=== PATIENT | male | born 1935 | race Caucasian/White ===

== ENCOUNTER 2021-07-19 12:24 | Inpatient (IN) ==
--- NOTE | 2021-07-19 12:27 | Emergency Department Note ---
Impression & Plan Acute respiratory failure with hypoxemia, COVID-19 ED Provider Note NAME: ÉHCTOR MCFADDEN AGE: 86 SEX: M : 1935 ARRIVES VIA: Ambulance INFORMANT: Patient, ED PROVIDER(S): Marcial Benito MD Chief Complaint: Weakness HPI: Patient does present with generalized weakness. EMS reported to find the patient hypoxic on room air. The patient has had a mild cough. The patient denies any fevers but was noted to be febrile in route. The patient has had decreased appetite. The patient is vaccinated for Covid and lives by himself. Patient does have a remote history of smoking but quit 15 years ago. The pat ient does use at home oxygen. The patient was placed on oxygen by EMS. No other abnormal vital signs other than mildly elevated heart rate at that time. Patient states he has no known history of COPD or emphysema. Patient denies any chest pains or abdominal pains. Patient denies any lower extremity swelling or history of DVT or PE. Patient denies any recent surgeries or procedures. ROS: See HPI for pertinent positives and negatives. A total of 10 systems were reviewed and otherwise negative. Past medical history: See below Surgical history: See below Social history: See below Physical Exam: GENERAL: Mildly ill in appearance, nasal cannula in place, wearing a mask. EYE EXAM: Normal conjunctiva. PERRL, no anisocoria and EOM's grossly intact w/o pain. NECK: Supple, no nuchal rigidity, no adenopathy, non-tender. No signs of meningismus. LUNGS: Diffuse wheezes throughout, slight decreased breath sounds right base. Normal chest wall mechanics. HEART: NSR, no MRG. ABDOMEN: Abdomen soft, non-tender, normo-active bowel sounds, no masses, no rebound or guarding. BACK: No CVA TTP. SKIN: No rashes and no bruising. UPPER EXTREMITIES: Upper extremities are grossly normal. LOWER EXTREMITIES: Grossly normal, no edema. NEURO EXAM: A&O x3, cranial nerves II-XII grossly intact, normal speech, moves all 4 extremities on command w/o issue. Differential diagnoses: Reactive airway disease, pneumonia, pneumothorax, COPD, CHF, infections, cardiac ischemia, pulmonary embolism, musculoskeletal, gastrointestinal, as well as other pathologies. Course: Patient was seen and evaluated the bedside. Full history physical exam was performed. Imaging Studies: See Below Cardiac monitoring: An order was placed for continuous cardiac monitoring. The monitor shows a rate of 95 with sinus rhythm. MDM: Patient was seen due to concern for hypoxemia and fever. Blood work is obtained. The patient was started on Zosyn for chest coverage. Patient was given antipyretics and IV fluids. The patient was also treated for his wheezing given his prior smoking history. Patient has normal white count with virtually normal hemoglobin at 13.7. Platelet count is unremarkable. The patient's kidney function grossly unremarkable. Mild hyperglycemia noted. AST slightly elevated at 52. The patient is Covid positive. Chest x-ray does not show obvious pneumonia. Given the patient's oxygen requirements with Covid do believe the patient would benefit from inpatient treatment at this time. I did speak the on-call hospitalist Jaimee Bowser and the patient was admitted to the [facility] medicine service by Dr. Knight. Critical Care: I have personally spent 57 minutes of critical care time in direct management of this patient. This includes bedside care, interpretation of diagnostic studies, and testing, discussion with consultants, patient, and family members, and other require inpatient management activities. This 57 minutes is in excess of all separately billable procedures. Past Med/Surg History Medical History (Updated 07/19/21 @ 15:54 by Marcial Benito MD) BPH (benign prostatic hyperplasia) Carotid artery disease Carotid ultrasound on 03/31/2021 revealed right internal carotid 70 to 99% critical stenosis, left internal carotid 50 to 69% stenosis GERD (gastroesophageal reflux disease) High cholesterol Hypertension T2DM (type 2 diabetes mellitus) Surgical History (Updated 07/19/21 @ 14:35 by Jaimee Canales PA-C) History of cataract extraction History of cholecystectomy History of knee replacement, total History of right hip replacement Family History (Updated 07/19/21 @ 14:35 by Jaimee Canales PA-C) Brother Colorectal cancer Father Black lung Social History (Updated 07/19/21 @ 14:35 by Jaimee Canales PA-C) Smoking Status: Former smoker Hx Alcohol Use: Yes Alcohol type: beer Alcohol Intake Frequency: Monthly or Less Preferred Language: Honduran marital status: / current occupational status: retired current occupation: [employer] Feels Safe at Home: Yes Allergies Allergies Allergy/AdvReac Type Severity Reaction Status Date / Time propoxyphene Allergy Unknown NAUSEA Verified 07/19/21 13:31 AND VOMITING Home Meds Home Medications Medication Instructions Recorded Confirmed atorvastatin 80 mg tablet (Lipitor) 40 mg PO DAILY 10/05/19 07/19/21 finasteride 5 mg tablet 5 mg PO DAILY 10/05/19 07/19/21 omeprazole 20 mg capsule,delayed 20 mg PO DAILY 10/05/19 07/19/21 release tamsulosin 0.4 mg capsule 0.4 mg PO HS 10/05/19 07/19/21 cetirizine 10 mg tablet 10 mg PO DAILY 10/08/19 07/19/21 amlodipine 5 mg tablet 5 mg PO DAILY 07/19/21 07/19/21 aspirin 81 mg chewable tablet 81 mg PO DAILY 07/19/21 07/19/21 (Aspirin Childrens) calcium polycarbophil 625 mg tablet 625 mg PO DAILY 07/19/21 07/19/21 cholecalciferol (vitamin D3) 25 2,550 mcg PO DAILY 07/19/21 07/19/21 mcg (1,000 unit) tablet (Vitamin D3) cyanocobalamin (vitamin B-12) 500 500 mcg PO DAILY 07/19/21 07/19/21 mcg tablet fluticasone propionate 50 2 spray INTRANASAL DAILY 07/19/21 07/19/21 mcg/actuation nasal spray,suspension lisinopril 20 mg tablet 20 mg PO BID 07/19/21 07/19/21 Results & Data (ED) Vital Signs Vital Signs - 24 hr 07/19/21 12:33 07/19/21 12:53 07/19/21 13:00 Temperature Temperature Source Pulse Rate 96 H 92 H Pulse Rate [Right Finger] 92 H Pulse Rate from SpO2 Sensor 94 H 88 Respiratory Rate 13 26 H Respiratory Effort / Characteristics Non-Labored Spontaneous Spontaneous Respiratory Depth Respiratory Pattern Blood Pressure 150/99 H 144/78 H Blood Pressure Mean 116 100 Pulse Oximetry 95 87 L 95 Oxygen Delivery Method Nasal Cannula Room Air Nasal Cannula Oxygen Flow Rate 4 4 Sepsis Recent Fever Within 48 Hours Sepsis New/Unexplained Change in Mental Status Sepsis Action Taken by Nursing 07/19/21 13:02 07/19/21 13:15 07/19/21 13:30 Temperature 38.8 C H Temperature Source Oral Pulse Rate 111 H 97 H 94 H Pulse Rate [Right Finger] Pulse Rate from SpO2 Sensor 89 94 H Respiratory Rate 22 35 H 27 H Respiratory Effort / Characteristics Non-Labored Spontaneous Respiratory Depth Normal Respiratory Pattern Regular Blood Pressure 130/66 129/73 Blood Pressure Mean 87 91 Pulse Oximetry 95 93 93 Oxygen Delivery Method Room Air Nasal Cannula Nasal Cannula Oxygen Flow Rate 4 4 4 Sepsis Recent Fever Within 48 Hours Yes Sepsis New/Unexplained Change in Mental Status No Sepsis Action Taken by Nursing No Action Required 07/19/21 13:45 07/19/21 14:00 07/19/21 14:15 Temperature Temperature Source Pulse Rate 103 H 102 H 116 H Pulse Rate [Right Finger] Pulse Rate from SpO2 Sensor 72 85 89 Respiratory Rate 24 33 H 32 H Respiratory Effort / Characteristics Respiratory Depth Respiratory Pattern Blood Pressure 132/67 132/65 130/61 Blood Pressure Mean 88 87 84 Pulse Oximetry 92 92 92 Oxygen Delivery Method Nasal Cannula Nasal Cannula Nasal Cannula Oxygen Flow Rate 4 4 4 Sepsis Recent Fever Within 48 Hours Sepsis New/Unexplained Change in Mental Status Sepsis Action Taken by Nursing 07/19/21 14:30 07/19/21 14:45 07/19/21 15:00 Temperature Temperature Source Pulse Rate 88 89 99 H Pulse Rate [Right Finger] Pulse Rate from SpO2 Sensor 86 89 87 Respiratory Rate 33 H 35 H 34 H Respiratory Effort / Characteristics Respiratory Depth Respiratory Pattern Blood Pressure 123/66 132/72 141/76 H Blood Pressure Mean 85 92 97 Pulse Oximetry 93 93 92 Oxygen Delivery Method Nasal Cannula Nasal Cannula Nasal Cannula Oxygen Flow Rate 4 4 4 Sepsis Recent Fever Within 48 Hours Sepsis New/Unexplained Change in Mental Status Sepsis Action Taken by Nursing 07/19/21 15:15 07/19/21 15:30 Temperature Temperature Source Pulse Rate 86 90 Pulse Rate [Right Finger] Pulse Rate from SpO2 Sensor 84 84 Respiratory Rate 18 27 H Respiratory Effort / Characteristics Respiratory Depth Respiratory Pattern Blood Pressure 98/74 L 143/78 H Blood Pressure Mean 82 99 Pulse Oximetry 94 94 Oxygen Delivery Method Nasal Cannula Nasal Cannula Oxygen Flow Rate 4 4 Sepsis Recent Fever Within 48 Hours Sepsis New/Unexplained Change in Mental Status Sepsis Action Taken by Detention Medications Current Medication List: was personally reviewed by me Laboratory Data Attestation: I reviewed the patient's lab results. Result diagrams: 07/19/21 12:45 07/19/21 12:45 Lab Results 07/19/21 07/19/21 07/19/21 Range/Units 12:45 12:45 12:45 WBC 8.01 (4.8-10.8) K/uL RBC 4.15 L (4.7-6.1) M/uL Hgb 13.7 L (14.0-18.0) g/dL Hct 40.1 L (42-52) % MCV 96.6 (80-100) fL MCH 33.0 (25-34) pg MCHC 34.2 (32-36) g/dL RDW Std Deviation 48.6 H (36.4-46.3) fL RDW Coeff of Aneta 13.6 (11.5-14.5) % Plt Count 239 (130-400) K/uL MPV 9.5 (7.4-10.4) fL Immature Gran % (Auto) 3.5 % Neut % (Auto) 88.4 % Lymph % (Auto) 6.4 % Clarke % (Auto) 1.6 % Eos % (Auto) 0.0 % Baso % (Auto) 0.1 % Neut # (Auto) 7.08 H (1.4-6.5) K/uL Lymph # (Auto) 0.51 L (1.2-3.4) K/uL Clarke # (Auto) 0.13 (0.11-0.59) K/uL Eos # (Auto) 0.00 (0-0.5) K/uL Baso # (Auto) 0.01 (0-0.2) K/uL Immature Gran # (Auto) 0.28 H (0.00-0.02) K/uL Toxic Granulation 1+ PT 11.5 (9.0-12.0) Seconds INR 1.1 (0.9-1.1) APTT 33.3 H (21.0-31.0) Seconds PTT Ratio 1.3 Sodium 137 (136-145) mmol/L Potassium 3.7 (3.5-5.1) mmol/L Chloride 102 (98-107) mmol/L Carbon Dioxide 25 (21-32) mmol/L Anion Gap 10.0 (3-11) BUN 19 H (7-18) mg/dl Creatinine 1.39 (0.6-1.4) mg/dl Est Cr Clr Drug Dosing 46.8 ml/min Est GFR ( Amer) 52.8 ml/min Est GFR (Non-Af Amer) 45.6 ml/min BUN/Creatinine Ratio 13.6 (10-20) Glucose 213 H (70-99) mg/dl Lactate (0.4-2.0) mmol/L Calcium 8.5 (8.5-10.1) mg/dl Magnesium 1.8 (1.8-2.4) mg/dl Total Bilirubin 0.6 (0.2-1) mg/dl AST 52 H (15-37) U/L ALT 44 (12-78) U/L Alkaline Phosphatase 74 (45-117) U/L Troponin I 0.028 (0-0.045) ng/ml Total Protein 7.1 (6.4-8.2) gm/dl Albumin 2.6 L (3.4-5.0) gm/dl Globulin 4.5 H (2.5-4.0) gm/dl Albumin/Globulin Ratio 0.6 L (0.9-2) Procalcitonin (0-0.5) ng/ml COVID-19 Eval Order SARS-CoV-2 (PCR) (Negative) 07/19/21 07/19/21 07/19/21 Range/Units 12:45 12:45 12:57 WBC (4.8-10.8) K/uL RBC (4.7-6.1) M/uL Hgb (14.0-18.0) g/dL Hct (42-52) % MCV (80-100) fL MCH (25-34) pg MCHC (32-36) g/dL RDW Std Deviation (36.4-46.3) fL RDW Coeff of Aneta (11.5-14.5) % Plt Count (130-400) K/uL MPV (7.4-10.4) fL Immature Gran % (Auto) % Neut % (Auto) % Lymph % (Auto) % Clarke % (Auto) % Eos % (Auto) % Baso % (Auto) % Neut # (Auto) (1.4-6.5) K/uL Lymph # (Auto) (1.2-3.4) K/uL Clarke # (Auto) (0.11-0.59) K/uL Eos # (Auto) (0-0.5) K/uL Baso # (Auto) (0-0.2) K/uL Immature Gran # (Auto) (0.00-0.02) K/uL Toxic Granulation PT (9.0-12.0) Seconds INR (0.9-1.1) APTT (21.0-31.0) Seconds PTT Ratio Sodium (136-145) mmol/L Potassium (3.5-5.1) mmol/L Chloride (98-107) mmol/L Carbon Dioxide (21-32) mmol/L Anion Gap (3-11) BUN (7-18) mg/dl Creatinine (0.6-1.4) mg/dl Est Cr Clr Drug Dosing ml/min Est GFR ( Amer) ml/min Est GFR (Non-Af Amer) ml/min BUN/Creatinine Ratio (10-20) Glucose (70-99) mg/dl Lactate 1.3 (0.4-2.0) mmol/L Calcium (8.5-10.1) mg/dl Magnesium (1.8-2.4) mg/dl Total Bilirubin (0.2-1) mg/dl AST (15-37) U/L ALT (12-78) U/L Alkaline Phosphatase (45-117) U/L Troponin I (0-0.045) ng/ml Total Protein (6.4-8.2) gm/dl Albumin (3.4-5.0) gm/dl Globulin (2.5-4.0) gm/dl Albumin/Globulin Ratio (0.9-2) Procalcitonin 0.21 (0-0.5) ng/ml COVID-19 Eval Order Covid19 at [facility] SARS-CoV-2 (PCR) (Negative) 07/19/21 Range/Units 12:57 WBC (4.8-10.8) K/uL RBC (4.7-6.1) M/uL Hgb (14.0-18.0) g/dL Hct (42-52) % MCV (80-100) fL MCH (25-34) pg MCHC (32-36) g/dL RDW Std Deviation (36.4-46.3) fL RDW Coeff of Aneta (11.5-14.5) % Plt Count (130-400) K/uL MPV (7.4-10.4) fL Immature Gran % (Auto) % Neut % (Auto) % Lymph % (Auto) % Clarke % (Auto) % Eos % (Auto) % Baso % (Auto) % Neut # (Auto) (1.4-6.5) K/uL Lymph # (Auto) (1.2-3.4) K/uL Clarke # (Auto) (0.11-0.59) K/uL Eos # (Auto) (0-0.5) K/uL Baso # (Auto) (0-0.2) K/uL Immature Gran # (Auto) (0.00-0.02) K/uL Toxic Granulation PT (9.0-12.0) Seconds INR (0.9-1.1) APTT (21.0-31.0) Seconds PTT Ratio Sodium (136-145) mmol/L Potassium (3.5-5.1) mmol/L Chloride (98-107) mmol/L Carbon Dioxide (21-32) mmol/L Anion Gap (3-11) BUN (7-18) mg/dl Creatinine (0.6-1.4) mg/dl Est Cr Clr Drug Dosing ml/min Est GFR ( Amer) ml/min Est GFR (Non-Af Amer) ml/min BUN/Creatinine Ratio (10-20) Glucose (70-99) mg/dl Lactate (0.4-2.0) mmol/L Calcium (8.5-10.1) mg/dl Magnesium (1.8-2.4) mg/dl Total Bilirubin (0.2-1) mg/dl AST (15-37) U/L ALT (12-78) U/L Alkaline Phosphatase (45-117) U/L Troponin I (0-0.045) ng/ml Total Protein (6.4-8.2) gm/dl Albumin (3.4-5.0) gm/dl Globulin (2.5-4.0) gm/dl Albumin/Globulin Ratio (0.9-2) Procalcitonin (0-0.5) ng/ml COVID-19 Eval Order SARS-CoV-2 (PCR) POSITIVE A* (Negative) Administered Medications Discontinued Medications Acetaminophen (Acetaminophen 500 Mg Tab) 1,000 mg PO NOW STA Stop: 07/19/21 14:38 Last Admin: 07/19/21 15:06 Dose: 1,000 mg Documented by: [id number] Albuterol (Albut/Ipratrop 3mg/0.5mg Neb 3 Ml Vial) 6 ml NEB NOW STA Stop: 07/19/21 12:40 Last Admin: 07/19/21 13:00 Dose: 6 ml Documented by: [id number] Sodium Chloride (Nss 1000ml) 1,000 mls @ 999 mls/hr IV .Q1H1M BERTRAND Stop: 07/19/21 13:45 Last Infusion: 07/19/21 13:54 Dose: 0 mls/hr Documented by: [id number] Admin: 07/19/21 12:50 Dose: 999 mls/hr Documented by: [id number] Piperacillin Sod/Tazobactam Sod (Zosyn) 4.5 gm in 120 mls @ 240 mls/hr IV NOW ONE Stop: 07/19/21 13:08 Last Infusion: 07/19/21 14:39 Dose: 0 mls/hr Documented by: [id number] Admin: 07/19/21 13:49 Dose: 240 mls/hr Documented by: [id number] Magnesium Sulfate/Dextrose (Magnesium Sulfate / D5w) 1 gm in 100 mls @ 100 mls/hr IV NOW STA Stop: 07/19/21 13:39 Last Infusion: 07/19/21 14:52 Dose: 0 mls/hr Documented by: [id number] Admin: 07/19/21 13:49 Dose: 100 mls/hr Documented by: [id number] Methylprednisolone (Methylprednisolone 40 Mg/Ml Vial) 40 mg IV NOW STA Stop: 07/19/21 12:40 Last Admin: 07/19/21 13:49 Dose: 40 mg Documented by: [id number] Imaging Data Radiologist's Impression: Chest X-Ray 07/19/21 12:39 XR chest 1V portable HISTORY: SEPSIS COMPARISON: None. FINDINGS: No pneumothorax. No pleural effusions. The heart is mildly enlarged. Left basilar linear densities favor subsegmental atelectasis or scarring. No evidence for pulmonary edema. Slight prominence of interstitial markings within the right lung. Otherwise, no focal lung consolidations. Mild emphysema. IMPRESSION: 1. Cardiomegaly. 2. Emphysema. 3. Slight prominence of the interstitial markings within the right lung. This could be chronic or represent mild asymmetric congestive change. ACT 112: Negative or not required by law. Electronically signed by: Michael Pierce M.D. 07/19/2021 2:53 PM Discharge Plan Visit Data Chief Complaint: Weakness ED Provider: Marcial Benito Discharge Problem: Acute respiratory failure with hypoxemia, COVID-19 Patient Disposition: Admitted As Inpatient Forms Stand Alone Forms: [facility] Prescriptions Prescriptions: No Action atorvastatin [Lipitor] 80 mg tablet 40 mg PO DAILY RF: 0 finasteride 5 mg tablet 5 mg PO DAILY RF: 0 omeprazole 20 mg capsule,delayed release(DR/EC) 20 mg PO DAILY RF: 0 tamsulosin 0.4 mg capsule 0.4 mg PO HS RF: 0 cetirizine 10 mg tablet 10 mg PO DAILY RF: 0 amlodipine 5 mg Tablet 5 mg PO DAILY RF: 0 cyanocobalamin (vitamin B-12) 500 mcg Tablet 500 mcg PO DAILY RF: 0 aspirin [Aspirin Childrens] 81 mg Tablet,Chewable 81 mg PO DAILY RF: 0 cholecalciferol (vitamin D3) [Vitamin D3] 25 mcg (1,000 unit) Tablet 2,550 mcg PO DAILY RF: 0 lisinopril 20 mg Tablet 20 mg PO BID RF: 0 calcium polycarbophil 625 mg Tablet 625 mg PO DAILY RF: 0 fluticasone propionate [Flonase] 50 mcg/actuation [place],Suspension 2 spray INTRANASAL DAILY RF: 0 Referrals Referrals: Riya Steele, [Primary Care Provider] -
[2021-07-19] MEDS ORDERED: ALBUT/IPRATROP 3MG/0.5MG NEB 3 ML VIAL NEB STA (12:39)
[2021-07-19] MEDS ORDERED: PIPERACILL/TAZOBAC CONSULT ACTIVE PRN (12:39)
[2021-07-19] MEDS ORDERED: PIPERACILLIN/TAZOBACTAM 4.5 GM/120 ML BAG IV ONE (12:39)
[2021-07-19] MEDS ORDERED: MAGNESIUM SULFATE / D5W 1 GM/100 ML BAG IV STA (12:40)
[2021-07-19] MEDS ORDERED: SODIUM CHLORIDE 0.9% 1000ML 1,000 ML IV SCH (12:45)
[2021-07-19 13:09] LABS: Hematocrit (blood only) 40.1 % (42-52); Hemoglobin 13.7 g/dL (14.0-18.0); Mean Corpuscular Hgb Conc 34.2 g/dL (32-36); Mean Corpuscular Volume 96.6 fL (80-100); Mean Platelet Volume 9.5 fL (7.4-10.4); Platelet Count 239 K/uL (130-400); RDW Coefficient of Variation 13.6 % (11.5-14.5); RDW Standard Deviation 48.6 fL (36.4-46.3); Red Blood Count 4.15 M/uL (4.7-6.1); White Blood Count 8.01 K/uL (4.8-10.8)
[2021-07-19 13:19] LABS: INR 1.1 (0.9-1.1); Partial Thromboplastin Ratio 1.3; Partial Thromboplastin Time 33.3 Seconds (21.0-31.0); Prothrombin Time 11.5 Seconds (9.0-12.0)
[2021-07-19 13:27] LABS: Albumin Level 2.6 gm/dl (3.4-5.0); BUN Creatinine Ratio 13.6 (10-20); Calcium 8.5 mg/dl (8.5-10.1); Creatinine Clr Calc Pharmacy 46.8 ml/min; Est GFR (African American) 52.8 ml/min; Est GFR (Non-African American) 45.6 ml/min; Magnesium 1.8 mg/dl (1.8-2.4); Potassium 3.7 mmol/L (3.5-5.1)
[2021-07-19 13:32] LABS: Albumin Globulin Ratio 0.6 (0.9-2); Bilirubin,Total 0.6 mg/dl (0.2-1); Globulin 4.5 gm/dl (2.5-4.0); Total Protein 7.1 gm/dl (6.4-8.2); Troponin I 0.028 ng/ml (0-0.045)
[2021-07-19 14:06] LABS: Basophils # (auto) 0.01 K/uL (0-0.2); Basophils % (auto) 0.1 %; Immature Granulocytes # (auto) 0.28 K/uL (0.00-0.02); Immature Granulocytes % (auto) 3.5 %; Lymphocytes # (auto) 0.51 K/uL (1.2-3.4); Lymphocytes % (auto) 6.4 %; Monocytes # (auto) 0.13 K/uL (0.11-0.59); Monocytes % (auto) 1.6 %; Neutrophils # (auto) 7.08 K/uL (1.4-6.5); Neutrophils % (auto) 88.4 %; Toxic Granulation 1+
[2021-07-19] MEDS ORDERED: ACETAMINOPHEN 500 MG TAB PO STA (14:37)
--- NOTE | 2021-07-19 14:38 | History & Physical Report ---
Date of Service July 19, 2021 Assessment & Plan (1) COVID-19: Plan: Emphysema and slight prominence of interstitial markings noted on chest x-ray without sasha pneumonia. Patient is Covid positive and is clearly presenting with Covid pneumonia symptoms including respiratory symptoms, fatigue and hypoxia. With his current oxygen requirement will continue with steroid therapy started in the ER and will also load him with remdesivir with daily infusions starting tomorrow. Continue supportive care efforts and prone patient when able. (2) Hypoxia: Plan: Continue supportive care as above. For questionable pulmonary edema we will give a small dose of Lasix as patient is Lasix teena and monitor response with strict I's and O's. He is not hypervolemic and is not presenting with a heart failure type syndrome at this point. It appears the hypoxia is generally related to a viral respiratory illness, deconditioning. (3) TOMMY (acute kidney injury): Plan: Mild acute kidney injury present. Despite this we will try a small dose of Lasix in the setting of hypoxia with congestive change seen on chest x-ray. BMP in a.m. Patient refused Helms catheter. (4) T2DM (type 2 diabetes mellitus): Plan: Pharmacy for hyperglycemic management with insulin as needed. (5) Hypertension: Plan: Blood pressure slightly up, continue lisinopril twice daily per home regimen, monitor creatinine closely (6) Carotid artery disease: Plan: Continue medical management including aspirin, atorvastatin, lisinopril per home regimen. (7) DVT prophylaxis: Plan: Lovenox DNR/DNI as instructed by his [id number] who tells me she is the medical power of bingo caller along with his son, her Patient also was in agreement with this Disposition-came from home, may need therapy, to covid unit Allison Knight DO [facility] Hospitalist History of Present Illness Chief Complaint: not feeling well for 2 days, +cough, low O2 and weakness Primary Care Provider: Riya Steele DO The patient is an 86-year-old man seen by Dr. Steele at [facility] clinic today for reports of a 5-day history of generalized weakness, worsened appetite, elevated blood sugars, and chills. Pulse ox on triage was 85% on room air which increased to 90% on 4 L via nasal cannula. He was sent to the ER for ongoing evaluation of hypoxia and generalized weakness. Upon arrival he was found to be 87% on room air and was placed again on 4 L nasal cannula. He is febrile with a temp of 39 C and a pulse of 103. Lab work reveals no evidence of leukocytosis, normal H&H, normal coags, normal chemistry with a mild TOMMY. Creatinine is 1.4 with a baseline creatinine of 1.0 upon outpatient record review. He is mildly hyperglycemic at 213 and has a history of type 2 diabetes. He appears to be diet controlled. Last hemoglobin A1c was in January 2021 was 7.2. He has positive for Covid reporting a vaccination previously. He received a 2 dose series and return on 12/22/2020 and again on 01/19/2021. Allergies Allergy/AdvReac Type Severity Reaction Status Date / Time propoxyphene Allergy Unknown NAUSEA Verified 07/19/21 13:31 AND VOMITING Home Medications Medication Instructions Recorded Confirmed Type atorvastatin 80 mg tablet (Lipitor) 40 mg PO DAILY 10/05/19 07/19/21 History finasteride 5 mg tablet 5 mg PO DAILY 10/05/19 07/19/21 History omeprazole 20 mg capsule,delayed 20 mg PO DAILY 10/05/19 07/19/21 History release tamsulosin 0.4 mg capsule 0.4 mg PO HS 10/05/19 07/19/21 History cetirizine 10 mg tablet 10 mg PO DAILY 10/08/19 07/19/21 History amlodipine 5 mg tablet 5 mg PO DAILY 07/19/21 07/19/21 History aspirin 81 mg chewable tablet 81 mg PO DAILY 07/19/21 07/19/21 History (Aspirin Childrens) calcium polycarbophil 625 mg tablet 625 mg PO DAILY 07/19/21 07/19/21 History cholecalciferol (vitamin D3) 25 2,550 mcg PO DAILY 07/19/21 07/19/21 History mcg (1,000 unit) tablet (Vitamin D3) cyanocobalamin (vitamin B-12) 500 500 mcg PO DAILY 07/19/21 07/19/21 History mcg tablet fluticasone propionate 50 2 spray INTRANASAL DAILY 07/19/21 07/19/21 History mcg/actuation nasal spray,suspension lisinopril 20 mg tablet 20 mg PO BID 07/19/21 07/19/21 History Past Med/Surg History Medical History BPH (benign prostatic hyperplasia) Carotid artery disease Carotid ultrasound on 03/31/2021 revealed right internal carotid 70 to 99% critical stenosis, left internal carotid 50 to 69% stenosis GERD (gastroesophageal reflux disease) High cholesterol Hypertension T2DM (type 2 diabetes mellitus) Surgical History History of cataract extraction History of cholecystectomy History of knee replacement, total History of right hip replacement Family History Brother Colorectal cancer Father Black lung Social History Smoking Status: Former smoker Second Hand Exposure: No; Do You Dip or Chew Tobacco: No; Tobacco Cessation Education Requested by Patient: No Hx Alcohol Use: Yes Alcohol type: beer Alcohol Intake Frequency: Monthly or Less Hx Substance Use: No Preferred Language: Lithuanian Communication Ability: Effective Hand Laminator Required: No Beliefs That Will Affect Care: None marital status: / Current Living Situation: Alone Current Living Situation Comment: Home, Independent current occupational status: retired current occupation: [employer] Other Information That Helps Us Care for You: No Feels Safe at Home: Yes Safety Concerns: Feels Safe At This Time Assistive Devices: Cane and Denture - Upper Review of Systems Review of Systems: At least ten systems were reviewed and negative except as indicated in HPI above. Physical Exam Physical Exam: CONSTITUTIONAL: WNWD, vitals as above, generally well-ap pearing EYES: EOMI bilaterally, PERRL, normal conjunctivae, no scleral icterus ENT: external ear and nose normal, oropharynx clear, MMM NECK: trachea midline, no lymphadenopathy RESPIRATORY: fine crackles intermittently throughout, no rales or wheezes, normal respiratory effort CARDIOVASCULAR: regular rate and rhythm, S1 and 2 heard without murmurs, gallops or rubs, no JVD, no peripheral edema GASTROINTESTINAL: soft, nontender, nondistended. MUSCULOSKELETAL: strength 5/5 throughout, head is normocephalic and atraumatic SKIN: warm and dry NEUROLOGIC: CN 2-12 grossly intact, no sensory deficit, normal cognition, normal speech, no tremor. No gross focal deficits. PSYCHIATRIC: alert cooperative and oriented to person, place and time. Euthymic mood, makes good eye contact, language grossly intact, recent and remote memory grossly intact. Results & Data Results & Data ([facility]) Vital Signs (Past 12 Hours) Vital Signs Temp Pulse Pulse Resp BP Pulse Ox 07/19/21 13:45 103 H 24 132/67 92 07/19/21 13:30 94 H 27 H 129/73 93 07/19/21 13:15 97 H 35 H 130/66 93 07/19/21 13:02 38.8 C H 111 H 22 95 07/19/21 13:00 92 H 92 H 26 H 144/78 H 95 07/19/21 12:53 87 L 07/19/21 12:33 96 H 13 150/99 H 95 Laboratory Results Short CBC 07/19/21 Range/Units 12:45 WBC 8.01 (4.8-10.8) K/uL Hgb 13.7 L (14.0-18.0) g/dL Hct 40.1 L (42-52) % Plt Count 239 (130-400) K/uL BMP 07/19/21 12:45 Sodium 137 Potassium 3.7 Chloride 102 Carbon Dioxide 25 BUN 19 H Creatinine 1.39 Glucose 213 H Calcium 8.5 Cardiac Enzymes 07/19/21 Range/Units 12:45 Troponin I 0.028 (0-0.045) ng/ml Liver Function 07/19/21 Range/Units 12:45 Total Bilirubin 0.6 (0.2-1) mg/dl AST 52 H (15-37) U/L ALT 44 (12-78) U/L Alkaline Phosphatase 74 (45-117) U/L Albumin 2.6 L (3.4-5.0) gm/dl Code Status & VTE Plan VTE Prophylaxis Plan VTE Prophylaxis will be ordered: Yes
--- NOTE | 2021-07-19 14:55 | XRay Report ---
XR chest 1V portable HISTORY: SEPSIS COMPARISON: None. FINDINGS: No pneumothorax. No pleural effusions. The heart is mildly enlarged. Left basilar linear de nsities favor subsegmental atelectasis or scarring. No evidence for pulmonary edema. Slight prominenc e of interstitial markings within the right lung. Otherwise, no focal lung consolidations. Mild emphy sema. IMPRESSION: 1. Cardiomegaly. 2. Emphysema. 3. Slight prominence of the interstitial markings within the right lung. This could be chronic or rep resent mild asymmetric congestive change. ACT 112: Negative or not required by law. Electronically signed by: Michael Pierce M.D. 07/19/2021 2:53 PM
[2021-07-19] MEDS ORDERED: FUROSEMIDE 40 MG/4 ML VIAL IV STA (15:43)
[2021-07-19] MEDS ORDERED: REMDESIVIR 200 MG in SODIUM CHLORIDE 0.9% 210 ML IV STA (15:45)
[2021-07-19] MEDS ORDERED: CARBOHYDRATES FOR HYPOGLYCEMIA PO PRN (16:35)
[2021-07-19] MEDS ORDERED: ALUMINUM/MAGNESIUM SUSP 30 ML UDC PO PRN (16:35)
[2021-07-19] MEDS ORDERED: POLYETHYLENE (MIRALAX) 17 GM PACK PO PRN (16:35)
[2021-07-19] MEDS ORDERED: BENZONATATE 100 MG CAPSULE PO PRN (16:35)
[2021-07-19] MEDS ORDERED: GLUCOSE 10 TABS/TUBE PO PRN (16:35)
[2021-07-19] MEDS ORDERED: GLUCOSE 40% GEL 15 GM TUBE PO PRN (16:35)
[2021-07-19] MEDS ORDERED: PHARMACY GLYCEMIC MGMT CONSULT PRN (16:35)
[2021-07-19] MEDS ORDERED: DEXTROSE 50% 50 ML SYRINGE IV PRN (16:35)
[2021-07-19] MEDS ORDERED: GLUCAGON FOR INJ 1 MG VIAL SQ PRN (16:35)
[2021-07-19] MEDS ORDERED: ONDANSETRON INJ 2 MG/ML 2 ML VIAL IV PRN (16:35)
[2021-07-19] MEDS ORDERED: MAGNESIUM HYDROXIDE SUSP 30 ML UDC PO PRN (16:35)
[2021-07-19] MEDS ORDERED: ALBUTEROL HFA 8 GM INHALER INH SCH (17:00)
[2021-07-19] MEDS ORDERED: INSULIN HUMAN NPH SC ONE (17:15)
[2021-07-19 18:21] LABS: Appearance Urine Cloudy (Clear); Bilirubin Urine Negative (Negative); Blood Urine Negative (Negative); Color Urine Dark Yellow; Epithelial Cell Urine Auto >30 /lpf (0-5); Glucose Urine UA 1+ (Negative); Ketones Urine 1+ (Negative); Leukocyte Esterase Urine Negative (Negative); Nitrite Urine Negative (Negative); Protein Urine 1+ (Negative); Specific Gravity Urine 1.021 (1.000-1.030); Urobilinogen Urine Negative (Negative); pH Urine 5.5 (4.5-7.5)
[2021-07-19] MEDS: INSULIN ASPART 100 UNITS/ML 3 ML PEN SC SCH ×2 (18:21→21:12)
[2021-07-19 18:35] LABS: Bacteria Urine Automated 1+ (Negative); Mucus Urine Present (None Prsent); RBC Urine Automated 0-4 /hpf (0-4)
[2021-07-19] MEDS: ENOXAPARIN INJ 40 MG/0.4 ML SYR SQ SCH (20:02)
[2021-07-19] MEDS: lisinopril 20 MG TAB PO SCH (20:03)
[2021-07-19] MEDS: TAMSULOSIN HCL 0.4 MG CAP PO SCH (20:04)
[2021-07-19] MEDS: ALBUTEROL HFA 8 GM INHALER INH SCH (20:12)
[2021-07-19] MEDS ORDERED: INSULIN GLARGINE SOLOSTAR 100 UNITS/ML 3 ML PEN SC SCH (21:00)
[2021-07-20] MEDS: INSULIN ASPART 100 UNITS/ML 3 ML PEN SC SCH ×6 (00:03→22:15)
--- NOTE | 2021-07-20 06:17 | Electrocardiogram Report ---
Test Reason : Blood Pressure : / mmHG Vent. Rate : 100 BPM Atrial Rate : 100 BPM P-R Int : 170 ms QRS Dur : 142 ms QT Int : 370 ms P-R-T Axes : 046 -68 013 degrees QTc Int : 477 ms Sinus rhythm with Premature atrial complexes Right bundle branch block Left anterior fascicular block Bifascicular block Abnormal ECG No previous ECGs available Confirmed by Luis Ojeda ([id number]) on 07/20/2021 6:16:58 AM Referred By: REFERRED SELF Confirmed By:Luis Ojeda
[2021-07-20 07:01] LABS: Hematocrit (blood only) 39.2 % (42-52); Hemoglobin 13.1 g/dL (14.0-18.0); Mean Corpuscular Hgb Conc 33.4 g/dL (32-36); Mean Corpuscular Volume 95.8 fL (80-100); Mean Platelet Volume 9.6 fL (7.4-10.4); Platelet Count 249 K/uL (130-400); RDW Coefficient of Variation 13.7 % (11.5-14.5); RDW Standard Deviation 48.3 fL (36.4-46.3); Red Blood Count 4.09 M/uL (4.7-6.1); White Blood Count 8.83 K/uL (4.8-10.8)
[2021-07-20 07:33] LABS: Immature Granulocytes # (auto) 0.15 K/uL (0.00-0.02); Immature Granulocytes % (auto) 1.7 %; Lymphocytes # (auto) 0.85 K/uL (1.2-3.4); Lymphocytes % (auto) 9.6 %; Monocytes # (auto) 0.08 K/uL (0.11-0.59); Monocytes % (auto) 0.9 %; Neutrophils # (auto) 7.75 K/uL (1.4-6.5); Neutrophils % (auto) 87.8 %; Toxic Granulation 1+
[2021-07-20 07:37] LABS: Albumin Level 2.1 gm/dl (3.4-5.0); BUN Creatinine Ratio 21.4 (10-20); Calcium 8.6 mg/dl (8.5-10.1); Creatinine Clr Calc Pharmacy 70.4 ml/min; Magnesium 2.1 mg/dl (1.8-2.4); Potassium 3.4 mmol/L (3.5-5.1)
[2021-07-20 07:43] LABS: Albumin Globulin Ratio 0.5 (0.9-2); Bilirubin,Total 0.4 mg/dl (0.2-1); C Reactive Protein 21.5 mg/dl (0-0.29); Globulin 4.5 gm/dl (2.5-4.0); Total Protein 6.6 gm/dl (6.4-8.2)
[2021-07-20] MEDS: ATORVASTATIN 40 MG TAB PO SCH (07:49)
[2021-07-20] MEDS: amLODIPine BESYLATE 5 MG TAB PO SCH (07:49)
[2021-07-20] MEDS: lisinopril 20 MG TAB PO SCH ×2 (07:50→20:04)
[2021-07-20] MEDS: ASPIRIN 81 MG CHEW PO SCH (07:50)
[2021-07-20] MEDS: CETIRIZINE HCL 10 MG TABLET PO SCH (07:51)
[2021-07-20] MEDS: PANTOprazole 40 MG TAB PO SCH (07:54)
[2021-07-20] MEDS: CALCIUM POLYCARBOPHIL 625MG TAB PO SCH (07:54)
[2021-07-20] MEDS: CHOLECALCIFEROL 1,000 UNITS 25 MCG TAB PO SCH (07:54)
[2021-07-20] MEDS: FINASTERIDE 5 MG TAB PO SCH (07:55)
[2021-07-20] MEDS: CYANOCOBALAMIN 500 MCG TABLET (VITAMIN B-12) PO SCH (07:55)
[2021-07-20] MEDS: FLUTICASONE PROPIONATE NA SPR 16 GM BTL NAE SCH (07:57)
[2021-07-20] MEDS: ALBUTEROL HFA 8 GM INHALER INH SCH ×3 (07:58→15:35)
[2021-07-20] MEDS: ENOXAPARIN INJ 40 MG/0.4 ML SYR SQ SCH (08:59)
[2021-07-20] MEDS ORDERED: dexAMETHasone 6 MG in SYRINGE 0 ML IV SCH (09:00)
[2021-07-20] MEDS ORDERED: INSULIN HUMAN NPH SC SCH (09:00)
[2021-07-20] MEDS: INSULIN HUMAN NPH SC SCH (09:06)
[2021-07-20 09:10] LABS: Estimated Average Glucose 169 mg/dl; Hemoglobin A1C 7.5 % (4.5-5.6)
--- NOTE | 2021-07-20 11:51 | Pharmacy Report ---
Pharmacy Glycemic Short Note 2 - Date of Service July 20, 2021 - Glycemic Short BSG Results (Last 24 hours): 07/19/21 07/19/21 07/19/21 12:45 16:57 20:20 Glucose 213 H POC Glucose 250 H 263 H 07/19/21 07/20/21 07/20/21 23:59 03:57 06:12 Glucose 120 H POC Glucose 205 H 111 H 07/20/21 07/20/21 07:22 11:19 Glucose POC Glucose 124 H 163 H OUTPATIENT ANTIDIABETIC REGIMEN: * N/A * A1c: 7.5% 07/20/21 ASSESSMENT: * Patient admitted for COVID-19 pneumonia experiencing steroid induced hyperglycemia. Patient does not appear to on any anti-diabetic medications as an outpatient. * NPH initiated last night and BSGs trended down nicely today. Will continue current NPH dose and novolog scale. * Patient continues on IV steroids and is tolerating a diet, however intake this morning was low. Will monitor PLAN FOR INPATIENT GLYCEMIC CONTROL: * Hold outpatient oral diabetes medications * Basal insulin * NPH 40 units SQ qam with dexamethasone * Bolus insulin * NovoLog per scale ACHS or Q6hrs while NPO * Goal Range: Low 110 mg/dL - High 140 mg/dL * Correction Factor: 25 mg/dL/unit * Nutritional / Prandial insulin per carb ratio of 1 unit per 8 grams CHO consumed PLAN FOR DISCHARGE: * Can consider initiation of metformin XR 500mg PO daily with evening meal at discharge provided eGFR acceptable.
[2021-07-20] MEDS: REMDESIVIR 100 MG in SODIUM CHLORIDE 0.9% 230 ML IV SCH (12:04)
[2021-07-20] MEDS: SODIUM CHLORIDE 0.9% 10ML FLUSH IV SCH (12:05)
[2021-07-20] MEDS: FUROSEMIDE 20 MG in SYRINGE 0 ML IV SCH (12:08)
[2021-07-20] MEDS: POTASSIUM CHLORIDE CRTAB 20 MEQ TABCR PO SCH ×2 (12:10→16:21)
--- NOTE | 2021-07-20 13:00 | Hospitalist Progress Note ---
Date of Service July 20, 2021 Assessment & Plan (1) Acute hypoxemic respiratory failure: Plan: Persistent/worsening hypoxia overnight. Wheezes are now present intermittently throughout the lungs with crackles improved after Lasix administration. He denies any worsening respiratory symptoms. With new onset atrial fibrillation and persistent hypoxia, there is concern for pulmonary embolus. Will obtain CT chest to rule out PE and evaluate more fully for infiltrates suggestive of Covid pneumonia. Continue his steroids and antiviral therapy for Covid infection with hypoxia. (2) COVID-19: Plan: Emphysema and slight prominence of interstitial markings noted on chest x-ray without sasha pneumonia, however, there are adventitial sounds on exam consistent with pneumonia. Obtain CT as above. Cont remdesivir and steroid therapy, tolerating well. Continue supportive care efforts and prone patient when able. (3) Paroxysmal atrial fibrillation: Plan: New onset on telemetry noted this morning. He has a pulmonary infection +/- bacteria in his blood. No evidence of ACS. Will repeat EKG now. As heart rate has increased, will start him on low dose metoprolol. Will empirically start heparin drip (also in setting of hypoxia while ruling out PE), obtains thyroid function studies and rule out PE with chest CT. Cardiology consulted. Defer to them for echo if desired. (4) TOMMY (acute kidney injury): Plan: Resolved. (5) T2DM (type 2 diabetes mellitus): Plan: Pharmacy for hyperglycemic management with insulin as needed. Euglycemic on current regimen. (6) Hypertension: Plan: At goal, continue lisinopril twice daily per home regimen, monitor creatinine closely (7) Carotid artery disease: Plan: Continue medical management including aspirin, atorvastatin, lisinopril per home regimen. (8) DVT prophylaxis: Plan: Heparin drip DNR/DNI Disposition-came from home, may need therapy, to covid unit Allison Knight DO [facility] Hospitalist Admission and Anticipated Discharge Date Admission Date: July 19, 2021 Subjective 86-year-old man admitted for Covid infection with hypoxia. Patient reports feeling improved today although still hypoxic Denies any issues overnight including no chest pain or coughing Reports one episode of diarrhea, which is his baseline Reports no issues with Lasix overnight Tolerating p.o. Afebrile Telemetry review reveals intermittent atrial fibrillation with intermittent tachycardia with a heart rate up to the 135 which began this morning, he has no known history of atrial fibrillation Review of Systems Review of Systems: All systems were reviewed and negative except as indicated in HPI above. Physical Exam Physical Exam: CONSTITUTIONAL: WNWD, vitals as above, generally well- appearing EYES: normal conjunctivae, no scleral icterus ENT: external ear and nose normal, oropharynx clear, MMM NECK: trachea midline, no lymphadenopathy RESPIRATORY: + wheezes intermittent and sparse throughout, no crackles, normal respiratory effort, oxygen supplementation in place. CARDIOVASCULAR: regular rate and rhythm, 3/6 XOCHITL, no gallops or rubs, no JVD, no peripheral edema GASTROINTESTINAL: soft, nontender, nondistended. MUSCULOSKELETAL: strength 5/5 throughout, head is normocephalic and atraumatic SKIN: warm and dry NEUROLOGIC: CN 2-12 grossly intact, no sensory deficit, normal cognition, normal speech, no tremor. No gross focal deficits. PSYCHIATRIC: alert cooperative and oriented to person, place and time. Results & Data Results & Data ([facility]) Vital Signs (Past 12 Hours) Vital Signs Temp Pulse Pulse Resp BP Pulse Ox 07/20/21 11:20 36.7 C 87 16 115/79 90 07/20/21 11:14 83 18 90 07/20/21 08:00 80 18 88 L 07/20/21 07:24 37.2 C 83 18 159/78 H 90 07/20/21 03:54 36.8 C 73 17 145/88 H 91 Laboratory Results Short CBC 07/19/21 07/20/21 Range/Units 12:45 06:12 WBC 8.01 8.83 (4.8-10.8) K/uL Hgb 13.7 L 13.1 L (14.0-18.0) g/dL Hct 40.1 L 39.2 L (42-52) % Plt Count 239 249 (130-400) K/uL BMP 07/19/21 07/20/21 12:45 06:12 Sodium 137 135 L Potassium 3.7 3.4 L Chloride 102 107 Carbon Dioxide 25 24 BUN 19 H 20 H Creatinine 1.39 0.92 D Glucose 213 H 120 H Calcium 8.5 8.6 Cardiac Enzymes 07/19/21 Range/Units 12:45 Troponin I 0.028 (0-0.045) ng/ml Liver Function 07/19/21 07/20/21 Range/Units 12:45 06:12 Total Bilirubin 0.6 0.4 (0.2-1) mg/dl AST 52 H 55 H (15-37) U/L ALT 44 48 (12-78) U/L Alkaline Phosphatase 74 67 (45-117) U/L Albumin 2.6 L 2.1 L (3.4-5.0) gm/dl Urine 07/19/21 Range/Units 17:30 Urine Color Dark Yellow Urine Appearance Cloudy A (Clear) Urine pH 5.5 (4.5-7.5) Ur Specific [place] 1.021 (1.000-1.030) Urine Protein 1+ H (Negative) Urine Glucose (UA) 1+ H (Negative) Medications Administered Current Inpatient Medications Acetaminophen (Acetaminophen 325 Mg Tab) 650 mg PO Q4H PRN PRN Reason: Pain or Fever Stop: 08/18/21 16:34 Al Hydrox/Mg Hydrox/Simethicone (Aluminum/Magnesium Susp 30 Ml Udc) 15 ml PO Q4H PRN PRN Reason: Dyspepsia Stop: 08/18/21 16:34 Albuterol (Albuterol Hfa 8 Gm Inhaler) 2 puffs INH QIDR [facility] Stop: 08/18/21 18:59 Last Admin: 07/20/21 11:12 Dose: 2 puffs Documented by: Amlodipine Besylate (Amlodipine Besylate 5 Mg Tab) 5 mg PO DAILY [facility] Stop: 08/19/21 08:59 Last Admin: 07/20/21 07:49 Dose: 5 mg Documented by: Aspirin (Aspirin 81 Mg Chew) 81 mg PO DAILY [facility] Stop: 08/19/21 08:59 Last Admin: 07/20/21 07:50 Dose: 81 mg Documented by: Atorvastatin Calcium (Atorvastatin 40 Mg Tab) 40 mg PO DAILY [facility] Stop: 08/19/21 08:59 Last Admin: 07/20/21 07:49 Dose: 40 mg Documented by: Benzonatate (Benzonatate 100 Mg Capsule) 100 mg PO TID PRN PRN Reason: cough Stop: 08/18/21 16:34 Calcium Polycarbophil (Calcium Polycarbophil 625mg Tab) 625 mg PO DAILY [facility] Stop: 08/19/21 08:59 Last Admin: 07/20/21 07:54 Dose: 625 mg Documented by: Cetirizine HCl (Cetirizine Hcl 10 Mg Tablet) 10 mg PO DAILY [facility] Stop: 08/19/21 08:59 Last Admin: 07/20/21 07:51 Dose: 10 mg Documented by: Cyanocobalamin (Cyanocobalamin 500 Mcg Tablet (Vitamin B-12)) 500 mcg PO DAILY [facility] Stop: 08/19/21 08:59 Last Admin: 07/20/21 07:55 Dose: 500 mcg Documented by: Dextrose (Dextrose 50% 50 Ml Syringe) 25 - 50 ml IV UD PRN; Protocol PRN Reason: Hypoglycemia Protocol Stop: 08/18/21 16:34 Enoxaparin Sodium (Enoxaparin Inj 40 Mg/0.4 Ml Syr) 40 mg SQ Q12H [facility] Stop: 08/18/21 21:59 Last Admin: 07/20/21 08:59 Dose: 40 mg Documented by: Finasteride (Finasteride 5 Mg Tab) 5 mg PO DAILY [facility] Stop: 08/19/21 08:59 Last Admin: 07/20/21 07:55 Dose: 5 mg Documented by: Fluticasone Propionate (Fluticasone Propionate Na Spr 16 Gm Btl) 2 sprays JINNY DAILY [facility] Stop: 08/19/21 08:59 Last Admin: 07/20/21 07:57 Dose: 2 sprays Documented by: Glucagon (Glucagon For Inj 1 Mg Vial) 1 mg SQ UD PRN; Protocol PRN Reason: Hypoglycemia Protocol Stop: 08/18/21 16:34 Glucose (Glucose 10 Tabs/Tube) 4 - 8 tabs PO UD PRN; Protocol PRN Reason: Hypoglycemia Protocol Stop: 08/18/21 16:34 Glucose (Glucose 40% Gel 15 Gm Tube) 15 - 30 gm PO UD PRN; Protocol PRN Reason: Hypoglycemia Protocol Stop: 08/18/21 16:34 Remdesivir 100 mg/ Sodium (Chloride) 250 mls @ 250 mls/hr IV Q24H [facility]; Protocol Stop: 07/23/21 12:59 Last Admin: 07/20/21 12:04 Dose: 250 mls/hr Documented by: Dexamethasone 6 mg/ Syringe 1.5 mls @ 1 mls/min IV QAM [facility] Stop: 08/19/21 08:59 Last Admin: 07/20/21 08:02 Dose: 1 mls/min Documented by: Furosemide 20 mg/ Syringe 2 mls @ 4 mls/min IV DAILY [facility] Stop: 08/19/21 09:59 Last Admin: 07/20/21 12:08 Dose: 4 mls/min Documented by: Insulin Aspart (Insulin Aspart 100 Units/Ml 3 Ml Pen) 0 units SC ACHS [facility] Stop: 08/18/21 16:34 Last Admin: 07/20/21 09:05 Dose: 1 units Documented by: Insulin Human NPH (Insulin Human Nph) 40 units SC DAILY [facility]; Protocol Stop: 08/19/21 08:59 Last Admin: 07/20/21 09:06 Dose: 40 units Documented by: Lisinopril (Lisinopril 20 Mg Tab) 20 mg PO BID [facility] Stop: 08/18/21 20:59 Last Admin: 07/20/21 07:50 Dose: 20 mg Documented by: Magnesium Hydroxide (Magnesium Hydroxide Susp 30 Ml Udc) 30 ml PO Q12H PRN PRN Reason: Constipation Stop: 08/18/21 16:34 Miscellaneous (Carbohydrates For Hypoglycemia ) 15 - 30 gm PO UD PRN PRN Reason: Hypoglycemia Protocol Stop: 08/18/21 16:34 Miscellaneous Information (Pharmacy Glycemic Mgmt Consult) 1 ea N/A UD PRN; Protocol PRN Reason: Consult Stop: 08/18/21 16:34 Ondansetron HCl (Ondansetron Inj 2 Mg/Ml 2 Ml Vial) 4 mg IV Q6H PRN PRN Reason: Nausea Stop: 08/18/21 16:34 Pantoprazole Sodium (Pantoprazole 40 Mg Tab) 40 mg PO DAILY [facility] Stop: 08/19/21 08:59 Last Admin: 07/20/21 07:54 Dose: 40 mg Documented by: Polyethylene Glycol (Polyethylene (Miralax) 17 Gm Pack) 17 gm PO DAILY PRN PRN Reason: Constipation Stop: 08/18/21 16:34 Potassium Chloride (Potassium Chloride Crtab 20 Meq Tabcr) 40 meq PO Q6H [facility] Stop: 07/20/21 16:01 Last Admin: 07/20/21 12:10 Dose: 40 meq Documented by: Potassium Chloride (Potassium Chloride Crtab 20 Meq Tabcr) 20 meq PO QAM [facility] Stop: 08/20/21 08:59 Sodium Chloride (Sodium Chloride 0.9% 10ml Flush) 30 ml IV Q24H [facility] Stop: 07/23/21 12:01 Last Admin: 07/20/21 12:05 Dose: 30 ml Documented by: Tamsulosin HCl (Tamsulosin Hcl 0.4 Mg Cap) 0.4 mg PO HS [facility] Stop: 08/18/21 20:59 Last Admin: 07/19/21 20:04 Dose: 0.4 mg Documented by: Vitamin D (Cholecalciferol 1,000 Units 25 Mcg Tab) 1,000 units PO DAILY [facility] Stop: 08/19/21 08:59 Last Admin: 07/20/21 07:54 Dose: 1,000 units Documented by:
[2021-07-20] MEDS ORDERED: Heparin IV Adult Wt-Based Standard *NO* Bolus Protocol IV SCH (14:52)
[2021-07-20] MEDS ORDERED: METOPROLOL TARTRATE 25 MG TAB PO SCH (14:55)
[2021-07-20] MEDS ORDERED: HEPARIN SODIUM/DEXTROSE 25,000 UNITS/500 ML BAG IV SCH (15:15)
[2021-07-20] MEDS ORDERED: METOPROLOL TARTRATE 25 MG TAB PO ONE (16:00)
--- NOTE | 2021-07-20 16:00 | Cardiology Consultation ---
Date of Consultation July 20, 2021 Assessment & Plan (1) Paroxysmal atrial fibrillation: (2) COVID-19: (3) Hypoxia: (4) CAD (coronary artery disease), [place] coronary artery: Telemetry reviewed demonstrating short salvos of paroxysmal atrial fibrillation. Patient asymptomatic without palpitations or chest discomfort. Mild electrolyte derangement noted this a.m. with hypokalemia. Supplemented appropriately. Normal serum magnesium level. Intravenous heparin ordered. Recommend low-dose beta-nola, metoprolol 12.5 mg every 12 hours. Pending blood pressure response, may need to reduce lisinopril and or amlodipine dose to allow for beta-nola therapy. I would not repeat echocardiogram at this time as I do not believe it would alter management. Continue treatment and supportive care regarding COVID-19 as per internal medicine. History of Present Illness Reason for Consultation: Paroxysmal atrial fibrillation Requesting Physician: Dr. Knight Attending Physician: Allison Knight, DO History of Present Illness 86-year-old patient presented to the emergency department with 5-day history of generalized weakness, decreased appetite, elevated blood sugars, and chills. Pulse oximetry in triage was 85% on room air which improved to 90% with 4 L n danielle cannula. Diagnosed with COVID-19. Admitted to the Covid unit. Carries history of silent inferior myocardial infarction. Followed by [facility] cardiology in [place]. No history of cardiac catheterization or stress testing. Managed conservatively. Cardiology consultation requested due to presence of possible paroxysmal atrial fibrillation. Telemetry reviewed demonstrating frequent short salvos of PAF primarily with activity. Frequent supraventricular ectopy noted. Patient denies any palpitations, lightheadedness, or dizziness. No subjective shortness of breath or chest discomfort. Denies orthopnea, PND, or lower extremity edema. Echocardiogram performed in January 2021 demonstrating preserved LV systolic function with a small sized base inferior posterior wall motion abnormality with hypokinesis of the segment. Aortic valve sclerosis without stenosis. Patient treated with a low-dose of diuretic therapy on admission due to evidence of mild congestion on x-ray. No history of CVA TIA. Allergies Allergy/AdvReac Type Severity Reaction Status Date / Time propoxyphene Allergy Unknown NAUSEA Verified 07/19/21 13:31 AND VOMITING Home Medications Medication Instructions Recorded Confirmed Type atorvastatin 80 mg tablet (Lipitor) 40 mg PO DAILY 10/05/19 07/19/21 History finasteride 5 mg tablet 5 mg PO DAILY 10/05/19 07/19/21 History omeprazole 20 mg capsule,delayed 20 mg PO DAILY 10/05/19 07/19/21 History release tamsulosin 0.4 mg capsule 0.4 mg PO HS 10/05/19 07/19/21 History cetirizine 10 mg tablet 10 mg PO DAILY 10/08/19 07/19/21 History amlodipine 5 mg tablet 5 mg PO DAILY 07/19/21 07/19/21 History aspirin 81 mg chewable tablet 81 mg PO DAILY 07/19/21 07/19/21 History (Aspirin Childrens) calcium polycarbophil 625 mg tablet 625 mg PO DAILY 07/19/21 07/19/21 History cholecalciferol (vitamin D3) 25 2,550 mcg PO DAILY 07/19/21 07/19/21 History mcg (1,000 unit) tablet (Vitamin D3) cyanocobalamin (vitamin B-12) 500 500 mcg PO DAILY 07/19/21 07/19/21 History mcg tablet fluticasone propionate 50 2 spray INTRANASAL DAILY 07/19/21 07/19/21 History mcg/actuation nasal spray,suspension lisinopril 20 mg tablet 20 mg PO BID 07/19/21 07/19/21 History Patient History Medical History BPH (benign prostatic hyperplasia) Carotid artery disease Carotid ultrasound on 03/31/2021 revealed right internal carotid 70 to 99% critical stenosis, left internal carotid 50 to 69% stenosis GERD (gastroesophageal reflux disease) High cholesterol Hypertension T2DM (type 2 diabetes mellitus) Surgical History History of cataract extraction History of cholecystectomy History of knee replacement, total History of right hip replacement Family History Brother Colorectal cancer Father Black lung Social History Smoking Status: Former smoker Second Hand Exposure: No; Do You Dip or Chew Tobacco: No; Tobacco Cessation Education Requested by Patient: No Hx Alcohol Use: Yes Alcohol type: beer Alcohol Intake Frequency: Monthly or Less Hx Substance Use: No Preferred Language: [place] Communication Ability: Effective Respiratory Therapist Assistant Required: No Beliefs That Will Affect Care: None marital status: / Current Living Situation: Alone Current Living Situation Comment: Home, Independent current occupational status: retired current occupation: [employer] Other Information That Helps Us Care for You: No Feels Safe at Home: Yes Safety Concerns: Feels Safe At This Time Assistive Devices: Oxygen - Continuous and Walker Review of Systems Review of Systems: All systems reviewed & are unremarkable except as noted in Subjective Physical Exam Constitutional: well developed, well nourished and + ill appearing; no acute distress Respiratory: normal respiratory effort; no respiratory distress and no labored breathing Auscultation: + diminished lung sounds; no crackles, no rales, no rhonchi and no wheezes Cardiovascular: Rate/Rhythm: + tachycardic and + irregularly irregular Heart Sounds: normal S1, normal S2 and + murmur (1/6 systolic ejection murmur heard best at the right second intercostal spa) Vessels: no JVD Extremities: no edema Gastrointestinal (Abdomen): Inspection/Auscultation: abdomen normal to inspection and normal bowel sounds; abdomen not distended Percussion/Palpation: abdomen soft; abdomen nontender, no guarding and abdomen not rigid Neurologic: CN's II-XI intact bilaterally and moves all extremities; no focal motor deficits Motor/Sensory: no tremor Psychiatric: A+Ox3, euthymic affect Results & Data ([facility]) Vital Signs (Past 12 Hours) Vital Signs Temp Pulse Pulse Resp BP Pulse Ox 07/20/21 15:37 105 H 18 88 L 07/20/21 11:20 36.7 C 87 16 115/79 90 07/20/21 11:14 83 18 90 07/20/21 08:00 80 18 88 L 07/20/21 07:24 37.2 C 83 18 159/78 H 90 07/20/21 03:54 36.8 C 73 17 145/88 H 91
[2021-07-20] MEDS ORDERED: ALBUTEROL HFA 8 GM INHALER INH PRN (16:14)
[2021-07-20] MEDS ORDERED: OPTIRAY 320 125ml IV ONE (17:09)
[2021-07-20] MEDS: ceFAZolin 2000MG 2,000 MG/15 ML SYR IV SCH ×2 (17:45→23:10)
--- NOTE | 2021-07-20 17:45 | CT Scan Report ---
CT ANGIOGRAPHY OF THE CHEST, PULMONARY EMBOLUS PROTOCOL CLINICAL HISTORY: Shortness of breath. Covid. COMPARISON STUDY: Chest radiograph July 19, 2021. TECHNIQUE: Following IV administration of 119 mL of Optiray, helical axial images of the chest were o btained utilizing the pulmonary embolus protocol. Maximal intensity projections and sagittal and cor onal reformats were viewed on an independent 3D workstation. IV contrast was administered without co mplication. Automated exposure control was utilized for the study. A dose lowering technique was ut ilized adhering to the principles of ALARA. CT DOSE: 523.89 mGycm FINDINGS: No pulmonary emboli are identified. There is no thoracic aortic dissection. There are anel ral mildly enlarged right hilar lymph nodes. There are trace bilateral pleural effusions. No pneumoth orax is present. Moderate groundglass opacities are noted throughout the lungs. Central airways are p atent. There is a small hiatal hernia. A water attenuation lesion within the right upper quadrant is partially imaged on this exam. This statistically reflects a right renal cyst. 1.9 cm low-attenuation right adrenal nodule favors an adenoma. There is also a suspected smaller left adrenal adenoma. IMPRESSION: 1. No pulmonary emboli identified. 2. Moderate groundglass opacities throughout the lungs suggestive of viral pneumonia. 3. Trace bilateral pleural effusions. 4. Several mildly enlarged right hilar lymph nodes which are likely reactive. ACT 112: Negative or not required by law. Electronically signed by: Philip Smith M.D. 07/20/2021 5:43 PM
[2021-07-20] MEDS: METOPROLOL TARTRATE 25 MG TAB PO SCH (20:03)
[2021-07-20] MEDS: TAMSULOSIN HCL 0.4 MG CAP PO SCH (20:04)
[2021-07-20 22:58] LABS: Partial Thromboplastin Ratio 3.2
[2021-07-20 23:04] LABS: Partial Thromboplastin Time 84.8 Seconds (21.0-31.0)
--- NOTE | 2021-07-21 03:22 | Communication Note ---
Date of Service: July 21, 2021 Notified by RN of patient fall around 3:10 a.m. As per RN, patient woke up confused, subsequently startled and falling backwards. Subsequent head and back trauma. Patient complains of sacral pain. Subsequent moderate-sized hematoma forming on the lower back. AP Lumbar hematoma secondary to fall Head/back trauma Ongoing IV anticoagulation for A. fib Appropriate to hold IV heparin for now CT head, CT lumbar spine Will relay to AM provider.
[2021-07-21] MEDS ORDERED: ACETAMINOPHEN 325 MG TAB PO STA (03:54)
[2021-07-21 04:17] LABS: Hematocrit (blood only) 37.5 % (42-52); Hemoglobin 12.8 g/dL (14.0-18.0); Mean Corpuscular Hemoglobin 32.2 pg (25-34); Mean Corpuscular Hgb Conc 34.1 g/dL (32-36); Mean Corpuscular Volume 94.2 fL (80-100); Mean Platelet Volume 9.6 fL (7.4-10.4); Platelet Count 265 K/uL (130-400); RDW Coefficient of Variation 13.9 % (11.5-14.5); RDW Standard Deviation 47.7 fL (36.4-46.3); Red Blood Count 3.98 M/uL (4.7-6.1); White Blood Count 9.71 K/uL (4.8-10.8)
[2021-07-21 04:18] LABS: Base Excess ABG 0.1 mEq/L (-9-1.8); HCO3 ABG 23 mmol/L (19-24); Oxygen Saturation ABG 91.9 % (90-95); PCO2 ABG 34 mmHg (35-46); PO2 ABG 59 mmHg (80-95); pH ABG 7.46 (7.35-7.45)
[2021-07-21 04:19] LABS: Allen Test Pos (Pos)
[2021-07-21 04:39] LABS: BUN Creatinine Ratio 29.9 (10-20); Calcium 8.5 mg/dl (8.5-10.1); Creatinine Clr Calc Pharmacy 79.7 ml/min; Est GFR (African American) 93.3 ml/min; Est GFR (Non-African American) 80.5 ml/min; Potassium 3.8 mmol/L (3.5-5.1)
[2021-07-21 04:42] LABS: Albumin Globulin Ratio 0.5 (0.9-2); Bilirubin,Total 0.3 mg/dl (0.2-1); Globulin 4.3 gm/dl (2.5-4.0); Total Protein 6.3 gm/dl (6.4-8.2)
[2021-07-21 04:52] LABS: Partial Thromboplastin Time 51.3 Seconds (21.0-31.0)
[2021-07-21 05:16] LABS: Basophils # (auto) 0.01 K/uL (0-0.2); Basophils % (auto) 0.1 %; Dohle Bodies 1+; Echinocytes 1+; Immature Granulocytes # (auto) 0.05 K/uL (0.00-0.02); Immature Granulocytes % (auto) 0.5 %; Lymphocytes # (auto) 0.94 K/uL (1.2-3.4); Lymphocytes % (auto) 9.7 %; Monocytes # (auto) 0.11 K/uL (0.11-0.59); Monocytes % (auto) 1.1 %; Neutrophils % (auto) 88.6 %; Toxic Granulation 2+
[2021-07-21] MEDS ORDERED: ALBUTEROL HFA 8 GM INHALER INH ONE ×2 (05:57→21:11)
[2021-07-21] MEDS: dexAMETHasone 6 MG in SYRINGE 0 ML IV SCH (06:47)
--- NOTE | 2021-07-21 07:26 | CT Scan Report ---
LUMBAR SPINE CT CT DOSE: 1915.55 mGy.cm HISTORY: back pain, trauma TECHNIQUE: Multiaxial CT images of the lumbar spine were performed and reformatted in the sagittal an d coronal plane without the use of contrast. A dose lowering technique was utilized adhering to the principles of ALARA. COMPARISON: None. FINDINGS: Partially visualized large bilateral renal cysts. Subcutaneous edema with a partially visua lized subcutaneous hematoma within the lumbar sacral region. This measures approximately 8 x 7 cm. Pa ravertebral soft tissues are unremarkable. No fracture or subluxation within the lumbar spine. The vi sualized sacrum is intact. Disc spaces are preserved. Endplate osteophytes are noted. Ectatic abdomin al aorta. 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 IMPRESSION: 1. No fractures within the lumbar spine. 2. Partially imaged subcutaneous hematoma measuring 8 x 7 cm at the lumbosacral region. 3. 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 ACT 112: Negative or not required by law. Electronically signed by: Michael Pierce M.D. 07/21/2021 7:25 AM
[2021-07-21] MEDS: ceFAZolin 2000MG 2,000 MG/15 ML SYR IV SCH ×2 (08:00→16:08)
[2021-07-21] MEDS: amLODIPine BESYLATE 5 MG TAB PO SCH (08:01)
[2021-07-21] MEDS: CHOLECALCIFEROL 1,000 UNITS 25 MCG TAB PO SCH (08:01)
[2021-07-21] MEDS: CALCIUM POLYCARBOPHIL 625MG TAB PO SCH (08:02)
[2021-07-21] MEDS: CYANOCOBALAMIN 500 MCG TABLET (VITAMIN B-12) PO SCH (08:02)
[2021-07-21] MEDS: PANTOprazole 40 MG TAB PO SCH (08:02)
[2021-07-21] MEDS: CETIRIZINE HCL 10 MG TABLET PO SCH (08:02)
[2021-07-21] MEDS: FLUTICASONE PROPIONATE NA SPR 16 GM BTL NAE SCH (08:03)
[2021-07-21] MEDS: FINASTERIDE 5 MG TAB PO SCH (08:03)
[2021-07-21] MEDS: ATORVASTATIN 40 MG TAB PO SCH (08:03)
[2021-07-21] MEDS: FUROSEMIDE 20 MG in SYRINGE 0 ML IV SCH (08:04)
[2021-07-21] MEDS: METOPROLOL TARTRATE 25 MG TAB PO SCH ×2 (08:05→20:43)
[2021-07-21] MEDS: lisinopril 20 MG TAB PO SCH ×2 (08:05→20:42)
[2021-07-21] MEDS: POTASSIUM CHLORIDE CRTAB 20 MEQ TABCR PO SCH (08:11)
[2021-07-21] MEDS: INSULIN ASPART 100 UNITS/ML 3 ML PEN SC SCH ×4 (08:20→20:41)
[2021-07-21] MEDS: INSULIN HUMAN NPH SC SCH (08:46)
--- NOTE | 2021-07-21 09:50 | CT Scan Report ---
CT OF THE HEAD WITHOUT CONTRAST CLINICAL HISTORY: head trauma COMPARISON STUDY: No previous studies for comparison. TECHNIQUE: Helical axial images of the head were obtained without IV contrast. Automated exposure con trol was utilized for the study. A dose lowering technique was utilized adhering to the principles o f ALARA. FINDINGS: This exam is mildly compromised by motion artifact. No acute intracranial hemorrhage, midli ne shift or mass effect is present. Ventricular system is unremarkable. White matter hypodensities fa vor small vessel disease. There is ossification along the falx. Sensitivity for detection of calvaria l fractures is diminished but none are identified. There is mild mucosal thickening of the right maxi llary sinus. IMPRESSION: 1. No acute intracranial findings. Exam mildly compromised by motion artifact. 2. No calvarial fracture identified. ACT 112: Negative or not required by law. Electronically signed by: Philip Smith M.D. 07/21/2021 9:48 AM
[2021-07-21] MEDS: SODIUM CHLORIDE 0.9% 10ML FLUSH IV SCH (12:16)
[2021-07-21] MEDS: REMDESIVIR 100 MG in SODIUM CHLORIDE 0.9% 230 ML IV SCH (12:18)
[2021-07-21 12:30] LABS: Hematocrit (blood only) 40.9 % (42-52); Hemoglobin 14.1 g/dL (14.0-18.0)
--- NOTE | 2021-07-21 15:48 | Hospitalist Progress Note ---
Date of Service July 21, 2021 Assessment & Plan (1) Acute hypoxemic respiratory failure: Plan: Hypoxia persists. He denies any worsening respiratory symptoms. CT yesterday negative for PE and revealed evidence of pneumonia. Continue his steroids and antiviral therapy for Covid infection with hypoxia. (2) Pneumonia due to COVID-19 virus: Plan: Cont remdesivir and steroid therapy, tolerating well. Continue supportive care efforts and prone patient when able. (3) Paroxysmal atrial fibrillation: Plan: New onset on telemetry noted this admission and improved to normal sinus with addition of low dose metoprolol. He has a pulmonary infection making this more likely. No evidence of ACS. Cont metoprolol. Heparin was placed on hold after a fall last night with traumatic hematoma. OK to remain off AC while in sinus rhythm. Consider restarting if afib begins again after hematoma has started to improve. (4) TOMMY (acute kidney injury): Plan: Resolved. (5) T2DM (type 2 diabetes mellitus): Plan: Pharmacy for hyperglycemic management with insulin as needed. Euglycemic on current regimen. (6) Hypertension: Plan: At goal, continue lisinopril twice daily per home regimen, monitor creatinine closely (7) Carotid artery disease: Plan: Continue medical management including aspirin, atorvastatin, lisinopril per home regimen. (8) Fall: Plan: Disorientation and confusion overnight contributed to fall with subsequent hematoma of lower back area. Pain is managed. Hold blood thinners and continue supportive care. Hit head but CT head was negative. Patient is now alert and oriented and feeling well. Cont to monitor. (9) Hematoma: Plan: supportive care. (10) DVT prophylaxis: Plan: SCDs DNR/DNI Disposition-came from home, may need therapy, to covid unit Allison Knight DO [facility] Admission and Anticipated Discharge Date Admission Date: July 19, 2021 Subjective 86-year-old man admitted for Covid infection with hypoxia. Fall overnight with resulting lower back hematoma Patient reports this is ok and he is feeling better Reports having slept most of the day and felt this was "my best day" Still on higher oxygen supplementation but denies SOB Min coughing, nonproductive No chest pain Afebrile Sinus rhythm on telemetry Review of Systems Review of Systems: At least ten systems were reviewed and negative except as indicated in HPI above. Physical Exam Physical Exam: CONSTITUTIONAL: WNWD, vitals as above, generally well- appearing EYES: normal conjunctivae, no scleral icterus ENT: external ear and nose normal, oropharynx clear, MMM NECK: trachea midline, no lymphadenopathy RESPIRATORY: no crackles, normal respiratory effort, oxygen supplementation in place. no increased respiratory effort. CARDIOVASCULAR: regular rate and rhythm, 3/6 XOCHITL, no gallops or rubs, no JVD, no peripheral edema GASTROINTESTINAL: soft, nontender, nondistended. MUSCULOSKELETAL: strength 5/5 throughout, head is normocephalic and atraumatic SKIN: warm and dry, large softball size ecchymotic enlargement on lower right flank consistent with traumatic hematoma. NEUROLOGIC: CN 2-12 grossly intact, no sensory deficit, normal cognition, normal speech, no tremor. No gross focal deficits. PSYCHIATRIC: alert cooperative and oriented to person, place and time. Results & Data Results & Data ([facility]) Vital Signs (Past 12 Hours) Vital Signs Temp Pulse Resp BP Pulse Ox 07/21/21 15:45 37.1 C 82 16 120/61 91 07/21/21 11:51 36.5 C 86 20 114/65 90 07/21/21 07:24 37.1 C 65 18 135/70 91 Laboratory Results Short CBC 07/21/21 07/21/21 Range/Units 03:55 12:10 WBC 9.71 (4.8-10.8) K/uL Hgb 12.8 L 14.1 (14.0-18.0) g/dL Hct 37.5 L 40.9 L (42-52) % Plt Count 265 (130-400) K/uL BMP 07/21/21 03:55 Sodium 137 Potassium 3.8 Chloride 107 Carbon Dioxide 24 BUN 24 H Creatinine 0.81 Glucose 148 H Calcium 8.5 Liver Function 07/21/21 Range/Units 03:55 Total Bilirubin 0.3 (0.2-1) mg/dl AST 53 H (15-37) U/L ALT 49 (12-78) U/L Alkaline Phosphatase 68 (45-117) U/L Albumin 2.0 L (3.4-5.0) gm/dl Medications Administered Current Inpatient Medications Acetaminophen (Acetaminophen 325 Mg Tab) 650 mg PO Q4H PRN PRN Reason: Pain or Fever Stop: 08/18/21 16:34 Al Hydrox/Mg Hydrox/Simethicone (Aluminum/Magnesium Susp 30 Ml Udc) 15 ml PO Q4H PRN PRN Reason: Dyspepsia Stop: 08/18/21 16:34 Albuterol (Albuterol Hfa 8 Gm Inhaler) 2 puffs INH QID PRN PRN Reason: Shortness Of Breath Or Wheezing Stop: 08/19/21 16:12 Amlodipine Besylate (Amlodipine Besylate 5 Mg Tab) 5 mg PO DAILY BERTRAND Stop: 08/19/21 08:59 Last Admin: 07/21/21 08:01 Dose: 5 mg Documented by: Aspirin (Aspirin 81 Mg Chew) 81 mg PO DAILY BERTRAND Stop: 08/19/21 08:59 Last Admin: 07/20/21 07:50 Dose: 81 mg Documented by: Atorvastatin Calcium (Atorvastatin 40 Mg Tab) 40 mg PO DAILY BERTRAND Stop: 08/19/21 08:59 Last Admin: 07/21/21 08:03 Dose: 40 mg Documented by: Benzonatate (Benzonatate 100 Mg Capsule) 100 mg PO TID PRN PRN Reason: cough Stop: 08/18/21 16:34 Calcium Polycarbophil (Calcium Polycarbophil 625mg Tab) 625 mg PO DAILY BERTRAND Stop: 08/19/21 08:59 Last Admin: 07/21/21 08:02 Dose: 625 mg Documented by: Cetirizine HCl (Cetirizine Hcl 10 Mg Tablet) 10 mg PO DAILY BERTRAND Stop: 08/19/21 08:59 Last Admin: 07/21/21 08:02 Dose: 10 mg Documented by: Cyanocobalamin (Cyanocobalamin 500 Mcg Tablet (Vitamin B-12)) 500 mcg PO DAILY BERTRAND Stop: 08/19/21 08:59 Last Admin: 07/21/21 08:02 Dose: 500 mcg Documented by: Dextrose (Dextrose 50% 50 Ml Syringe) 25 - 50 ml IV UD PRN; Protocol PRN Reason: Hypoglycemia Protocol Stop: 08/18/21 16:34 Finasteride (Finasteride 5 Mg Tab) 5 mg PO DAILY BERTRAND Stop: 08/19/21 08:59 Last Admin: 07/21/21 08:03 Dose: 5 mg Documented by: Fluticasone Propionate (Fluticasone Propionate Na Spr 16 Gm Btl) 2 sprays JINNY DAILY BERTRAND Stop: 08/19/21 08:59 Last Admin: 07/21/21 08:03 Dose: 2 sprays Documented by: Glucagon (Glucagon For Inj 1 Mg Vial) 1 mg SQ UD PRN; Protocol PRN Reason: Hypoglycemia Protocol Stop: 08/18/21 16:34 Glucose (Glucose 10 Tabs/Tube) 4 - 8 tabs PO UD PRN; Protocol PRN Reason: Hypoglycemia Protocol Stop: 08/18/21 16:34 Glucose (Glucose 40% Gel 15 Gm Tube) 15 - 30 gm PO UD PRN; Protocol PRN Reason: Hypoglycemia Protocol Stop: 08/18/21 16:34 Remdesivir 100 mg/ Sodium (Chloride) 250 mls @ 250 mls/hr IV Q24H BERTRAND; Protocol Stop: 07/23/21 12:59 Last Admin: 07/21/21 12:18 Dose: 250 mls/hr Documented by: Furosemide 20 mg/ Syringe 2 mls @ 4 mls/min IV DAILY BERTRAND Stop: 08/19/21 09:59 Last Admin: 07/21/21 08:04 Dose: 4 mls/min Documented by: Heparin Sodium/Dextrose (Heparin Sodium/Dextrose) 25,000 units in 500 mls @ 0 mls/hr IV .Q0M [facility]; Protocol Stop: 08/19/21 15:14 Last Titration: 07/21/21 03:00 Dose: 0 units/hr, 0 mls/hr Documented by: Cefazolin Sodium (Ancef 2000mg) 2,000 mg in 15 mls @ 3.75 mls/min IV Q8H BERTRAND Stop: 08/03/21 15:59 Last Admin: 07/21/21 08:00 Dose: 3.75 mls/min Documented by: Dexamethasone 6 mg/ Syringe 1.5 mls @ 1 mls/min IV QAM BERTRAND Stop: 08/20/21 05:59 Last Admin: 07/21/21 06:47 Dose: 1 mls/min Documented by: Insulin Aspart (Insulin Aspart 100 Units/Ml 3 Ml Pen) 0 units SC ACHS [facility] Stop: 08/18/21 16:34 Last Admin: 07/21/21 12:57 Dose: 3 units Documented by: Insulin Human NPH (Insulin Human Nph) 40 units SC DAILY [facility]; Protocol Stop: 08/19/21 08:59 Last Admin: 07/21/21 08:46 Dose: 40 units Documented by: Lisinopril (Lisinopril 20 Mg Tab) 20 mg PO BID BERTRAND Stop: 08/18/21 20:59 Last Admin: 07/21/21 08:05 Dose: 20 mg Documented by: Magnesium Hydroxide (Magnesium Hydroxide Susp 30 Ml Udc) 30 ml PO Q12H PRN PRN Reason: Constipation Stop: 08/18/21 16:34 Metoprolol Tartrate (Metoprolol Tartrate 25 Mg Tab) 12.5 mg PO BID BERTRAND Stop: 08/19/21 20:59 Last Admin: 07/21/21 08:05 Dose: 12.5 mg Documented by: Miscellaneous (Carbohydrates For Hypoglycemia ) 15 - 30 gm PO UD PRN PRN Reason: Hypoglycemia Protocol Stop: 08/18/21 16:34 Miscellaneous Information (Pharmacy Glycemic Mgmt Consult) 1 ea N/A UD PRN; Protocol PRN Reason: Consult Stop: 08/18/21 16:34 Ondansetron HCl (Ondansetron Inj 2 Mg/Ml 2 Ml Vial) 4 mg IV Q6H PRN PRN Reason: Nausea Stop: 08/18/21 16:34 Pantoprazole Sodium (Pantoprazole 40 Mg Tab) 40 mg PO DAILY BERTRAND Stop: 08/19/21 08:59 Last Admin: 07/21/21 08:02 Dose: 40 mg Documented by: Polyethylene Glycol (Polyethylene (Miralax) 17 Gm Pack) 17 gm PO DAILY PRN PRN Reason: Constipation Stop: 08/18/21 16:34 Potassium Chloride (Potassium Chloride Crtab 20 Meq Tabcr) 20 meq PO QAM BERTRAND Stop: 08/20/21 08:59 Last Admin: 07/21/21 08:11 Dose: 20 meq Documented by: Sodium Chloride (Sodium Chloride 0.9% 10ml Flush) 30 ml IV Q24H BERTRAND Stop: 07/23/21 12:01 Last Admin: 07/21/21 12:16 Dose: 30 ml Documented by: Tamsulosin HCl (Tamsulosin Hcl 0.4 Mg Cap) 0.4 mg PO HS BERTRAND Stop: 08/18/21 20:59 Last Admin: 07/20/21 20:04 Dose: 0.4 mg Documented by: Vitamin D (Cholecalciferol 1,000 Units 25 Mcg Tab) 1,000 units PO DAILY BERTRAND Stop: 08/19/21 08:59 Last Admin: 07/21/21 08:01 Dose: 1,000 units Documented by:
--- NOTE | 2021-07-21 16:29 | Cardiology Progress Note ---
Date of Service July 21, 2021 Assessment & Plan (1) Paroxysmal atrial fibrillation: (2) Paroxysmal atrial tachycardia: (3) COVID-19: (4) Hypoxia: (5) CAD (coronary artery disease), [place] coronary artery: Plan: Rhythm has improved with addition of low-dose beta-nola therapy. Currently sinus rhythm in the 70s at rest. Continue to monitor telemetry. Anticoagulation on hold due to gait instability and fall last evening. Fall precautions advised. I would not recommend repeat echocardiogram at this time as it would not roving changer. Continue treatment and supportive care regarding COVID-19 as per internal medicine. Admission and Anticipated Discharge Date Admission Date: July 19, 2021 Subjective Patient seen and examined at the bedside. Resting comfortably lying supine. Denies chest pain or palpitations. No subjective shortness of breath at rest. Occasional cough noted. No sputum production. Telemetry reviewed demonstrate predominantly sinus rhythm in the 70s. Occasional short salvos of paroxysmal atrial tachycardia recorded. No recurrent atrial fibrillation over the past 8 hours. Patient fell last night. Developed a soft tissue lumbar hematoma. Anticoagulation discontinued. Review of Systems Review of Systems: All systems reviewed & are unremarkable except as noted in Subjective Physical Exam Constitutional: well developed, well nourished and + ill appearing; no acute distress Respiratory: normal respiratory effort; no respiratory distress and no labored breathing Auscultation: + diminished lung sounds; no crackles, no rales, no rhonchi and no wheezes Cardiovascular: Rate/Rhythm: regular rate and regular rhythm Heart Sounds: normal S1, normal S2 and + murmur (1/6 systolic ejection murmur heard best at the right second intercostal spa) Vessels: no JVD Extremities: no edema Gastrointestinal (Abdomen): Inspection/Auscultation: abdomen normal to inspection and normal bowel sounds; abdomen not distended Percussion/Palpation: abdomen soft; abdomen nontender, no guarding and abdomen not rigid Neurologic: CN's II-XI intact bilaterally and moves all extremities; no focal motor deficits Motor/Sensory: no tremor Psychiatric: A+Ox3, euthymic affect Results & Data ([facility]) Vital Signs (Past 12 Hours) Vital Signs Temp Pulse Resp BP Pulse Ox 07/21/21 15:45 37.1 C 82 16 120/61 91 07/21/21 11:51 36.5 C 86 20 114/65 90 07/21/21 07:24 37.1 C 65 18 135/70 91
[2021-07-21] MEDS: TAMSULOSIN HCL 0.4 MG CAP PO SCH (20:43)
[2021-07-21] MEDS ORDERED: methylPREDNISolone 40 MG in SYRINGE 0 ML IV STA (21:12)
[2021-07-21] MEDS: POTASSIUM CHLORIDE / WTR 10 MEQ/100 ML PLCT IV SCH ×2 (22:04→23:02)
--- NOTE | 2021-07-21 23:20 | Electrocardiogram Report ---
Test Reason : Blood Pressure : / mmHG Vent. Rate : 085 BPM Atrial Rate : 085 BPM P-R Int : 172 ms QRS Dur : 142 ms QT Int : 396 ms P-R-T Axes : 041 -55 012 degrees QTc Int : 471 ms Sinus rhythm with Premature supraventricular complexes Right bundle branch block Left anterior fascicular block Bifascicular block Abnormal ECG When compared with ECG of 19-JUL-2021 12:33, No significant change Confirmed by Luis Ojeda ([id number]) on 07/21/2021 11:20:16 PM Referred By: REFERRED SELF Confirmed By:Luis Ojeda
[2021-07-21 23:27] LABS: Base Excess ABG -0.1 mEq/L (-9-1.8); HCO3 ABG 23 mmol/L (19-24); PCO2 ABG 33 mmHg (35-46); PO2 ABG 59 mmHg (80-95); pH ABG 7.46 (7.35-7.45)
[2021-07-21 23:36] LABS: Allen Test POS (Pos); BUN Creatinine Ratio 31.1 (10-20); Calcium 8.2 mg/dl (8.5-10.1); Creatinine Clr Calc Pharmacy 66.6 ml/min; Est GFR (African American) 81.6 ml/min; Est GFR (Non-African American) 70.4 ml/min; Magnesium 1.8 mg/dl (1.8-2.4); Potassium 3.9 mmol/L (3.5-5.1)
[2021-07-22] MEDS ORDERED: MAGNESIUM SULFATE / D5W 1 GM/100 ML BAG IV ONE (03:45)
--- NOTE | 2021-07-22 06:29 | XRay Report ---
XR chest 1V portable CLINICAL HISTORY: low o2 COMPARISON STUDY: Chest radiograph July 19, 2021. Chest CT July 20, 2021. FINDINGS: Lung volumes are normal. Cardiomegaly is unchanged. There is no pneumothorax. No pleural ef fusion is identified. Moderate bilateral airspace opacities, greatest within the right upper lobe, amaya ve slightly progressed since prior chest radiograph and chest CT. There is no evidence for pulmonary edema. IMPRESSION: Multifocal bilateral airspace opacities which have mildly progressed. The findings are co nsistent with viral pneumonia. ACT 112: Negative or not required by law. Electronically signed by: Philip Smith M.D. 07/22/2021 6:27 AM
[2021-07-22 06:44] LABS: Hematocrit (blood only) 39.1 % (42-52); Hemoglobin 13.3 g/dL (14.0-18.0); Mean Corpuscular Hemoglobin 32.3 pg (25-34); Mean Corpuscular Volume 94.9 fL (80-100); Mean Platelet Volume 9.9 fL (7.4-10.4); Platelet Count 301 K/uL (130-400); RDW Coefficient of Variation 14.3 % (11.5-14.5); RDW Standard Deviation 49.1 fL (36.4-46.3); Red Blood Count 4.12 M/uL (4.7-6.1); White Blood Count 5.69 K/uL (4.8-10.8)
[2021-07-22] MEDS: ALBUTEROL HFA 8 GM INHALER INH SCH ×4 (07:09→19:21)
[2021-07-22 07:10] LABS: BUN Creatinine Ratio 31.3 (10-20); Calcium 8.7 mg/dl (8.5-10.1); Creatinine Clr Calc Pharmacy 73.5 ml/min; Est GFR (African American) 90.6 ml/min; Est GFR (Non-African American) 78.1 ml/min; Magnesium 2.3 mg/dl (1.8-2.4); Phosphorus 4.5 mg/dl (2.5-4.9)
[2021-07-22 07:13] LABS: Albumin Globulin Ratio 0.5 (0.9-2); Bilirubin,Total 0.4 mg/dl (0.2-1); Globulin 4.3 gm/dl (2.5-4.0); Total Protein 6.3 gm/dl (6.4-8.2)
[2021-07-22] MEDS: FUROSEMIDE 20 MG in SYRINGE 0 ML IV SCH (08:04)
[2021-07-22] MEDS: dexAMETHasone 6 MG in SYRINGE 0 ML IV SCH (08:04)
[2021-07-22] MEDS: FLUTICASONE PROPIONATE NA SPR 16 GM BTL NAE SCH (08:04)
[2021-07-22] MEDS: POTASSIUM CHLORIDE CRTAB 20 MEQ TABCR PO SCH (08:04)
[2021-07-22] MEDS: FINASTERIDE 5 MG TAB PO SCH (08:05)
[2021-07-22] MEDS: ATORVASTATIN 40 MG TAB PO SCH (08:05)
[2021-07-22] MEDS: CETIRIZINE HCL 10 MG TABLET PO SCH (08:05)
[2021-07-22] MEDS: amLODIPine BESYLATE 5 MG TAB PO SCH (08:05)
[2021-07-22] MEDS: PANTOprazole 40 MG TAB PO SCH (08:05)
[2021-07-22] MEDS: CHOLECALCIFEROL 1,000 UNITS 25 MCG TAB PO SCH (08:05)
[2021-07-22] MEDS: CALCIUM POLYCARBOPHIL 625MG TAB PO SCH (08:05)
[2021-07-22] MEDS: lisinopril 20 MG TAB PO SCH ×2 (08:06→20:58)
[2021-07-22] MEDS: CYANOCOBALAMIN 500 MCG TABLET (VITAMIN B-12) PO SCH (08:06)
[2021-07-22] MEDS: METOPROLOL TARTRATE 25 MG TAB PO SCH ×2 (08:12→20:58)
--- NOTE | 2021-07-22 08:42 | Discharge Summary ---
Date of Service July 22, 2021 Admission HPI Per Admitting Provider The patient is an 86-year-old man seen by Dr. Steele at [facility] clinic today for reports of a 5-day history of generalized weakness, worsened appetite, elevated blood sugars, and chills. Pulse ox on triage was 85% on room air which increased to 90% on 4 L via nasal cannula. He was sent to the ER for ongoing evaluation of hypoxia and generalized weakness. Upon arrival he was found to be 87% on room air and was placed again on 4 L nasal cannula. He is febrile with a temp of 39 C and a pulse of 103. Lab work reveals no evidence of leukocytosis, normal H&H, normal coags, normal chemistry with a mild TOMMY. Creatinine is 1.4 with a baseline creatinine of 1.0 upon outpatient record review. He is mildly hyperglycemic at 213 and has a history of type 2 diabetes. He appears to be diet controlled. Last hemoglobin A1c was in January 2021 was 7.2. He has positive for Covid reporting a vaccination previously. He received a 2 dose series and return on 12/22/2020 and again on 01/19/2021. Discharge Data Allergies Allergy/AdvReac Type Severity Reaction Status Date / Time propoxyphene Allergy Unknown NAUSEA Verified 07/19/21 13:31 AND VOMITING Consultations 07/19/21 14:37 ED Decision to Admit Stat 07/20/21 14:56 Consult Cardiology Routine Ordered Studies 07/20/21 14:52 CT angio chest PE protocol Stat 07/21/21 03:18 CT head/brain wo con Urgent CT lumbar spine wo con Urgent Discharge Plan Discharge Items Reason For Visit: HYPOXIA, COVID 19 Follow-up/Referrals: Riya Steele DO [Primary Care Provider] - Addtl Attending Provider Instructions: ACTIVITY RECOMMENDATIONS: It is common to feel weak and fatigue for a few days. * Do not drive or operate any motorized equipment for the next three days. * Limit stair usage (2 or 3 trips a day only) for the next three days. * Do not lift anything heavier than 10 pounds for the next three days. * Do not engage in vigorous exercise or any sports for the next five days. * You may shower the day after your procedure, but do not immerse the area for three days. Cleanse the site gently with soap and water. SPECIAL CARE INSTRUCTIONS: * You may replace the pressure dressing or band-aid the morning after the procedure. * After your procedure, it is normal to have a small bruise or small lump at the site. Examine your site daily for any change in the bruise or lump, redness, swelling, drainage or numbness. Notify your doctor if any change. BLEEDING: * If there is a small amount of bleeding at the site, lie down and apply firm pressure with a clean cloth for ten minutes. When the bleeding stops, lie quietly keeping the procedure limb straight for six hours. Notify your doctor as soon as possible. * If the bleeding does not stop after ten minutes or if there is a large amount of bleeding or spurting, call 911 immediately. Continue to lie down and hold firm pressure until help arrives. SKIN IRRITATION: * You may experience some redness and/or swelling in the area where radiation was administered. If any skin irritation occurs, please contact your family physician. FOLLOW UP VISIT: Keep any scheduled doctor appointments. Medications and DC Order Prescriptions: No Action atorvastatin [Lipitor] 80 mg tablet 40 mg PO DAILY RF: 0 finasteride 5 mg tablet 5 mg PO DAILY RF: 0 omeprazole 20 mg capsule,delayed release(DR/EC) 20 mg PO DAILY RF: 0 tamsulosin 0.4 mg capsule 0.4 mg PO HS RF: 0 cetirizine 10 mg tablet 10 mg PO DAILY RF: 0 amlodipine 5 mg Tablet 5 mg PO DAILY RF: 0 cyanocobalamin (vitamin B-12) 500 mcg Tablet 500 mcg PO DAILY RF: 0 aspirin [Aspirin Childrens] 81 mg Tablet,Chewable 81 mg PO DAILY RF: 0 cholecalciferol (vitamin D3) [Vitamin D3] 25 mcg (1,000 unit) Tablet 2,550 mcg PO DAILY RF: 0 lisinopril 20 mg Tablet 20 mg PO BID RF: 0 calcium polycarbophil 625 mg Tablet 625 mg PO DAILY RF: 0 fluticasone propionate [Flonase] 50 mcg/actuation [place],Suspension 2 spray INTRANASAL DAILY RF: 0 Krames/Other Patient Handouts: A1C, Managing Type 2 Diabetes Admission Data Admit Date/Time: 07/19/21 14:29 Attending Provider: Allison Knight Admit Provider: Allison Knight Primary Care Provider: Riya Steele Other Providers: Allison Knight ; Sanjiv Green Home Health Attestation I certify that this patient is under my care and that I, or a physicians undertaker assistant working with me, had a face to-face encounter that meets the home health [id number] encounter requirements with this patient. The encounter with the patient was in whole, or in part, for the following medical condition, which is the primary reason for home health care (list medical condition): I certify that, based on my findings, the following services are medically necessary home health services: My clinical findings support the need for the above services because: Further, I certify that my clinical findings support that this patient is homebound (i.e. absences from home require considerable and taxing effort and are for medical reasons or jewish services or infrequently or of short duration when for other reasons) because: Certification for Home Health Services: Based on the above findings, I certify that this patient is confined to the home and needs intermittent half-way care, physical therapy and/or speech therapy or continues to need occupational therapy. The patient is under my care, and I have initiated the establishment of the plan of care. This patient will be followed by a physician who will periodically review the plan of care.
[2021-07-22] MEDS: INSULIN ASPART 100 UNITS/ML 3 ML PEN SC SCH ×4 (08:49→20:59)
[2021-07-22] MEDS ORDERED: INSULIN HUMAN NPH SC SCH (09:00)
[2021-07-22] MEDS ORDERED: FUROSEMIDE 20 MG in SYRINGE 0 ML IV ONE (09:45)
--- NOTE | 2021-07-22 09:59 | Pulmonary Consultation ---
Date of Consultation July 22, 2021 Assessment & Plan (1) Pneumonia due to COVID-19 virus: (2) Acute hypoxemic respiratory failure: CT chest 07/20/2021 personally reviewed: Patchy groundglass opacities appreciated bilaterally especially in the right upper lobe volume loss on the right side, Right hilar lymphadenopathy Small pleural effusions bilaterally --Acute hypoxic respiratory failure Secondary to multilobar COVID-19 pneumonia COVID-19 PCR positive, positive lymphopenia CRP 21.5 --> 11 Procalcitonin 0.11 Continue with O2 supplementation to keep oxygen saturation between 90-92%. Awake proning will be helpful Continue with incentive spirometry Continue with flutter valve. Recommend patient to be kept euvolemic to negative balance --COPD Not on any inhalers at home Start the patient on Anoro Plan: Given the CRP is trending down, I would like to continue with dexamethasone 6 mg. Repeat CRP tomorrow if it is still trending down we will continue with the same dose of it is staying same or going up and I will increase it to 10 mg on a daily basis Please note the above document was generated using voice recognition software. It may contain grammatical, syntax or spelling errors.Any formal questions or concerns about the content, text or information contained within the body of this dictation should be directly addressed to the provider for clarification. History of Present Illness Attending Physician: Allison Knight, History of Present Illness 86 old male medical history of diabetes, coronary artery disease presented to the hospital with complaints of generalized weakness and poor appetite. He was saturating 85% on room air ER He was found to be COVID-19 positive Pulmonary consulted for increasing oxygen requirement At the time of examination patient stated that he is feeling better after coming to the hospital Does complain of cough is not able to bring up any significant phlegm Denies any hemoptysis. No chest pain, no nausea vomiting Fair appetite. Denies any headache, no blurry vision. Afebrile while in the hospital. Denies any dysuria, or diarrhea Social history: [id number] smoking history, quit at the age of 60, no history of asthma Allergies Allergy/AdvReac Type Severity Reaction Status Date / Time propoxyphene Allergy Unknown NAUSEA Verified 07/19/21 13:31 AND VOMITING Home Medications Medication Instructions Recorded Confirmed Type atorvastatin 80 mg tablet (Lipitor) 40 mg PO DAILY 10/05/19 07/19/21 History finasteride 5 mg tablet 5 mg PO DAILY 10/05/19 07/19/21 History omeprazole 20 mg capsule,delayed 20 mg PO DAILY 10/05/19 07/19/21 History release tamsulosin 0.4 mg capsule 0.4 mg PO HS 10/05/19 07/19/21 History cetirizine 10 mg tablet 10 mg PO DAILY 10/08/19 07/19/21 History amlodipine 5 mg tablet 5 mg PO DAILY 07/19/21 07/19/21 History aspirin 81 mg chewable tablet 81 mg PO DAILY 07/19/21 07/19/21 History (Aspirin Childrens) calcium polycarbophil 625 mg tablet 625 mg PO DAILY 07/19/21 07/19/21 History cholecalciferol (vitamin D3) 25 2,550 mcg PO DAILY 07/19/21 07/19/21 History mcg (1,000 unit) tablet (Vitamin D3) cyanocobalamin (vitamin B-12) 500 500 mcg PO DAILY 07/19/21 07/19/21 History mcg tablet fluticasone propionate 50 2 spray INTRANASAL DAILY 07/19/21 07/19/21 History mcg/actuation nasal spray,suspension lisinopril 20 mg tablet 20 mg PO BID 07/19/21 07/19/21 History Patient History Medical History BPH (benign prostatic hyperplasia) Carotid artery disease Carotid ultrasound on 03/31/2021 revealed right internal carotid 70 to 99% critical stenosis, left internal carotid 50 to 69% stenosis GERD (gastroesophageal reflux disease) High cholesterol Hypertension T2DM (type 2 diabetes mellitus) Surgical History History of cataract extraction History of cholecystectomy History of knee replacement, total History of right hip replacement Family History Brother Colorectal cancer Father Black lung Social History Smoking Status: Former smoker Second Hand Exposure: No; Do You Dip or Chew Tobacco: No; Tobacco Cessation Education Requested by Patient: No Hx Alcohol Use: Yes Alcohol type: beer Alcohol Intake Frequency: Monthly or Less Hx Substance Use: No Preferred Language: Swedish Communication Ability: Effective Holistic Pulser Required: No Beliefs That Will Affect Care: None marital status: / Current Living Situation: Alone Current Living Situation Comment: Home, Independent current occupational status: retired current occupation: [employer] Other Information That Helps Us Care for You: No Feels Safe at Home: Yes Safety Concerns: Feels Safe At This Time Assistive Devices: Oxygen - Continuous Review of Systems Review of Systems: All systems reviewed & are unremarkable except as noted in HPI & below Physical Exam Physical Exam: Constitutional: No acute distress HEENT: EOMI, PERRLA Respiratory system: Decreased air entry bilaterally, no wheeze, rhonchi, positive crackles bilateral lower lobes CVS: S1-S2 positive, no murmurs or gallops Abdomen: Soft, nontender, nondistended, positive bowel sounds x4 Extremities: +2 pulses bilaterally radialis/ dorsalis pedis, no cyanosis, no edema Neuro: Awake alert oriented x3 Psych: Normal mood and affect G/U: No Helms Skin: no rashes, warm and dry Lymphatic: no cervical or axillary lymphadenopathy Results & Data Results & Data ([facility]) Vital Signs (Past 12 Hours) Vital Signs Temp Pulse Pulse Pulse Resp BP Pulse Ox 07/22/21 08:15 60 07/22/21 08:12 72 07/22/21 07:59 59 L 07/22/21 07:55 37.1 C 67 20 175/88 H 92 07/22/21 07:42 36.6 C 61 20 159/73 H 90 07/22/21 07:10 77 20 94 07/22/21 03:18 37.0 C 56 L 21 125/65 94 07/21/21 23:44 86 07/21/21 23:11 37.1 C 63 22 165/83 H 91 07/21/21 21:59 88 22 89 L 07/22/21 05:40 07/22/21 05:40 PG Care Time/CCT Total # of Minutes Spent Total Time Spent with Patient: Total time spent is greater than 50% in coordination of care (as documented) at patient's floor/unit and/or counseling patient: Coding Level of Care Code 27184 Initial Inpt Care Lvl 3 Diagnoses Pneumonia due to COVID-19 virus U07.1; J12.82 Acute hypoxemic respiratory failure J96.01
[2021-07-22] MEDS ORDERED: FUROSEMIDE 40 MG/4 ML VIAL IV ONE (10:00)
[2021-07-22] MEDS: REMDESIVIR 100 MG in SODIUM CHLORIDE 0.9% 230 ML IV SCH (11:59)
--- NOTE | 2021-07-22 14:32 | Pharmacy Report ---
Pharmacy Glycemic Short Note 2 - Date of Service July 22, 2021 - Glycemic Short BSG Results (Last 24 hours): 07/21/21 07/21/21 07/21/21 16:05 20:20 23:07 Glucose 159 H POC Glucose 148 H 169 H 07/22/21 07/22/21 07/22/21 05:40 07:11 11:05 Glucose 199 H POC Glucose 218 H 226 H OUTPATIENT ANTIDIABETIC REGIMEN: * N/A * A1c: 7.5% 07/20/21 ASSESSMENT: 07/22: * BSGs well controlled yesterday with patient receiving a total of 51 units of insulin (40 of which were NPH). Fasting BSG did increase this morning and thus NPH dose increased. Post prandials somewhat more elevated today, but given multiple changes made to NovoLog scale yesterday and previous success with this scale, will continue for now with overnight checks and assess trend tomorrow. * Patient continues on IV dex and is tolerating a diet. 07/20 * Patient admitted for COVID-19 pneumonia experiencing steroid induced hyperglycemia. Patient does not appear to on any anti-diabetic medications as an outpatient. * NPH initiated last night and BSGs trended down nicely today. Will continue current NPH dose and novolog scale. * Patient continues on IV steroids and is tolerating a diet, however intake this morning was low. Will monitor PLAN FOR INPATIENT GLYCEMIC CONTROL: * Hold outpatient oral diabetes medications * Basal insulin * NPH 45 units SQ qam with dexamethasone (increase) * Bolus insulin * NovoLog per scale ACHS or Q6hrs while NPO and overnight checks * Goal Range: Low 110 mg/dL - High 140 mg/dL * Correction Factor: 25 mg/dL/unit * Nutritional / Prandial insulin per carb ratio of 1 unit per 8 grams CHO consumed PLAN FOR DISCHARGE: * Can consider initiation of metformin XR 500mg PO daily with evening meal at discharge provided eGFR acceptable.
[2021-07-22] MEDS: SODIUM CHLORIDE 0.9% 10ML FLUSH IV SCH (14:41)
--- NOTE | 2021-07-22 16:00 | Hospitalist Progress Note ---
Date of Service July 22, 2021 Assessment & Plan (1) Acute hypoxemic respiratory failure: Plan: Hypoxia persists. He denies any worsening respiratory symptoms. CT negative for PE and revealed evidence of pneumonia. Continue his steroids and antiviral therapy for Covid infection with hypoxia. (2) Pneumonia due to COVID-19 virus: Plan: Cont remdesivir and steroid therapy, tolerating well. Continue supportive care efforts and prone patient when able. Pulm consulted and agrees with current plan for now. Will trend CRP in am-so far improving. (3) Paroxysmal atrial fibrillation: Plan: New onset on telemetry noted this admission and improved to normal sinus with addition of low dose metoprolol. He has a pulmonary infection making this more likely. No evidence of ACS. Cont metoprolol. Heparin was placed on hold after a fall last night with traumatic hematoma. OK to remain off AC while in sinus rhythm. Consider restarting if afib begins again after hematoma has started to improve. Sinus rhythm/SB overnight on telemetry review. (4) TOMMY (acute kidney injury): Plan: Resolved. (5) T2DM (type 2 diabetes mellitus): Plan: Pharmacy for hyperglycemic management with insulin as needed. Euglycemic on current regimen. (6) Hypertension: Plan: At goal, continue lisinopril twice daily per home regimen, monitor creatinine closely (7) Carotid artery disease: Plan: Continue medical management including aspirin, atorvastatin, lisinopril per home regimen. (8) Fall: Plan: Disorientation and confusion overnight contributed to fall two nights ago with subsequent hematoma of lower back area. Pain is managed and area is improving. Hold blood thinners and continue supportive care. Hit head but CT head was negative. Patient is now alert and oriented and feeling well. Cont to monitor. (9) Hematoma: Plan: supportive care. (10) DVT prophylaxis: Plan: SCDs DNR/DNI Disposition-came from home, may need therapy, cont PCU in covid unit Allison Knight DO [facility] Hospitalist Admission and Anticipated Discharge Date Admission Date: July 19, 2021 Subjective 86-year-old man admitted for Covid infection with hypoxia. Upon my arrival he was on wall vapotherm at 13LPM and was oxygenating 83%. He was turned on his abdomen and oxygenation went into the low 90s. Per nursing he was on 15 LPM, oxygenating around 90% for most of the day Patient states that he feels well Denies CP, SOB, coughing. Denies pain or nausea. Review of Systems Review of Systems: At least ten systems were reviewed and negative except as indicated in HPI above. Physical Exam Physical Exam: CONSTITUTIONAL: WNWD, vitals as above, generally well- appearing EYES: normal conjunctivae, no scleral icterus ENT: external ear and nose normal, oropharynx clear, MMM NECK: trachea midline, no lymphadenopathy RESPIRATORY: CTAB, no crackles, normal respiratory effort, oxygen supplementation in place. no increased respiratory effort. CARDIOVASCULAR: regular rate and rhythm, 3/6 XOCHITL, no gallops or rubs, no JVD, no peripheral edema GASTROINTESTINAL: soft, nontender, nondistended. MUSCULOSKELETAL: strength 5/5 throughout, head is normocephalic and atraumatic SKIN: warm and dry, large softball size ecchymotic enlargement on lower right flank consistent with traumatic hematoma-improving. NEUROLOGIC: CN 2-12 grossly intact, no sensory deficit, normal cognition, normal speech, no tremor. No gross focal deficits. PSYCHIATRIC: alert cooperative and oriented to person, place and time. Results & Data Results & Data ([facility]) Vital Signs (Past 12 Hours) Vital Signs Temp Pulse Pulse Resp BP Pulse Ox 07/22/21 15:07 69 20 90 07/22/21 12:02 36.5 C 66 18 148/89 H 95 07/22/21 11:25 78 20 95 07/22/21 08:15 60 07/22/21 08:12 72 07/22/21 07:59 59 L 07/22/21 07:55 37.1 C 67 20 175/88 H 92 07/22/21 07:42 36.6 C 61 20 159/73 H 90 07/22/21 07:10 77 20 94 Laboratory Results Short CBC 07/22/21 Range/Units 05:40 WBC 5.69 (4.8-10.8) K/uL Hgb 13.3 L (14.0-18.0) g/dL Hct 39.1 L (42-52) % Plt Count 301 (130-400) K/uL BMP 07/21/21 07/22/21 23:07 05:40 Sodium 136 137 Potassium 3.9 4.0 Chloride 106 105 Carbon Dioxide 24 25 BUN 30 H 27 H Creatinine 0.97 0.87 Glucose 159 H 199 H Calcium 8.2 L 8.7 Liver Function 07/22/21 Range/Units 05:40 Total Bilirubin 0.4 (0.2-1) mg/dl AST 33 (15-37) U/L ALT 31 (12-78) U/L Alkaline Phosphatase 71 (45-117) U/L Albumin 2.0 L (3.4-5.0) gm/dl Medications Administered Current Inpatient Medications Acetaminophen (Acetaminophen 325 Mg Tab) 650 mg PO Q4H PRN PRN Reason: Pain or Fever Stop: 08/18/21 16:34 Al Hydrox/Mg Hydrox/Simethicone (Aluminum/Magnesium Susp 30 Ml Udc) 15 ml PO Q4H PRN PRN Reason: Dyspepsia Stop: 08/18/21 16:34 Last Admin: 07/22/21 12:00 Dose: 15 ml Documented by: Albuterol (Albuterol Hfa 8 Gm Inhaler) 2 puffs INH QID PRN PRN Reason: Shortness Of Breath Or Wheezing Stop: 08/19/21 16:12 Albuterol (Albuterol Hfa 8 Gm Inhaler) 2 puffs INH QIDR BERTRAND Stop: 08/21/21 06:59 Last Admin: 07/22/21 15:06 Dose: 2 puffs Documented by: Amlodipine Besylate (Amlodipine Besylate 5 Mg Tab) 5 mg PO DAILY [facility] Stop: 08/19/21 08:59 Last Admin: 07/22/21 08:05 Dose: 5 mg Documented by: Aspirin (Aspirin 81 Mg Chew) 81 mg PO DAILY [facility] Stop: 08/19/21 08:59 Last Admin: 07/20/21 07:50 Dose: 81 mg Documented by: Atorvastatin Calcium (Atorvastatin 40 Mg Tab) 40 mg PO DAILY BERTRAND Stop: 08/19/21 08:59 Last Admin: 07/22/21 08:05 Dose: 40 mg Documented by: Benzonatate (Benzonatate 100 Mg Capsule) 100 mg PO TID PRN PRN Reason: cough Stop: 08/18/21 16:34 Calcium Polycarbophil (Calcium Polycarbophil 625mg Tab) 625 mg PO DAILY [facility] Stop: 08/19/21 08:59 Last Admin: 07/22/21 08:05 Dose: 625 mg Documented by: Cetirizine HCl (Cetirizine Hcl 10 Mg Tablet) 10 mg PO DAILY BERTRAND Stop: 08/19/21 08:59 Last Admin: 07/22/21 08:05 Dose: 10 mg Documented by: Cyanocobalamin (Cyanocobalamin 500 Mcg Tablet (Vitamin B-12)) 500 mcg PO DAILY BERTRAND Stop: 08/19/21 08:59 Last Admin: 07/22/21 08:06 Dose: 500 mcg Documented by: Dextrose (Dextrose 50% 50 Ml Syringe) 25 - 50 ml IV UD PRN; Protocol PRN Reason: Hypoglycemia Protocol Stop: 08/18/21 16:34 Finasteride (Finasteride 5 Mg Tab) 5 mg PO DAILY BERTRAND Stop: 08/19/21 08:59 Last Admin: 07/22/21 08:05 Dose: 5 mg Documented by: Fluticasone Propionate (Fluticasone Propionate Na Spr 16 Gm Btl) 2 sprays JINNY DAILY BERTRAND Stop: 08/19/21 08:59 Last Admin: 07/22/21 08:04 Dose: 2 sprays Documented by: Glucagon (Glucagon For Inj 1 Mg Vial) 1 mg SQ UD PRN; Protocol PRN Reason: Hypoglycemia Protocol Stop: 08/18/21 16:34 Glucose (Glucose 10 Tabs/Tube) 4 - 8 tabs PO UD PRN; Protocol PRN Reason: Hypoglycemia Protocol Stop: 08/18/21 16:34 Glucose (Glucose 40% Gel 15 Gm Tube) 15 - 30 gm PO UD PRN; Protocol PRN Reason: Hypoglycemia Protocol Stop: 08/18/21 16:34 Guaifenesin (Guaifenesin 600 Mg Tabcr) 600 mg PO Q12 BERTRAND Stop: 08/21/21 20:59 Remdesivir 100 mg/ Sodium (Chloride) 250 mls @ 250 mls/hr IV Q24H BERTRAND; Protocol Stop: 07/23/21 12:59 Last Infusion: 07/22/21 14:41 Dose: Infused Documented by: Heparin Sodium/Dextrose (Heparin Sodium/Dextrose) 25,000 units in 500 mls @ 0 mls/hr IV .Q0M BERTRAND; Protocol Stop: 08/19/21 15:14 Last Titration: 07/21/21 03:00 Dose: 0 units/hr, 0 mls/hr Documented by: Dexamethasone 6 mg/ Syringe 1.5 mls @ 1 mls/min IV QAM BERTRAND Stop: 08/20/21 05:59 Last Admin: 07/22/21 08:04 Dose: 1 mls/min Documented by: Furosemide 40 mg/ Syringe 4 mls @ 4 mls/min IV DAILY [facility] Stop: 08/22/21 08:59 Insulin Aspart (Insulin Aspart 100 Units/Ml 3 Ml Pen) 0 units SC ACHS [facility] Stop: 08/18/21 16:34 Last Admin: 07/22/21 12:26 Dose: 10 units Documented by: Insulin Aspart (Insulin Aspart 100 Units/Ml 3 Ml Pen) 0 units SC TODAY@0000,0400 [facility] Stop: 07/23/21 04:01 Insulin Human NPH (Insulin Human Nph) 45 units SC DAILY [facility]; Protocol Stop: 08/21/21 08:59 Last Admin: 07/22/21 08:49 Dose: 45 units Documented by: Lisinopril (Lisinopril 20 Mg Tab) 20 mg PO BID [facility] Stop: 08/18/21 20:59 Last Admin: 07/22/21 08:06 Dose: 20 mg Documented by: Magnesium Hydroxide (Magnesium Hydroxide Susp 30 Ml Udc) 30 ml PO Q12H PRN PRN Reason: Constipation Stop: 08/18/21 16:34 Metoprolol Tartrate (Metoprolol Tartrate 25 Mg Tab) 12.5 mg PO BID [facility] Stop: 08/19/21 20:59 Last Admin: 07/22/21 08:12 Dose: 12.5 mg Documented by: Miscellaneous (Carbohydrates For Hypoglycemia ) 15 - 30 gm PO UD PRN PRN Reason: Hypoglycemia Protocol Stop: 08/18/21 16:34 Miscellaneous Information (Pharmacy Glycemic Mgmt Consult) 1 ea N/A UD PRN; Protocol PRN Reason: Consult Stop: 08/18/21 16:34 Ondansetron HCl (Ondansetron Inj 2 Mg/Ml 2 Ml Vial) 4 mg IV Q6H PRN PRN Reason: Nausea Stop: 08/18/21 16:34 Pantoprazole Sodium (Pantoprazole 40 Mg Tab) 40 mg PO DAILY [facility] Stop: 08/19/21 08:59 Last Admin: 07/22/21 08:05 Dose: 40 mg Documented by: Polyethylene Glycol (Polyethylene (Miralax) 17 Gm Pack) 17 gm PO DAILY PRN PRN Reason: Constipation Stop: 08/18/21 16:34 Potassium Chloride (Potassium Chloride Crtab 20 Meq Tabcr) 20 meq PO QAM BERTRAND Stop: 08/20/21 08:59 Last Admin: 07/22/21 08:04 Dose: 20 meq Documented by: Sodium Chloride (Sodium Chloride 0.9% 10ml Flush) 30 ml IV Q24H BERTRAND Stop: 07/23/21 12:01 Last Admin: 07/22/21 14:41 Dose: 30 ml Documented by: Tamsulosin HCl (Tamsulosin Hcl 0.4 Mg Cap) 0.4 mg PO HS BERTRAND Stop: 08/18/21 20:59 Last Admin: 07/21/21 20:43 Dose: 0.4 mg Documented by: Vitamin D (Cholecalciferol 1,000 Units 25 Mcg Tab) 1,000 units PO DAILY [facility]ER[facility] Stop: 08/19/21 08:59 Last Admin: 07/22/21 08:05 Dose: 1,000 units Documented by:
[2021-07-22] MEDS: guaiFENesin 600 MG TABCR PO SCH (20:57)
[2021-07-22] MEDS: TAMSULOSIN HCL 0.4 MG CAP PO SCH (20:59)
[2021-07-23] MEDS: INSULIN ASPART 100 UNITS/ML 3 ML PEN SC SCH ×6 (00:35→20:58)
[2021-07-23] MEDS: ALBUTEROL HFA 8 GM INHALER INH SCH ×4 (07:14→22:50)
[2021-07-23] MEDS: amLODIPine BESYLATE 5 MG TAB PO SCH (07:56)
[2021-07-23] MEDS: guaiFENesin 600 MG TABCR PO SCH ×2 (07:56→20:58)
[2021-07-23] MEDS: lisinopril 20 MG TAB PO SCH ×2 (07:56→20:57)
[2021-07-23] MEDS: METOPROLOL TARTRATE 25 MG TAB PO SCH (07:57)
[2021-07-23] MEDS: POTASSIUM CHLORIDE CRTAB 20 MEQ TABCR PO SCH (07:57)
[2021-07-23] MEDS: CHOLECALCIFEROL 1,000 UNITS 25 MCG TAB PO SCH (07:58)
[2021-07-23] MEDS: CALCIUM POLYCARBOPHIL 625MG TAB PO SCH (07:58)
[2021-07-23] MEDS: CETIRIZINE HCL 10 MG TABLET PO SCH (07:58)
[2021-07-23] MEDS: ATORVASTATIN 40 MG TAB PO SCH (07:58)
[2021-07-23] MEDS: FINASTERIDE 5 MG TAB PO SCH (07:58)
[2021-07-23] MEDS: CYANOCOBALAMIN 500 MCG TABLET (VITAMIN B-12) PO SCH (07:58)
[2021-07-23] MEDS: PANTOprazole 40 MG TAB PO SCH (07:58)
[2021-07-23] MEDS: FLUTICASONE PROPIONATE NA SPR 16 GM BTL NAE SCH (07:59)
[2021-07-23 08:11] LABS: Albumin Level 1.9 gm/dl (3.4-5.0); C Reactive Protein 5.28 mg/dl (0-0.29); Calcium 8.2 mg/dl (8.5-10.1); Creatinine Clr Calc Pharmacy 76.4 ml/min; Est GFR (African American) 91.4 ml/min; Est GFR (Non-African American) 78.9 ml/min; Potassium 3.9 mmol/L (3.5-5.1)
[2021-07-23] MEDS: dexAMETHasone 6 MG in SYRINGE 0 ML IV SCH (08:11)
[2021-07-23] MEDS: FUROSEMIDE 40 MG in SYRINGE 0 ML IV SCH (08:11)
[2021-07-23 08:14] LABS: Albumin Globulin Ratio 0.5 (0.9-2); Bilirubin,Total 0.4 mg/dl (0.2-1); Globulin 4.1 gm/dl (2.5-4.0)
[2021-07-23] MEDS ORDERED: INSULIN HUMAN NPH SC SCH (09:00)
--- NOTE | 2021-07-23 11:02 | Cardiology Progress Note ---
Date of Service July 23, 2021 Assessment & Plan (1) Paroxysmal atrial fibrillation: (2) Paroxysmal atrial tachycardia: (3) COVID-19: (4) Hypoxia: (5) CAD (coronary artery disease), tanana coronary artery: Plan: No recurrent atrial tachycardia or atrial fibrillation over the past 24 hours. Episodes of sinus bradycardia recorded at rest. No significant pauses, however, I am concerned regarding potential bradycardia in the setting of hypoxia. Reduce metoprolol to 12.5 mg once daily. Continue telemetry monitoring. Anticoagulation on hold due to fall with lumbar hematoma. Would not recommend repeat echocardiogram at this time. Continue treatment and supportive care regarding COVID-19 as per internal medicine. Admission and Anticipated Discharge Date Admission Date: July 19, 2021 Subjective Patient seen and examined at the bedside. Lying prone on high flow nasal cannula. Oxygen requirements have increased over the past 48 hours. Denies chest pain or subjective shortness of breath. No cough during examination. Denies orthopnea or PND. No recurrent falls. Telemetry reveals sinus rhythm and sinus bradycardia. No recurrent atrial tachycardia or atrial fibrillation. Review of Systems Review of Systems: All systems reviewed & are unremarkable except as noted in Subjective Physical Exam Constitutional: well developed, well nourished and + ill appearing; no acute distress Respiratory: no respiratory distress Auscultation: + diminished lung sounds; no crackles, no rales, no rhonchi and no wheezes Cardiovascular: Rate/Rhythm: regular rate and regular rhythm Heart Sounds: normal S1, normal S2 and + murmur (1/6 systolic ejection murmur heard best at the right second intercostal spa) Vessels: no JVD Extremities: no edema Gastrointestinal (Abdomen): Inspection/Auscultation: abdomen normal to inspection and normal bowel sounds; abdomen not distended Percussion/Palpation: abdomen soft; abdomen nontender, no guarding and abdomen not rigid Neurologic: CN's II-XI intact bilaterally and moves all extremities; no focal motor deficits Motor/Sensory: no tremor Psychiatric: A+Ox3, euthymic affect Results & Data ([facility]) Vital Signs (Past 12 Hours) Vital Signs Temp Pulse Pulse Pulse Resp BP Pulse Ox 07/23/21 09:17 62 26 H 91 07/23/21 09:00 63 22 95 07/23/21 08:54 07/23/21 07:44 37.2 C 68 18 133/91 88 L 07/23/21 07:14 68 16 89 L 07/23/21 07:00 55 L 07/23/21 04:18 36.9 C 63 20 154/77 H 92 07/23/21 00:39 61 Pulse Ox 07/23/21 09:17 07/23/21 09:00 07/23/21 08:54 86 L 07/23/21 07:44 07/23/21 07:14 07/23/21 07:00 07/23/21 04:18 07/23/21 00:39
[2021-07-23] MEDS: REMDESIVIR 100 MG in SODIUM CHLORIDE 0.9% 230 ML IV SCH (11:16)
--- NOTE | 2021-07-23 11:35 | Hospitalist Progress Note ---
Date of Service July 23, 2021 Assessment & Plan (1) Acute hypoxemic respiratory failure: Plan: Hypoxia persists. Transitioned to vapotherm this morning for additional support. He denies any worsening respiratory symptoms. CT negative for PE and revealed evidence of pneumonia. Continue his steroids and antiviral therapy for Covid infection with hypoxia. (2) Pneumonia due to COVID-19 virus: Plan: Cont remdesivir and steroid therapy, tolerating well. Continue supportive care efforts and prone patient when able. Pulm consulted and agrees with current plan for now. CRP improving. (3) Paroxysmal atrial fibrillation: Plan: New onset on telemetry noted this admission and improved to normal sinus with addition of low dose metoprolol. Remains in sinus rhythm on telemetry. Cont metoprolol. Heparin was placed on hold after a fall with traumatic hematoma. OK to remain off AC while in sinus rhythm, however, feel DVT prophylaxis should be restarted in am out of concern for hyprcoagulable state in covid-19 infection. Consider restarting full AC if afib begins again after hematoma has started to improve. Sinus rhythm/SB overnight on telemetry review. (4) TOMMY (acute kidney injury): Plan: Resolved. (5) T2DM (type 2 diabetes mellitus): Plan: Pharmacy for hyperglycemic management with insulin as needed. Euglycemic on current regimen. (6) Hypertension: Plan: At goal, continue lisinopril twice daily per home regimen, monitor creatinine closely (7) Carotid artery disease: Plan: Continue medical management including aspirin (held in setting of hematoma), atorvastatin, lisinopril per home regimen. (8) Fall: Plan: Disorientation and confusion overnight contributed to fall two nights ago with subsequent hematoma of lower back area. Pain is managed and area is improving. Hold blood thinners and continue supportive care. Hit head but CT head was negative. Patient is now alert and oriented and feeling well. Cont to monitor. (9) Hematoma: Plan: lumbar hematoma as a result of fall in the hospital. Doing well. Supportive care. (10) DVT prophylaxis: Plan: SCDs-plan to restart DVT prophy in am. DNR/DNI Disposition-came from home, may need therapy, cont PCU in covid unit [facility] and Anticipated Discharge Date Admission Date: July 19, 2021 Subjective 86 yo M admitted with acute respiratory failure 2/2 covid pneumonia Pt reports feeling well Denies SOB Was transitioned from wall hi flow to Vapotherm as a result of difficulty with low saturations this am min to no coughing Tolerating PO Denies pain in his lower back (hematoma) Review of Systems Review of Systems: At least ten systems were reviewed and negative except as indicated in HPI above. Physical Exam Physical Exam: CONSTITUTIONAL: WNWD, vitals as above, generally well- appearing, lying supine, NAD EYES: normal conjunctivae, no scleral icterus ENT: external ear and nose normal, oropharynx clear, MMM NECK: trachea midline, no lymphadenopathy RESPIRATORY: CTAB, no crackles, normal respiratory effort, oxygen supplementation in place. no increased respiratory effort. CARDIOVASCULAR: regular rate and rhythm, 3/6 XOCHITL, no gallops or rubs, no JVD, no peripheral edema GASTROINTESTINAL: soft, nontender, nondistended. MUSCULOSKELETAL: strength 5/5 throughout, head is normocephalic and atraumatic SKIN: warm and dry, large softball size ecchymotic enlargement on lower right flank consistent with traumatic hematoma-improving. Slight chafing of skin superficially over this area which has superficial fluctuance. NEUROLOGIC: CN 2-12 grossly intact, no sensory deficit, normal cognition, normal speech, no tremor. No gross focal deficits. PSYCHIATRIC: alert cooperative and oriented to person, place and time. Results & Data Results & Data ([facility]) Vital Signs (Past 12 Hours) Vital Signs Temp Pulse Pulse Pulse Resp BP Pulse Ox 07/23/21 11:08 36.6 C 67 29 H 106/54 L 90 07/23/21 09:17 62 26 H 91 07/23/21 09:00 63 22 95 07/23/21 08:54 07/23/21 07:44 37.2 C 68 18 133/91 88 L 07/23/21 07:14 68 16 89 L 07/23/21 07:00 55 L 07/23/21 04:18 36.9 C 63 20 154/77 H 92 07/23/21 00:39 61 Pulse Ox 07/23/21 11:08 07/23/21 09:17 07/23/21 09:00 07/23/21 08:54 86 L 07/23/21 07:44 07/23/21 07:14 07/23/21 07:00 07/23/21 04:18 07/23/21 00:39 Laboratory Results BMP 07/23/21 06:27 Sodium 140 Potassium 3.9 Chloride 108 H Carbon Dioxide 26 BUN 29 H Creatinine 0.85 Glucose 135 H Calcium 8.2 L Liver Function 07/23/21 Range/Units 06:27 Total Bilirubin 0.4 (0.2-1) mg/dl AST 22 (15-37) U/L ALT 29 (12-78) U/L Alkaline Phosphatase 69 (45-117) U/L Albumin 1.9 L (3.4-5.0) gm/dl Medications Administered Current Inpatient Medications Acetaminophen (Acetaminophen 325 Mg Tab) 650 mg PO Q4H PRN PRN Reason: Pain or Fever Stop: 08/18/21 16:34 Al Hydrox/Mg Hydrox/Simethicone (Aluminum/Magnesium Susp 30 Ml Udc) 15 ml PO Q4H PRN PRN Reason: Dyspepsia Stop: 08/18/21 16:34 Last Admin: 07/22/21 12:00 Dose: 15 ml Documented by: Albuterol (Albuterol Hfa 8 Gm Inhaler) 2 puffs INH QID PRN PRN Reason: Shortness Of Breath Or Wheezing Stop: 08/19/21 16:12 Albuterol (Albuterol Hfa 8 Gm Inhaler) 2 puffs INH QIDR [facility] Stop: 08/21/21 06:59 Last Admin: 07/23/21 07:14 Dose: 2 puffs Documented by: Amlodipine Besylate (Amlodipine Besylate 5 Mg Tab) 5 mg PO DAILY [facility] Stop: 08/19/21 08:59 Last Admin: 07/23/21 07:56 Dose: 5 mg Documented by: Aspirin (Aspirin 81 Mg Chew) 81 mg PO DAILY [facility] Stop: 08/19/21 08:59 Last Admin: 07/20/21 07:50 Dose: 81 mg Documented by: Atorvastatin Calcium (Atorvastatin 40 Mg Tab) 40 mg PO DAILY [facility] Stop: 08/19/21 08:59 Last Admin: 07/23/21 07:58 Dose: 40 mg Documented by: Benzonatate (Benzonatate 100 Mg Capsule) 100 mg PO TID PRN PRN Reason: cough Stop: 08/18/21 16:34 Calcium Polycarbophil (Calcium Polycarbophil 625mg Tab) 625 mg PO DAILY [facility] Stop: 08/19/21 08:59 Last Admin: 07/23/21 07:58 Dose: 625 mg Documented by: Cetirizine HCl (Cetirizine Hcl 10 Mg Tablet) 10 mg PO DAILY [facility] Stop: 08/19/21 08:59 Last Admin: 07/23/21 07:58 Dose: 10 mg Documented by: Cyanocobalamin (Cyanocobalamin 500 Mcg Tablet (Vitamin B-12)) 500 mcg PO DAILY [facility] Stop: 08/19/21 08:59 Last Admin: 07/23/21 07:58 Dose: 500 mcg Documented by: Dextrose (Dextrose 50% 50 Ml Syringe) 25 - 50 ml IV UD PRN; Protocol PRN Reason: Hypoglycemia Protocol Stop: 08/18/21 16:34 Finasteride (Finasteride 5 Mg Tab) 5 mg PO DAILY [facility] Stop: 08/19/21 08:59 Last Admin: 07/23/21 07:58 Dose: 5 mg Documented by: Fluticasone Propionate (Fluticasone Propionate Na Spr 16 Gm Btl) 2 sprays JINNY DAILY [facility] Stop: 08/19/21 08:59 Last Admin: 07/23/21 07:59 Dose: 2 sprays Documented by: Glucagon (Glucagon For Inj 1 Mg Vial) 1 mg SQ UD PRN; Protocol PRN Reason: Hypoglycemia Protocol Stop: 08/18/21 16:34 Glucose (Glucose 10 Tabs/Tube) 4 - 8 tabs PO UD PRN; Protocol PRN Reason: Hypoglycemia Protocol Stop: 08/18/21 16:34 Glucose (Glucose 40% Gel 15 Gm Tube) 15 - 30 gm PO UD PRN; Protocol PRN Reason: Hypoglycemia Protocol Stop: 08/18/21 16:34 Guaifenesin (Guaifenesin 600 Mg Tabcr) 600 mg PO Q12 [facility] Stop: 08/21/21 20:59 Last Admin: 07/23/21 07:56 Dose: 600 mg Documented by: Remdesivir 100 mg/ Sodium (Chloride) 250 mls @ 250 mls/hr IV Q24H [facility]; Protocol Stop: 07/23/21 12:59 Last Admin: 07/23/21 11:16 Dose: 250 mls/hr Documented by: Heparin Sodium/Dextrose (Heparin Sodium/Dextrose) 25,000 units in 500 mls @ 0 mls/hr IV .Q0M [facility]; Protocol Stop: 08/19/21 15:14 Last Titration: 07/23/21 08:44 Dose: Infused Documented by: Dexamethasone 6 mg/ Syringe 1.5 mls @ 1 mls/min IV QAM [facility] Stop: 08/20/21 05:59 Last Admin: 07/23/21 08:11 Dose: 1 mls/min Documented by: Furosemide 40 mg/ Syringe 4 mls @ 4 mls/min IV DAILY [facility] Stop: 08/22/21 08:59 Last Admin: 07/23/21 08:11 Dose: 4 mls/min Documented by: Insulin Aspart (Insulin Aspart 100 Units/Ml 3 Ml Pen) 0 units SC ACHS [facility] Stop: 08/18/21 16:34 Last Admin: 07/23/21 08:58 Dose: 6 units Documented by: Insulin Human NPH (Insulin Human Nph) 50 units SC DAILY [facility]; Protocol Stop: 08/22/21 08:59 Last Admin: 07/23/21 08:44 Dose: 50 units Documented by: Lisinopril (Lisinopril 20 Mg Tab) 20 mg PO BID [facility] Stop: 08/18/21 20:59 Last Admin: 07/23/21 07:56 Dose: 20 mg Documented by: Magnesium Hydroxide (Magnesium Hydroxide Susp 30 Ml Udc) 30 ml PO Q12H PRN PRN Reason: Constipation Stop: 08/18/21 16:34 Metoprolol Succinate (Metoprolol Succ 25mg Ext Rel Tab) 12.5 mg PO QAM [facility] Stop: 08/23/21 08:59 Miscellaneous (Carbohydrates For Hypoglycemia ) 15 - 30 gm PO UD PRN PRN Reason: Hypoglycemia Protocol Stop: 08/18/21 16:34 Miscellaneous Information (Pharmacy Glycemic Mgmt Consult) 1 ea N/A UD PRN; Protocol PRN Reason: Consult Stop: 08/18/21 16:34 Ondansetron HCl (Ondansetron Inj 2 Mg/Ml 2 Ml Vial) 4 mg IV Q6H PRN PRN Reason: Nausea Stop: 08/18/21 16:34 Pantoprazole Sodium (Pantoprazole 40 Mg Tab) 40 mg PO DAILY [facility] Stop: 08/19/21 08:59 Last Admin: 07/23/21 07:58 Dose: 40 mg Documented by: Polyethylene Glycol (Polyethylene (Miralax) 17 Gm Pack) 17 gm PO DAILY PRN PRN Reason: Constipation Stop: 08/18/21 16:34 Potassium Chloride (Potassium Chloride Crtab 20 Meq Tabcr) 20 meq PO QAM [facility] Stop: 08/20/21 08:59 Last Admin: 07/23/21 07:57 Dose: 20 meq Documented by: Sodium Chloride (Sodium Chloride 0.9% 10ml Flush) 30 ml IV Q24H [facility] Stop: 07/23/21 12:01 Last Admin: 07/22/21 14:41 Dose: 30 ml Documented by: Tamsulosin HCl (Tamsulosin Hcl 0.4 Mg Cap) 0.4 mg PO HS [facility] Stop: 08/18/21 20:59 Last Admin: 07/22/21 20:59 Dose: 0.4 mg Documented by: Vitamin D (Cholecalciferol 1,000 Units 25 Mcg Tab) 1,000 units PO DAILY [facility] Stop: 08/19/21 08:59 Last Admin: 07/23/21 07:58 Dose: 1,000 units Documented by:
[2021-07-23] MEDS: SODIUM CHLORIDE 0.9% 10ML FLUSH IV SCH (12:22)
--- NOTE | 2021-07-23 13:38 | Pulmonology Progress Note ---
Date of Service July 23, 2021 Assessment & Plan (1) Pneumonia due to COVID-19 virus: (2) Acute hypoxemic respiratory failure: (3) COPD with emphysema: Plan: CT chest 07/20/2021 personally reviewed: Patchy groundglass opacities appreciated bilaterally especially in the right upper lobe volume loss on the right side, Right hilar lymphadenopathy Small pleural effusions bilaterally --Acute hypoxic respiratory failure Secondary to multilobar COVID-19 pneumonia COVID-19 PCR positive, positive lymphopenia CRP 21.5 --> 11 --> 5.28 Procalcitonin 0.11 Continue with O2 supplementation to keep oxygen saturation between 90-92%. Awake proning will be helpful Continue with incentive spirometry Continue with flutter valve. Recommend patient to be kept euvolemic to negative balance --COPD Not on any inhalers at home Continue with Anoro Plan: In/out: Negative 420, urine output 1250 CRP is trending down. No need to increase the dexamethasone dose. Continue with diuretics to keep the patient negative balance Try to titrate O2 down to keep oxygen saturation greater than 88% Patient is proning well. Case discussed with ADAM Barrett Please note the above document was generated using voice recognition software. It may contain grammatical, syntax or spelling errors.Any formal questions or concerns about the content, text or information contained within the body of this dictation should be directly addressed to the provider for clarification. Admission and Anticipated Discharge Date Admission Date: July 19, 2021 Subjective Patient seen and examined at bedside. No acute distress, no adverse events overnight. Patient was lying prone at the time of examination saturating 96% on 30 L, 65%. I went down to 45% patient was still saturating 92%. Denies any chest pain, no headache, no nausea, no vomiting Importance of using spirometry and flutter valve explained to the patient Review of Systems Review of Systems: All systems reviewed & are unremarkable except as noted in Subjective Physical Exam Physical Exam: Constitutional: No acute distress HEENT: EOMI, PERRLA Respiratory system: Decreased air entry bilaterally, no wheeze, rhonchi, positive crackles bilateral lower lobes CVS: S1-S2 positive, no murmurs or gallops Abdomen: Soft, nontender, nondistended, positive bowel sounds x4 Extremities: +2 pulses bilaterally radialis/ dorsalis pedis, no cyanosis, no edema Neuro: Awake alert oriented x3 Psych: Normal mood and affect G/U: No Helms Skin: no rashes, warm and dry Lymphatic: no cervical or axillary lymphadenopathy Results & Data Results & Data ([facility]) Vital Signs (Past 12 Hours) Vital Signs Temp Pulse Pulse Pulse Resp BP Pulse Ox 07/23/21 11:41 69 24 95 07/23/21 11:08 36.6 C 67 29 H 106/54 L 90 07/23/21 09:17 62 26 H 91 07/23/21 09:00 63 22 95 07/23/21 08:54 07/23/21 07:44 37.2 C 68 18 133/91 88 L 07/23/21 07:14 68 16 89 L 07/23/21 07:00 55 L 07/23/21 04:18 36.9 C 63 20 154/77 H 92 Pulse Ox 07/23/21 11:41 07/23/21 11:08 07/23/21 09:17 07/23/21 09:00 07/23/21 08:54 86 L 07/23/21 07:44 07/23/21 07:14 07/23/21 07:00 07/23/21 04:18 07/22/21 05:40 07/23/21 06:27 PG Care Time/CCT Total # of Minutes Spent Total Time Spent with Patient: Total time spent is greater than 50% in coordination of care (as documented) at patient's floor/unit and/or counseling patient: Coding Level of Care Code 87156 Subseq Hosp Care Lvl 3 Diagnoses Pneumonia due to COVID-19 virus U07.1; J12.82 Acute hypoxemic respiratory failure J96.01 COPD with emphysema J43.9
[2021-07-23] MEDS: UMECLIDINIUM/VILANTEROL 62.5/25MCG 7 PUFFS/INHALER INH SCH (15:10)
[2021-07-23] MEDS: TAMSULOSIN HCL 0.4 MG CAP PO SCH (20:58)
[2021-07-24] MEDS: ALBUTEROL HFA 8 GM INHALER INH SCH ×3 (07:10→22:20)
[2021-07-24] MEDS: FUROSEMIDE 40 MG in SYRINGE 0 ML IV SCH (08:04)
[2021-07-24] MEDS: dexAMETHasone 6 MG in SYRINGE 0 ML IV SCH (08:04)
--- NOTE | 2021-07-24 08:08 | Pulmonology Progress Note ---
Date of Service July 24, 2021 Assessment & Plan (1) Pneumonia due to COVID-19 virus: (2) Acute hypoxemic respiratory failure: (3) COPD with emphysema: Plan: CT chest 07/20/2021 personally reviewed: Patchy groundglass opacities appreciated bilaterally especially in the right upper lobe volume loss on the right side, Right hilar lymphadenopathy Small pleural effusions bilaterally --Acute hypoxic respiratory failure Secondary to multilobar COVID-19 pneumonia COVID-19 PCR positive, positive lymphopenia CRP 21.5 --> 11 --> 5.28 Procalcitonin 0.11 Continue with O2 supplementation to keep oxygen saturation between 90-92%. Awake proning will be helpful Continue with incentive spirometry Continue with flutter valve. Recommend patient to be kept euvolemic to negative balance --COPD Not on any inhalers at home Continue with Anoro Plan: In/out: Negative 1335, urine output 1875 Continue with diuretics to keep the patient negative balance Try to titrate O2 down to keep oxygen saturation greater than 88%. Can even try to take the patient off high flow. Patient is proning well. Case discussed with ADAM Barrett Please note the above document was generated using voice recognition software. It may contain grammatical, syntax or spelling errors.Any formal questions or c oncerns about the content, text or information contained within the body of this dictation should be directly addressed to the provider for clarification. Admission and Anticipated Discharge Date Admission Date: July 19, 2021 Subjective Patient seen and examined at bedside. No acute distress, no adverse events overnight. Patient was self proning during examination. At the time of examination patient was on 30 L, 45% saturating 93-94% Went down to 40% and he was still maintaining his saturation. Denies any chest pain, shortness of breath is improved. No nausea or vomiting. Good appetite. Review of Systems Review of Systems: All systems reviewed & are unremarkable except as noted in Subjective Physical Exam Physical Exam: Constitutional: No acute distress HEENT: EOMI, PERRLA Respiratory system: Decreased air entry bilaterally, no wheeze, rhonchi, positive crackles bilateral lower lobes CVS: S1-S2 positive, no murmurs or gallops Abdomen: Soft, nontender, nondistended, positive bowel sounds x4 Extremities: +2 pulses bilaterally radialis/ dorsalis pedis, no cyanosis, no edema Neuro: Awake alert oriented x3 Psych: Normal mood and affect G/U: Positive Helms Skin: no rashes, warm and dry Lymphatic: no cervical or axillary lymphadenopathy Results & Data Results & Data ([facility]) Vital Signs (Past 12 Hours) Vital Signs Temp Pulse Pulse Pulse Resp BP BP 07/24/21 07:12 72 18 07/24/21 07:10 66 19 07/24/21 07:07 36.6 C 64 31 H 125/64 07/24/21 03:50 81 30 H 07/24/21 03:35 37.4 C 60 23 115/58 L 07/24/21 02:01 65 07/24/21 00:39 36.6 C 66 25 H 104/39 L 07/23/21 22:51 58 L 30 H 07/23/21 20:55 66 24 124/71 Pulse Ox 07/24/21 07:12 94 07/24/21 07:10 94 07/24/21 07:07 96 07/24/21 03:50 96 07/24/21 03:35 99 07/24/21 02:01 07/24/21 00:39 88 L 07/23/21 22:51 94 07/23/21 20:55 91 07/22/21 05:40 07/23/21 06:27 PG Care Time/CCT Total # of Minutes Spent Total Time Spent with Patient: Total time spent is greater than 50% in coordination of care (as documented) at patient's floor/unit and/or counseling patient: Coding Level of Care Code 59415 Subseq Hosp Care Lvl 3 Diagnoses Pneumonia due to COVID-19 virus U07.1; J12.82 Acute hypoxemic respiratory failure J96.01 COPD with emphysema J43.9
[2021-07-24] MEDS: INSULIN ASPART 100 UNITS/ML 3 ML PEN SC SCH ×4 (08:26→21:05)
[2021-07-24] MEDS: guaiFENesin 600 MG TABCR PO SCH ×2 (08:27→21:02)
[2021-07-24] MEDS: lisinopril 20 MG TAB PO SCH ×2 (08:27→21:02)
[2021-07-24] MEDS: ENOXAPARIN INJ 40 MG/0.4 ML SYR SQ SCH (08:27)
[2021-07-24 08:28] LABS: Eosinophils # (auto) 0.03 K/uL (0-0.5); Eosinophils % (auto) 0.5 %; Hematocrit (blood only) 40.5 % (42-52); Hemoglobin 13.6 g/dL (14.0-18.0); Immature Granulocytes # (auto) 0.04 K/uL (0.00-0.02); Immature Granulocytes % (auto) 0.7 %; Lymphocytes # (auto) 1.24 K/uL (1.2-3.4); Lymphocytes % (auto) 21.2 %; Mean Corpuscular Hemoglobin 32.6 pg (25-34); Mean Corpuscular Volume 97.1 fL (80-100); Mean Platelet Volume 9.6 fL (7.4-10.4); Monocytes # (auto) 0.11 K/uL (0.11-0.59); Monocytes % (auto) 1.9 %; Neutrophils # (auto) 4.43 K/uL (1.4-6.5); Neutrophils % (auto) 75.7 %; Platelet Count 363 K/uL (130-400); RDW Coefficient of Variation 14.3 % (11.5-14.5); RDW Standard Deviation 51.3 fL (36.4-46.3); Red Blood Count 4.17 M/uL (4.7-6.1); White Blood Count 5.85 K/uL (4.8-10.8)
[2021-07-24] MEDS: METOPROLOL SUCC 25MG EXT REL TAB PO SCH (08:30)
[2021-07-24] MEDS: FLUTICASONE PROPIONATE NA SPR 16 GM BTL NAE SCH (08:30)
[2021-07-24] MEDS: PANTOprazole 40 MG TAB PO SCH (08:31)
[2021-07-24] MEDS: CALCIUM POLYCARBOPHIL 625MG TAB PO SCH (08:32)
[2021-07-24] MEDS: CYANOCOBALAMIN 500 MCG TABLET (VITAMIN B-12) PO SCH (08:32)
[2021-07-24] MEDS: FINASTERIDE 5 MG TAB PO SCH (08:32)
[2021-07-24] MEDS: amLODIPine BESYLATE 5 MG TAB PO SCH (08:32)
[2021-07-24] MEDS: ATORVASTATIN 40 MG TAB PO SCH (08:32)
[2021-07-24] MEDS: POTASSIUM CHLORIDE CRTAB 20 MEQ TABCR PO SCH (08:32)
[2021-07-24] MEDS: CHOLECALCIFEROL 1,000 UNITS 25 MCG TAB PO SCH (08:32)
[2021-07-24] MEDS: UMECLIDINIUM/VILANTEROL 62.5/25MCG 7 PUFFS/INHALER INH SCH (08:32)
[2021-07-24] MEDS: CETIRIZINE HCL 10 MG TABLET PO SCH (08:32)
[2021-07-24 08:33] LABS: Mean Corpuscular Hgb Conc 33.6 g/dL (32-36)
[2021-07-24 08:45] LABS: Albumin Level 2.1 gm/dl (3.4-5.0); BUN Creatinine Ratio 30.9 (10-20); C Reactive Protein 3.54 mg/dl (0-0.29); Calcium 8.3 mg/dl (8.5-10.1); Creatinine Clr Calc Pharmacy 73.1 ml/min; Est GFR (African American) 90.1 ml/min; Est GFR (Non-African American) 77.8 ml/min; Potassium 3.7 mmol/L (3.5-5.1)
[2021-07-24 08:48] LABS: Albumin Globulin Ratio 0.5 (0.9-2); Bilirubin,Total 0.6 mg/dl (0.2-1); Globulin 4.1 gm/dl (2.5-4.0); Phosphorus 4.4 mg/dl (2.5-4.9); Total Protein 6.2 gm/dl (6.4-8.2)
[2021-07-24] MEDS ORDERED: INSULIN HUMAN NPH SC SCH (09:00)
[2021-07-24] MEDS: ACETAMINOPHEN 325 MG TAB PO PRN ×2 (09:36→14:28)
[2021-07-24] MEDS: MUPIROCIN 2% OINT 22 GM TUBE EXT SCH ×2 (12:00→15:11)
--- NOTE | 2021-07-24 12:46 | Cardiology Progress Note ---
Date of Service July 24, 2021 Assessment & Plan (1) Paroxysmal atrial fibrillation: (2) Paroxysmal atrial tachycardia: (3) COVID-19: (4) Hypoxia: (5) CAD (coronary artery disease), [place] coronary artery: Plan: No recurrent atrial tachycardia or atrial fibrillation over the past 48 hours. Episodes of sinus bradycardia recorded at rest. No significant pauses, however, I am concerned regarding potential bradycardia in the setting of hypoxia. Cautiously continue low-dose metoprolol 12.5 mg daily. Continue telemetry monitoring. Anticoagulation on hold due to fall with lumbar hematoma. Continue treatment and supportive care regarding COVID-19 as per internal medicine. Cardiology will sign off for the weekend. Please call with any questions/concerns. Admission and Anticipated Discharge Date Admission Date: July 19, 2021 Subjective Patient seen examined the bedside. No recurrent atrial fibrillation or atrial tachycardia on telemetry. Oxygenation unchanged. He denies subjective shortness of breath, orthopnea, or PND. Occasional nonproductive cough reported. Denies palpitations, lightheadedness, or dizziness. Review of Systems Review of Systems: All systems reviewed & are unremarkable except as noted in Subjective Physical Exam Constitutional: well developed, well nourished and + ill appearing; no acute distress Respiratory: no respiratory distress Auscultation: + diminished lung sounds; no crackles, no rales, no rhonchi and no wheezes Cardiovascular: Rate/Rhythm: regular rate and regular rhythm Heart Sounds: normal S1, normal S2 and + murmur (1/6 systolic ejection murmur heard best at the right second intercostal spa) Vessels: no JVD Extremities: no edema Gastrointestinal (Abdomen): Inspection/Auscultation: abdomen normal to inspection and normal bowel sounds; abdomen not distended Percussion/Palpation: abdomen soft; abdomen nontender, no guarding and abdomen not rigid Neurologic: CN's II-XI intact bilaterally and moves all extremities; no focal motor deficits Motor/Sensory: no tremor Psychiatric: A+Ox3, euthymic affect Results & Data ([facility]) Vital Signs (Past 12 Hours) Vital Signs Temp Pulse Pulse Pulse Resp BP BP 07/24/21 12:38 19 07/24/21 11:36 36.8 C 71 20 105/52 L 07/24/21 11:03 65 18 07/24/21 09:30 07/24/21 08:00 58 L 07/24/21 07:12 72 18 07/24/21 07:10 66 19 07/24/21 07:07 36.6 C 64 31 H 125/64 07/24/21 03:50 81 30 H 07/24/21 03:35 37.4 C 60 23 115/58 L 07/24/21 02:01 65 Pulse Ox Pulse Ox 07/24/21 12:38 95 07/24/21 11:36 92 07/24/21 11:03 92 07/24/21 09:30 93 07/24/21 08:00 91 07/24/21 07:12 94 07/24/21 07:10 94 07/24/21 07:07 96 07/24/21 03:50 96 07/24/21 03:35 99 07/24/21 02:01
--- NOTE | 2021-07-24 15:08 | Hospitalist Progress Note ---
Date of Service July 24, 2021 Assessment & Plan (1) Acute hypoxemic respiratory failure: Plan: Secondary to COVID-19 pneumonia and is complicated by COPD CT negative for PE and revealed evidence of pneumonia. Continue his steroids and antiviral therapy for Covid infection with hypoxia. Appreciate pulmonary input and recommendation Still requiring high flow oxygen to maintain saturation Remains stable at rest (2) Pneumonia due to COVID-19 virus: Plan: Not a candidate for remdesivir but has been getting dexamethasone Cont remdesivir and steroid therapy, tolerating well. Continue supportive care efforts and prone patient when able. Pulm consulted and agrees with current plan for now. Will trend CRP in am-so far improving. We will continue current management with negative balance while in the hospital (3) Paroxysmal atrial fibrillation: Plan: New onset on telemetry noted this admission and improved to normal sinus with addition of low dose metoprolol. He has a pulmonary infection making this more likely. No evidence of ACS. Cont metoprolol. Heparin was placed on hold after a fall last night with traumatic hematoma. OK to remain off AC while in sinus rhythm. Consider restarting if afib begins again after hematoma has started to improve. Appreciate cardiology input and recommendation Metoprolol dose has been decreased due to bradycardia (4) TOMMY (acute kidney injury): Plan: Resolved. (5) T2DM (type 2 diabetes mellitus): Plan: Pharmacy for hyperglycemic management with insulin as needed. Euglycemic on current regimen. (6) Hypertension: Plan: At goal, continue lisinopril twice daily per home regimen, monitor creatinine closely (7) Carotid artery disease: Plan: Continue medical management including aspirin, atorvastatin, lisinopril per home regimen. (8) Fall: Plan: Disorientation and confusion overnight contributed to fall two nights ago with subsequent hematoma of lower back area. Pain is managed and area is improving. Hold blood thinners and continue supportive care. Hit head but CT head was negative. Patient is now alert and oriented and feeling well. Cont to monitor. (9) Hematoma: Plan: Hematoma lower back area following a fall Supportive care. (10) DVT prophylaxis: Plan: SCDs DNR/DNI Disposition-came from home, may need therapy, cont PCU in covid unit Discussed with the son-in-law Admission and Anticipated Discharge Date Admission Date: July 19, 2021 Subjective 07/24/2021 The patient was seen and examined in telemetry unit and in the Covid room He has been feeling much better in bed Gets very shortness of breath with exertion without any tachycardia Still requiring FiO2 of 0.45 to maintain saturation Denies any significant symptoms Review of Systems Review of Systems: All systems reviewed and are unremarkable except as noted below Respiratory: Shortness of breath at rest with occasional cough Physical Exam Physical Exam: Lying in bed comfortably Constitutional: well developed, well nourished, + ill appearing and + obese Eyes: PERRL, conjunctivae normal, anicteric sclerae ENMT: external ear and nose normal, oropharynx normal Neck: trachea midline, no thyromegaly Respiratory: + respiratory distress (Mild to moderate at rest); no labored breathing Auscultation: + diminished lung sounds and + crackles (Minimal crackles at the bases); no wheezes Cardiovascular: Rate/Rhythm: regular rate and regular rhythm; not tachycardic Heart Sounds: normal S1 and normal S2; no murmur Gastrointestinal (Abdomen): Inspection/Auscultation: normal bowel sounds; abdomen not distended Percussion/Palpation: abdomen soft; abdomen nontender Musculoskeletal: No acute arthritis in any joint Neurologic: Alert, awake and oriented x3. No focal sensory and motor deficit appreciated Results & Data Results & Data ([facility]) Vital Signs (Past 12 Hours) Vital Signs Temp Pulse Pulse Pulse Resp BP BP 07/24/21 12:38 19 07/24/21 11:36 36.8 C 71 20 105/52 L 07/24/21 11:03 65 18 07/24/21 09:30 07/24/21 08:00 58 L 07/24/21 07:12 72 18 07/24/21 07:10 66 19 07/24/21 07:07 36.6 C 64 31 H 125/64 07/24/21 03:50 81 30 H 07/24/21 03:35 37.4 C 60 23 115/58 L Pulse Ox Pulse Ox 07/24/21 12:38 95 07/24/21 11:36 92 07/24/21 11:03 92 07/24/21 09:30 93 07/24/21 08:00 91 07/24/21 07:12 94 07/24/21 07:10 94 07/24/21 07:07 96 07/24/21 03:50 96 07/24/21 03:35 99 Laboratory Results Short CBC 07/24/21 Range/Units 08:18 WBC 5.85 (4.8-10.8) K/uL Hgb 13.6 L (14.0-18.0) g/dL Hct 40.5 L (42-52) % Plt Count 363 (130-400) K/uL BMP 07/24/21 08:18 Sodium 141 Potassium 3.7 Chloride 108 H Carbon Dioxide 26 BUN 27 H Creatinine 0.88 Glucose 91 Calcium 8.3 L Liver Function 07/24/21 Range/Units 08:18 Total Bilirubin 0.6 (0.2-1) mg/dl AST 19 (15-37) U/L ALT 24 (12-78) U/L Alkaline Phosphatase 74 (45-117) U/L Albumin 2.1 L (3.4-5.0) gm/dl Medications Administered Current Inpatient Medications Acetaminophen (Acetaminophen 325 Mg Tab) 650 mg PO Q4H PRN PRN Reason: Pain or Fever Stop: 08/18/21 16:34 Last Admin: 07/24/21 14:28 Dose: 650 mg Documented by: Al Hydrox/Mg Hydrox/Simethicone (Aluminum/Magnesium Susp 30 Ml Udc) 15 ml PO Q4H PRN PRN Reason: Dyspepsia Stop: 08/18/21 16:34 Last Admin: 07/22/21 12:00 Dose: 15 ml Documented by: Albuterol (Albuterol Hfa 8 Gm Inhaler) 2 puffs INH QID PRN PRN Reason: Shortness Of Breath Or Wheezing Stop: 08/19/21 16:12 Albuterol (Albuterol Hfa 8 Gm Inhaler) 2 puffs INH Q8R [facility] Stop: 08/22/21 14:59 Last Admin: 07/24/21 07:10 Dose: 2 puffs Documented by: Amlodipine Besylate (Amlodipine Besylate 5 Mg Tab) 5 mg PO DAILY [facility] Stop: 08/19/21 08:59 Last Admin: 07/24/21 08:32 Dose: 5 mg Documented by: Aspirin (Aspirin 81 Mg Chew) 81 mg PO DAILY [facility] Stop: 08/19/21 08:59 Last Admin: 07/20/21 07:50 Dose: 81 mg Documented by: Atorvastatin Calcium (Atorvastatin 40 Mg Tab) 40 mg PO DAILY [facility] Stop: 08/19/21 08:59 Last Admin: 07/24/21 08:32 Dose: 40 mg Documented by: Benzonatate (Benzonatate 100 Mg Capsule) 100 mg PO TID PRN PRN Reason: cough Stop: 08/18/21 16:34 Calcium Polycarbophil (Calcium Polycarbophil 625mg Tab) 625 mg PO DAILY [facility] Stop: 08/19/21 08:59 Last Admin: 07/24/21 08:32 Dose: 625 mg Documented by: Cetirizine HCl (Cetirizine Hcl 10 Mg Tablet) 10 mg PO DAILY [facility] Stop: 08/19/21 08:59 Last Admin: 07/24/21 08:32 Dose: 10 mg Documented by: Cyanocobalamin (Cyanocobalamin 500 Mcg Tablet (Vitamin B-12)) 500 mcg PO DAILY [facility] Stop: 08/19/21 08:59 Last Admin: 07/24/21 08:32 Dose: 500 mcg Documented by: Dextrose (Dextrose 50% 50 Ml Syringe) 25 - 50 ml IV UD PRN; Protocol PRN Reason: Hypoglycemia Protocol Stop: 08/18/21 16:34 Enoxaparin Sodium (Enoxaparin Inj 40 Mg/0.4 Ml Syr) 40 mg SQ QAM [facility] Stop: 08/23/21 08:59 Last Admin: 07/24/21 08:27 Dose: 40 mg Documented by: Finasteride (Finasteride 5 Mg Tab) 5 mg PO DAILY [facility] Stop: 08/19/21 08:59 Last Admin: 07/24/21 08:32 Dose: 5 mg Documented by: Fluticasone Propionate (Fluticasone Propionate Na Spr 16 Gm Btl) 2 sprays JINNY DAILY [facility] Stop: 08/19/21 08:59 Last Admin: 07/24/21 08:30 Dose: 2 sprays Documented by: Glucagon (Glucagon For Inj 1 Mg Vial) 1 mg SQ UD PRN; Protocol PRN Reason: Hypoglycemia Protocol Stop: 08/18/21 16:34 Glucose (Glucose 10 Tabs/Tube) 4 - 8 tabs PO UD PRN; Protocol PRN Reason: Hypoglycemia Protocol Stop: 08/18/21 16:34 Glucose (Glucose 40% Gel 15 Gm Tube) 15 - 30 gm PO UD PRN; Protocol PRN Reason: Hypoglycemia Protocol Stop: 08/18/21 16:34 Guaifenesin (Guaifenesin 600 Mg Tabcr) 600 mg PO Q12 [facility] Stop: 08/21/21 20:59 Last Admin: 07/24/21 08:27 Dose: 600 mg Documented by: Heparin Sodium/Dextrose (Heparin Sodium/Dextrose) 25,000 units in 500 mls @ 0 mls/hr IV .Q0M [facility]; Protocol Stop: 08/19/21 15:14 Last Titration: 07/23/21 08:44 Dose: Infused Documented by: Dexamethasone 6 mg/ Syringe 1.5 mls @ 1 mls/min IV QAM [facility] Stop: 08/20/21 05:59 Last Admin: 07/24/21 08:04 Dose: 1 mls/min Documented by: Furosemide 40 mg/ Syringe 4 mls @ 4 mls/min IV DAILY [facility] Stop: 08/22/21 08:59 Last Admin: 07/24/21 08:04 Dose: 4 mls/min Documented by: Insulin Aspart (Insulin Aspart 100 Units/Ml 3 Ml Pen) 0 units SC ACHS [facility] Stop: 08/18/21 16:34 Last Admin: 07/24/21 12:27 Dose: 7 units Documented by: Insulin Human NPH (Insulin Human Nph) 45 units SC DAILY [facility]; Protocol Stop: 08/23/21 08:59 Last Admin: 07/24/21 08:38 Dose: 45 units Documented by: Lisinopril (Lisinopril 20 Mg Tab) 20 mg PO BID [facility] Stop: 08/18/21 20:59 Last Admin: 07/24/21 08:27 Dose: 20 mg Documented by: Magnesium Hydroxide (Magnesium Hydroxide Susp 30 Ml Udc) 30 ml PO Q12H PRN PRN Reason: Constipation Stop: 08/18/21 16:34 Metoprolol Succinate (Metoprolol Succ 25mg Ext Rel Tab) 12.5 mg PO QAM [facility] Stop: 08/23/21 08:59 Last Admin: 07/24/21 08:30 Dose: 12.5 mg Documented by: Miscellaneous (Carbohydrates For Hypoglycemia ) 15 - 30 gm PO UD PRN PRN Reason: Hypoglycemia Protocol Stop: 08/18/21 16:34 Miscellaneous Information (Pharmacy Glycemic Mgmt Consult) 1 ea N/A UD PRN; Protocol PRN Reason: Consult Stop: 08/18/21 16:34 Mupirocin (Mupirocin 2% Oint 22 Gm Tube) 1 appln EXT [id number] [facility] Stop: 08/23/21 12:59 Last Admin: 07/24/21 12:00 Dose: 1 appln Documented by: Ondansetron HCl (Ondansetron Inj 2 Mg/Ml 2 Ml Vial) 4 mg IV Q6H PRN PRN Reason: Nausea Stop: 08/18/21 16:34 Pantoprazole Sodium (Pantoprazole 40 Mg Tab) 40 mg PO DAILY [facility] Stop: 08/19/21 08:59 Last Admin: 07/24/21 08:31 Dose: 40 mg Documented by: Polyethylene Glycol (Polyethylene (Miralax) 17 Gm Pack) 17 gm PO DAILY PRN PRN Reason: Constipation Stop: 08/18/21 16:34 Potassium Chloride (Potassium Chloride Crtab 20 Meq Tabcr) 20 meq PO QAM [facility] Stop: 08/20/21 08:59 Last Admin: 07/24/21 08:32 Dose: 20 meq Documented by: Tamsulosin HCl (Tamsulosin Hcl 0.4 Mg Cap) 0.4 mg PO HS [facility] Stop: 08/18/21 20:59 Last Admin: 07/23/21 20:58 Dose: 0.4 mg Documented by: Umeclidinium/Vilanterol (Umeclidinium/Vilanterol 62.5/25mcg 7 Puffs/Inhaler) 1 puffs INH DAILY [facility] Stop: 08/22/21 13:44 Last Admin: 07/24/21 08:32 Dose: 1 puffs Documented by: Vitamin D (Cholecalciferol 1,000 Units 25 Mcg Tab) 1,000 units PO DAILY [facility] Stop: 08/19/21 08:59 Last Admin: 07/24/21 08:32 Dose: 1,000 units Documented by:
--- NOTE | 2021-07-24 15:14 | Pharmacy Report ---
Pharmacy Glycemic Short Note 2 - Date of Service July 24, 2021 - Glycemic Short BSG Results (Last 24 hours): 07/23/21 07/23/21 07/24/21 16:50 20:53 07:44 Glucose POC Glucose 161 H 118 H 81 07/24/21 07/24/21 08:18 11:57 Glucose 91 POC Glucose 114 H OUTPATIENT ANTIDIABETIC REGIMEN: * N/A * A1c: 7.5% 07/20/21 ASSESSMENT: 07/24: * BSGs overall reasonable over the past 24 hours ([phone]) and patient received 60 units of insulin yesterday (50 of which were NPH). * BSGs today are well controlled, but trending down. Will slightly reduce NPH today to prevent a low. * Patient's appetite decreased yesterday but has improved today. He remains on steroids. 07/22: * BSGs well controlled yesterday with patient receiving a total of 51 units of insulin (40 of which were NPH). Fasting BSG did increase this morning and thus NPH dose increased. Post prandials somewhat more elevated today, but given multiple changes made to NovoLog scale yesterday and previous success with thi s scale, will continue for now with overnight checks and assess trend tomorrow. * Patient continues on IV dex and is tolerating a diet. 07/20 * Patient admitted for COVID-19 pneumonia experiencing steroid induced hyperglycemia. Patient does not appear to on any anti-diabetic medications as an outpatient. * NPH initiated last night and BSGs trended down nicely today. Will continue current NPH dose and novolog scale. * Patient continues on IV steroids and is tolerating a diet, however intake this morning was low. Will monitor PLAN FOR INPATIENT GLYCEMIC CONTROL: * Hold outpatient oral diabetes medications * Basal insulin * NPH 45 units SQ qam with dexamethasone * Bolus insulin * NovoLog per scale ACHS or Q6hrs while NPO and overnight checks * Goal Range: Low 110 mg/dL - High 140 mg/dL * Correction Factor: 20 mg/dL/unit * Nutritional / Prandial insulin per carb ratio of 1 unit per 7 grams CHO consumed PLAN FOR DISCHARGE: * Can consider initiation of metformin XR 500mg PO daily with evening meal at discharge provided eGFR acceptable.
[2021-07-24] MEDS: TAMSULOSIN HCL 0.4 MG CAP PO SCH (21:00)
[2021-07-25 07:04] LABS: BUN Creatinine Ratio 31.5 (10-20); C Reactive Protein 6.43 mg/dl (0-0.29); Calcium 8.3 mg/dl (8.5-10.1); Creatinine Clr Calc Pharmacy 64.4 ml/min; Est GFR (African American) 79.6 ml/min; Est GFR (Non-African American) 68.7 ml/min; Magnesium 1.7 mg/dl (1.8-2.4); Potassium 3.6 mmol/L (3.5-5.1)
[2021-07-25 07:07] LABS: Albumin Globulin Ratio 0.5 (0.9-2); Bilirubin,Total 0.7 mg/dl (0.2-1); Globulin 4.3 gm/dl (2.5-4.0); Phosphorus 4.1 mg/dl (2.5-4.9); Total Protein 6.3 gm/dl (6.4-8.2)
[2021-07-25] MEDS: ALBUTEROL HFA 8 GM INHALER INH SCH ×3 (07:20→22:12)
[2021-07-25] MEDS: FLUTICASONE PROPIONATE NA SPR 16 GM BTL NAE SCH (08:09)
--- NOTE | 2021-07-25 08:09 | Pulmonology Progress Note ---
Date of Service July 25, 2021 Assessment & Plan (1) Pneumonia due to COVID-19 virus: (2) Acute hypoxemic respiratory failure: (3) COPD with emphysema: Plan: CT chest 07/20/2021 personally reviewed: Patchy groundglass opacities appreciated bilaterally especially in the right upper lobe volume loss on the right side, Right hilar lymphadenopathy Small pleural effusions bilaterally --Acute hypoxic respiratory failure Secondary to multilobar COVID-19 pneumonia COVID-19 PCR positive, positive lymphopenia CRP 21.5 --> 11 --> 5.28 --> 3.54 --> 6.43 Procalcitonin 0.11 Continue with O2 supplementation to keep oxygen saturation between 90-92%. Awake proning will be helpful Continue with incentive spirometry Continue with flutter valve. Recommend patient to be kept euvolemic to negative balance --COPD Not on any inhalers at home Continue with Anoro Plan: In/out: -1176, urine output 1676 Chest x-ray from today shows dense consolidation on the periphery of the right upper lobe. I will order procalcitonin today. If it is on an increased trend then I would give him atypical antibiotic. Continue with diuretics to keep the patient negative balance Try to titrate O2 down to keep oxygen saturation greater than 88%. Can even try to take the patient off high flow. I will give the patient 10 mg of dexamethasone for 2 days and go back to 6 mg following that Patient is proning well. Case discussed with ADAM Barrett Please note the above document was generated using voice recognition software. It may contain grammatical, syntax or spelling errors.Any formal questions or concerns about the content, text or information contained within the body of this dictation should be directly addressed to the provider for clarification. Admission and Anticipated Discharge Date Admission Date: July 19, 2021 Subjective Patient seen and examined at bedside. No distress, no adverse events overnight. Patient was saturating 96% on 80% FiO2, 40 L. I went down on oxygen to 60% and he was still saturating at 92%. He was not in any respiratory distress. Denies any chest pain, no headache, no nausea, no vomiting. Good appetite. Has been urinating well. Review of Systems Review of Systems: All systems reviewed & are unremarkable except as noted in Subjective Physical Exam Physical Exam: Constitutional: No acute distress HEENT: EOMI, PERRLA Respiratory system: Decreased air entry bilaterally, no wheeze, rhonchi, positive crackles bilateral lower lobes CVS: S1-S2 positive, no murmurs or gallops Abdomen: Soft, nontender, nondistended, positive bowel sounds x4 Extremities: +2 pulses bilaterally radialis/ dorsalis pedis, no cyanosis, no edema Neuro: Awake alert oriented x3 Psych: Normal mood and affect G/U: Positive Helms Skin: no rashes, warm and dry Lymphatic: no cervical or axillary lymphadenopathy Results & Data Results & Data ([facility]) Vital Signs (Past 12 Hours) Vital Signs Temp Pulse Pulse Pulse Resp BP Pulse Ox 07/25/21 07:27 76 20 90 07/25/21 07:25 76 20 90 07/25/21 07:10 36.8 C 85 21 136/70 89 L 07/25/21 03:34 70 07/25/21 03:11 36.7 C 70 19 130/67 91 07/24/21 23:10 36.4 C L 71 19 137/72 91 07/24/21 22:20 66 20 95 07/24/21 08:18 07/25/21 05:22 PG Care Time/CCT Total # of Minutes Spent Total Time Spent with Patient: Total time spent is greater than 50% in coordination of care (as documented) at patient's floor/unit and/or counseling patient: Coding Level of Care Code 08830 Subseq Hosp Care Lvl 3 Diagnoses Pneumonia due to COVID-19 virus U07.1; J12.82 Acute hypoxemic respiratory failure J96.01 COPD with emphysema J43.9
[2021-07-25] MEDS: UMECLIDINIUM/VILANTEROL 62.5/25MCG 7 PUFFS/INHALER INH SCH (08:10)
[2021-07-25] MEDS: ENOXAPARIN INJ 40 MG/0.4 ML SYR SQ SCH (08:11)
[2021-07-25] MEDS: INSULIN HUMAN NPH SC SCH (08:13)
[2021-07-25] MEDS: dexAMETHasone 6 MG in SYRINGE 0 ML IV SCH (08:14)
[2021-07-25] MEDS: FUROSEMIDE 40 MG in SYRINGE 0 ML IV SCH (08:14)
[2021-07-25] MEDS: MUPIROCIN 2% OINT 22 GM TUBE EXT SCH ×4 (08:15→17:40)
[2021-07-25] MEDS: lisinopril 20 MG TAB PO SCH ×2 (08:19→20:46)
[2021-07-25] MEDS: guaiFENesin 600 MG TABCR PO SCH ×2 (08:19→20:46)
[2021-07-25] MEDS: CETIRIZINE HCL 10 MG TABLET PO SCH (08:20)
[2021-07-25] MEDS: CALCIUM POLYCARBOPHIL 625MG TAB PO SCH (08:20)
[2021-07-25] MEDS: FINASTERIDE 5 MG TAB PO SCH (08:20)
[2021-07-25] MEDS: CHOLECALCIFEROL 1,000 UNITS 25 MCG TAB PO SCH (08:20)
[2021-07-25] MEDS: METOPROLOL SUCC 25MG EXT REL TAB PO SCH (08:20)
[2021-07-25] MEDS: ATORVASTATIN 40 MG TAB PO SCH (08:20)
[2021-07-25] MEDS: POTASSIUM CHLORIDE CRTAB 20 MEQ TABCR PO SCH (08:20)
[2021-07-25] MEDS: PANTOprazole 40 MG TAB PO SCH (08:20)
[2021-07-25] MEDS: CYANOCOBALAMIN 500 MCG TABLET (VITAMIN B-12) PO SCH (08:20)
[2021-07-25] MEDS: amLODIPine BESYLATE 5 MG TAB PO SCH (08:21)
[2021-07-25] MEDS: INSULIN ASPART 100 UNITS/ML 3 ML PEN SC SCH ×4 (08:22→21:00)
[2021-07-25] MEDS ORDERED: dexAMETHasone 4 MG in SYRINGE 0 ML IV STA (08:23)
[2021-07-25] MEDS ORDERED: methylPREDNISolone 10 MG in SYRINGE 0 ML IV SCH (09:00)
--- NOTE | 2021-07-25 09:42 | XRay Report ---
XR chest 1V portable CLINICAL HISTORY: f/u COMPARISON STUDY: Chest CT July 20, 2021. Chest radiograph July 21, 2021. FINDINGS: Cardiomegaly is unchanged. Dense right upper lobe consolidation has progressed. Additional bilateral airspace opacities have slightly increased. There is no pneumothorax or pleural effusion. T here is no evidence for pulmonary edema. IMPRESSION: Progression of bilateral airspace opacities, including a focus of right upper lobe consolidation. ACT 112: Negative or not required by law. Electronically signed by: Philip Smith M.D. 07/25/2021 9:40 AM
--- NOTE | 2021-07-25 10:15 | Pharmacy Report ---
Pharmacy Glycemic Short Note 2 - Date of Service July 25, 2021 - Glycemic Short BSG Results (Last 24 hours): 07/24/21 07/24/21 07/24/21 11:57 16:55 20:37 Glucose POC Glucose 114 H 144 H 147 H 07/25/21 07/25/21 05:22 07:47 Glucose 78 POC Glucose 95 OUTPATIENT ANTIDIABETIC REGIMEN: * N/A * A1c: 7.5% 07/20/21 ASSESSMENT: 07/25: * BSGS yesterday were 17-173-357-147 mg/dL. He received 69 units total (45 units of basal and 24 units of bolus). Fasting today was 95 mg/dL. * Decrease NPH as patient may be able to tolerate higher doses of Novolog and have better glycemic control. * Tighten CR especially since patient is receiving dexamethasone 10 mg IV x 2 days then back to 6 mg IV daily. 07/24: * BSGs overall reasonable over the past 24 hours ([phone]) and patient received 60 units of insulin yesterday (50 of which were NPH). * BSGs today are well controlled, but trending down. Will slightly reduce NPH today to prevent a low. * Patient's appetite decreased yesterday but has improved today. He remains on steroids. 07/22: * BSGs well controlled yesterday with patient receiving a total of 51 units of insulin (40 of which were NPH). Fasting BSG did increase this morning and thus NPH dose increased. Post prandials somewhat more elevated today, but given multiple changes made to NovoLog scale yesterday and previous success with this scale, will continue for now with overnight checks and assess trend tomorrow. * Patient continues on IV dex and is tolerating a diet. 07/20 * Patient admitted for COVID-19 pneumonia experiencing steroid induced hyperglycemia. Patient does not appear to on any anti-diabetic medications as an outpatient. * NPH initiated last night and BSGs trended down nicely today. Will continue current NPH dose and novolog scale. * Patient continues on IV steroids and is tolerating a diet, however intake this morning was low. Will monitor PLAN FOR INPATIENT GLYCEMIC CONTROL: * Hold outpatient oral diabetes medications * Basal insulin- decrease * NPH 35 units SQ qam with dexamethasone * Bolus insulin * NovoLog per scale ACHS or Q6hrs while NPO and overnight checks * Goal Range: Low 110 mg/dL - High 140 mg/dL * Correction Factor: 20 mg/dL/unit * Nutritional / Prandial insulin per carb ratio of 1 unit per 4 grams CHO consumed PLAN FOR DISCHARGE: * Can consider initiation of metformin XR 500mg PO daily with evening meal at discharge provided eGFR acceptable.
--- NOTE | 2021-07-25 15:59 | Electrocardiogram Report ---
Test Reason : Blood Pressure : / mmHG Vent. Rate : 109 BPM Atrial Rate : 081 BPM P-R Int : 000 ms QRS Dur : 136 ms QT Int : 376 ms P-R-T Axes : 000 -70 035 degrees QTc Int : 506 ms Atrial fibrillation with rapid ventricular response Right bundle branch block Left anterior fascicular block Bifascicular block Abnormal ECG When compared with ECG of 20-JUL-2021 16:25, Atrial fibrillation has replaced Sinus rhythm Confirmed by Dani Ortez ([id number] on 07/25/2021 3:59:04 PM Referred By: REFERRED SELF Confirmed By:Deny Ortez
--- NOTE | 2021-07-25 16:10 | Hospitalist Progress Note ---
Date of Service July 25, 2021 Assessment & Plan (1) Acute hypoxemic respiratory failure: Plan: Secondary to COVID-19 pneumonia and is complicated by COPD CT negative for PE and revealed evidence of pneumonia. Continue his steroids and antiviral therapy for Covid infection with hypoxia. Appreciate pulmonary input and recommendation Still requiring high flow oxygen to maintain saturation Remains stable at rest but still requiring 6 L of oxygen to maintain saturation (2) Pneumonia due to COVID-19 virus: Plan: Not a candidate for remdesivir but has been getting dexamethasone Cont remdesivir and steroid therapy, tolerating well. Continue supportive care efforts and prone patient when able. Pulm consulted and agrees with current plan for now. Will trend CRP in am-so far improving. We will continue current management with negative balance while in the hospital Chest x-ray did show possible right upper lobe infiltration but prolactin remains low-will not give any antibiotic (3) Paroxysmal atrial fibrillation: Plan: New onset on telemetry noted this admission and improved to normal sinus with addition of low dose metoprolol. He has a pulmonary infection making this more likely. No evidence of ACS. Cont metoprolol. Heparin was placed on hold after a fall last night with traumatic hematoma. OK to remain off AC while in sinus rhythm. Consider restarting if afib begins again after hematoma has started to improve. Appreciate cardiology input and recommendation Metoprolol dose has been decreased due to bradycardia (4) TOMMY (acute kidney injury): Plan: Resolved. (5) T2DM (type 2 diabetes mellitus): Plan: Pharmacy for hyperglycemic management with insulin as needed. Euglycemic on current regimen. (6) Hypertension: Plan: At goal, continue lisinopril twice daily per home regimen, monitor creatinine closely (7) Carotid artery disease: Plan: Continue medical management including aspirin, atorvastatin, lisinopril per home regimen. (8) Fall: Plan: Disorientation and confusion overnight contributed to fall two nights ago with subsequent hematoma of lower back area. Pain is managed and area is improving. Hold blood thinners and continue supportive care. Hit head but CT head was negative. Patient is now alert and oriented and feeling well. Cont to monitor. (9) Hematoma: Plan: Hematoma lower back area following a fall Supportive care. (10) DVT prophylaxis: Plan: SCDs DNR/DNI Disposition-came from home, may need therapy, cont PCU in covid unit Discussed with the son-in-law Admission and Anticipated Discharge Date Admission Date: July 19, 2021 Subjective 07/24/2021 The patient was seen and examined in telemetry unit and in the Covid room He has been feeling much better in bed Gets very shortness of breath with exertion without any tachycardia Still requiring FiO2 of 0.45 to maintain saturation Denies any significant symptoms 07/25/2021 The patient was seen and examined in telemetry unit and in the Covid room He has been feeling better but is still requiring 6 L of oxygen via nasal cannula to maintain saturation Denies any other symptoms except weakness Review of Systems Review of Systems: All systems reviewed and are unremarkable except as noted below Respiratory: Shortness of breath at rest with occasional cough Physical Exam Physical Exam: Lying in bed comfortably and proning well Constitutional: well developed, well nourished, + ill appearing and + obese Eyes: PERRL, conjunctivae normal, anicteric sclerae ENMT: external ear and nose normal, oropharynx normal Neck: trachea midline, no thyromegaly Respiratory: + respiratory distress (Mild to moderate at rest); no labored breathing Auscultation: + diminished lung sounds and + crackles (Minimal crackles at the bases); no wheezes Cardiovascular: Rate/Rhythm: regular rate and regular rhythm; not tachycardic Heart Sounds: normal S1 and normal S2; no murmur Gastrointestinal (Abdomen): Inspection/Auscultation: normal bowel sounds; abdomen not distended Percussion/Palpation: abdomen soft; abdomen nontender Musculoskeletal: No acute arthritis in any joint Neurologic: Alert, awake and oriented x3, no focal sensory no motor deficit appreciated Results & Data Results & Data ([facility]) Vital Signs (Past 12 Hours) Vital Signs Temp Pulse Pulse Pulse Resp BP BP 07/25/21 15:02 36.6 C 68 21 129/78 07/25/21 14:59 72 23 07/25/21 14:52 47 L 20 07/25/21 11:05 77 18 07/25/21 10:57 36.6 C 80 24 118/64 07/25/21 08:24 64 07/25/21 08:00 07/25/21 07:27 76 20 07/25/21 07:25 76 20 07/25/21 07:10 36.8 C 85 21 136/70 Pulse Ox Pulse Ox 07/25/21 15:02 93 07/25/21 14:59 96 07/25/21 14:52 92 07/25/21 11:05 91 07/25/21 10:57 93 07/25/21 08:24 07/25/21 08:00 91 07/25/21 07:27 90 07/25/21 07:25 90 07/25/21 07:10 89 L Laboratory Results BMP 07/25/21 05:22 Sodium 138 Potassium 3.6 Chloride 105 Carbon Dioxide 26 BUN 31 H Creatinine 0.99 Glucose 78 Calcium 8.3 L Liver Function 07/25/21 Range/Units 05:22 Total Bilirubin 0.7 (0.2-1) mg/dl AST 16 (15-37) U/L ALT 23 (12-78) U/L Alkaline Phosphatase 74 (45-117) U/L Albumin 2.0 L (3.4-5.0) gm/dl Medications Administered Current Inpatient Medications Acetaminophen (Acetaminophen 325 Mg Tab) 650 mg PO Q4H PRN PRN Reason: Pain or Fever Stop: 08/18/21 16:34 Last Admin: 07/24/21 14:28 Dose: 650 mg Documented by: Al Hydrox/Mg Hydrox/Simethicone (Aluminum/Magnesium Susp 30 Ml Udc) 15 ml PO Q4H PRN PRN Reason: Dyspepsia Stop: 08/18/21 16:34 Last Admin: 07/22/21 12:00 Dose: 15 ml Documented by: Albuterol (Albuterol Hfa 8 Gm Inhaler) 2 puffs INH QID PRN PRN Reason: Shortness Of Breath Or Wheezing Stop: 08/19/21 16:12 Albuterol (Albuterol Hfa 8 Gm Inhaler) 2 puffs INH Q8R BERTRAND Stop: 08/22/21 14:59 Last Admin: 07/25/21 14:59 Dose: 2 puffs Documented by: Amlodipine Besylate (Amlodipine Besylate 5 Mg Tab) 5 mg PO DAILY BERTRAND Stop: 08/19/21 08:59 Last Admin: 07/25/21 08:21 Dose: 5 mg Documented by: Aspirin (Aspirin 81 Mg Chew) 81 mg PO DAILY BERTRAND Stop: 08/19/21 08:59 Last Admin: 07/20/21 07:50 Dose: 81 mg Documented by: Atorvastatin Calcium (Atorvastatin 40 Mg Tab) 40 mg PO DAILY BERTRAND Stop: 08/19/21 08:59 Last Admin: 07/25/21 08:20 Dose: 40 mg Documented by: Benzonatate (Benzonatate 100 Mg Capsule) 100 mg PO TID PRN PRN Reason: cough Stop: 08/18/21 16:34 Calcium Polycarbophil (Calcium Polycarbophil 625mg Tab) 625 mg PO DAILY BERTRAND Stop: 08/19/21 08:59 Last Admin: 07/25/21 08:20 Dose: 625 mg Documented by: Cetirizine HCl (Cetirizine Hcl 10 Mg Tablet) 10 mg PO DAILY BERTRAND Stop: 08/19/21 08:59 Last Admin: 07/25/21 08:20 Dose: 10 mg Documented by: Cyanocobalamin (Cyanocobalamin 500 Mcg Tablet (Vitamin B-12)) 500 mcg PO DAILY BERTRAND Stop: 08/19/21 08:59 Last Admin: 07/25/21 08:20 Dose: 500 mcg Documented by: Dextrose (Dextrose 50% 50 Ml Syringe) 25 - 50 ml IV UD PRN; Protocol PRN Reason: Hypoglycemia Protocol Stop: 08/18/21 16:34 Enoxaparin Sodium (Enoxaparin Inj 40 Mg/0.4 Ml Syr) 40 mg SQ QAM BERTRAND Stop: 08/23/21 08:59 Last Admin: 07/25/21 08:11 Dose: 40 mg Documented by: Finasteride (Finasteride 5 Mg Tab) 5 mg PO DAILY BERTRAND Stop: 08/19/21 08:59 Last Admin: 07/25/21 08:20 Dose: 5 mg Documented by: Fluticasone Propionate (Fluticasone Propionate Na Spr 16 Gm Btl) 2 sprays JINNY DAILY BERTRAND Stop: 08/19/21 08:59 Last Admin: 07/25/21 08:09 Dose: 2 sprays Documented by: Glucagon (Glucagon For Inj 1 Mg Vial) 1 mg SQ UD PRN; Protocol PRN Reason: Hypoglycemia Protocol Stop: 08/18/21 16:34 Glucose (Glucose 10 Tabs/Tube) 4 - 8 tabs PO UD PRN; Protocol PRN Reason: Hypoglycemia Protocol Stop: 08/18/21 16:34 Glucose (Glucose 40% Gel 15 Gm Tube) 15 - 30 gm PO UD PRN; Protocol PRN Reason: Hypoglycemia Protocol Stop: 08/18/21 16:34 Guaifenesin (Guaifenesin 600 Mg Tabcr) 600 mg PO Q12 BERTRAND Stop: 08/21/21 20:59 Last Admin: 07/25/21 08:19 Dose: 600 mg Documented by: Heparin Sodium/Dextrose (Heparin Sodium/Dextrose) 25,000 units in 500 mls @ 0 mls/hr IV .Q0M [facility]; Protocol Stop: 08/19/21 15:14 Last Titration: 07/23/21 08:44 Dose: Infused Documented by: Furosemide 40 mg/ Syringe 4 mls @ 4 mls/min IV DAILY [facility] Stop: 08/22/21 08:59 Last Admin: 07/25/21 08:14 Dose: 4 mls/min Documented by: Dexamethasone 10 mg/ Syringe 2.5 mls @ 1 mls/min IV TODAY@0900 BERTRAND Stop: 07/26/21 09:03 Dexamethasone 6 mg/ Syringe 1.5 mls @ 1 mls/min IV DAILY [facility] Stop: 07/30/21 09:02 Insulin Aspart (Insulin Aspart 100 Units/Ml 3 Ml Pen) 0 units SC ACHS [facility] Stop: 08/18/21 16:34 Last Admin: 07/25/21 12:06 Dose: 9 units Documented by: Insulin Human NPH (Insulin Human Nph) 35 units SC DAILY [facility]; Protocol Stop: 08/24/21 08:59 Last Admin: 07/25/21 08:13 Dose: 35 units Documented by: Lisinopril (Lisinopril 20 Mg Tab) 20 mg PO BID [facility] Stop: 08/18/21 20:59 Last Admin: 07/25/21 08:19 Dose: 20 mg Documented by: Magnesium Hydroxide (Magnesium Hydroxide Susp 30 Ml Udc) 30 ml PO Q12H PRN PRN Reason: Constipation Stop: 08/18/21 16:34 Metoprolol Succinate (Metoprolol Succ 25mg Ext Rel Tab) 12.5 mg PO QAM [facility] Stop: 08/23/21 08:59 Last Admin: 07/25/21 08:20 Dose: 12.5 mg Documented by: Miscellaneous (Carbohydrates For Hypoglycemia ) 15 - 30 gm PO UD PRN PRN Reason: Hypoglycemia Protocol Stop: 08/18/21 16:34 Miscellaneous Information (Pharmacy Glycemic Mgmt Consult) 1 ea N/A UD PRN; Protocol PRN Reason: Consult Stop: 08/18/21 16:34 Mupirocin (Mupirocin 2% Oint 22 Gm Tube) 1 appln EXT [id number] BERTRAND Stop: 08/23/21 12:59 Last Admin: 07/25/21 14:00 Dose: 1 appln Documented by: Ondansetron HCl (Ondansetron Inj 2 Mg/Ml 2 Ml Vial) 4 mg IV Q6H PRN PRN Reason: Nausea Stop: 08/18/21 16:34 Pantoprazole Sodium (Pantoprazole 40 Mg Tab) 40 mg PO DAILY BERTRAND Stop: 08/19/21 08:59 Last Admin: 07/25/21 08:20 Dose: 40 mg Documented by: Polyethylene Glycol (Polyethylene (Miralax) 17 Gm Pack) 17 gm PO DAILY PRN PRN Reason: Constipation Stop: 08/18/21 16:34 Potassium Chloride (Potassium Chloride Crtab 20 Meq Tabcr) 20 meq PO QAM BERTRAND Stop: 08/20/21 08:59 Last Admin: 07/25/21 08:20 Dose: 20 meq Documented by: Tamsulosin HCl (Tamsulosin Hcl 0.4 Mg Cap) 0.4 mg PO HS BERTRAND Stop: 08/18/21 20:59 Last Admin: 07/24/21 21:00 Dose: 0.4 mg Documented by: Umeclidinium/Vilanterol (Umeclidinium/Vilanterol 62.5/25mcg 7 Puffs/Inhaler) 1 puffs INH DAILY BERTRAND Stop: 08/22/21 13:44 Last Admin: 07/25/21 08:10 Dose: 1 puffs Documented by: Vitamin D (Cholecalciferol 1,000 Units 25 Mcg Tab) 1,000 units PO DAILY BERTRAND Stop: 08/19/21 08:59 Last Admin: 07/25/21 08:20 Dose: 1,000 units Documented by:
[2021-07-25] MEDS: TAMSULOSIN HCL 0.4 MG CAP PO SCH (20:46)
[2021-07-26 06:42] LABS: Basophils # (auto) 0.01 K/uL (0-0.2); Basophils % (auto) 0.2 %; Eosinophils # (auto) 0.11 K/uL (0-0.5); Eosinophils % (auto) 1.7 %; Hematocrit (blood only) 38.9 % (42-52); Hemoglobin 13.1 g/dL (14.0-18.0); Immature Granulocytes # (auto) 0.08 K/uL (0.00-0.02); Immature Granulocytes % (auto) 1.2 %; Lymphocytes % (auto) 21.3 %; Mean Corpuscular Hgb Conc 33.7 g/dL (32-36); Mean Corpuscular Volume 94.9 fL (80-100); Mean Platelet Volume 9.8 fL (7.4-10.4); Monocytes # (auto) 0.09 K/uL (0.11-0.59); Monocytes % (auto) 1.4 %; Neutrophils # (auto) 4.88 K/uL (1.4-6.5); Neutrophils % (auto) 74.2 %; Platelet Count 362 K/uL (130-400); RDW Coefficient of Variation 14.1 % (11.5-14.5); RDW Standard Deviation 48.7 fL (36.4-46.3); White Blood Count 6.57 K/uL (4.8-10.8)
[2021-07-26 07:08] LABS: BUN Creatinine Ratio 32.6 (10-20); Calcium 8.6 mg/dl (8.5-10.1); Creatinine Clr Calc Pharmacy 71.5 ml/min; Est GFR (African American) 89.7 ml/min; Est GFR (Non-African American) 77.4 ml/min; Potassium 3.9 mmol/L (3.5-5.1)
[2021-07-26] MEDS: ALBUTEROL HFA 8 GM INHALER INH SCH ×3 (07:12→22:35)
--- NOTE | 2021-07-26 08:45 | Pulmonology Progress Note ---
Date of Service July 26, 2021 Assessment & Plan (1) Pneumonia due to COVID-19 virus: (2) Acute hypoxemic respiratory failure: (3) COPD with emphysema: Plan: CT chest 07/20/2021 personally reviewed: Patchy groundglass opacities appreciated bilaterally especially in the right upper lobe volume loss on the right side, Right hilar lymphadenopathy Small pleural effusions bilaterally --Acute hypoxic respiratory failure Secondary to multilobar COVID-19 pneumonia COVID-19 PCR positive, positive lymphopenia CRP 21.5 --> 11 --> 5.28 --> 3.54 --> 6.43 Procalcitonin 0.11 --> <0.05 Continue with O2 supplementation to keep oxygen saturation between 90-92%. Awake proning will be helpful Continue with incentive spirometry Continue with flutter valve. Recommend patient to be kept euvolemic to negative balance --COPD Not on any inhalers at home Continue with Anoro Plan: In/out: -1125, urine output 1425 Repeat Procalcitonin is negative. No need for antibiotics Continue with diuretics to keep the patient negative balance Try to titrate O2 down to keep oxygen saturation greater than 88%. Can even try to take the patient off high flow. No further recommendation from pulmonary perspective. Please call directly with any questions. Case discussed with ADAM Barrett Please note the above document was generated using voice recognition software. It may contain grammatical, syntax or spelling errors.Any formal questions or concerns about the content, text or information contained within the body of this dictation should be directly addressed to the provider for clarification. Admission and Anticipated Discharge Date Admission Date: July 19, 2021 Subjective Patient seen and examined at bedside. No acute distress. Patient was having his breakfast at the time of examination He says he is feeling better. Shortness of breath is improved. He was saturating 88-89% on 11 L. No headache, no blurry vision. Review of Systems Review of Systems: All systems reviewed & are unremarkable except as noted in Subjective Physical Exam Physical Exam: Constitutional: No acute distress HEENT: EOMI, PERRLA Respiratory system: Decreased air entry bilaterally, no wheeze, rhonchi, positive crackles bilateral lower lobes CVS: S1-S2 positive, no murmurs or gallops Abdomen: Soft, nontender, nondistended, positive bowel sounds x4 Extremities: +2 pulses bilaterally radialis/ dorsalis pedis, no cyanosis, no edema Neuro: Awake alert oriented x3 Psych: Normal mood and affect G/U: Positive Helms Skin: no rashes, warm and dry Lymphatic: no cervical or axillary lymphadenopathy Results & Data Results & Data ([facility]) Vital Signs (Past 12 Hours) Vital Signs Temp Pulse Pulse Pulse Resp BP BP 07/26/21 07:14 68 24 07/26/21 07:02 36.5 C 78 19 118/59 L 07/26/21 05:56 64 07/26/21 03:37 36.6 C 55 L 25 H 132/60 07/25/21 23:13 36.5 C 62 18 142/75 H 07/25/21 22:12 20 Pulse Ox 07/26/21 07:14 90 07/26/21 07:02 89 L 07/26/21 05:56 07/26/21 03:37 95 07/25/21 23:13 90 07/25/21 22:12 90 07/26/21 05:44 07/26/21 05:44 PG Care Time/CCT Total # of Minutes Spent Total Time Spent with Patient: Total time spent is greater than 50% in coordination of care (as documented) at patient's floor/unit and/or counseling patient: Coding Level of Care Code 79674 Subseq Hosp Care Lvl 3 Diagnoses Pneumonia due to COVID-19 virus U07.1; J12.82 Acute hypoxemic respiratory failure J96.01 COPD with emphysema J43.9
[2021-07-26] MEDS: MUPIROCIN 2% OINT 22 GM TUBE EXT SCH ×4 (08:47→17:34)
[2021-07-26] MEDS: INSULIN ASPART 100 UNITS/ML 3 ML PEN SC SCH ×5 (08:47→23:55)
[2021-07-26] MEDS: INSULIN HUMAN NPH SC SCH (08:51)
[2021-07-26] MEDS: UMECLIDINIUM/VILANTEROL 62.5/25MCG 7 PUFFS/INHALER INH SCH (08:52)
[2021-07-26] MEDS: ENOXAPARIN INJ 40 MG/0.4 ML SYR SQ SCH (08:52)
[2021-07-26] MEDS: FLUTICASONE PROPIONATE NA SPR 16 GM BTL NAE SCH (08:55)
[2021-07-26] MEDS: FUROSEMIDE 40 MG in SYRINGE 0 ML IV SCH (08:55)
[2021-07-26] MEDS: METOPROLOL SUCC 25MG EXT REL TAB PO SCH (08:58)
[2021-07-26] MEDS: CYANOCOBALAMIN 500 MCG TABLET (VITAMIN B-12) PO SCH (08:58)
[2021-07-26] MEDS: PANTOprazole 40 MG TAB PO SCH (08:59)
[2021-07-26] MEDS: FINASTERIDE 5 MG TAB PO SCH (08:59)
[2021-07-26] MEDS: CHOLECALCIFEROL 1,000 UNITS 25 MCG TAB PO SCH (08:59)
[2021-07-26] MEDS: POTASSIUM CHLORIDE CRTAB 20 MEQ TABCR PO SCH (08:59)
[2021-07-26] MEDS: CALCIUM POLYCARBOPHIL 625MG TAB PO SCH (08:59)
[2021-07-26] MEDS: amLODIPine BESYLATE 5 MG TAB PO SCH (08:59)
[2021-07-26] MEDS: ATORVASTATIN 40 MG TAB PO SCH (09:00)
[2021-07-26] MEDS: CETIRIZINE HCL 10 MG TABLET PO SCH (09:00)
[2021-07-26] MEDS ORDERED: dexAMETHasone 10 MG in SYRINGE 0 ML IV SCH (09:00)
[2021-07-26] MEDS: lisinopril 20 MG TAB PO SCH ×2 (09:00→21:02)
[2021-07-26] MEDS: guaiFENesin 600 MG TABCR PO SCH ×2 (09:01→21:02)
[2021-07-26] MEDS: ACETAMINOPHEN 325 MG TAB PO PRN ×2 (10:59→16:31)
[2021-07-26] MEDS: TAMSULOSIN HCL 0.4 MG CAP PO SCH (21:02)
[2021-07-27] MEDS: INSULIN ASPART 100 UNITS/ML 3 ML PEN SC SCH ×5 (04:11→20:36)
[2021-07-27] MEDS: MUPIROCIN 2% OINT 22 GM TUBE EXT SCH ×4 (06:05→17:08)
[2021-07-27] MEDS: ALBUTEROL HFA 8 GM INHALER INH SCH (08:01)
[2021-07-27] MEDS: dexAMETHasone 6 MG in SYRINGE 0 ML IV SCH (08:59)
[2021-07-27] MEDS: FUROSEMIDE 40 MG in SYRINGE 0 ML IV SCH (09:00)
[2021-07-27] MEDS: FLUTICASONE PROPIONATE NA SPR 16 GM BTL NAE SCH (09:00)
[2021-07-27] MEDS: ENOXAPARIN INJ 40 MG/0.4 ML SYR SQ SCH (09:01)
[2021-07-27] MEDS: ATORVASTATIN 40 MG TAB PO SCH (09:02)
[2021-07-27] MEDS: CALCIUM POLYCARBOPHIL 625MG TAB PO SCH (09:02)
[2021-07-27] MEDS: METOPROLOL SUCC 25MG EXT REL TAB PO SCH (09:02)
[2021-07-27] MEDS: POTASSIUM CHLORIDE CRTAB 20 MEQ TABCR PO SCH (09:02)
[2021-07-27] MEDS: CETIRIZINE HCL 10 MG TABLET PO SCH (09:03)
[2021-07-27] MEDS: CHOLECALCIFEROL 1,000 UNITS 25 MCG TAB PO SCH (09:03)
[2021-07-27] MEDS: PANTOprazole 40 MG TAB PO SCH (09:03)
[2021-07-27] MEDS: amLODIPine BESYLATE 5 MG TAB PO SCH (09:03)
[2021-07-27] MEDS: FINASTERIDE 5 MG TAB PO SCH (09:03)
[2021-07-27] MEDS: CYANOCOBALAMIN 500 MCG TABLET (VITAMIN B-12) PO SCH (09:04)
[2021-07-27] MEDS: guaiFENesin 600 MG TABCR PO SCH ×2 (09:04→20:02)
[2021-07-27] MEDS: lisinopril 20 MG TAB PO SCH ×2 (09:04→20:02)
[2021-07-27] MEDS: UMECLIDINIUM/VILANTEROL 62.5/25MCG 7 PUFFS/INHALER INH SCH (09:05)
[2021-07-27] MEDS: INSULIN HUMAN NPH SC SCH (09:27)
--- NOTE | 2021-07-27 11:06 | Hospitalist Progress Note ---
Date of Service July 26, 2021 This is a bill for 07/26/2021 Assessment & Plan (1) Acute hypoxemic respiratory failure: Plan: Secondary to COVID-19 pneumonia and is complicated by COPD CT negative for PE and revealed evidence of pneumonia. Continue his steroids and antiviral therapy for Covid infection with hypoxia. Appreciate pulmonary input and recommendation Still requiring high flow oxygen to maintain saturation Remains stable at rest but still requiring 6 L of oxygen to maintain saturation Remains stable and will continue current management (2) Pneumonia due to COVID-19 virus: Plan: Not a candidate for remdesivir but has been getting dexamethasone Cont remdesivir and steroid therapy, tolerating well. Continue supportive care efforts and prone patient when able. Pulm consulted and agrees with current plan for now. Will trend CRP in am-so far improving. We will continue current management with negative balance while in the hospital Chest x-ray did show possible right upper lobe infiltration but prolactin remains low-will not give any antibiotic No fever and no chills (3) Paroxysmal atrial fibrillation: Plan: New onset on telemetry noted this admission and improved to normal sinus with addition of low dose metoprolol. He has a pulmonary infection making this more likely. No evidence of ACS. Cont metoprolol. Heparin was placed on hold after a fall last night with traumatic hematoma. OK to remain off AC while in sinus rhythm. Consider restarting if afib begins again after hematoma has started to improve. Appreciate cardiology input and recommendation Metoprolol dose has been decreased due to bradycardia (4) TOMMY (acute kidney injury): Plan: Resolved. (5) T2DM (type 2 diabetes mellitus): Plan: Pharmacy for hyperglycemic management with insulin as needed. Euglycemic on current regimen. (6) Hypertension: Plan: At goal, continue lisinopril twice daily per home regimen, monitor creatinine closely (7) Carotid artery disease: Plan: Continue medical management including aspirin, atorvastatin, lisinopril per home regimen. (8) Fall: Plan: Disorientation and confusion overnight contributed to fall two nights ago with subsequent hematoma of lower back area. Pain is managed and area is improving. Hold blood thinners and continue supportive care. Hit head but CT head was negative. Patient is now alert and oriented and feeling well. Cont to monitor. (9) Hematoma: Plan: Hematoma lower back area following a fall Supportive care. (10) DVT prophylaxis: Plan: SCDs DNR/DNI Disposition-came from home, may need therapy, cont PCU in covid unit Discussed with the son-in-law Admission and Anticipated Discharge Date Admission Date: July 19, 2021 Subjective 07/24/2021 The patient was seen and examined in telemetry unit and in the Covid room He has been feeling much better in bed Gets very shortness of breath with exertion without any tachycardia Still requiring FiO2 of 0.45 to maintain saturation Denies any significant symptoms 07/25/2021 The patient was seen and examined in telemetry unit and in the Covid room He has been feeling better but is still requiring 6 L of oxygen via nasal cannula to maintain saturation Denies any other symptoms except weakness 07/26/2021 The patient was seen and examined in telemetry unit and Covid room He remains a stable but still requiring high flow oxygen to maintain saturation Minimal cough Review of Systems Review of Systems: All systems reviewed and are unremarkable except as noted below Respiratory: Shortness of breath at rest with occasional cough Physical Exam Physical Exam: Lying in bed comfortably and proning well Constitutional: well developed, well nourished, + ill appearing and + obese Eyes: PERRL, conjunctivae normal, anicteric sclerae ENMT: external ear and nose normal, oropharynx normal Neck: trachea midline, no thyromegaly Respiratory: + respiratory distress (Mild to moderate at rest); no labored breathing Auscultation: + diminished lung sounds and + crackles (Minimal crackles at the bases); no wheezes Cardiovascular: Rate/Rhythm: regular rate and regular rhythm; not tachycardic Heart Sounds: normal S1 and normal S2; no murmur Gastrointestinal (Abdomen): Inspection/Auscultation: normal bowel sounds; abdomen not distended Percussion/Palpation: abdomen soft; abdomen nontender Musculoskeletal: No acute arthritis in any joint Neurologic: , Awake and oriented x3. Generally weak Results & Data Results & Data ([facility]) Vital Signs (Past 12 Hours) Vital Signs Temp Pulse Pulse Resp BP Pulse Ox 07/27/21 10:57 36.6 C 88 24 138/70 91 07/27/21 10:13 68 07/27/21 08:01 66 20 92 07/27/21 07:31 37.0 C 60 21 139/85 92 07/27/21 03:17 36.8 C 52 L 26 H 123/64 90 07/27/21 00:00 62 Medications Administered Current Inpatient Medications Acetaminophen (Acetaminophen 325 Mg Tab) 650 mg PO Q4H PRN PRN Reason: Pain or Fever Stop: 08/18/21 16:34 Last Admin: 07/26/21 16:31 Dose: 650 mg Documented by: Al Hydrox/Mg Hydrox/Simethicone (Aluminum/Magnesium Susp 30 Ml Udc) 15 ml PO Q4H PRN PRN Reason: Dyspepsia Stop: 08/18/21 16:34 Last Admin: 07/22/21 12:00 Dose: 15 ml Documented by: Albuterol (Albuterol Hfa 8 Gm Inhaler) 2 puffs INH QID PRN PRN Reason: Shortness Of Breath Or Wheezing Stop: 08/19/21 16:12 Amlodipine Besylate (Amlodipine Besylate 5 Mg Tab) 5 mg PO DAILY [facility] Stop: 08/19/21 08:59 Last Admin: 07/27/21 09:03 Dose: 5 mg Documented by: Aspirin (Aspirin 81 Mg Chew) 81 mg PO DAILY [facility] Stop: 08/19/21 08:59 Last Admin: 07/20/21 07:50 Dose: 81 mg Documented by: Atorvastatin Calcium (Atorvastatin 40 Mg Tab) 40 mg PO DAILY [facility] Stop: 08/19/21 08:59 Last Admin: 07/27/21 09:02 Dose: 40 mg Documented by: Benzonatate (Benzonatate 100 Mg Capsule) 100 mg PO TID PRN PRN Reason: cough Stop: 08/18/21 16:34 Calcium Polycarbophil (Calcium Polycarbophil 625mg Tab) 625 mg PO DAILY [facility] Stop: 08/19/21 08:59 Last Admin: 07/27/21 09:02 Dose: 625 mg Documented by: Cetirizine HCl (Cetirizine Hcl 10 Mg Tablet) 10 mg PO DAILY [facility] Stop: 08/19/21 08:59 Last Admin: 07/27/21 09:03 Dose: 10 mg Documented by: Cyanocobalamin (Cyanocobalamin 500 Mcg Tablet (Vitamin B-12)) 500 mcg PO DAILY [facility] Stop: 08/19/21 08:59 Last Admin: 07/27/21 09:04 Dose: 500 mcg Documented by: Dextrose (Dextrose 50% 50 Ml Syringe) 25 - 50 ml IV UD PRN; Protocol PRN Reason: Hypoglycemia Protocol Stop: 08/18/21 16:34 Enoxaparin Sodium (Enoxaparin Inj 40 Mg/0.4 Ml Syr) 40 mg SQ QAM [facility] Stop: 08/23/21 08:59 Last Admin: 07/27/21 09:01 Dose: 40 mg Documented by: Finasteride (Finasteride 5 Mg Tab) 5 mg PO DAILY [facility] Stop: 08/19/21 08:59 Last Admin: 07/27/21 09:03 Dose: 5 mg Documented by: Fluticasone Propionate (Fluticasone Propionate Na Spr 16 Gm Btl) 2 sprays JINNY DAILY [facility] Stop: 08/19/21 08:59 Last Admin: 07/27/21 09:00 Dose: 2 sprays Documented by: Glucagon (Glucagon For Inj 1 Mg Vial) 1 mg SQ UD PRN; Protocol PRN Reason: Hypoglycemia Protocol Stop: 08/18/21 16:34 Glucose (Glucose 10 Tabs/Tube) 4 - 8 tabs PO UD PRN; Protocol PRN Reason: Hypoglycemia Protocol Stop: 08/18/21 16:34 Glucose (Glucose 40% Gel 15 Gm Tube) 15 - 30 gm PO UD PRN; Protocol PRN Reason: Hypoglycemia Protocol Stop: 08/18/21 16:34 Guaifenesin (Guaifenesin 600 Mg Tabcr) 600 mg PO Q12 [facility] Stop: 08/21/21 20:59 Last Admin: 07/27/21 09:04 Dose: 600 mg Documented by: Heparin Sodium/Dextrose (Heparin Sodium/Dextrose) 25,000 units in 500 mls @ 0 mls/hr IV .Q0M [facility]; Protocol Stop: 08/19/21 15:14 Last Titration: 07/23/21 08:44 Dose: Infused Documented by: Furosemide 40 mg/ Syringe 4 mls @ 4 mls/min IV DAILY [facility] Stop: 08/22/21 08:59 Last Admin: 07/27/21 09:00 Dose: 4 mls/min Documented by: Dexamethasone 6 mg/ Syringe 1.5 mls @ 1 mls/min IV DAILY [facility] Stop: 07/30/21 09:02 Last Admin: 07/27/21 08:59 Dose: 1 mls/min Documented by: Insulin Aspart (Insulin Aspart 100 Units/Ml 3 Ml Pen) 0 units SC ACHS [facility] Stop: 08/18/21 16:34 Last Admin: 07/27/21 08:26 Dose: 4 units Documented by: Insulin Human NPH (Insulin Human Nph) 35 units SC DAILY [facility]; Protocol Stop: 08/24/21 08:59 Last Admin: 07/27/21 09:27 Dose: 35 units Documented by: Lisinopril (Lisinopril 20 Mg Tab) 20 mg PO BID [facility] Stop: 08/18/21 20:59 Last Admin: 07/27/21 09:04 Dose: 20 mg Documented by: Magnesium Hydroxide (Magnesium Hydroxide Susp 30 Ml Udc) 30 ml PO Q12H PRN PRN Reason: Constipation Stop: 08/18/21 16:34 Metoprolol Succinate (Metoprolol Succ 25mg Ext Rel Tab) 12.5 mg PO QAM [facility] Stop: 08/23/21 08:59 Last Admin: 07/27/21 09:02 Dose: 12.5 mg Documented by: Miscellaneous (Carbohydrates For Hypoglycemia ) 15 - 30 gm PO UD PRN PRN Reason: Hypoglycemia Protocol Stop: 08/18/21 16:34 Last Admin: 07/27/21 04:22 Dose: 15 gm Documented by: Miscellaneous Information (Pharmacy Glycemic Mgmt Consult) 1 ea N/A UD PRN; Protocol PRN Reason: Consult Stop: 08/18/21 16:34 Mupirocin (Mupirocin 2% Oint 22 Gm Tube) 1 appln EXT [id number] [facility] Stop: 08/23/21 12:59 Last Admin: 07/27/21 09:05 Dose: 1 appln Documented by: Ondansetron HCl (Ondansetron Inj 2 Mg/Ml 2 Ml Vial) 4 mg IV Q6H PRN PRN Reason: Nausea Stop: 08/18/21 16:34 Pantoprazole Sodium (Pantoprazole 40 Mg Tab) 40 mg PO DAILY [facility] Stop: 08/19/21 08:59 Last Admin: 07/27/21 09:03 Dose: 40 mg Documented by: Polyethylene Glycol (Polyethylene (Miralax) 17 Gm Pack) 17 gm PO DAILY PRN PRN Reason: Constipation Stop: 08/18/21 16:34 Potassium Chloride (Potassium Chloride Crtab 20 Meq Tabcr) 20 meq PO QAM [facility] Stop: 08/20/21 08:59 Last Admin: 07/27/21 09:02 Dose: 20 meq Documented by: Tamsulosin HCl (Tamsulosin Hcl 0.4 Mg Cap) 0.4 mg PO HS [facility] Stop: 08/18/21 20:59 Last Admin: 07/26/21 21:02 Dose: 0.4 mg Documented by: Umeclidinium/Vilanterol (Umeclidinium/Vilanterol 62.5/25mcg 7 Puffs/Inhaler) 1 puffs INH DAILY [facility] Stop: 08/22/21 13:44 Last Admin: 07/27/21 09:05 Dose: 1 puffs Documented by: Vitamin D (Cholecalciferol 1,000 Units 25 Mcg Tab) 1,000 units PO DAILY [facility] Stop: 08/19/21 08:59 Last Admin: 07/27/21 09:03 Dose: 1,000 units Documented by:
--- NOTE | 2021-07-27 11:32 | Hospitalist Progress Note ---
Date of Service July 27, 2021 Assessment & Plan (1) Acute hypoxemic respiratory failure: Plan: Secondary to COVID-19 pneumonia and is complicated by COPD CT negative for PE and revealed evidence of pneumonia. Continue his steroids and antiviral therapy for Covid infection with hypoxia. Appreciate pulmonary input and recommendation Still requiring high flow oxygen to maintain saturation Remains stable at rest but still requiring 6 L of oxygen to maintain saturation Clinically better but oxygen requirement has gone up to 10 L/min We will continue current management (2) Pneumonia due to COVID-19 virus: Plan: Not a candidate for remdesivir but has been getting dexamethasone Cont remdesivir and steroid therapy, tolerating well. Continue supportive care efforts and prone patient when able. Pulm consulted and agrees with current plan for now. Will trend CRP in am-so far improving. We will continue current management with negative balance while in the hospital Chest x-ray did show possible right upper lobe infiltration but prolactin remains low-will not give any antibiotic No fever and no chills We will repeat procalcitonin tomorrow (3) Paroxysmal atrial fibrillation: Plan: New onset on telemetry noted this admission and improved to normal sinus with addition of low dose metoprolol. He has a pulmonary infection making this more likely. No evidence of ACS. Cont metoprolol. Heparin was placed on hold after a fall last night with traumatic hematoma. OK to remain off AC while in sinus rhythm. Consider restarting if afib begins again after hematoma has started to improve. Appreciate cardiology input and recommendation Metoprolol dose has been decreased due to bradycardia (4) TOMMY (acute kidney injury): Plan: Resolved. (5) T2DM (type 2 diabetes mellitus): Plan: Pharmacy for hyperglycemic management with insulin as needed. Euglycemic on current regimen. Noted to have hypoglycemia this morning but that has been corrected and normalized (6) Hypertension: Plan: At goal, continue lisinopril twice daily per home regimen, monitor creatinine closely (7) Carotid artery disease: Plan: Continue medical management including aspirin, atorvastatin, lisinopril per home regimen. (8) Fall: Plan: Disorientation and confusion overnight contributed to fall two nights ago with subsequent hematoma of lower back area. Pain is managed and area is improving. Hold blood thinners and continue supportive care. Hit head but CT head was negative. Patient is now alert and oriented and feeling well. Cont to monitor. (9) Hematoma: Plan: Hematoma lower back area following a fall Supportive care. (10) DVT prophylaxis: Plan: SCDs DNR/DNI Disposition-came from home, may need therapy, cont PCU in covid unit Discussed with the son-in-law Admission and Anticipated Discharge Date Admission Date: July 19, 2021 Subjective 07/24/2021 The patient was seen and examined in telemetry unit and in the Covid room He has been feeling much better in bed Gets very shortness of breath with exertion without any tachycardia Still requiring FiO2 of 0.45 to maintain saturation Denies any significant symptoms 07/25/2021 The patient was seen and examined in telemetry unit and in the Covid room He has been feeling better but is still requiring 6 L of oxygen via nasal cannula to maintain saturation Denies any other symptoms except weakness 07/26/2021 The patient was seen and examined in telemetry unit and Covid room He remains a stable but still requiring high flow oxygen to maintain saturation Minimal cough 07/27/2021 The patient was seen and examined in telemetry unit and in the Covid room Clinically he remains better but has been requiring up to 10 L of oxygen to maintain saturation Denies any cough, fever or any shortness of breath at rest Review of Systems Review of Systems: All systems reviewed and are unremarkable except as noted below Respiratory: Minimal to none -shortness of breath at rest with occasional cough Physical Exam Physical Exam: Lying in bed comfortably without any shortness of breath at rest Constitutional: well developed, well nourished, + ill appearing and + obese Eyes: PERRL, conjunctivae normal, anicteric sclerae ENMT: external ear and nose normal, oropharynx normal Neck: trachea midline, no thyromegaly Respiratory: + respiratory distress (Mild to moderate at rest); no labored breathing Auscultation: + diminished lung sounds and + crackles (Minimal crackles at the bases); no wheezes Cardiovascular: Rate/Rhythm: regular rate and regular rhythm; not tachycardic Heart Sounds: normal S1 and normal S2; no murmur Gastrointestinal (Abdomen): Inspection/Auscultation: normal bowel sounds; abdomen not distended Percussion/Palpation: abdomen soft; abdomen nontender Musculoskeletal: No acute arthritis in any joint Neurologic: Alert, awake and oriented x3. No focal sensory and motor deficit appreciated Lymphatic: no cervical or axillary lymphadenopathy Results & Data Results & Data ([facility]) Vital Signs (Past 12 Hours) Vital Signs Temp Pulse Pulse Resp BP Pulse Ox 07/27/21 10:57 36.6 C 88 24 138/70 91 07/27/21 10:13 68 07/27/21 08:01 66 20 92 07/27/21 07:31 37.0 C 60 21 139/85 92 07/27/21 03:17 36.8 C 52 L 26 H 123/64 90 07/27/21 00:00 62 Medications Administered Current Inpatient Medications Acetaminophen (Acetaminophen 325 Mg Tab) 650 mg PO Q4H PRN PRN Reason: Pain or Fever Stop: 08/18/21 16:34 Last Admin: 07/26/21 16:31 Dose: 650 mg Documented by: Al Hydrox/Mg Hydrox/Simethicone (Aluminum/Magnesium Susp 30 Ml Udc) 15 ml PO Q4H PRN PRN Reason: Dyspepsia Stop: 08/18/21 16:34 Last Admin: 07/22/21 12:00 Dose: 15 ml Documented by: Albuterol (Albuterol Hfa 8 Gm Inhaler) 2 puffs INH QID PRN PRN Reason: Shortness Of Breath Or Wheezing Stop: 08/19/21 16:12 Amlodipine Besylate (Amlodipine Besylate 5 Mg Tab) 5 mg PO DAILY [facility] Stop: 08/19/21 08:59 Last Admin: 07/27/21 09:03 Dose: 5 mg Documented by: Aspirin (Aspirin 81 Mg Chew) 81 mg PO DAILY [facility] Stop: 08/19/21 08:59 Last Admin: 07/20/21 07:50 Dose: 81 mg Documented by: Atorvastatin Calcium (Atorvastatin 40 Mg Tab) 40 mg PO DAILY [facility] Stop: 08/19/21 08:59 Last Admin: 07/27/21 09:02 Dose: 40 mg Documented by: Benzonatate (Benzonatate 100 Mg Capsule) 100 mg PO TID PRN PRN Reason: cough Stop: 08/18/21 16:34 Calcium Polycarbophil (Calcium Polycarbophil 625mg Tab) 625 mg PO DAILY [facility] Stop: 08/19/21 08:59 Last Admin: 07/27/21 09:02 Dose: 625 mg Documented by: Cetirizine HCl (Cetirizine Hcl 10 Mg Tablet) 10 mg PO DAILY [facility] Stop: 08/19/21 08:59 Last Admin: 07/27/21 09:03 Dose: 10 mg Documented by: Cyanocobalamin (Cyanocobalamin 500 Mcg Tablet (Vitamin B-12)) 500 mcg PO DAILY [facility] Stop: 08/19/21 08:59 Last Admin: 07/27/21 09:04 Dose: 500 mcg Documented by: Dextrose (Dextrose 50% 50 Ml Syringe) 25 - 50 ml IV UD PRN; Protocol PRN Reason: Hypoglycemia Protocol Stop: 08/18/21 16:34 Enoxaparin Sodium (Enoxaparin Inj 40 Mg/0.4 Ml Syr) 40 mg SQ QAM [facility] Stop: 08/23/21 08:59 Last Admin: 07/27/21 09:01 Dose: 40 mg Documented by: Finasteride (Finasteride 5 Mg Tab) 5 mg PO DAILY [facility] Stop: 08/19/21 08:59 Last Admin: 07/27/21 09:03 Dose: 5 mg Documented by: Fluticasone Propionate (Fluticasone Propionate Na Spr 16 Gm Btl) 2 sprays JINNY DAILY [facility] Stop: 08/19/21 08:59 Last Admin: 07/27/21 09:00 Dose: 2 sprays Documented by: Glucagon (Glucagon For Inj 1 Mg Vial) 1 mg SQ UD PRN; Protocol PRN Reason: Hypoglycemia Protocol Stop: 08/18/21 16:34 Glucose (Glucose 10 Tabs/Tube) 4 - 8 tabs PO UD PRN; Protocol PRN Reason: Hypoglycemia Protocol Stop: 08/18/21 16:34 Glucose (Glucose 40% Gel 15 Gm Tube) 15 - 30 gm PO UD PRN; Protocol PRN Reason: Hypoglycemia Protocol Stop: 08/18/21 16:34 Guaifenesin (Guaifenesin 600 Mg Tabcr) 600 mg PO Q12 [facility] Stop: 08/21/21 20:59 Last Admin: 07/27/21 09:04 Dose: 600 mg Documented by: Heparin Sodium/Dextrose (Heparin Sodium/Dextrose) 25,000 units in 500 mls @ 0 mls/hr IV .Q0M [facility]; Protocol Stop: 08/19/21 15:14 Last Titration: 07/23/21 08:44 Dose: Infused Documented by: Furosemide 40 mg/ Syringe 4 mls @ 4 mls/min IV DAILY [facility] Stop: 08/22/21 08:59 Last Admin: 07/27/21 09:00 Dose: 4 mls/min Documented by: Dexamethasone 6 mg/ Syringe 1.5 mls @ 1 mls/min IV DAILY [facility] Stop: 07/30/21 09:02 Last Admin: 07/27/21 08:59 Dose: 1 mls/min Documented by: Insulin Aspart (Insulin Aspart 100 Units/Ml 3 Ml Pen) 0 units SC ACHS [facility] Stop: 08/18/21 16:34 Last Admin: 07/27/21 08:26 Dose: 4 units Documented by: Insulin Human NPH (Insulin Human Nph) 35 units SC DAILY [facility]; Protocol Stop: 08/24/21 08:59 Last Admin: 07/27/21 09:27 Dose: 35 units Documented by: Lisinopril (Lisinopril 20 Mg Tab) 20 mg PO BID [facility] Stop: 08/18/21 20:59 Last Admin: 07/27/21 09:04 Dose: 20 mg Documented by: Magnesium Hydroxide (Magnesium Hydroxide Susp 30 Ml Udc) 30 ml PO Q12H PRN PRN Reason: Constipation Stop: 08/18/21 16:34 Metoprolol Succinate (Metoprolol Succ 25mg Ext Rel Tab) 12.5 mg PO QAM [facility] Stop: 08/23/21 08:59 Last Admin: 07/27/21 09:02 Dose: 12.5 mg Documented by: Miscellaneous (Carbohydrates For Hypoglycemia ) 15 - 30 gm PO UD PRN PRN Reason: Hypoglycemia Protocol Stop: 08/18/21 16:34 Last Admin: 07/27/21 04:22 Dose: 15 gm Documented by: Miscellaneous Information (Pharmacy Glycemic Mgmt Consult) 1 ea N/A UD PRN; Protocol PRN Reason: Consult Stop: 08/18/21 16:34 Mupirocin (Mupirocin 2% Oint 22 Gm Tube) 1 appln EXT [id number] [facility] Stop: 08/23/21 12:59 Last Admin: 07/27/21 09:05 Dose: 1 appln Documented by: Ondansetron HCl (Ondansetron Inj 2 Mg/Ml 2 Ml Vial) 4 mg IV Q6H PRN PRN Reason: Nausea Stop: 08/18/21 16:34 Pantoprazole Sodium (Pantoprazole 40 Mg Tab) 40 mg PO DAILY [facility] Stop: 08/19/21 08:59 Last Admin: 07/27/21 09:03 Dose: 40 mg Documented by: Polyethylene Glycol (Polyethylene (Miralax) 17 Gm Pack) 17 gm PO DAILY PRN PRN Reason: Constipation Stop: 08/18/21 16:34 Potassium Chloride (Potassium Chloride Crtab 20 Meq Tabcr) 20 meq PO QAM [facility] Stop: 08/20/21 08:59 Last Admin: 07/27/21 09:02 Dose: 20 meq Documented by: Tamsulosin HCl (Tamsulosin Hcl 0.4 Mg Cap) 0.4 mg PO HS [facility] Stop: 08/18/21 20:59 Last Admin: 07/26/21 21:02 Dose: 0.4 mg Documented by: Umeclidinium/Vilanterol (Umeclidinium/Vilanterol 62.5/25mcg 7 Puffs/Inhaler) 1 puffs INH DAILY [facility] Stop: 08/22/21 13:44 Last Admin: 07/27/21 09:05 Dose: 1 puffs Documented by: Vitamin D (Cholecalciferol 1,000 Units 25 Mcg Tab) 1,000 units PO DAILY [facility] Stop: 08/19/21 08:59 Last Admin: 07/27/21 09:03 Dose: 1,000 units Documented by:
--- NOTE | 2021-07-27 14:06 | Pharmacy Report ---
Pharmacy Glycemic Short Note 2 - Date of Service July 27, 2021 - Glycemic Short BSG Results (Last 24 hours): 07/26/21 07/26/21 07/26/21 16:59 16:59 20:47 POC Glucose 302 H* 322 H* 253 H 07/26/21 07/27/21 07/27/21 23:51 04:03 04:34 POC Glucose 132 H 63 L* 94 07/27/21 07/27/21 07:29 11:24 POC Glucose 138 H 184 H OUTPATIENT ANTIDIABETIC REGIMEN: * N/A * A1c: 7.5% 07/20/21 ASSESSMENT: 07/27: * Leonard received 101 units of insulin yesterday (35 units NPH and 66 units Novolog) with poor glycemic control * Starting this morning, dexamethasone IV was decreased from 10 mg to 6 mg daily * Fasting hypoglycemia (BSG = 63 mg/dL). I suspect this was due to large dose of novolog given at bedtime. NPH given in the morning should have worn off prior to this (duration of up to 18 hours) * will loosen Novolog correction factor and carb ratio 07/25: * BSGS yesterday were [phone] mg/dL. He received 69 units total (45 units of basal and 24 units of bolus). Fasting today was 95 mg/dL. * Decrease NPH as patient may be able to tolerate higher doses of Novolog and have better glycemic control. * Tighten CR especially since patient is receiving dexamethasone 10 mg IV x 2 days then back to 6 mg IV daily. 07/24: * BSGs overall reasonable over the past 24 hours ([phone]) and patient received 60 units of insulin yesterday (50 of which were NPH). * BSGs today are well controlled, but trending down. Will slightly reduce NPH today to prevent a low. * Patient's appetite decreased yesterday but has improved today. He remains on steroids. 07/22: * BSGs well controlled yesterday with patient receiving a total of 51 units of insulin (40 of which were NPH). Fasting BSG did increase this morning and thus NPH dose increased. Post prandials somewhat more elevated today, but given multiple changes made to NovoLog scale yesterday and previous success with this scale, will continue for now with overnight checks and assess trend tomorrow. * Patient continues on IV dex and is tolerating a diet. 07/20 * Patient admitted for COVID-19 pneumonia experiencing steroid induced hyperglycemia. Patient does not appear to on any anti-diabetic medications as an outpatient. * NPH initiated last night and BSGs trended down nicely today. Will continue current NPH dose and novolog scale. * Patient continues on IV steroids and is tolerating a diet, however intake this morning was low. Will monitor PLAN FOR INPATIENT GLYCEMIC CONTROL: * Hold outpatient oral diabetes medications * Basal insulin * NPH 35 units SQ qam with dexamethasone * Bolus insulin - loosen * NovoLog per scale ACHS or Q6hrs while NPO and overnight checks * Goal Range: Low 110 mg/dL - High 140 mg/dL * Correction Factor: 20 mg/dL/unit * Nutritional / Prandial insulin per carb ratio of 1 unit per 6 grams CHO consumed PLAN FOR DISCHARGE: * Can consider initiation of metformin XR 500mg PO daily with evening meal at discharge provided eGFR acceptable.
[2021-07-27] MEDS: TAMSULOSIN HCL 0.4 MG CAP PO SCH (20:02)
[2021-07-28 06:09] LABS: Eosinophils # (auto) 0.14 K/uL (0-0.5); Eosinophils % (auto) 1.8 %; Hematocrit (blood only) 39.2 % (42-52); Hemoglobin 12.9 g/dL (14.0-18.0); Immature Granulocytes # (auto) 0.09 K/uL (0.00-0.02); Immature Granulocytes % (auto) 1.2 %; Lymphocytes # (auto) 1.44 K/uL (1.2-3.4); Lymphocytes % (auto) 18.8 %; Mean Corpuscular Hemoglobin 31.8 pg (25-34); Mean Corpuscular Hgb Conc 32.9 g/dL (32-36); Mean Corpuscular Volume 96.6 fL (80-100); Monocytes # (auto) 0.07 K/uL (0.11-0.59); Monocytes % (auto) 0.9 %; Neutrophils # (auto) 5.93 K/uL (1.4-6.5); Neutrophils % (auto) 77.3 %; Platelet Count 375 K/uL (130-400); RDW Coefficient of Variation 14.2 % (11.5-14.5); RDW Standard Deviation 50.5 fL (36.4-46.3); Red Blood Count 4.06 M/uL (4.7-6.1); White Blood Count 7.67 K/uL (4.8-10.8)
[2021-07-28 07:07] LABS: BUN Creatinine Ratio 26.8 (10-20); C Reactive Protein 9.9 mg/dl (0-0.29); Calcium 8.3 mg/dl (8.5-10.1); Creatinine Clr Calc Pharmacy 61.1 ml/min; Est GFR (African American) 74.1 ml/min; Potassium 4.2 mmol/L (3.5-5.1)
[2021-07-28] MEDS: dexAMETHasone 6 MG in SYRINGE 0 ML IV SCH (08:11)
[2021-07-28] MEDS: FUROSEMIDE 40 MG in SYRINGE 0 ML IV SCH (08:11)
[2021-07-28] MEDS: guaiFENesin 600 MG TABCR PO SCH ×2 (08:11→20:27)
[2021-07-28] MEDS: POTASSIUM CHLORIDE CRTAB 20 MEQ TABCR PO SCH (08:11)
[2021-07-28] MEDS: MUPIROCIN 2% OINT 22 GM TUBE EXT SCH ×2 (08:11→10:23)
[2021-07-28] MEDS: lisinopril 20 MG TAB PO SCH ×2 (08:11→20:26)
[2021-07-28] MEDS: CYANOCOBALAMIN 500 MCG TABLET (VITAMIN B-12) PO SCH (08:12)
[2021-07-28] MEDS: CETIRIZINE HCL 10 MG TABLET PO SCH (08:12)
[2021-07-28] MEDS: PANTOprazole 40 MG TAB PO SCH (08:12)
[2021-07-28] MEDS: CALCIUM POLYCARBOPHIL 625MG TAB PO SCH (08:12)
[2021-07-28] MEDS: UMECLIDINIUM/VILANTEROL 62.5/25MCG 7 PUFFS/INHALER INH SCH (08:12)
[2021-07-28] MEDS: METOPROLOL SUCC 25MG EXT REL TAB PO SCH (08:12)
[2021-07-28] MEDS: ATORVASTATIN 40 MG TAB PO SCH (08:12)
[2021-07-28] MEDS: amLODIPine BESYLATE 5 MG TAB PO SCH (08:12)
[2021-07-28] MEDS: CHOLECALCIFEROL 1,000 UNITS 25 MCG TAB PO SCH (08:12)
[2021-07-28] MEDS: FINASTERIDE 5 MG TAB PO SCH (08:13)
[2021-07-28] MEDS: FLUTICASONE PROPIONATE NA SPR 16 GM BTL NAE SCH (08:13)
[2021-07-28] MEDS: ENOXAPARIN INJ 40 MG/0.4 ML SYR SQ SCH (08:20)
[2021-07-28] MEDS: INSULIN ASPART 100 UNITS/ML 3 ML PEN SC SCH ×4 (08:21→20:24)
[2021-07-28] MEDS ORDERED: INSULIN HUMAN NPH SC SCH (09:00)
--- NOTE | 2021-07-28 11:37 | Pharmacy Report ---
Pharmacy Glycemic Short Note 2 - Date of Service July 28, 2021 - Glycemic Short BSG Results (Last 24 hours): 07/27/21 07/27/21 07/27/21 11:24 16:24 20:33 Glucose POC Glucose 184 H 236 H 183 H 07/28/21 07/28/21 05:09 07:56 Glucose 130 H POC Glucose 118 H OUTPATIENT ANTIDIABETIC REGIMEN: * N/A * A1c: 7.5% 07/20/21 ASSESSMENT: 07/26: * Stressors stable * Post-prandial BSG's elevated yesterday - will tighten CHO ratio, but leave correction factor due to possibly contributing to hypoglycemia overnight two nights ago when it was tighter * AM fasting BSG in goal range, but despite this, will still reduce slightly 2nd overnight low yesterday and tightening CHO ratio today 07/27: * Leonard received 101 units of insulin yesterday (35 units NPH and 66 units Novolog) with poor glycemic control * Starting this morning, dexamethasone IV was decreased from 10 mg to 6 mg daily * Fasting hypoglycemia (BSG = 63 mg/dL). I suspect this was due to large dose of novolog given at bedtime. NPH given in the morning should have worn off prior to this (duration of up to 18 hours) * will loosen Novolog correction factor and carb ratio PLAN FOR INPATIENT GLYCEMIC CONTROL: * Hold outpatient oral diabetes medications * Basal insulin * NPH 30-35 units SQ qam with dexamethasone * Bolus insulin - tighten CHO ratio * NovoLog per scale ACHS or Q6hrs while NPO and overnight checks * Goal Range: Low 110 mg/dL - High 140 mg/dL * Correction Factor: 20 mg/dL/unit * Nutritional / Prandial insulin per carb ratio of 1 unit per 5 grams CHO consumed PLAN FOR DISCHARGE: * Can consider initiation of metformin XR 500mg PO daily with evening meal at discharge provided eGFR acceptable.
[2021-07-28] MEDS ORDERED: MUPIROCIN 2% OINT 22 GM TUBE EXT PRN (11:47)
--- NOTE | 2021-07-28 13:39 | Hospitalist Progress Note ---
Date of Service July 28, 2021 Assessment & Plan (1) Acute hypoxemic respiratory failure: Plan: Secondary to COVID-19 pneumonia and is complicated by COPD CT negative for PE and revealed evidence of pneumonia. Continue his steroids and antiviral therapy for Covid infection with hypoxia. Appreciate pulmonary input and recommendation Still requiring high flow oxygen to maintain saturation Remains stable at rest but still requiring 6 L of oxygen to maintain saturation Clinically better but oxygen requirement has gone up to 10 L/min We will continue current management-still requiring high flow nasal cannula oxygen (2) Pneumonia due to COVID-19 virus: Plan: Not a candidate for remdesivir but has been getting dexamethasone Cont remdesivir and steroid therapy, tolerating well. Continue supportive care efforts and prone patient when able. Pulm consulted and agrees with current plan for now. Will trend CRP in am-so far improving. We will continue current management with negative balance while in the hospital Chest x-ray did show possible right upper lobe infiltration but prolactin remains low-will not give any antibiotic Inflammatory markers like CPR and procalcitonin are way down We will continue current management (3) Paroxysmal atrial fibrillation: Plan: New onset on telemetry noted this admission and improved to normal sinus with addition of low dose metoprolol. He has a pulmonary infection making this more likely. No evidence of ACS. Cont metoprolol. Heparin was placed on hold after a fall last night with traumatic hematoma. OK to remain off AC while in sinus rhythm. Consider restarting if afib begins again after hematoma has started to improve. Appreciate cardiology input and recommendation Metoprolol dose has been decreased due to bradycardia (4) TOMMY (acute kidney injury): Plan: Resolved. (5) T2DM (type 2 diabetes mellitus): Plan: Pharmacy for hyperglycemic management with insulin as needed. Euglycemic on current regimen. Noted to have hypoglycemia this morning but that has been corrected and normalized (6) Hypertension: Plan: At goal, continue lisinopril twice daily per home regimen, monitor creatinine closely (7) Carotid artery disease: Plan: Continue medical management including aspirin, atorvastatin, lisinopril per home regimen. (8) Fall: Plan: Disorientation and confusion overnight contributed to fall two nights ago with subsequent hematoma of lower back area. Pain is managed and area is improving. Hold blood thinners and continue supportive care. Hit head but CT head was negative. Patient is now alert and oriented and feeling well. Cont to monitor. (9) Hematoma: Plan: Hematoma lower back area following a fall Supportive care. (10) DVT prophylaxis: Plan: SCDs DNR/DNI Disposition-came from home, may need therapy, cont PCU in covid unit Discussed with the son-in-law Admission and Anticipated Discharge Date Admission Date: July 19, 2021 Subjective 07/24/2021 The patient was seen and examined in telemetry unit and in the Covid room He has been feeling much better in bed Gets very shortness of breath with exertion without any tachycardia Still requiring FiO2 of 0.45 to maintain saturation Denies any significant symptoms 07/25/2021 The patient was seen and examined in telemetry unit and in the Covid room He has been feeling better but is still requiring 6 L of oxygen via nasal cannula to maintain saturation Denies any other symptoms except weakness 07/26/2021 The patient was seen and examined in telemetry unit and Covid room He remains a stable but still requiring high flow oxygen to maintain saturation Minimal cough 07/27/2021 The patient was seen and examined in telemetry unit and in the Covid room Clinically he remains better but has been requiring up to 10 L of oxygen to maintain saturation Denies any cough, fever or any shortness of breath at rest 07/28/2021 The patient was seen and examined in telemetry unit and in the Covid room He looks better and has been communicating but unfortunately still requiring about 13 L of oxygen via nasal cannula to maintain saturation Denies any cough and/or shortness of breath at rest Review of Systems Review of Systems: All systems reviewed and are unremarkable except as noted below Respiratory: Minimal to none -shortness of breath at rest with occasional cough Physical Exam Physical Exam: Lying in bed comfortably without any shortness of breath at rest Constitutional: well developed, well nourished, + ill appearing and + obese Eyes: PERRL, conjunctivae normal, anicteric sclerae ENMT: external ear and nose normal, oropharynx normal Neck: trachea midline, no thyromegaly Respiratory: + respiratory distress (Mild to moderate at rest); no labored breathing Auscultation: + diminished lung sounds and + crackles (Minimal crackles at the bases); no wheezes Cardiovascular: Rate/Rhythm: regular rate and regular rhythm; not tachycardic Heart Sounds: normal S1 and normal S2; no murmur Gastrointestinal (Abdomen): Inspection/Auscultation: normal bowel sounds; abdomen not distended Percussion/Palpation: abdomen soft; abdomen nontender Musculoskeletal: No acute arthritis in any joint Neurologic: Alert, awake and oriented x3. Generally weak but no focal neuro deficit Lymphatic: no cervical or axillary lymphadenopathy Results & Data Results & Data ([facility]) Vital Signs (Past 12 Hours) Vital Signs Temp Pulse Pulse Resp BP Pulse Ox 07/28/21 11:57 37.0 C 82 20 123/72 94 07/28/21 07:56 37.4 C 93 H 19 132/73 87 L 07/28/21 04:49 20 92 07/28/21 03:43 36.8 C 74 21 137/73 89 L Laboratory Results Short CBC 07/28/21 Range/Units 05:09 WBC 7.67 (4.8-10.8) K/uL Hgb 12.9 L (14.0-18.0) g/dL Hct 39.2 L (42-52) % Plt Count 375 (130-400) K/uL BMP 07/28/21 05:09 Sodium 133 L Potassium 4.2 Chloride 103 Carbon Dioxide 24 BUN 28 H Creatinine 1.05 Glucose 130 H Calcium 8.3 L Medications Administered Current Inpatient Medications Acetaminophen (Acetaminophen 325 Mg Tab) 650 mg PO Q4H PRN PRN Reason: Pain or Fever Stop: 08/18/21 16:34 Last Admin: 07/26/21 16:31 Dose: 650 mg Documented by: Al Hydrox/Mg Hydrox/Simethicone (Aluminum/Magnesium Susp 30 Ml Udc) 15 ml PO Q4H PRN PRN Reason: Dyspepsia Stop: 08/18/21 16:34 Last Admin: 07/22/21 12:00 Dose: 15 ml Documented by: Albuterol (Albuterol Hfa 8 Gm Inhaler) 2 puffs INH QID PRN PRN Reason: Shortness Of Breath Or Wheezing Stop: 08/19/21 16:12 Amlodipine Besylate (Amlodipine Besylate 5 Mg Tab) 5 mg PO DAILY [facility] Stop: 08/19/21 08:59 Last Admin: 07/28/21 08:12 Dose: 5 mg Documented by: Aspirin (Aspirin 81 Mg Chew) 81 mg PO DAILY [facility] Stop: 08/19/21 08:59 Last Admin: 07/20/21 07:50 Dose: 81 mg Documented by: Atorvastatin Calcium (Atorvastatin 40 Mg Tab) 40 mg PO DAILY [facility] Stop: 08/19/21 08:59 Last Admin: 07/28/21 08:12 Dose: 40 mg Documented by: Benzonatate (Benzonatate 100 Mg Capsule) 100 mg PO TID PRN PRN Reason: cough Stop: 08/18/21 16:34 Calcium Polycarbophil (Calcium Polycarbophil 625mg Tab) 625 mg PO DAILY [facility] Stop: 08/19/21 08:59 Last Admin: 07/28/21 08:12 Dose: 625 mg Documented by: Cetirizine HCl (Cetirizine Hcl 10 Mg Tablet) 10 mg PO DAILY [facility] Stop: 08/19/21 08:59 Last Admin: 07/28/21 08:12 Dose: 10 mg Documented by: Cyanocobalamin (Cyanocobalamin 500 Mcg Tablet (Vitamin B-12)) 500 mcg PO DAILY [facility] Stop: 08/19/21 08:59 Last Admin: 07/28/21 08:12 Dose: 500 mcg Documented by: Dextrose (Dextrose 50% 50 Ml Syringe) 25 - 50 ml IV UD PRN; Protocol PRN Reason: Hypoglycemia Protocol Stop: 08/18/21 16:34 Enoxaparin Sodium (Enoxaparin Inj 40 Mg/0.4 Ml Syr) 40 mg SQ QAM [facility] Stop: 08/23/21 08:59 Last Admin: 07/28/21 08:20 Dose: 40 mg Documented by: Finasteride (Finasteride 5 Mg Tab) 5 mg PO DAILY [facility] Stop: 08/19/21 08:59 Last Admin: 07/28/21 08:13 Dose: 5 mg Documented by: Fluticasone Propionate (Fluticasone Propionate Na Spr 16 Gm Btl) 2 sprays JINNY DAILY [facility] Stop: 08/19/21 08:59 Last Admin: 07/28/21 08:13 Dose: 2 sprays Documented by: Glucagon (Glucagon For Inj 1 Mg Vial) 1 mg SQ UD PRN; Protocol PRN Reason: Hypoglycemia Protocol Stop: 08/18/21 16:34 Glucose (Glucose 10 Tabs/Tube) 4 - 8 tabs PO UD PRN; Protocol PRN Reason: Hypoglycemia Protocol Stop: 08/18/21 16:34 Glucose (Glucose 40% Gel 15 Gm Tube) 15 - 30 gm PO UD PRN; Protocol PRN Reason: Hypoglycemia Protocol Stop: 08/18/21 16:34 Guaifenesin (Guaifenesin 600 Mg Tabcr) 600 mg PO Q12 [facility] Stop: 08/21/21 20:59 Last Admin: 07/28/21 08:11 Dose: 600 mg Documented by: Heparin Sodium/Dextrose (Heparin Sodium/Dextrose) 25,000 units in 500 mls @ 0 mls/hr IV .Q0M [facility]; Protocol Stop: 08/19/21 15:14 Last Titration: 07/23/21 08:44 Dose: Infused Documented by: Furosemide 40 mg/ Syringe 4 mls @ 4 mls/min IV DAILY [facility] Stop: 08/22/21 08:59 Last Admin: 07/28/21 08:11 Dose: 4 mls/min Documented by: Dexamethasone 6 mg/ Syringe 1.5 mls @ 1 mls/min IV DAILY [facility] Stop: 07/30/21 09:02 Last Admin: 07/28/21 08:11 Dose: 1 mls/min Documented by: Insulin Aspart (Insulin Aspart 100 Units/Ml 3 Ml Pen) 0 units SC ACHS [facility] Stop: 08/18/21 16:34 Last Admin: 07/28/21 12:26 Dose: 18 units Documented by: Insulin Human NPH (Insulin Human Nph) 0 units SC DAILY [facility]; Protocol Stop: 08/28/21 08:59 Lisinopril (Lisinopril 20 Mg Tab) 20 mg PO BID [facility] Stop: 08/18/21 20:59 Last Admin: 07/28/21 08:11 Dose: 20 mg Documented by: Magnesium Hydroxide (Magnesium Hydroxide Susp 30 Ml Udc) 30 ml PO Q12H PRN PRN Reason: Constipation Stop: 08/18/21 16:34 Metoprolol Succinate (Metoprolol Succ 25mg Ext Rel Tab) 12.5 mg PO QAM [facility] Stop: 08/23/21 08:59 Last Admin: 07/28/21 08:12 Dose: 12.5 mg Documented by: Miscellaneous (Carbohydrates For Hypoglycemia ) 15 - 30 gm PO UD PRN PRN Reason: Hypoglycemia Protocol Stop: 08/18/21 16:34 Last Admin: 07/27/21 04:22 Dose: 15 gm Documented by: Miscellaneous Information (Pharmacy Glycemic Mgmt Consult) 1 ea N/A UD PRN; Protocol PRN Reason: Consult Stop: 08/18/21 16:34 Mupirocin (Mupirocin 2% Oint 22 Gm Tube) 1 appln EXT QID PRN PRN Reason: Bleeding Stop: 08/27/21 12:59 Ondansetron HCl (Ondansetron Inj 2 Mg/Ml 2 Ml Vial) 4 mg IV Q6H PRN PRN Reason: Nausea Stop: 08/18/21 16:34 Pantoprazole Sodium (Pantoprazole 40 Mg Tab) 40 mg PO DAILY [facility] Stop: 08/19/21 08:59 Last Admin: 07/28/21 08:12 Dose: 40 mg Documented by: Polyethylene Glycol (Polyethylene (Miralax) 17 Gm Pack) 17 gm PO DAILY PRN PRN Reason: Constipation Stop: 08/18/21 16:34 Potassium Chloride (Potassium Chloride Crtab 20 Meq Tabcr) 20 meq PO QAM [facility] Stop: 08/20/21 08:59 Last Admin: 07/28/21 08:11 Dose: 20 meq Documented by: Tamsulosin HCl (Tamsulosin Hcl 0.4 Mg Cap) 0.4 mg PO HS [facility] Stop: 08/18/21 20:59 Last Admin: 07/27/21 20:02 Dose: 0.4 mg Documented by: Umeclidinium/Vilanterol (Umeclidinium/Vilanterol 62.5/25mcg 7 Puffs/Inhaler) 1 puffs INH DAILY [facility] Stop: 08/22/21 13:44 Last Admin: 07/28/21 08:12 Dose: 1 puffs Documented by: Vitamin D (Cholecalciferol 1,000 Units 25 Mcg Tab) 1,000 units PO DAILY [facility] Stop: 08/19/21 08:59 Last Admin: 07/28/21 08:12 Dose: 1,000 units Documented by:
[2021-07-28] MEDS: TAMSULOSIN HCL 0.4 MG CAP PO SCH (20:27)
[2021-07-29] MEDS: FUROSEMIDE 40 MG in SYRINGE 0 ML IV SCH (07:20)
[2021-07-29] MEDS: UMECLIDINIUM/VILANTEROL 62.5/25MCG 7 PUFFS/INHALER INH SCH (07:20)
[2021-07-29] MEDS: dexAMETHasone 6 MG in SYRINGE 0 ML IV SCH (07:20)
[2021-07-29] MEDS: ENOXAPARIN INJ 40 MG/0.4 ML SYR SQ SCH (07:21)
[2021-07-29] MEDS: FLUTICASONE PROPIONATE NA SPR 16 GM BTL NAE SCH (07:25)
[2021-07-29] MEDS: CETIRIZINE HCL 10 MG TABLET PO SCH (07:27)
[2021-07-29] MEDS: CHOLECALCIFEROL 1,000 UNITS 25 MCG TAB PO SCH (07:27)
[2021-07-29] MEDS: CALCIUM POLYCARBOPHIL 625MG TAB PO SCH (07:27)
[2021-07-29] MEDS: CYANOCOBALAMIN 500 MCG TABLET (VITAMIN B-12) PO SCH (07:27)
[2021-07-29] MEDS: amLODIPine BESYLATE 5 MG TAB PO SCH (07:27)
[2021-07-29] MEDS: lisinopril 20 MG TAB PO SCH ×2 (07:27→20:02)
[2021-07-29] MEDS: METOPROLOL SUCC 25MG EXT REL TAB PO SCH (07:27)
[2021-07-29] MEDS: guaiFENesin 600 MG TABCR PO SCH ×2 (07:27→20:03)
[2021-07-29] MEDS: FINASTERIDE 5 MG TAB PO SCH (07:28)
[2021-07-29] MEDS: POTASSIUM CHLORIDE CRTAB 20 MEQ TABCR PO SCH (07:28)
[2021-07-29] MEDS: PANTOprazole 40 MG TAB PO SCH (07:28)
[2021-07-29] MEDS: ATORVASTATIN 40 MG TAB PO SCH (07:28)
[2021-07-29] MEDS: INSULIN ASPART 100 UNITS/ML 3 ML PEN SC SCH ×4 (08:48→20:39)
[2021-07-29] MEDS ORDERED: INSULIN HUMAN NPH SC SCH (09:00)
--- NOTE | 2021-07-29 13:00 | Pharmacy Report ---
Pharmacy Glycemic Short Note 2 - Date of Service July 29, 2021 - Glycemic Short BSG Results (Last 24 hours): 07/28/21 07/28/21 07/29/21 16:32 20:12 08:05 POC Glucose 165 H 151 H 120 H 07/29/21 11:44 POC Glucose 200 H OUTPATIENT ANTIDIABETIC REGIMEN: * N/A * A1c: 7.5% 07/20/21 ASSESSMENT: 07/29: * Stressors stable. Today is day 10 of dexamethasone although patient is current scheduled to receive one more dose tomorrow. Dr. Boyd notified. * AM fasting BSG in goal range - no change * Lunch BSG today again elevated although this was due to snacking yesterday. Will not respond to this single BSG at this time. Continue Novolog. 07/28: * Stressors stable * Post-prandial BSG's elevated yesterday - will tighten CHO ratio, but leave correction factor due to possibly contributing to hypoglycemia overnight two nights ago when it was tighter * AM fasting BSG in goal range, but despite this, will still reduce slightly 2nd overnight low yesterday and tightening CHO ratio today 07/27: * Leonard received 101 units of insulin yesterday (35 units NPH and 66 units Novolog) with poor glycemic control * Starting this morning, dexamethasone IV was decreased from 10 mg to 6 mg daily * Fasting hypoglycemia (BSG = 63 mg/dL). I suspect this was due to large dose of novolog given at bedtime. NPH given in the morning should have worn off prior to this (duration of up to 18 hours) * will loosen Novolog correction factor and carb ratio PLAN FOR INPATIENT GLYCEMIC CONTROL: * Hold outpatient oral diabetes medications * Basal insulin * NPH 30-35 units SQ qam with dexamethasone * Bolus insulin - tighten CHO ratio * NovoLog per scale ACHS or Q6hrs while NPO and overnight checks * Goal Range: Low 110 mg/dL - High 140 mg/dL * Correction Factor: 15 mg/dL/unit * Nutritional / Prandial insulin per carb ratio of 1 unit per 5 grams CHO consumed PLAN FOR DISCHARGE: * Can consider initiation of metformin XR 500mg PO daily with evening meal at discharge provided eGFR acceptable.
--- NOTE | 2021-07-29 16:45 | Hospitalist Progress Note ---
Date of Service July 29, 2021 Assessment & Plan (1) Acute hypoxemic respiratory failure: Plan: Secondary to COVID-19 pneumonia and is complicated by COPD CT negative for PE and revealed evidence of pneumonia. Continue his steroids and antiviral therapy for Covid infection with hypoxia. Appreciate pulmonary input and recommendation Still requiring high flow oxygen to maintain saturation Remains stable at rest but still requiring 6 L of oxygen to maintain saturation Clinically better but oxygen requirement has gone up to 10 L/min We will continue current management-still requiring high flow nasal cannula oxygen Not any better though clinically improved (2) Pneumonia due to COVID-19 virus: Plan: Not a candidate for remdesivir but has been getting dexamethasone Cont remdesivir and steroid therapy, tolerating well. Continue supportive care efforts and prone patient when able. Pulm consulted and agrees with current plan for now. We will continue current management with negative balance while in the hospital Chest x-ray did show possible right upper lobe infiltration but prolactin remains low-will not give any antibiotic Inflammatory markers like CPR and procalcitonin were way down but has been trending up and was 9.90 on 07/28/2021 Procalcitonin remained normal Dexamethasone will be continued until 07/31/2021 We will check inflammatory markers again tomorrow (3) Paroxysmal atrial fibrillation: Plan: New onset on telemetry noted this admission and improved to normal sinus with addition of low dose metoprolol. He has a pulmonary infection making this more likely. No evidence of ACS. Cont metoprolol. Heparin was placed on hold after a fall last night with traumatic hematoma. OK to remain off AC while in sinus rhythm. Consider restarting if afib begins again after hematoma has started to improve. Appreciate cardiology input and recommendation Metoprolol dose has been decreased due to bradycardia (4) TOMMY (acute kidney injury): Plan: Resolved. (5) T2DM (type 2 diabetes mellitus): Plan: Pharmacy for hyperglycemic management with insulin as needed. Euglycemic on current regimen. Noted to have hypoglycemia this morning but that has been corrected and normalized (6) Hypertension: Plan: At goal, continue lisinopril twice daily per home regimen, monitor creatinine closely (7) Carotid artery disease: Plan: Continue medical management including aspirin, atorvastatin, lisinopril per home regimen. (8) Fall: Plan: Disorientation and confusion overnight contributed to fall two nights ago with subsequent hematoma of lower back area. Pain is managed and area is improving. Hold blood thinners and continue supportive care. Hit head but CT head was negative. Patient is now alert and oriented and feeling well. Cont to monitor. (9) Hematoma: Plan: Hematoma lower back area following a fall Supportive care. (10) DVT prophylaxis: Plan: Has been on Lovenox subcu DNR/DNI Disposition-came from home, may need therapy, cont PCU in covid unit Discussed with the son-in-law Admission and Anticipated Discharge Date Admission Date: July 19, 2021 Subjective 07/24/2021 The patient was seen and examined in telemetry unit and in the Covid room He has been feeling much better in bed Gets very shortness of breath with exertion without any tachycardia Still requiring FiO2 of 0.45 to maintain saturation Denies any significant symptoms 07/25/2021 The patient was seen and examined in telemetry unit and in the Covid room He has been feeling better but is still requiring 6 L of oxygen via nasal cannula to maintain saturation Denies any other symptoms except weakness 07/26/2021 The patient was seen and examined in telemetry unit and Covid room He remains a stable but still requiring high flow oxygen to maintain saturation Minimal cough 07/27/2021 The patient was seen and examined in telemetry unit and in the Covid room Clinically he remains better but has been requiring up to 10 L of oxygen to maintain saturation Denies any cough, fever or any shortness of breath at rest 07/28/2021 The patient was seen and examined in telemetry unit and in the Covid room He looks better and has been communicating but unfortunately still requiring about 13 L of oxygen via nasal cannula to maintain saturation Denies any cough and/or shortness of breath at rest 07/29/2021 The patient was seen and examined in telemetry unit and in Covid room He looks better and feels better but is still requiring high flow oxygen to maintain saturation Denies any cough, fever or shortness of breath at rest Review of Systems Review of Systems: All systems reviewed and are unremarkable except as noted below Respiratory: Minimal to none -shortness of breath at rest with occasional cough Physical Exam Physical Exam: Lying in bed comfortably without any shortness of breath at rest Constitutional: well developed, well nourished, + ill appearing and + obese Eyes: PERRL, conjunctivae normal, anicteric sclerae ENMT: external ear and nose normal, oropharynx normal Neck: trachea midline, no thyromegaly Respiratory: + respiratory distress (Mild to moderate at rest); no labored breathing Auscultation: + diminished lung sounds and + crackles (Minimal crackles at the bases); no wheezes Cardiovascular: Rate/Rhythm: regular rate and regular rhythm; not tachycardic Heart Sounds: normal S1 and normal S2; no murmur Gastrointestinal (Abdomen): Inspection/Auscultation: normal bowel sounds; abdomen not distended Percussion/Palpation: abdomen soft; abdomen nontender Musculoskeletal: Acute arthritis in any joint Neurologic: Alert, awake and oriented x3. He generally weak and lethargic Lymphatic: no cervical or axillary lymphadenopathy Results & Data Results & Data ([facility]) Vital Signs (Past 12 Hours) Vital Signs Temp Pulse Pulse Resp BP Pulse Ox Pulse Ox 07/29/21 15:20 66 07/29/21 15:00 89 L 07/29/21 14:55 36.3 C L 74 18 124/63 89 L 07/29/21 10:59 36.9 C 81 18 106/46 L 91 07/29/21 07:49 65 07/29/21 07:06 36.7 C 75 29 H 122/57 L 87 L Medications Administered Current Inpatient Medications Acetaminophen (Acetaminophen 325 Mg Tab) 650 mg PO Q4H PRN PRN Reason: Pain or Fever Stop: 08/18/21 16:34 Last Admin: 07/26/21 16:31 Dose: 650 mg Documented by: Al Hydrox/Mg Hydrox/Simethicone (Aluminum/Magnesium Susp 30 Ml Udc) 15 ml PO Q4H PRN PRN Reason: Dyspepsia Stop: 08/18/21 16:34 Last Admin: 07/22/21 12:00 Dose: 15 ml Documented by: Albuterol (Albuterol Hfa 8 Gm Inhaler) 2 puffs INH QID PRN PRN Reason: Shortness Of Breath Or Wheezing Stop: 08/19/21 16:12 Amlodipine Besylate (Amlodipine Besylate 5 Mg Tab) 5 mg PO DAILY [facility] Stop: 08/19/21 08:59 Last Admin: 07/29/21 07:27 Dose: 5 mg Documented by: Aspirin (Aspirin 81 Mg Chew) 81 mg PO DAILY [facility] Stop: 08/19/21 08:59 Last Admin: 07/20/21 07:50 Dose: 81 mg Documented by: Atorvastatin Calcium (Atorvastatin 40 Mg Tab) 40 mg PO DAILY [facility] Stop: 08/19/21 08:59 Last Admin: 07/29/21 07:28 Dose: 40 mg Documented by: Benzonatate (Benzonatate 100 Mg Capsule) 100 mg PO TID PRN PRN Reason: cough Stop: 08/18/21 16:34 Calcium Polycarbophil (Calcium Polycarbophil 625mg Tab) 625 mg PO DAILY [facility] Stop: 08/19/21 08:59 Last Admin: 07/29/21 07:27 Dose: 625 mg Documented by: Cetirizine HCl (Cetirizine Hcl 10 Mg Tablet) 10 mg PO DAILY [facility] Stop: 08/19/21 08:59 Last Admin: 07/29/21 07:27 Dose: 10 mg Documented by: Cyanocobalamin (Cyanocobalamin 500 Mcg Tablet (Vitamin B-12)) 500 mcg PO DAILY [facility] Stop: 08/19/21 08:59 Last Admin: 07/29/21 07:27 Dose: 500 mcg Documented by: Dextrose (Dextrose 50% 50 Ml Syringe) 25 - 50 ml IV UD PRN; Protocol PRN Reason: Hypoglycemia Protocol Stop: 08/18/21 16:34 Enoxaparin Sodium (Enoxaparin Inj 40 Mg/0.4 Ml Syr) 40 mg SQ QAM [facility] Stop: 08/23/21 08:59 Last Admin: 07/29/21 07:21 Dose: 40 mg Documented by: Finasteride (Finasteride 5 Mg Tab) 5 mg PO DAILY [facility] Stop: 08/19/21 08:59 Last Admin: 07/29/21 07:28 Dose: 5 mg Documented by: Fluticasone Propionate (Fluticasone Propionate Na Spr 16 Gm Btl) 2 sprays JINNY DAILY [facility] Stop: 08/19/21 08:59 Last Admin: 07/29/21 07:25 Dose: 2 sprays Documented by: Glucagon (Glucagon For Inj 1 Mg Vial) 1 mg SQ UD PRN; Protocol PRN Reason: Hypoglycemia Protocol Stop: 08/18/21 16:34 Glucose (Glucose 10 Tabs/Tube) 4 - 8 tabs PO UD PRN; Protocol PRN Reason: Hypoglycemia Protocol Stop: 08/18/21 16:34 Glucose (Glucose 40% Gel 15 Gm Tube) 15 - 30 gm PO UD PRN; Protocol PRN Reason: Hypoglycemia Protocol Stop: 08/18/21 16:34 Guaifenesin (Guaifenesin 600 Mg Tabcr) 600 mg PO Q12 [facility] Stop: 08/21/21 20:59 Last Admin: 07/29/21 07:27 Dose: 600 mg Documented by: Heparin Sodium/Dextrose (Heparin Sodium/Dextrose) 25,000 units in 500 mls @ 0 mls/hr IV .Q0M [facility]; Protocol Stop: 08/19/21 15:14 Last Titration: 07/23/21 08:44 Dose: Infused Documented by: Furosemide 40 mg/ Syringe 4 mls @ 4 mls/min IV DAILY [facility] Stop: 08/22/21 08:59 Last Admin: 07/29/21 07:20 Dose: 4 mls/min Documented by: Dexamethasone 6 mg/ Syringe 1.5 mls @ 1 mls/min IV DAILY [facility] Stop: 07/30/21 09:02 Last Admin: 07/29/21 07:20 Dose: 1 mls/min Documented by: Insulin Aspart (Insulin Aspart 100 Units/Ml 3 Ml Pen) 0 units SC ACHS [facility] Stop: 08/18/21 16:34 Last Admin: 07/29/21 12:15 Dose: 11 units Documented by: Insulin Human NPH (Insulin Human Nph) 0 units SC DAILY [facility]; Protocol Stop: 08/28/21 08:59 Last Admin: 07/29/21 08:49 Dose: 30 units Documented by: Lisinopril (Lisinopril 20 Mg Tab) 20 mg PO BID [facility] Stop: 08/18/21 20:59 Last Admin: 07/29/21 07:27 Dose: 20 mg Documented by: Magnesium Hydroxide (Magnesium Hydroxide Susp 30 Ml Udc) 30 ml PO Q12H PRN PRN Reason: Constipation Stop: 08/18/21 16:34 Metoprolol Succinate (Metoprolol Succ 25mg Ext Rel Tab) 12.5 mg PO QAM [facility] Stop: 08/23/21 08:59 Last Admin: 07/29/21 07:27 Dose: 12.5 mg Documented by: Miscellaneous (Carbohydrates For Hypoglycemia ) 15 - 30 gm PO UD PRN PRN Reason: Hypoglycemia Protocol Stop: 08/18/21 16:34 Last Admin: 07/27/21 04:22 Dose: 15 gm Documented by: Miscellaneous Information (Pharmacy Glycemic Mgmt Consult) 1 ea N/A UD PRN; Protocol PRN Reason: Consult Stop: 08/18/21 16:34 Mupirocin (Mupirocin 2% Oint 22 Gm Tube) 1 appln EXT QID PRN PRN Reason: Bleeding Stop: 08/27/21 12:59 Last Admin: 07/29/21 07:25 Dose: 1 appln Documented by: Ondansetron HCl (Ondansetron Inj 2 Mg/Ml 2 Ml Vial) 4 mg IV Q6H PRN PRN Reason: Nausea Stop: 08/18/21 16:34 Pantoprazole Sodium (Pantoprazole 40 Mg Tab) 40 mg PO DAILY [facility] Stop: 08/19/21 08:59 Last Admin: 07/29/21 07:28 Dose: 40 mg Documented by: Polyethylene Glycol (Polyethylene (Miralax) 17 Gm Pack) 17 gm PO DAILY PRN PRN Reason: Constipation Stop: 08/18/21 16:34 Potassium Chloride (Potassium Chloride Crtab 20 Meq Tabcr) 20 meq PO QAM [facility] Stop: 08/20/21 08:59 Last Admin: 07/29/21 07:28 Dose: 20 meq Documented by: Tamsulosin HCl (Tamsulosin Hcl 0.4 Mg Cap) 0.4 mg PO HS [facility] Stop: 08/18/21 20:59 Last Admin: 07/28/21 20:27 Dose: 0.4 mg Documented by: Umeclidinium/Vilanterol (Umeclidinium/Vilanterol 62.5/25mcg 7 Puffs/Inhaler) 1 puffs INH DAILY [facility] Stop: 08/22/21 13:44 Last Admin: 07/29/21 07:20 Dose: 1 puffs Documented by: Vitamin D (Cholecalciferol 1,000 Units 25 Mcg Tab) 1,000 units PO DAILY [facility] Stop: 08/19/21 08:59 Last Admin: 07/29/21 07:27 Dose: 1,000 units Documented by:
[2021-07-29] MEDS: TAMSULOSIN HCL 0.4 MG CAP PO SCH (20:02)
[2021-07-30 06:19] LABS: Basophils # (auto) 0.01 K/uL (0-0.2); Basophils % (auto) 0.1 %; Eosinophils # (auto) 0.09 K/uL (0-0.5); Hematocrit (blood only) 37.7 % (42-52); Hemoglobin 12.4 g/dL (14.0-18.0); Immature Granulocytes # (auto) 0.08 K/uL (0.00-0.02); Immature Granulocytes % (auto) 0.9 %; Lymphocytes # (auto) 1.71 K/uL (1.2-3.4); Lymphocytes % (auto) 18.8 %; Mean Corpuscular Hemoglobin 31.8 pg (25-34); Mean Corpuscular Hgb Conc 32.9 g/dL (32-36); Mean Corpuscular Volume 96.7 fL (80-100); Mean Platelet Volume 9.8 fL (7.4-10.4); Monocytes % (auto) 2.2 %; Neutrophils # (auto) 7.01 K/uL (1.4-6.5); Platelet Count 307 K/uL (130-400); RDW Standard Deviation 49.5 fL (36.4-46.3)
[2021-07-30 06:54] LABS: Albumin Level 1.6 gm/dl (3.4-5.0); BUN Creatinine Ratio 34.4 (10-20); Calcium 8.3 mg/dl (8.5-10.1); Creatinine Clr Calc Pharmacy 67.5 ml/min; Est GFR (African American) 84.7 ml/min; Est GFR (Non-African American) 73.1 ml/min; Potassium 4.2 mmol/L (3.5-5.1)
[2021-07-30 06:56] LABS: Albumin Globulin Ratio 0.4 (0.9-2); Bilirubin,Total 0.5 mg/dl (0.2-1); C Reactive Protein 8.56 mg/dl (0-0.29); Globulin 4.4 gm/dl (2.5-4.0); Phosphorus 4.2 mg/dl (2.5-4.9)
[2021-07-30] MEDS: FLUTICASONE PROPIONATE NA SPR 16 GM BTL NAE SCH (07:25)
[2021-07-30] MEDS: dexAMETHasone 6 MG in SYRINGE 0 ML IV SCH (07:26)
[2021-07-30] MEDS: FUROSEMIDE 40 MG in SYRINGE 0 ML IV SCH (07:26)
[2021-07-30] MEDS: PANTOprazole 40 MG TAB PO SCH (07:26)
[2021-07-30] MEDS: lisinopril 20 MG TAB PO SCH ×2 (07:26→20:27)
[2021-07-30] MEDS: CHOLECALCIFEROL 1,000 UNITS 25 MCG TAB PO SCH (07:27)
[2021-07-30] MEDS: METOPROLOL SUCC 25MG EXT REL TAB PO SCH (07:27)
[2021-07-30] MEDS: CYANOCOBALAMIN 500 MCG TABLET (VITAMIN B-12) PO SCH (07:27)
[2021-07-30] MEDS: FINASTERIDE 5 MG TAB PO SCH (07:28)
[2021-07-30] MEDS: amLODIPine BESYLATE 5 MG TAB PO SCH (07:28)
[2021-07-30] MEDS: CETIRIZINE HCL 10 MG TABLET PO SCH (07:28)
[2021-07-30] MEDS: CALCIUM POLYCARBOPHIL 625MG TAB PO SCH (07:29)
[2021-07-30] MEDS: UMECLIDINIUM/VILANTEROL 62.5/25MCG 7 PUFFS/INHALER INH SCH (07:29)
[2021-07-30] MEDS: ENOXAPARIN INJ 40 MG/0.4 ML SYR SQ SCH (07:29)
[2021-07-30] MEDS: ATORVASTATIN 40 MG TAB PO SCH (07:29)
[2021-07-30] MEDS: guaiFENesin 600 MG TABCR PO SCH ×2 (07:30→20:26)
[2021-07-30] MEDS: POTASSIUM CHLORIDE CRTAB 20 MEQ TABCR PO SCH (07:30)
[2021-07-30] MEDS: INSULIN ASPART 100 UNITS/ML 3 ML PEN SC SCH ×4 (08:28→20:34)
[2021-07-30] MEDS ORDERED: INSULIN HUMAN NPH SC SCH (09:00)
--- NOTE | 2021-07-30 09:18 | XRay Report ---
SINGLE VIEW CHEST CLINICAL HISTORY: Covid pneumonia. FINDINGS: An AP, portable, upright chest radiograph is compared to study dated 07/25/2021 and correlate d with chest CT dated 07/20/2021. The heart is enlarged. There is increasingly confluent airspace cons olidation seen throughout both lungs. No large pleural effusion or pneumothorax is seen. The skeletal structures are osteopenic. The bony thorax is grossly intact. Degenerative change is seen throughout the thoracic spine. IMPRESSION: There is increasingly confluent airspace consolidation seen throughout both lungs as comp ared to 07/25/2021, typical in appearance for multifocal pneumonia. ACT 112: Negative or not required by law. Electronically signed by: Chito Walters M.D. 07/30/2021 9:16 AM
--- NOTE | 2021-07-30 11:21 | Pharmacy Report ---
Pharmacy Glycemic Short Note 2 - Date of Service July 30, 2021 - Glycemic Short BSG Results (Last 24 hours): 07/29/21 07/29/21 07/29/21 11:44 16:38 20:35 Glucose POC Glucose 200 H 239 H 156 H 07/30/21 07/30/21 07/30/21 05:36 07:21 11:06 Glucose 85 POC Glucose 86 230 H OUTPATIENT ANTIDIABETIC REGIMEN: * N/A * A1c: 7.5% 07/20/21 ASSESSMENT: 07/30: * Stressors stable, although today is the last day of dexamethasone. * AM fasting BSG below goal range. Will decrease today and then discontinue. Will trend AM fasting BSG to determine if initiation of Lantus is needed when off steroids * BSG's significantly elevated at lunch and dinner yesterday. Snacking could be contributing, but will tighten CHO ratio at breakfast and lunch [id number] due to trend. Will loosen starting tomorrow due to steroids being discontinued. 07/29: * Stressors stable. Today is day 10 of dexamethasone although patient is current scheduled to receive one more dose tomorrow. Dr. Boyd notified. * AM fasting BSG in goal range - no change * Lunch BSG today again elevated although this was due to snacking yesterday. Will not respond to this single BSG at this time. Continue Novolog. 07/28: * Stressors stable * Post-prandial BSG's elevated yesterday - will tighten CHO ratio, but leave correction factor due to possibly contributing to hypoglycemia overnight two nights ago when it was tighter * AM fasting BSG in goal range, but despite this, will still reduce slightly 2nd overnight low yesterday and tightening CHO ratio today 07/27: * Leonard received 101 units of insulin yesterday (35 units NPH and 66 units Novolog) with poor glycemic control * Starting this morning, dexamethasone IV was decreased from 10 mg to 6 mg daily * Fasting hypoglycemia (BSG = 63 mg/dL). I suspect this was due to large dose of novolog given at bedtime. NPH given in the morning should have worn off prior to this (duration of up to 18 hours) * will loosen Novolog correction factor and carb ratio PLAN FOR INPATIENT GLYCEMIC CONTROL: * Basal insulin * NPH 25 units SQ qam with dexamethasone - last dose today * Bolus insulin - tighten for today only * NovoLog per scale ACHS or Q6hrs while NPO and overnight checks * Goal Range: Low 110 mg/dL - High 140 mg/dL * Correction Factor: 15 mg/dL/unit * Carb ratio: 4 g CHO/unit with breakfast and lunch, 5 g CHO/unit with dinner and bedtime PLAN FOR DISCHARGE: * Can consider initiation of metformin XR 500mg PO daily with evening meal at discharge provided eGFR acceptable.
--- NOTE | 2021-07-30 11:25 | Hospitalist Progress Note ---
Date of Service July 30, 2021 Assessment & Plan (1) Acute hypoxemic respiratory failure: Plan: Secondary to COVID-19 pneumonia and is complicated by COPD CT negative for PE and revealed evidence of pneumonia. Continue steroids and antiviral therapy for Covid infection with hypoxia. Appreciate pulmonary input and recommendation. Patient remains on high flow nasal cannula. We will continue with dexamethasone. Continue daily IV Lasix 40 mg. Continue monitor ins and outs. Catheter in place. Continue to wean off the oxygen. (2) Pneumonia due to COVID-19 virus: Plan: Not a candidate for remdesivir but has been getting dexamethasone Continue supportive care efforts and prone patient when able. Pulm consulted and agrees with current plan for now. Chest x-ray did show possible right upper lobe infiltration but prolactin remains low-will not give any antibiotic Inflammatory markers like CPR and procalcitonin were way down but has been trending up and was 9.90 on 07/28/2021 Procalcitonin remained normal Dexamethasone will be continued until 07/31/2021 (3) Paroxysmal atrial fibrillation: Plan: New onset on telemetry noted this admission and improved to normal sinus with addition of low dose metoprolol. He has a pulmonary infection making this more likely. No evidence of ACS. Cont metoprolol. Heparin was placed on hold after a fall last night with traumatic hematoma. OK to remain off AC while in sinus rhythm. Consider restarting if afib begins again after hematoma has started to improve. Appreciate cardiology input and recommendation Metoprolol dose has been decreased due to bradycardia (4) TOMMY (acute kidney injury): Plan: Resolved. (5) T2DM (type 2 diabetes mellitus): Plan: Pharmacy for hyperglycemic management with insulin as needed. Euglycemic on current regimen. Noted to have hypoglycemia this morning but that has been corrected and normalized (6) Hypertension: Plan: At goal, continue lisinopril twice daily per home regimen, monitor creatinine closely (7) Carotid artery disease: Plan: Continue medical management including aspirin, atorvastatin, lisinopril per home regimen. (8) Fall: Plan: Disorientation and confusion overnight contributed to fall two nights ago with subsequent hematoma of lower back area. Pain is managed and area is improving. Hold blood thinners and continue supportive care. Hit head but CT head was negative. Patient is now alert and oriented and feeling well. Cont to monitor. (9) Hematoma: Plan: Hematoma lower back area following a fall Supportive care. (10) DVT prophylaxis: Plan: Has been on Lovenox subcu DNR/DNI Disposition-came from home, may need therapy, cont PCU in covid unit Discussed with the son-in-law Admission and Anticipated Discharge Date Admission Date: July 19, 2021 Subjective Patient is awake and alert. Resting comfortably. Remains on the high flow nasal cannula. Hemodynamically doing okay. Shortness of breath is okay. Does have cough. Denies any nausea or vomiting. Appetite is okay. The review of system is negative. Review of Systems Review of Systems: All systems reviewed & are unremarkable except as noted in HPI & below Physical Exam Physical Exam: General: Awake and alert HENT: NCAT, MMM, EOMI Eyes: PERRLA Neck: Supple, normal range of motion CVS: normal rate and rhythm Resp: b/l coarse breath sound Abdomen: Soft, ND/NT, +BS Extremities: No c/c/e Neuro: face symmetric, no gross focal deficits appreciate Skin: warm and dry, no rashes/lesions/errythema MSK: normal ROM, no joint swelling/erythema Helms catheter in place. Results & Data Results & Data ([facility]) Vital Signs (Past 12 Hours) Vital Signs Temp Pulse Pulse Resp BP Pulse Ox 07/30/21 11:07 36.5 C 79 27 H 107/56 L 90 07/30/21 07:39 70 07/30/21 07:22 36.4 C L 78 20 128/69 88 L 07/30/21 03:31 36.7 C 67 17 109/59 L 90 07/29/21 23:40 64
[2021-07-30] MEDS: TAMSULOSIN HCL 0.4 MG CAP PO SCH (20:26)
[2021-07-31 07:17] LABS: BUN Creatinine Ratio 28.7 (10-20); Calcium 8.1 mg/dl (8.5-10.1); Creatinine Clr Calc Pharmacy 55.9 ml/min; Est GFR (African American) 67.1 ml/min; Est GFR (Non-African American) 57.9 ml/min; Potassium 4.1 mmol/L (3.5-5.1)
[2021-07-31] MEDS ORDERED: INSULIN ASPART 100 UNITS/ML 3 ML PEN SC SCH (07:30)
[2021-07-31] MEDS: FUROSEMIDE 40 MG in SYRINGE 0 ML IV SCH (08:25)
[2021-07-31] MEDS: CYANOCOBALAMIN 500 MCG TABLET (VITAMIN B-12) PO SCH (08:26)
[2021-07-31] MEDS: CALCIUM POLYCARBOPHIL 625MG TAB PO SCH (08:26)
[2021-07-31] MEDS: guaiFENesin 600 MG TABCR PO SCH ×2 (08:26→21:03)
[2021-07-31] MEDS: lisinopril 20 MG TAB PO SCH ×2 (08:26→21:04)
[2021-07-31] MEDS: POTASSIUM CHLORIDE CRTAB 20 MEQ TABCR PO SCH (08:26)
[2021-07-31] MEDS: METOPROLOL SUCC 25MG EXT REL TAB PO SCH (08:27)
[2021-07-31] MEDS: ATORVASTATIN 40 MG TAB PO SCH (08:27)
[2021-07-31] MEDS: amLODIPine BESYLATE 5 MG TAB PO SCH (08:27)
[2021-07-31] MEDS: PANTOprazole 40 MG TAB PO SCH (08:27)
[2021-07-31] MEDS: FINASTERIDE 5 MG TAB PO SCH (08:28)
[2021-07-31] MEDS: FLUTICASONE PROPIONATE NA SPR 16 GM BTL NAE SCH (08:28)
[2021-07-31] MEDS: CHOLECALCIFEROL 1,000 UNITS 25 MCG TAB PO SCH (08:28)
[2021-07-31] MEDS: CETIRIZINE HCL 10 MG TABLET PO SCH (08:28)
[2021-07-31] MEDS: ENOXAPARIN INJ 40 MG/0.4 ML SYR SQ SCH (08:28)
[2021-07-31] MEDS: UMECLIDINIUM/VILANTEROL 62.5/25MCG 7 PUFFS/INHALER INH SCH (08:29)
[2021-07-31] MEDS: INSULIN ASPART 100 UNITS/ML 3 ML PEN SC SCH ×4 (08:30→21:06)
[2021-07-31] MEDS ORDERED: dexAMETHasone 6 MG in SYRINGE 0 ML IV SCH (09:00)
[2021-07-31] MEDS ORDERED: INSULIN HUMAN NPH SC ONE (09:00)
--- NOTE | 2021-07-31 12:25 | Hospitalist Progress Note ---
Date of Service July 31, 2021 Assessment & Plan (1) Acute hypoxemic respiratory failure: Plan: Secondary to COVID-19 pneumonia and is complicated by COPD CT negative for PE and revealed evidence of pneumonia. Appreciate pulmonary input. Patient is down to 5 L of nasal cannula Will continue with dexamethasone. Completed 5 days of remdesivir therapy on 07/23. Continue daily IV Lasix 40 mg daily. Continue monitor ins and outs. Catheter in place. Continue to work with PT/OT. Plan to do NOC ox tonight, can be discharged in the next 1 to 2 days with reasonable oxygen requirement. (2) Pneumonia due to COVID-19 virus: Plan: Continue supportive care efforts and prone patient when able. Chest x-ray did show possible right upper lobe infiltration but prolactin remains low-will not give any antibiotic Inflammatory markers like CPR and procalcitonin were way down but has been trending up and was 9.90 on 07/28/2021 Procalcitonin remained normal. (3) Paroxysmal atrial fibrillation: Plan: New onset on telemetry noted this admission and improved to normal sinus with addition of low dose metoprolol. He has a pulmonary infection making this more likely. No evidence of ACS. Cont metoprolol. Heparin was placed on hold after a fall with traumatic hematoma. OK to remain off AC while in sinus rhythm. Consider restarting if afib begins again after hematoma has started to improve. Hematoma still of considerable size. Hemoglobin remains stable. Appreciate cardiology input and recommendation Metoprolol dose has been decreased due to bradycardia (4) TOMMY (acute kidney injury): Plan: Resolved. (5) T2DM (type 2 diabetes mellitus): Plan: Pharmacy for hyperglycemic management with insulin as needed. Euglycemic on current regimen. (6) Hypertension: Plan: At goal, continue lisinopril twice daily per home regimen, monitor creatinine closely (7) Carotid artery disease: Plan: Continue medical management including aspirin, atorvastatin, lisinopril per home regimen. (8) Fall: Plan: Disorientation and confusion overnight contributed to fall two nights ago with subsequent hematoma of lower back area. Pain is managed and area is improving. Hold blood thinners and continue supportive care. Hit head but CT head was negative. Patient is now alert and oriented and feeling well. Cont to monitor. (9) Hematoma: Plan: Hematoma lower back area following a fall Supportive care. (10) DVT prophylaxis: Plan: Has been on Lovenox subcu DNR/DNI Disposition-came from home, may need therapy, cont PCU in covid unit Discussed with the son-in-law Admission and Anticipated Discharge Date Admission Date: July 19, 2021 Subjective This morning patient is awake, alert and oriented x3. Currently he is down to 5 L of nasal cannula. Hemodynamically patient is doing fine. Reports his symptoms are improved. Denies any significant shortness of breath or cough. Denies any nausea, vomiting, diarrhea or any weakness. Appetite remains okay. He has been working with PT/OT. Review of Systems Review of Systems: All systems reviewed & are unremarkable except as noted in HPI & below Physical Exam Physical Exam: General: Awake and alert, Ox3 HENT: NCAT, MMM, EOMI Eyes: PERRLA Neck: Supple, normal range of motion CVS: normal rate and rhythm Resp: b/l coarse breath sound Abdomen: Soft, ND/NT, +BS Extremities: No c/c/e Neuro: face symmetric, no gross focal deficits appreciate Skin: warm and dry, no rashes/lesions/errythema Back: Hematoma noted in the lower back Helms catheter in place. Results & Data Results & Data ([facility]) Vital Signs (Past 12 Hours) Vital Signs Temp Pulse Pulse Pulse Resp BP Pulse Ox 07/31/21 10:45 36.6 C 86 18 129/68 91 07/31/21 08:00 73 07/31/21 07:22 36.6 C 91 H 18 140/79 91 07/31/21 04:01 36.6 C 70 20 109/62 90
--- NOTE | 2021-07-31 13:19 | Pharmacy Report ---
Pharmacy Glycemic Short Note 2 - Date of Service July 31, 2021 - Glycemic Short BSG Results (Last 24 hours): 07/30/21 07/30/21 07/31/21 16:20 20:02 05:33 Glucose 221 H POC Glucose 133 H 129 H 07/31/21 07/31/21 07:20 11:46 Glucose POC Glucose 153 H 222 H OUTPATIENT ANTIDIABETIC REGIMEN: * N/A * A1c: 7.5% 07/20/21 ASSESSMENT: 07/31: * Dexamethasone was continued today. Clarified w Dr. Mian FERRELL to stop ongoing dex. Therefore today is the last day. * Will continue same regimen as previous for now 2nd steroids continuing today. Will loosen Novolog parameters tomorrow and stop NPH. Unclear whether patient may require ongoing basal insulin (possibly change to Lantus) when off steroids 07/30: * Stressors stable, although today is the last day of dexamethasone. * AM fasting BSG below goal range. Will decrease today and then discontinue. Will trend AM fasting BSG to determine if initiation of Lantus is needed when off steroids * BSG's significantly elevated at lunch and dinner yesterday. Snacking could be contributing, but will tighten CHO ratio at breakfast and lunch [id number] due to trend. Will loosen starting tomorrow due to steroids being discontinued. 07/29: * Stressors stable. Today is day 10 of dexamethasone although patient is current scheduled to receive one more dose tomorrow. Dr. Boyd notified. * AM fasting BSG in goal range - no change * Lunch BSG today again elevated although this was due to snacking yesterday. Will not respond to this single BSG at this time. Continue Novolog. PLAN FOR INPATIENT GLYCEMIC CONTROL: * Basal insulin * NPH 25 units SQ qam with dexamethasone - last dose today * Bolus insulin - tighten back to previous for today only * NovoLog per scale ACHS or Q6hrs while NPO and overnight checks * Goal Range: Low 110 mg/dL - High 140 mg/dL * Correction Factor: 15 mg/dL/unit * Carb ratio: 4 g CHO/unit with breakfast and lunch, 5 g CHO/unit with dinner and bedtime PLAN FOR DISCHARGE: * Can consider initiation of metformin XR 500mg PO daily with evening meal at discharge provided eGFR acceptable.
[2021-07-31] MEDS: TAMSULOSIN HCL 0.4 MG CAP PO SCH (21:04)
[2021-08-01 06:45] LABS: Basophils # (auto) 0.02 K/uL (0-0.2); Basophils % (auto) 0.2 %; Eosinophils # (auto) 0.09 K/uL (0-0.5); Eosinophils % (auto) 0.9 %; Hematocrit (blood only) 38.4 % (42-52); Hemoglobin 12.7 g/dL (14.0-18.0); Lymphocytes # (auto) 2.44 K/uL (1.2-3.4); Lymphocytes % (auto) 25.4 %; Mean Corpuscular Hemoglobin 31.8 pg (25-34); Mean Corpuscular Hgb Conc 33.1 g/dL (32-36); Mean Platelet Volume 9.8 fL (7.4-10.4); Monocytes # (auto) 0.21 K/uL (0.11-0.59); Monocytes % (auto) 2.2 %; Neutrophils # (auto) 6.74 K/uL (1.4-6.5); Neutrophils % (auto) 70.3 %; Platelet Count 292 K/uL (130-400); RDW Standard Deviation 49.2 fL (36.4-46.3)
[2021-08-01 07:25] LABS: BUN Creatinine Ratio 32.9 (10-20); Calcium 8.5 mg/dl (8.5-10.1); Creatinine Clr Calc Pharmacy 66.5 ml/min; Est GFR (African American) 82.6 ml/min; Est GFR (Non-African American) 71.3 ml/min; Potassium 4.4 mmol/L (3.5-5.1)
[2021-08-01] MEDS: lisinopril 20 MG TAB PO SCH (09:26)
[2021-08-01] MEDS: FINASTERIDE 5 MG TAB PO SCH (09:26)
[2021-08-01] MEDS: POTASSIUM CHLORIDE CRTAB 20 MEQ TABCR PO SCH (09:26)
[2021-08-01] MEDS: FUROSEMIDE 40 MG in SYRINGE 0 ML IV SCH (09:26)
[2021-08-01] MEDS: guaiFENesin 600 MG TABCR PO SCH ×2 (09:26→20:42)
[2021-08-01] MEDS: amLODIPine BESYLATE 5 MG TAB PO SCH (09:27)
[2021-08-01] MEDS: METOPROLOL SUCC 25MG EXT REL TAB PO SCH (09:27)
[2021-08-01] MEDS: CYANOCOBALAMIN 500 MCG TABLET (VITAMIN B-12) PO SCH (09:27)
[2021-08-01] MEDS: CETIRIZINE HCL 10 MG TABLET PO SCH (09:27)
[2021-08-01] MEDS: PANTOprazole 40 MG TAB PO SCH (09:27)
[2021-08-01] MEDS: CALCIUM POLYCARBOPHIL 625MG TAB PO SCH (09:27)
[2021-08-01] MEDS: CHOLECALCIFEROL 1,000 UNITS 25 MCG TAB PO SCH (09:27)
[2021-08-01] MEDS: ASPIRIN 81 MG CHEW PO SCH (09:28)
[2021-08-01] MEDS: ATORVASTATIN 40 MG TAB PO SCH (09:28)
[2021-08-01] MEDS: FLUTICASONE PROPIONATE NA SPR 16 GM BTL NAE SCH (09:28)
[2021-08-01] MEDS: UMECLIDINIUM/VILANTEROL 62.5/25MCG 7 PUFFS/INHALER INH SCH (09:28)
[2021-08-01] MEDS: ENOXAPARIN INJ 40 MG/0.4 ML SYR SQ SCH (09:29)
[2021-08-01] MEDS: INSULIN ASPART 100 UNITS/ML 3 ML PEN SC SCH ×4 (09:30→20:43)
--- NOTE | 2021-08-01 12:06 | Pharmacy Report ---
Pharmacy Glycemic Short Note 2 - Date of Service August 01, 2021 - Glycemic Short BSG Results (Last 24 hours): 07/31/21 07/31/21 08/01/21 16:57 20:14 05:54 Glucose 120 H POC Glucose 139 H 178 H 08/01/21 08/01/21 07:10 11:46 Glucose POC Glucose 108 H 311 H* OUTPATIENT ANTIDIABETIC REGIMEN: * N/A * A1c: 7.5% 07/20/21 ASSESSMENT: 08/01: * No steroids today, basal discontinued yesterday * Blood sugar kumar from 108--> 311mg/dl from breakfast to lunch, will resume basal at a reduced dose (A1c 7.5%, likely needs basal when not on steroids) * Tighten CR 07/31: * Dexamethasone was continued today. Clarified w Dr. Mian FERRELL to stop ongoing dex. Therefore today is the last day. * Will continue same regimen as previous for now 2nd steroids continuing today. Will loosen Novolog parameters tomorrow and stop NPH. Unclear whether patient may require ongoing basal insulin (possibly change to Lantus) when off steroids 07/30: * Stressors stable, although today is the last day of dexamethasone. * AM fasting BSG below goal range. Will decrease today and then discontinue. Will trend AM fasting BSG to determine if initiation of Lantus is needed when off steroids * BSG's significantly elevated at lunch and dinner yesterday. Snacking could be contributing, but will tighten CHO ratio at breakfast and lunch [id number] due to trend. Will loosen starting tomorrow due to steroids being discontinued. 07/29: * Stressors stable. Today is day 10 of dexamethasone although patient is current scheduled to receive one more dose tomorrow. Dr. Boyd notified. * AM fasting BSG in goal range - no change * Lunch BSG today again elevated although this was due to snacking yesterday. Will not respond to this single BSG at this time. Continue Novolog. PLAN FOR INPATIENT GLYCEMIC CONTROL: * Basal insulin * NPH 15 units SQ now with lunch, then daily starting tomorrow * Bolus insulin * NovoLog per scale ACHS or Q6hrs while NPO * Goal Range: Low 110 mg/dL - High 140 mg/dL * Correction Factor: 20 mg/dL/unit * Carb ratio: 5 g CHO/unit PLAN FOR DISCHARGE: * Can consider initiation of metformin XR 500mg PO daily with evening meal at discharge provided eGFR acceptable.
[2021-08-01] MEDS: INSULIN HUMAN NPH SC SCH (12:45)
--- NOTE | 2021-08-01 12:50 | Hospitalist Progress Note ---
Date of Service August 01, 2021 Assessment & Plan (1) Acute hypoxemic respiratory failure: Plan: Secondary to COVID-19 pneumonia and is complicated by COPD CT negative for PE and revealed evidence of pneumonia. Received dexamethasone course. Completed 5 days of remdesivir therapy on 07/23. Use lasix to keep him net negative fluid balance-on hold, low BP. Remove turner to reduce DILLON. Continue to work with PT/OT. (2) Pneumonia due to COVID-19 virus: Plan: cont with supportive care and plan as above. (3) Paroxysmal atrial fibrillation: Plan: New onset on telemetry noted this admission and improved to normal sinus with addition of low dose metoprolol. Cont metoprolol. which has been decreased due to bradycardia (4) TOMMY (acute kidney injury): Plan: Resolved. (5) T2DM (type 2 diabetes mellitus): Plan: Pharmacy for hyperglycemic management with insulin as needed. Euglycemic on current regimen. (6) Hypertension: Plan: At goal, reduce lisinopril by half in setting of relative hypotension. (7) Carotid artery disease: Plan: Continue medical management including aspirin, atorvastatin, lisinopril per home regimen. (8) Fall: Plan: Disorientation and confusion overnight contributed to fall with subsequent hematoma of lower back area. Pain is managed and area is improving. CT head was negative. Cont to monitor. Fall precautions (9) Hematoma: Plan: Hematoma lower back area following a fall Supportive care. (10) DVT prophylaxis: Plan: Lovenox subcu DNR/DNI Disposition-came from home, may need therapy, cont PCU in covid unit DO Marcos Jimenez Hospitalist Admission and Anticipated Discharge Date Admission Date: July 19, 2021 Subjective 86 yo M admitted with acute respiratory failure 2/2 covid pneumonia. Oxygen needs are improving and he reports and improvment in dyspnea. He is hungry and requestuing food Remains in good spirits. Reports he is done with proning. Feels his hematoma improving Removed urinary catheter. Review of Systems Review of Systems: At least ten systems were reviewed and negative except as indicated in HPI above. Physical Exam Physical Exam: CONSTITUTIONAL: WNWD, vitals as above, generally well- appearing, NAD EYES: normal conjunctivae, no scleral icterus ENT: external ear and nose normal, oropharynx clear, MMM NECK: trachea midline, no lymphadenopathy RESPIRATORY: CTAB, no crackles, normal respiratory effort, oxygen supplementation in place. no increased respiratory effort. CARDIOVASCULAR: regular rate and rhythm, 3/6 XOCHITL, no gallops or rubs, no JVD, no peripheral edema GASTROINTESTINAL: soft, nontender, nondistended. MUSCULOSKELETAL: strength 5/5 throughout, head is normocephalic and atraumatic SKIN: warm and dry, large softball size ecchymotic enlargement on lower right flank consistent with traumatic hematoma-improving. NEUROLOGIC: CN 2-12 grossly intact, no sensory deficit, normal cognition, normal speech, no tremor. No gross focal deficits. PSYCHIATRIC: alert cooperative and oriented to person, place and time. Results & Data Results & Data ([facility]) Vital Signs (Past 12 Hours) Vital Signs Temp Pulse Pulse Pulse Resp BP Pulse Ox 08/01/21 11:12 36.6 C 82 20 96/65 L 92 08/01/21 07:06 36.6 C 77 28 H 124/72 89 L 08/01/21 04:14 65 08/01/21 03:15 63 24 120/67 90 Pulse Ox 08/01/21 11:12 08/01/21 07:06 08/01/21 04:14 90 08/01/21 03:15 Laboratory Results Short CBC 08/01/21 Range/Units 05:54 WBC 9.60 (4.8-10.8) K/uL Hgb 12.7 L (14.0-18.0) g/dL Hct 38.4 L (42-52) % Plt Count 292 (130-400) K/uL BMP 08/01/21 05:54 Sodium 135 L Potassium 4.4 Chloride 104 Carbon Dioxide 25 BUN 32 H Creatinine 0.96 Glucose 120 H Calcium 8.5 Medications Administered Current Inpatient Medications Acetaminophen (Acetaminophen 325 Mg Tab) 650 mg PO Q4H PRN PRN Reason: Pain or Fever Stop: 08/18/21 16:34 Last Admin: 07/26/21 16:31 Dose: 650 mg Documented by: Al Hydrox/Mg Hydrox/Simethicone (Aluminum/Magnesium Susp 30 Ml Udc) 15 ml PO Q4H PRN PRN Reason: Dyspepsia Stop: 08/18/21 16:34 Last Admin: 07/22/21 12:00 Dose: 15 ml Documented by: Albuterol (Albuterol Hfa 8 Gm Inhaler) 2 puffs INH QID PRN PRN Reason: Shortness Of Breath Or Wheezing Stop: 08/19/21 16:12 Amlodipine Besylate (Amlodipine Besylate 5 Mg Tab) 5 mg PO DAILY [facility] Stop: 08/19/21 08:59 Last Admin: 08/01/21 09:27 Dose: 5 mg Documented by: Aspirin (Aspirin 81 Mg Chew) 81 mg PO DAILY [facility] Stop: 08/19/21 08:59 Last Admin: 08/01/21 09:28 Dose: 81 mg Documented by: Atorvastatin Calcium (Atorvastatin 40 Mg Tab) 40 mg PO DAILY [facility] Stop: 08/19/21 08:59 Last Admin: 08/01/21 09:28 Dose: 40 mg Documented by: Benzonatate (Benzonatate 100 Mg Capsule) 100 mg PO TID PRN PRN Reason: cough Stop: 08/18/21 16:34 Calcium Polycarbophil (Calcium Polycarbophil 625mg Tab) 625 mg PO DAILY [facility] Stop: 08/19/21 08:59 Last Admin: 08/01/21 09:27 Dose: 625 mg Documented by: Cetirizine HCl (Cetirizine Hcl 10 Mg Tablet) 10 mg PO DAILY [facility] Stop: 08/19/21 08:59 Last Admin: 08/01/21 09:27 Dose: 10 mg Documented by: Cyanocobalamin (Cyanocobalamin 500 Mcg Tablet (Vitamin B-12)) 500 mcg PO DAILY [facility] Stop: 08/19/21 08:59 Last Admin: 08/01/21 09:27 Dose: 500 mcg Documented by: Dextrose (Dextrose 50% 50 Ml Syringe) 25 - 50 ml IV UD PRN; Protocol PRN Reason: Hypoglycemia Protocol Stop: 08/18/21 16:34 Enoxaparin Sodium (Enoxaparin Inj 40 Mg/0.4 Ml Syr) 40 mg SQ QAM [facility] Stop: 08/23/21 08:59 Last Admin: 08/01/21 09:29 Dose: 40 mg Documented by: Finasteride (Finasteride 5 Mg Tab) 5 mg PO DAILY [facility] Stop: 08/19/21 08:59 Last Admin: 08/01/21 09:26 Dose: 5 mg Documented by: Fluticasone Propionate (Fluticasone Propionate Na Spr 16 Gm Btl) 2 sprays JINNY DAILY [facility] Stop: 08/19/21 08:59 Last Admin: 08/01/21 09:28 Dose: 2 sprays Documented by: Glucagon (Glucagon For Inj 1 Mg Vial) 1 mg SQ UD PRN; Protocol PRN Reason: Hypoglycemia Protocol Stop: 08/18/21 16:34 Glucose (Glucose 10 Tabs/Tube) 4 - 8 tabs PO UD PRN; Protocol PRN Reason: Hypoglycemia Protocol Stop: 08/18/21 16:34 Glucose (Glucose 40% Gel 15 Gm Tube) 15 - 30 gm PO UD PRN; Protocol PRN Reason: Hypoglycemia Protocol Stop: 08/18/21 16:34 Guaifenesin (Guaifenesin 600 Mg Tabcr) 600 mg PO Q12 [facility] Stop: 08/21/21 20:59 Last Admin: 08/01/21 09:26 Dose: 600 mg Documented by: Furosemide 40 mg/ Syringe 4 mls @ 4 mls/min IV DAILY [facility] Stop: 08/22/21 08:59 Last Admin: 08/01/21 09:26 Dose: 4 mls/min Documented by: Insulin Aspart (Insulin Aspart 100 Units/Ml 3 Ml Pen) 0 units SC ACHS [facility]; Protocol Stop: 08/31/21 07:29 Last Admin: 08/01/21 12:45 Dose: 22 units Documented by: Insulin Human NPH (Insulin Human Nph) 15 units SC DAILY [facility]; Protocol Stop: 08/31/21 11:59 Last Admin: 08/01/21 12:45 Dose: 15 units Documented by: Lisinopril (Lisinopril 20 Mg Tab) 20 mg PO BID [facility] Stop: 08/18/21 20:59 Last Admin: 08/01/21 09:26 Dose: 20 mg Documented by: Magnesium Hydroxide (Magnesium Hydroxide Susp 30 Ml Udc) 30 ml PO Q12H PRN PRN Reason: Constipation Stop: 08/18/21 16:34 Metoprolol Succinate (Metoprolol Succ 25mg Ext Rel Tab) 12.5 mg PO QAM [facility] Stop: 08/23/21 08:59 Last Admin: 08/01/21 09:27 Dose: 12.5 mg Documented by: Miscellaneous (Carbohydrates For Hypoglycemia ) 15 - 30 gm PO UD PRN PRN Reason: Hypoglycemia Protocol Stop: 08/18/21 16:34 Last Admin: 07/27/21 04:22 Dose: 15 gm Documented by: Miscellaneous Information (Pharmacy Glycemic Mgmt Consult) 1 ea N/A UD PRN; Protocol PRN Reason: Consult Stop: 08/18/21 16:34 Mupirocin (Mupirocin 2% Oint 22 Gm Tube) 1 appln EXT QID PRN PRN Reason: Bleeding Stop: 08/27/21 12:59 Last Admin: 07/29/21 07:25 Dose: 1 appln Documented by: Ondansetron HCl (Ondansetron Inj 2 Mg/Ml 2 Ml Vial) 4 mg IV Q6H PRN PRN Reason: Nausea Stop: 08/18/21 16:34 Pantoprazole Sodium (Pantoprazole 40 Mg Tab) 40 mg PO DAILY [facility] Stop: 08/19/21 08:59 Last Admin: 08/01/21 09:27 Dose: 40 mg Documented by: Polyethylene Glycol (Polyethylene (Miralax) 17 Gm Pack) 17 gm PO DAILY PRN PRN Reason: Constipation Stop: 08/18/21 16:34 Potassium Chloride (Potassium Chloride Crtab 20 Meq Tabcr) 20 meq PO QAM [facility] Stop: 08/20/21 08:59 Last Admin: 08/01/21 09:26 Dose: 20 meq Documented by: Tamsulosin HCl (Tamsulosin Hcl 0.4 Mg Cap) 0.4 mg PO HS [facility] Stop: 08/18/21 20:59 Last Admin: 07/31/21 21:04 Dose: 0.4 mg Documented by: Umeclidinium/Vilanterol (Umeclidinium/Vilanterol 62.5/25mcg 7 Puffs/Inhaler) 1 puffs INH DAILY [facility] Stop: 08/22/21 13:44 Last Admin: 08/01/21 09:28 Dose: 1 puffs Documented by: Vitamin D (Cholecalciferol 1,000 Units 25 Mcg Tab) 1,000 units PO DAILY [facility] Stop: 08/19/21 08:59 Last Admin: 08/01/21 09:27 Dose: 1,000 units Documented by:
[2021-08-01] MEDS ORDERED: FLUTICASONE PROPIONATE NA SPR 16 GM BTL NAE PRN (16:11)
[2021-08-01] MEDS ORDERED: CETIRIZINE HCL 10 MG TABLET PO PRN (16:11)
[2021-08-01] MEDS: TAMSULOSIN HCL 0.4 MG CAP PO SCH (20:42)
[2021-08-01] MEDS: ACETAMINOPHEN 325 MG TAB PO PRN (21:09)
[2021-08-02] MEDS: INSULIN ASPART 100 UNITS/ML 3 ML PEN SC SCH ×4 (08:29→21:03)
[2021-08-02] MEDS: guaiFENesin 600 MG TABCR PO SCH ×2 (08:31→21:02)
[2021-08-02] MEDS: ENOXAPARIN INJ 40 MG/0.4 ML SYR SQ SCH (08:31)
[2021-08-02] MEDS: METOPROLOL SUCC 25MG EXT REL TAB PO SCH (08:31)
[2021-08-02] MEDS: CHOLECALCIFEROL 1,000 UNITS 25 MCG TAB PO SCH (08:31)
[2021-08-02] MEDS: lisinopril 20 MG TAB PO SCH (08:32)
[2021-08-02] MEDS: CYANOCOBALAMIN 500 MCG TABLET (VITAMIN B-12) PO SCH (08:32)
[2021-08-02] MEDS: ASPIRIN 81 MG CHEW PO SCH (08:32)
[2021-08-02] MEDS: ATORVASTATIN 40 MG TAB PO SCH (08:33)
[2021-08-02] MEDS: PANTOprazole 40 MG TAB PO SCH (08:33)
[2021-08-02] MEDS: FINASTERIDE 5 MG TAB PO SCH (08:35)
[2021-08-02] MEDS: INSULIN HUMAN NPH SC SCH (08:35)
[2021-08-02] MEDS: CALCIUM POLYCARBOPHIL 625MG TAB PO SCH (08:35)
[2021-08-02] MEDS: UMECLIDINIUM/VILANTEROL 62.5/25MCG 7 PUFFS/INHALER INH SCH (08:35)
--- NOTE | 2021-08-02 10:30 | Hospitalist Progress Note ---
Date of Service August 02, 2021 Assessment & Plan (1) Acute hypoxemic respiratory failure: Plan: Secondary to COVID-19 pneumonia and is complicated by COPD CT negative for PE and revealed evidence of pneumonia. Received dexamethasone course. Completed 5 days of remdesivir therapy on 07/23. Use lasix to keep him net negative fluid balance-on hold, low BP. Removed turner to reduce DILLON. Continue to work with PT/OT. (2) Pneumonia due to COVID-19 virus: Plan: cont with supportive care and plan as above. (3) Paroxysmal atrial fibrillation: Plan: New onset on telemetry noted this admission and improved to normal sinus with addition of low dose metoprolol. Cont metoprolol. which has been decreased due to bradycardia (4) TOMMY (acute kidney injury): Plan: Resolved. (5) T2DM (type 2 diabetes mellitus): Plan: Pharmacy for hyperglycemic management with insulin as needed. Euglycemic on current regimen. (6) Hypertension: Plan: At goal, reduce lisinopril by half in setting of relative hypotension. (7) Carotid artery disease: Plan: Continue medical management including aspirin, atorvastatin, lisinopril per home regimen. (8) Fall: Plan: Disorientation and confusion overnight earlier this admission contributed to fall with subsequent hematoma of lower back area. Pain is managed and area is improving. CT head was negative. Cont to monitor. Fall precautions (9) Hematoma: Plan: Hematoma lower back area following a fall Supportive care. (10) DVT prophylaxis: Plan: Lovenox subcu DNR/DNI Disposition-came from home, may need therapy, cont PCU in covid unit DO Marcos Jimenez Hospitalist Admission and Anticipated Discharge Date Admission Date: July 19, 2021 Subjective 86 yo M admitted with acute respiratory failure 2/2 covid pneumonia. Oxygen needs are improving and he reports and improvement in dyspnea. Remains in good spirits. No issues with urnating since removing catheter. Review of Systems Review of Systems: At least ten systems were reviewed and negative except as indicated in HPI above. Physical Exam Physical Exam: CONSTITUTIONAL: WNWD, vitals as above, generally well- appearing, NAD EYES: normal conjunctivae, no scleral icterus ENT: external ear and nose normal, oropharynx clear, MMM NECK: trachea midline, no lymphadenopathy RESPIRATORY: CTAB, no crackles, normal respiratory effort, oxygen s upplementation in place. no increased respiratory effort. CARDIOVASCULAR: regular rate and rhythm, 3/6 XOCHITL, no gallops or rubs, no JVD, no peripheral edema GASTROINTESTINAL: soft, nontender, nondistended. MUSCULOSKELETAL: strength 5/5 throughout, head is normocephalic and atraumatic SKIN: warm and dry, eating dinner--hematoma nor evaluated on lower back today NEUROLOGIC: CN 2-12 grossly intact, no sensory deficit, normal cognition, normal speech, no tremor. No gross focal deficits. PSYCHIATRIC: alert cooperative and oriented to person, place and time. Results & Data Results & Data ([facility]) Vital Signs (Past 12 Hours) Vital Signs Temp Pulse Pulse Resp BP Pulse Ox 08/02/21 08:00 73 08/02/21 07:12 36.6 C 79 19 121/66 93 08/02/21 02:40 36.6 C 67 20 115/66 92 08/01/21 23:59 73 Medications Administered Current Inpatient Medications Acetaminophen (Acetaminophen 325 Mg Tab) 650 mg PO Q4H PRN PRN Reason: Pain or Fever Stop: 08/18/21 16:34 Last Admin: 08/01/21 21:09 Dose: 650 mg Documented by: Al Hydrox/Mg Hydrox/Simethicone (Aluminum/Magnesium Susp 30 Ml Udc) 15 ml PO Q4H PRN PRN Reason: Dyspepsia Stop: 08/18/21 16:34 Last Admin: 07/22/21 12:00 Dose: 15 ml Documented by: Albuterol (Albuterol Hfa 8 Gm Inhaler) 2 puffs INH QID PRN PRN Reason: Shortness Of Breath Or Wheezing Stop: 08/19/21 16:12 Amlodipine Besylate (Amlodipine Besylate 5 Mg Tab) 5 mg PO DAILY [facility] Stop: 08/19/21 08:59 Last Admin: 08/01/21 09:27 Dose: 5 mg Documented by: Aspirin (Aspirin 81 Mg Chew) 81 mg PO DAILY [facility] Stop: 08/19/21 08:59 Last Admin: 08/02/21 08:32 Dose: 81 mg Documented by: Atorvastatin Calcium (Atorvastatin 40 Mg Tab) 40 mg PO DAILY [facility] Stop: 08/19/21 08:59 Last Admin: 08/02/21 08:33 Dose: 40 mg Documented by: Benzonatate (Benzonatate 100 Mg Capsule) 100 mg PO TID PRN PRN Reason: cough Stop: 08/18/21 16:34 Calcium Polycarbophil (Calcium Polycarbophil 625mg Tab) 625 mg PO DAILY [facility] Stop: 08/19/21 08:59 Last Admin: 08/02/21 08:35 Dose: 625 mg Documented by: Cetirizine HCl (Cetirizine Hcl 10 Mg Tablet) 10 mg PO DAILY PRN PRN Reason: Allergy Symptoms Stop: 08/19/21 08:59 Cyanocobalamin (Cyanocobalamin 500 Mcg Tablet (Vitamin B-12)) 500 mcg PO DAILY [facility] Stop: 08/19/21 08:59 Last Admin: 08/02/21 08:32 Dose: 500 mcg Documented by: Dextrose (Dextrose 50% 50 Ml Syringe) 25 - 50 ml IV UD PRN; Protocol PRN Reason: Hypoglycemia Protocol Stop: 08/18/21 16:34 Enoxaparin Sodium (Enoxaparin Inj 40 Mg/0.4 Ml Syr) 40 mg SQ QAM [facility] Stop: 08/23/21 08:59 Last Admin: 08/02/21 08:31 Dose: 40 mg Documented by: Finasteride (Finasteride 5 Mg Tab) 5 mg PO DAILY [facility] Stop: 08/19/21 08:59 Last Admin: 08/02/21 08:35 Dose: 5 mg Documented by: Fluticasone Propionate (Fluticasone Propionate Na Spr 16 Gm Btl) 2 sprays JINNY DAILY PRN PRN Reason: Allergy Symptoms Stop: 08/19/21 08:59 Glucagon (Glucagon For Inj 1 Mg Vial) 1 mg SQ UD PRN; Protocol PRN Reason: Hypoglycemia Protocol Stop: 08/18/21 16:34 Glucose (Glucose 10 Tabs/Tube) 4 - 8 tabs PO UD PRN; Protocol PRN Reason: Hypoglycemia Protocol Stop: 08/18/21 16:34 Glucose (Glucose 40% Gel 15 Gm Tube) 15 - 30 gm PO UD PRN; Protocol PRN Reason: Hypoglycemia Protocol Stop: 08/18/21 16:34 Guaifenesin (Guaifenesin 600 Mg Tabcr) 600 mg PO Q12 [facility] Stop: 08/21/21 20:59 Last Admin: 08/02/21 08:31 Dose: 600 mg Documented by: Furosemide 40 mg/ Syringe 4 mls @ 4 mls/min IV DAILY [facility] Stop: 08/22/21 08:59 Last Admin: 08/01/21 09:26 Dose: 4 mls/min Documented by: Insulin Aspart (Insulin Aspart 100 Units/Ml 3 Ml Pen) 0 units SC ACHS [facility]; Protocol Stop: 08/31/21 07:29 Last Admin: 08/02/21 08:29 Dose: 8 units Documented by: Insulin Human NPH (Insulin Human Nph) 15 units SC DAILY [facility]; Protocol Stop: 08/31/21 11:59 Last Admin: 08/02/21 08:35 Dose: 15 units Documented by: Lisinopril (Lisinopril 20 Mg Tab) 20 mg PO QAM [facility] Stop: 09/01/21 08:59 Last Admin: 08/02/21 08:32 Dose: 20 mg Documented by: Magnesium Hydroxide (Magnesium Hydroxide Susp 30 Ml Udc) 30 ml PO Q12H PRN PRN Reason: Constipation Stop: 08/18/21 16:34 Metoprolol Succinate (Metoprolol Succ 25mg Ext Rel Tab) [facility] [place] Stop: 08/23/21 08:59 Last Admin: 08/02/21 08:31 Dose: 12.5 mg Documented by: Miscellaneous (Carbohydrates For Hypoglycemia ) 15 - 30 gm PO UD PRN PRN Reason: Hypoglycemia Protocol Stop: 08/18/21 16:34 Last Admin: 07/27/21 04:22 Dose: 15 gm Documented by: Miscellaneous Information (Pharmacy Glycemic Mgmt Consult) 1 ea N/A UD PRN; Protocol PRN Reason: Consult Stop: 08/18/21 16:34 Mupirocin (Mupirocin 2% Oint 22 Gm Tube) 1 appln EXT QID PRN PRN Reason: Bleeding Stop: 08/27/21 12:59 Last Admin: 07/29/21 07:25 Dose: 1 appln Documented by: Ondansetron HCl (Ondansetron Inj 2 Mg/Ml 2 Ml Vial) 4 mg IV Q6H PRN PRN Reason: Nausea Stop: 08/18/21 16:34 Pantoprazole Sodium (Pantoprazole 40 Mg Tab) 40 mg PO DAILY [facility] Stop: 08/19/21 08:59 Last Admin: 08/02/21 08:33 Dose: 40 mg Documented by: Polyethylene Glycol (Polyethylene (Miralax) 17 Gm Pack) 17 gm PO DAILY PRN PRN Reason: Constipation Stop: 08/18/21 16:34 Potassium Chloride (Potassium Chloride Crtab 20 Meq Tabcr) 20 meq PO QAM [facility] Stop: 08/20/21 08:59 Last Admin: 08/01/21 09:26 Dose: 20 meq Documented by: Tamsulosin HCl (Tamsulosin Hcl 0.4 Mg Cap) 0.4 mg PO HS [facility] Stop: 08/18/21 20:59 Last Admin: 08/01/21 20:42 Dose: 0.4 mg Documented by: Umeclidinium/Vilanterol (Umeclidinium/Vilanterol 62.5/25mcg 7 Puffs/Inhaler) 1 puffs INH DAILY [facility] Stop: 08/22/21 13:44 Last Admin: 08/02/21 08:35 Dose: 1 puffs Documented by: Vitamin D (Cholecalciferol 1,000 Units 25 Mcg Tab) 1,000 units PO DAILY [facility] Stop: 08/19/21 08:59 Last Admin: 08/02/21 08:31 Dose: 1,000 units Documented by:
[2021-08-02] MEDS: TAMSULOSIN HCL 0.4 MG CAP PO SCH (21:02)
[2021-08-03] MEDS: INSULIN ASPART 100 UNITS/ML 3 ML PEN SC SCH ×4 (08:54→23:51)
[2021-08-03] MEDS: METOPROLOL SUCC 25MG EXT REL TAB PO SCH (08:55)
[2021-08-03] MEDS: FINASTERIDE 5 MG TAB PO SCH (08:55)
[2021-08-03] MEDS: ATORVASTATIN 40 MG TAB PO SCH (08:55)
[2021-08-03] MEDS: ASPIRIN 81 MG CHEW PO SCH (08:55)
[2021-08-03] MEDS: CHOLECALCIFEROL 1,000 UNITS 25 MCG TAB PO SCH (08:55)
[2021-08-03] MEDS: PANTOprazole 40 MG TAB PO SCH (08:56)
[2021-08-03] MEDS: CYANOCOBALAMIN 500 MCG TABLET (VITAMIN B-12) PO SCH (08:56)
[2021-08-03] MEDS: lisinopril 20 MG TAB PO SCH (08:56)
[2021-08-03] MEDS: CALCIUM POLYCARBOPHIL 625MG TAB PO SCH (08:56)
[2021-08-03] MEDS: ENOXAPARIN INJ 40 MG/0.4 ML SYR SQ SCH (08:58)
[2021-08-03] MEDS: UMECLIDINIUM/VILANTEROL 62.5/25MCG 7 PUFFS/INHALER INH SCH (08:59)
[2021-08-03] MEDS ORDERED: INSULIN HUMAN NPH SC SCH (09:00)
[2021-08-03] MEDS: guaiFENesin 600 MG TABCR PO SCH ×2 (09:08→20:00)
--- NOTE | 2021-08-03 12:43 | Pharmacy Report ---
Pharmacy Glycemic Short Note 2 - Date of Service August 03, 2021 - Glycemic Short BSG Results (Last 24 hours): 08/02/21 08/02/21 08/03/21 16:06 20:43 07:12 POC Glucose 85 90 126 H 08/03/21 11:40 POC Glucose 225 H OUTPATIENT ANTIDIABETIC REGIMEN: * N/A * A1c: 7.5% 07/20/21 ASSESSMENT: 08/03: * Fasting this AM 126 mg/dL, reduced dose of NPH to 10 units as was considered additional of lantus, will change to with breakfast (given this AM at 0900) * Lunch BSG elevated again, but per trend patient trends down with dinner and bedtime * Will continue NPH as basal given downward trend at night but if AM fasting increases more consider switch to lantus 08/01: * No steroids today, basal discontinued yesterday * Blood sugar kumar from 108--> 311mg/dl from breakfast to lunch, will resume basal at a reduced dose (A1c 7.5%, likely needs basal when not on steroids) * Tighten CR 07/31: * Dexamethasone was continued today. Clarified w Dr. Mian FERRELL to stop ongoing dex. Therefore today is the last day. * Will continue same regimen as previous for now 2nd steroids continuing today. Will loosen Novolog parameters tomorrow and stop NPH. Unclear whether patient may require ongoing basal insulin (possibly change to Lantus) when off steroids 07/30: * Stressors stable, although today is the last day of dexamethasone. * AM fasting BSG below goal range. Will decrease today and then discontinue. Will trend AM fasting BSG to determine if initiation of Lantus is needed when off steroids * BSG's significantly elevated at lunch and dinner yesterday. Snacking could be contributing, but will tighten CHO ratio at breakfast and lunch [id number] due to trend. Will loosen starting tomorrow due to steroids being discontinued. 07/29: * Stressors stable. Today is day 10 of dexamethasone although patient is current scheduled to receive one more dose tomorrow. Dr. Boyd notified. * AM fasting BSG in goal range - no change * Lunch BSG today again elevated although this was due to snacking yesterday. W ill not respond to this single BSG at this time. Continue Novolog. PLAN FOR INPATIENT GLYCEMIC CONTROL: * Basal insulin * NPH 15 units SQ now with lunch, then daily starting tomorrow * Bolus insulin * NovoLog per scale ACHS or Q6hrs while NPO * Goal Range: Low 110 mg/dL - High 140 mg/dL * Correction Factor: 20 mg/dL/unit * Carb ratio: 5 g CHO/unit PLAN FOR DISCHARGE: * Can consider initiation of metformin XR 500mg PO daily with evening meal at discharge provided eGFR acceptable.
--- NOTE | 2021-08-03 14:20 | Hospitalist Progress Note ---
Date of Service August 03, 2021 Assessment & Plan (1) Acute hypoxemic respiratory failure: Plan: Secondary to COVID-19 pneumonia and is complicated by COPD CT negative for PE and revealed evidence of pneumonia. Received dexamethasone course. Completed 5 days of remdesivir therapy on 07/23. Use lasix to keep him net negative fluid balance-on hold. Continue to work with PT/OT. Family requesting for rehab placement which is certainly the right option for him. Spoke with his daughter today and updated her as well. (2) Pneumonia due to COVID-19 virus: Plan: cont with supportive care and plan as above. (3) Paroxysmal atrial fibrillation: Plan: New onset on telemetry noted this admission and improved to normal sinus with ad dition of low dose metoprolol. Cont metoprolol. which has been decreased due to bradycardia (4) TOMMY (acute kidney injury): Plan: Resolved. (5) T2DM (type 2 diabetes mellitus): Plan: Pharmacy for hyperglycemic management with insulin as needed. Euglycemic on current regimen. (6) Hypertension: Plan: At goal, reduce lisinopril by half in setting of relative hypotension. (7) Carotid artery disease: Plan: Continue medical management including aspirin, atorvastatin, lisinopril per home regimen. (8) Fall: Plan: Disorientation and confusion overnight earlier this admission contributed to fall with subsequent hematoma of lower back area. Pain is managed and area is improving. CT head was negative. Cont to monitor. Fall precautions (9) Hematoma: Plan: Hematoma lower back area following a fall Supportive care. (10) DVT prophylaxis: Plan: Lovenox subcu DNR/DNI Disposition-came from home, may need therapy, cont PCU in covid unit DO Marcos Jimenez Hospitalist Admission and Anticipated Discharge Date Admission Date: July 19, 2021 Subjective Patient is awake, alert and oriented. Currently he is on room air. Hemodynamically doing fine. Denies any respiratory symptoms at the moment. Denies any chest pain, abdominal pain, diarrhea or dysuria. Other review of systems negative. Review of Systems Review of Systems: All systems reviewed & are unremarkable except as noted in HPI & below Physical Exam Physical Exam: General: Awake and alert, Ox3 HENT: NCAT, MMM, EOMI Eyes: PERRLA Neck: Supple, normal range of motion CVS: normal rate and rhythm Resp: b/l coarse breath sound Abdomen: Soft, ND/NT Extremities: No c/c/e Neuro: face symmetric, no gross focal deficits appreciate Skin: warm and dry, no rashes/lesions/errythema Back: Hematoma noted in the lower back Helms catheter in place. Results & Data Results & Data ([facility]) Vital Signs (Past 12 Hours) Vital Signs Temp Pulse Pulse Resp BP Pulse Ox 08/03/21 12:09 36.5 C 85 30 H 109/66 94 08/03/21 07:09 36.5 C 96 H 26 H 133/74 90 08/03/21 07:00 78 08/03/21 04:07 36.5 C 93 H 16 132/76 91
[2021-08-03] MEDS: TAMSULOSIN HCL 0.4 MG CAP PO SCH (20:01)
[2021-08-03 20:32] LABS: Basophils # (auto) 0.01 K/uL (0-0.2); Basophils % (auto) 0.1 %; Eosinophils # (auto) 0.11 K/uL (0-0.5); Eosinophils % (auto) 1.1 %; Hematocrit (blood only) 39.8 % (42-52); Hemoglobin 13.1 g/dL (14.0-18.0); Lymphocytes # (auto) 2.19 K/uL (1.2-3.4); Lymphocytes % (auto) 22.8 %; Mean Corpuscular Hemoglobin 32.1 pg (25-34); Mean Corpuscular Hgb Conc 32.9 g/dL (32-36); Mean Corpuscular Volume 97.5 fL (80-100); Mean Platelet Volume 10.3 fL (7.4-10.4); Monocytes # (auto) 0.26 K/uL (0.11-0.59); Monocytes % (auto) 2.7 %; Neutrophils # (auto) 6.93 K/uL (1.4-6.5); Neutrophils % (auto) 72.3 %; Platelet Count 311 K/uL (130-400); RDW Coefficient of Variation 14.2 % (11.5-14.5); RDW Standard Deviation 50.8 fL (36.4-46.3); Red Blood Count 4.08 M/uL (4.7-6.1)
[2021-08-03 20:51] LABS: BUN Creatinine Ratio 29.6 (10-20); Calcium 8.3 mg/dl (8.5-10.1); Creatinine Clr Calc Pharmacy 64.3 ml/min; Est GFR (African American) 80.6 ml/min; Est GFR (Non-African American) 69.5 ml/min; Potassium 4.7 mmol/L (3.5-5.1)
[2021-08-04 07:48] LABS: Basophils # (auto) 0.02 K/uL (0-0.2); Basophils % (auto) 0.2 %; Eosinophils # (auto) 0.16 K/uL (0-0.5); Eosinophils % (auto) 1.3 %; Hemoglobin 13.2 g/dL (14.0-18.0); Immature Granulocytes # (auto) 0.09 K/uL (0.00-0.02); Immature Granulocytes % (auto) 0.7 %; Lymphocytes # (auto) 2.38 K/uL (1.2-3.4); Lymphocytes % (auto) 19.6 %; Mean Corpuscular Hemoglobin 32.1 pg (25-34); Mean Corpuscular Volume 97.3 fL (80-100); Monocytes # (auto) 0.25 K/uL (0.11-0.59); Monocytes % (auto) 2.1 %; Neutrophils # (auto) 9.22 K/uL (1.4-6.5); Neutrophils % (auto) 76.1 %; Platelet Count 265 K/uL (130-400); RDW Standard Deviation 49.8 fL (36.4-46.3); Red Blood Count 4.11 M/uL (4.7-6.1); White Blood Count 12.12 K/uL (4.8-10.8)
[2021-08-04 08:18] LABS: BUN Creatinine Ratio 29.1 (10-20); Calcium 8.4 mg/dl (8.5-10.1); Creatinine Clr Calc Pharmacy 64.7 ml/min; Est GFR (African American) 89.3 ml/min; Est GFR (Non-African American) 77.1 ml/min; Potassium 4.5 mmol/L (3.5-5.1)
[2021-08-04] MEDS: INSULIN ASPART 100 UNITS/ML 3 ML PEN SC SCH ×4 (08:25→21:53)
[2021-08-04] MEDS: INSULIN HUMAN NPH SC SCH (08:25)
[2021-08-04] MEDS: CHOLECALCIFEROL 1,000 UNITS 25 MCG TAB PO SCH (08:26)
[2021-08-04] MEDS: CALCIUM POLYCARBOPHIL 625MG TAB PO SCH (08:26)
[2021-08-04] MEDS: METOPROLOL SUCC 25MG EXT REL TAB PO SCH (08:26)
[2021-08-04] MEDS: CYANOCOBALAMIN 500 MCG TABLET (VITAMIN B-12) PO SCH (08:27)
[2021-08-04] MEDS: FINASTERIDE 5 MG TAB PO SCH (08:27)
[2021-08-04] MEDS: PANTOprazole 40 MG TAB PO SCH (08:27)
[2021-08-04] MEDS: lisinopril 20 MG TAB PO SCH (08:27)
[2021-08-04] MEDS: ATORVASTATIN 40 MG TAB PO SCH (08:27)
[2021-08-04] MEDS: ASPIRIN 81 MG CHEW PO SCH (08:27)
[2021-08-04] MEDS: guaiFENesin 600 MG TABCR PO SCH ×2 (08:28→20:26)
[2021-08-04] MEDS: UMECLIDINIUM/VILANTEROL 62.5/25MCG 7 PUFFS/INHALER INH SCH (08:28)
[2021-08-04] MEDS: ENOXAPARIN INJ 40 MG/0.4 ML SYR SQ SCH (08:28)
--- NOTE | 2021-08-04 12:51 | Hospitalist Progress Note ---
Date of Service August 04, 2021 Assessment & Plan (1) Acute hypoxemic respiratory failure: Plan: Secondary to COVID-19 pneumonia and is complicated by COPD CT negative for PE and revealed evidence of pneumonia. Received dexamethasone course. Completed 5 days of remdesivir therapy on 07/23. Use lasix to keep him net negative fluid balance-on hold. Continue to work with PT/OT. Family requesting for rehab placement which is certainly the right option for him. Spoke with his daughter on 08/03; CM working on placement. (2) Pneumonia due to COVID-19 virus: Plan: cont with supportive care and plan as above. (3) Paroxysmal atrial fibrillation: Plan: New onset on telemetry noted this admission and improved to normal sinus with addition of low dose metoprolol. Cont metoprolol. which has been decreased due to bradycardia (4) TOMMY (acute kidney injury): Plan: Resolved. (5) T2DM (type 2 diabetes mellitus): Plan: Pharmacy for hyperglycemic management with insulin as needed. Euglycemic on current regimen. (6) Hypertension: Plan: At goal, reduce lisinopril by half in setting of relative hypotension. (7) Carotid artery disease: Plan: Continue medical management including aspirin, atorvastatin, lisinopril per home regimen. (8) Fall: Plan: Disorientation and confusion overnight earlier this admission contributed to fall with subsequent hematoma of lower back area. Pain is managed and area is improving. CT head was negative. Cont to monitor. Fall precautions Hemoglobin remains stable. Continue Lovenox for DVT prophylaxis. (9) Hematoma: Plan: Hematoma lower back area following a fall Supportive care. (10) DVT prophylaxis: Plan: Lovenox subcu DNR/DNI Disposition-came from home, may need therapy, cont PCU in covid unit Admission and Anticipated Discharge Date Admission Date: July 19, 2021 Subjective Patient doing okay. Currently on 3 L of nasal cannula. Resting comfortably. Does not have any active new complaints. Review of system is negative. Have been out of the bed and working with therapy. Review of Systems Review of Systems: All systems reviewed & are unremarkable except as noted in HPI & below Physical Exam Physical Exam: General: Awake and alert, Ox3 HENT: NCAT, MMM, EOMI Eyes: PERRLA Neck: Supple, normal range of motion CVS: normal rate and rhythm Resp: b/l coarse breath sound Abdomen: Soft, ND/NT Extremities: No c/c/e Neuro: face symmetric, no gross focal deficits appreciate Skin: warm and dry, no rashes/lesions/errythema Back: Hematoma noted in the lower back Helms catheter in place. Results & Data Results & Data ([facility]) Vital Signs (Past 12 Hours) Vital Signs Temp Pulse Pulse Resp BP Pulse Ox 08/04/21 11:43 36.7 C 88 25 H 108/65 92 08/04/21 07:14 37.0 C 93 H 23 126/73 90 08/04/21 03:27 37.0 C 80 22 91
--- NOTE | 2021-08-04 14:57 | Pharmacy Report ---
Pharmacy Glycemic Short Note 2 - Date of Service August 04, 2021 - Glycemic Short BSG Results (Last 24 hours): 08/03/21 08/03/21 08/03/21 12:10 16:31 19:59 Glucose 171 H POC Glucose 88 119 H 08/04/21 08/04/21 08/04/21 06:46 07:12 11:46 Glucose 137 H POC Glucose 140 H 324 H* 08/04/21 11:47 Glucose POC Glucose 308 H* OUTPATIENT ANTIDIABETIC REGIMEN: * N/A * A1c: 7.5% 07/20/21 ASSESSMENT: 08/04: * Fasting BSG 140 this AM with 10 units NPH administered yesterday * 2 of 3 post-prandial BSGs controlled w/ current Novolog parameters yesterday. He does tend to have pre-lunch hyperglycemia, however he quickly corrects with dinner-time BSG. Could consider larger prandial doses with breakfast. 08/03: * Fasting this AM 126 mg/dL, reduced dose of NPH to 10 units as was considered additional of lantus, will change to with breakfast (given this AM at 0900) * Lunch BSG elevated again, but per trend patient trends down with dinner and bedtime * Will continue NPH as basal given downward trend at night but if AM fasting increases more consider switch to lantus 08/01: * No steroids today, basal discontinued yesterday * Blood sugar kumar from 108--> 311mg/dl from breakfast to lunch, will resume basal at a reduced dose (A1c 7.5%, likely needs basal when not on steroids) * Tighten CR 07/31: * Dexamethasone was continued today. Clarified w Dr. Mian FERRELL to stop ongoing dex. Therefore today is the last day. * Will continue same regimen as previous for now 2nd steroids continuing today. Will loosen Novolog parameters tomorrow and stop NPH. Unclear whether patient may require ongoing basal insulin (possibly change to Lantus) when off steroids 07/30: * Stressors stable, although today is the last day of dexamethasone. * AM fasting BSG below goal range. Will decrease today and then discontinue. Will trend AM fasting BSG to determine if initiation of Lantus is needed when off steroids * BSG's significantly elevated at lunch and dinner yesterday. Snacking could be contributing, but will tighten CHO ratio at breakfast and lunch [id number] due to trend. Will loosen starting tomorrow due to steroids being discontinued. 07/29: * Stressors stable. Today is day 10 of dexamethasone although patient is current scheduled to receive one more dose tomorrow. Dr. Boyd notified. * AM fasting BSG in goal range - no change * Lunch BSG today again elevated although this was due to snacking yesterday. Will not respond to this single BSG at this time. Continue Novolog. PLAN FOR INPATIENT GLYCEMIC CONTROL: * Basal insulin * NPH 10 units SQ with breakfast * Bolus insulin * NovoLog per scale ACHS or Q6hrs while NPO * Goal Range: Low 110 mg/dL - High 140 mg/dL * Correction Factor: 20 mg/dL/unit * Carb ratio: 5 g CHO/unit PLAN FOR DISCHARGE: * Can consider initiation of metformin XR 500mg PO daily with evening meal at discharge provided eGFR acceptable.
[2021-08-04] MEDS ORDERED: BEER 1 CAN PO ONE (20:15)
[2021-08-04] MEDS: TAMSULOSIN HCL 0.4 MG CAP PO SCH (20:26)
[2021-08-05] MEDS: ATORVASTATIN 40 MG TAB PO SCH (08:34)
[2021-08-05] MEDS: lisinopril 20 MG TAB PO SCH (08:34)
[2021-08-05] MEDS: METOPROLOL SUCC 25MG EXT REL TAB PO SCH (08:34)
[2021-08-05] MEDS: FINASTERIDE 5 MG TAB PO SCH (08:34)
[2021-08-05] MEDS: PANTOprazole 40 MG TAB PO SCH (08:34)
[2021-08-05] MEDS: ENOXAPARIN INJ 40 MG/0.4 ML SYR SQ SCH (08:35)
[2021-08-05] MEDS: guaiFENesin 600 MG TABCR PO SCH (08:35)
[2021-08-05] MEDS: CALCIUM POLYCARBOPHIL 625MG TAB PO SCH (08:35)
[2021-08-05] MEDS: ASPIRIN 81 MG CHEW PO SCH (08:35)
[2021-08-05] MEDS: UMECLIDINIUM/VILANTEROL 62.5/25MCG 7 PUFFS/INHALER INH SCH (08:35)
[2021-08-05] MEDS: CYANOCOBALAMIN 500 MCG TABLET (VITAMIN B-12) PO SCH (08:35)
[2021-08-05] MEDS: CHOLECALCIFEROL 1,000 UNITS 25 MCG TAB PO SCH (08:35)
[2021-08-05] MEDS: INSULIN ASPART 100 UNITS/ML 3 ML PEN SC SCH ×5 (08:47→21:42)
[2021-08-05] MEDS: INSULIN HUMAN NPH SC SCH (08:48)
--- NOTE | 2021-08-05 12:39 | Pharmacy Report ---
Pharmacy Glycemic Short Note 2 - Date of Service August 05, 2021 - Glycemic Short BSG Results (Last 24 hours): 08/04/21 08/04/21 08/05/21 16:30 20:11 07:53 POC Glucose 111 H 115 H 155 H 08/05/21 11:50 POC Glucose 251 H OUTPATIENT ANTIDIABETIC REGIMEN: * N/A * A1c: 7.5% 07/20/21 ASSESSMENT: 08/05: * BSGs well controlled over the last 48 hrs with the exception of pre-lunch hyperglycemia. * Will increase prandial Novolog dose w/ breakfast * Fasting BSG somewhat elevated but acceptable this AM with 10 units NPH given yesterday. Would not react at this time as this has not been a problematic t rend, and increasing NPH dose may lead to pre-dinner hypoglycemia. 08/04: * Fasting BSG 140 this AM with 10 units NPH administered yesterday * 2 of 3 post-prandial BSGs controlled w/ current Novolog parameters yesterday. He does tend to have pre-lunch hyperglycemia, however he quickly corrects with dinner-time BSG. Could consider larger prandial doses with breakfast. 08/03: * Fasting this AM 126 mg/dL, reduced dose of NPH to 10 units as was considered additional of lantus, will change to with breakfast (given this AM at 0900) * Lunch BSG elevated again, but per trend patient trends down with dinner and bedtime * Will continue NPH as basal given downward trend at night but if AM fasting increases more consider switch to lantus 08/01: * No steroids today, basal discontinued yesterday * Blood sugar kumar from 108--> 311mg/dl from breakfast to lunch, will resume basal at a reduced dose (A1c 7.5%, likely needs basal when not on steroids) * Tighten CR PLAN FOR INPATIENT GLYCEMIC CONTROL: * Basal insulin - continue * NPH 10 units SQ with breakfast * Bolus insulin - increase breakfast dosing * NovoLog per scale ACHS or Q6hrs while NPO * Goal Range: Low 110 mg/dL - High 140 mg/dL * Correction Factor: 25 mg/dL/unit * Carb ratio: 3.5 g CHO/unit with BREAKFAST; 5 g CHO/unit with lunch, dinner and HS PLAN FOR DISCHARGE: * Can consider initiation of metformin XR 500mg PO daily with evening meal at discharge provided eGFR acceptable.
--- NOTE | 2021-08-05 12:46 | Hospitalist Progress Note ---
Date of Service August 05, 2021 Assessment & Plan (1) Acute hypoxemic respiratory failure: Plan: Secondary to COVID-19 pneumonia and is complicated by COPD CT negative for PE and revealed evidence of pneumonia. Received dexamethasone course. Completed 5 days of remdesivir therapy on 07/23. Continue to work with PT/OT. Cont supportive care efforts. (2) Pneumonia due to COVID-19 virus: Plan: cont with supportive care and plan as above. Still requiring oxygen. (3) Paroxysmal atrial fibrillation: Plan: New onset atrial tachycardia or atrial fibrillation this admission, early on. He was started on a heparin drip which was discontinued after lumbar hematoma status post fall in the hospital. She was in sinus rhythm therefore anticoagulation was not a concern and has not been restarted. He was also started on low-dose metoprolol and continues on this. (4) TOMMY (acute kidney injury): Plan: Resolved. (5) T2DM (type 2 diabetes mellitus): Plan: Pharmacy for hyperglycemic management with insulin as needed. Euglycemic on current regimen. (6) Hypertension: Plan: Hypotension, hold lisinopril. (7) Carotid artery disease: Plan: Continue medical management including aspirin, atorvastatin per home regimen. (8) Fall: Plan: Disorientation and confusion overnight earlier this admission contributed to fall with subsequent hematoma of lower back area. Pain is managed and area is improving. CT head was negative. Cont to monitor. Fall precautions Hemoglobin remains stable. Continue Lovenox for DVT prophylaxis. (9) Hematoma: Plan: Hematoma lower back area following a fall Supportive care. (10) DVT prophylaxis: Plan: Lovenox subcu DNR/DNI Disposition-came from home, therapy recommending rehab. Case management working to set this up. Allison Knight DO [facility] Hospitalist Admission and Anticipated Discharge Date Admission Date: July 19, 2021 Subjective 86-year-old man admitted for Covid pneumonia. Patient reports feeling fine, denies any issues, tolerating p.o. Reports he was walking around the room today. He is still requiring oxygen at rest, however. We discussed that he needs to be off oxygen with ambulation prior to going home. We also discussed the need for rehab with the prolonged hospital stay and physical deconditioning. He preferred to go back to his apartment. He denies any issues with his hematoma on his back. Review of Systems Review of Systems: All systems were reviewed and negative except as indicated in HPI above. Physical Exam Physical Exam: CONSTITUTIONAL: WNWD, vitals as above, generally well- appearing, NAD EYES: normal conjunctivae, no scleral icterus ENT: external ear and nose normal, oropharynx clear, MMM NECK: trachea midline, no lymphadenopathy RESPIRATORY: CTAB, no crackles, normal respiratory effort, oxygen supplementation in place. no increased respiratory effort. CARDIOVASCULAR: regular rate and rhythm, 3/6 XOCHITL, no gallops or rubs, no JVD, no peripheral edema GASTROINTESTINAL: soft, nontender, nondistended. MUSCULOSKELETAL: strength 5/5 throughout, head is normocephalic and atraumatic SKIN: warm and dry, L spine hematoma present and healing, ecchymosis improved NEUROLOGIC: CN 2-12 grossly intact, no sensory deficit, normal cognition, normal speech, no tremor. No gross focal deficits. PSYCHIATRIC: alert cooperative and oriented to person, place and time. Results & Data Results & Data ([facility]) Vital Signs (Past 12 Hours) Vital Signs Temp Pulse Pulse Pulse Resp BP BP 08/05/21 11:50 36.4 C L 79 30 H 106/62 08/05/21 09:36 71 08/05/21 07:51 36.5 C 82 30 H 118/73 08/05/21 03:58 36.5 C 79 20 109/67 Pulse Ox 08/05/21 11:50 94 08/05/21 09:36 08/05/21 07:51 91 08/05/21 03:58 92 Medications Administered Current Inpatient Medications Acetaminophen (Acetaminophen 325 Mg Tab) 650 mg PO Q4H PRN PRN Reason: Pain or Fever Stop: 08/18/21 16:34 Last Admin: 08/01/21 21:09 Dose: 650 mg Documented by: Al Hydrox/Mg Hydrox/Simethicone (Aluminum/Magnesium Susp 30 Ml Udc) 15 ml PO Q4H PRN PRN Reason: Dyspepsia Stop: 08/18/21 16:34 Last Admin: 07/22/21 12:00 Dose: 15 ml Documented by: Albuterol (Albuterol Hfa 8 Gm Inhaler) 2 puffs INH QID PRN PRN Reason: Shortness Of Breath Or Wheezing Stop: 08/19/21 16:12 Amlodipine Besylate (Amlodipine Besylate 5 Mg Tab) 5 mg PO DAILY BERTRAND Stop: 08/19/21 08:59 Last Admin: 08/01/21 09:27 Dose: 5 mg Documented by: Aspirin (Aspirin 81 Mg Chew) 81 mg PO DAILY BERTRAND Stop: 08/19/21 08:59 Last Admin: 08/05/21 08:35 Dose: 81 mg Documented by: Atorvastatin Calcium (Atorvastatin 40 Mg Tab) 40 mg PO DAILY BERTRAND Stop: 08/19/21 08:59 Last Admin: 08/05/21 08:34 Dose: 40 mg Documented by: Benzonatate (Benzonatate 100 Mg Capsule) 100 mg PO TID PRN PRN Reason: cough Stop: 08/18/21 16:34 Calcium Polycarbophil (Calcium Polycarbophil 625mg Tab) 625 mg PO DAILY BERTRAND Stop: 08/19/21 08:59 Last Admin: 08/05/21 08:35 Dose: 625 mg Documented by: Cetirizine HCl (Cetirizine Hcl 10 Mg Tablet) 10 mg PO DAILY PRN PRN Reason: Allergy Symptoms Stop: 08/19/21 08:59 Cyanocobalamin (Cyanocobalamin 500 Mcg Tablet (Vitamin B-12)) 500 mcg PO DAILY BERTRAND Stop: 08/19/21 08:59 Last Admin: 08/05/21 08:35 Dose: 500 mcg Documented by: Dextrose (Dextrose 50% 50 Ml Syringe) 25 - 50 ml IV UD PRN; Protocol PRN Reason: Hypoglycemia Protocol Stop: 08/18/21 16:34 Enoxaparin Sodium (Enoxaparin Inj 40 Mg/0.4 Ml Syr) 40 mg SQ QAM BERTRAND Stop: 08/23/21 08:59 Last Admin: 08/05/21 08:35 Dose: 40 mg Documented by: Finasteride (Finasteride 5 Mg Tab) 5 mg PO DAILY BERTRAND Stop: 08/19/21 08:59 Last Admin: 08/05/21 08:34 Dose: 5 mg Documented by: Fluticasone Propionate (Fluticasone Propionate Na Spr 16 Gm Btl) 2 sprays JINNY DAILY PRN PRN Reason: Allergy Symptoms Stop: 08/19/21 08:59 Glucagon (Glucagon For Inj 1 Mg Vial) 1 mg SQ UD PRN; Protocol PRN Reason: Hypoglycemia Protocol Stop: 08/18/21 16:34 Glucose (Glucose 10 Tabs/Tube) 4 - 8 tabs PO UD PRN; Protocol PRN Reason: Hypoglycemia Protocol Stop: 08/18/21 16:34 Glucose (Glucose 40% Gel 15 Gm Tube) 15 - 30 gm PO UD PRN; Protocol PRN Reason: Hypoglycemia Protocol Stop: 08/18/21 16:34 Guaifenesin (Guaifenesin 600 Mg Tabcr) 600 mg PO Q12 [facility] Stop: 08/21/21 20:59 Last Admin: 08/05/21 08:35 Dose: 600 mg Documented by: Furosemide 40 mg/ Syringe 4 mls @ 4 mls/min IV DAILY BERTRAND Stop: 08/22/21 08:59 Last Admin: 08/01/21 09:26 Dose: 4 mls/min Documented by: Insulin Aspart (Insulin Aspart 100 Units/Ml 3 Ml Pen) 0 units SC DAILY@0730 SC H; Protocol Stop: 09/04/21 07:29 Last Admin: 08/05/21 08:47 Dose: 7 units Documented by: Insulin Aspart (Insulin Aspart 100 Units/Ml 3 Ml Pen) 0 units SC 1130,1630,2100 BERTRAND; Protocol Stop: 09/04/21 11:29 Insulin Human NPH (Insulin Human Nph) 10 units SC QDB [facility]; Protocol Stop: 09/02/21 08:59 Last Admin: 08/05/21 08:48 Dose: 10 units Documented by: Lisinopril (Lisinopril 20 Mg Tab) 20 mg PO QAM [facility] Stop: 09/01/21 08:59 Last Admin: 08/05/21 08:34 Dose: 20 mg Documented by: Magnesium Hydroxide (Magnesium Hydroxide Susp 30 Ml Udc) 30 ml PO Q12H PRN PRN Reason: Constipation Stop: 08/18/21 16:34 Metoprolol Succinate (Metoprolol Succ 25mg Ext Rel Tab) [facility] Stop: 08/23/21 08:59 Last Admin: 08/05/21 08:34 Dose: 12.5 mg Documented by: Miscellaneous (Carbohydrates For Hypoglycemia ) 15 - 30 gm PO UD PRN PRN Reason: Hypoglycemia Protocol Stop: 08/18/21 16:34 Last Admin: 07/27/21 04:22 Dose: 15 gm Documented by: Miscellaneous Information (Pharmacy Glycemic Mgmt Consult) 1 ea N/A UD PRN; Protocol PRN Reason: Consult Stop: 08/18/21 16:34 Mupirocin (Mupirocin 2% Oint 22 Gm Tube) 1 appln EXT QID PRN PRN Reason: Bleeding Stop: 08/27/21 12:59 Last Admin: 07/29/21 07:25 Dose: 1 appln Documented by: Ondansetron HCl (Ondansetron Inj 2 Mg/Ml 2 Ml Vial) 4 mg IV Q6H PRN PRN Reason: Nausea Stop: 08/18/21 16:34 Pantoprazole Sodium (Pantoprazole 40 Mg Tab) 40 mg PO DAILY BERTRAND Stop: 08/19/21 08:59 Last Admin: 08/05/21 08:34 Dose: 40 mg Documented by: Polyethylene Glycol (Polyethylene (Miralax) 17 Gm Pack) 17 gm PO DAILY PRN PRN Reason: Constipation Stop: 08/18/21 16:34 Potassium Chloride (Potassium Chloride Crtab 20 Meq Tabcr) 20 meq PO QAM BERTRAND Stop: 08/20/21 08:59 Last Admin: 08/01/21 09:26 Dose: 20 meq Documented by: Tamsulosin HCl (Tamsulosin Hcl 0.4 Mg Cap) 0.4 mg PO HS BERTRAND Stop: 08/18/21 20:59 Last Admin: 08/04/21 20:26 Dose: 0.4 mg Documented by: Umeclidinium/Vilanterol (Umeclidinium/Vilanterol 62.5/25mcg 7 Puffs/Inhaler) 1 puffs INH DAILY BERTRAND Stop: 08/22/21 13:44 Last Admin: 08/05/21 08:35 Dose: 1 puffs Documented by: Vitamin D (Cholecalciferol 1,000 Units 25 Mcg Tab) 1,000 units PO DAILY BERTRAND Stop: 08/19/21 08:59 Last Admin: 08/05/21 08:35 Dose: 1,000 units Documented by:
[2021-08-05] MEDS: TAMSULOSIN HCL 0.4 MG CAP PO SCH (21:43)
[2021-08-06] MEDS: INSULIN HUMAN NPH SC SCH (08:34)
[2021-08-06] MEDS: ENOXAPARIN INJ 40 MG/0.4 ML SYR SQ SCH (08:34)
[2021-08-06] MEDS: ATORVASTATIN 40 MG TAB PO SCH (08:35)
[2021-08-06] MEDS: PANTOprazole 40 MG TAB PO SCH (08:35)
[2021-08-06] MEDS: FINASTERIDE 5 MG TAB PO SCH (08:35)
[2021-08-06] MEDS: CYANOCOBALAMIN 500 MCG TABLET (VITAMIN B-12) PO SCH (08:35)
[2021-08-06] MEDS: METOPROLOL SUCC 25MG EXT REL TAB PO SCH (08:35)
[2021-08-06] MEDS: CHOLECALCIFEROL 1,000 UNITS 25 MCG TAB PO SCH (08:35)
[2021-08-06] MEDS: CALCIUM POLYCARBOPHIL 625MG TAB PO SCH (08:35)
[2021-08-06] MEDS: UMECLIDINIUM/VILANTEROL 62.5/25MCG 7 PUFFS/INHALER INH SCH (08:36)
[2021-08-06] MEDS: ASPIRIN 81 MG CHEW PO SCH (08:36)
[2021-08-06] MEDS: INSULIN ASPART 100 UNITS/ML 3 ML PEN SC SCH ×4 (08:37→20:53)
--- NOTE | 2021-08-06 11:25 | Pharmacy Report ---
Pharmacy Glycemic Short Note 2 - Date of Service August 06, 2021 - Glycemic Short BSG Results (Last 24 hours): 08/05/21 08/05/21 08/05/21 11:50 16:48 19:44 POC Glucose 251 H 98 112 H 08/06/21 08/06/21 07:10 11:15 POC Glucose 118 H 196 H OUTPATIENT ANTIDIABETIC REGIMEN: * N/A * A1c: 7.5% 07/20/21 ASSESSMENT: 08/06: * Again BSGs well controlled over last 24 hours, with the exception of pre-lunch hyperglycemia. Will once again increase prandial dose given w/ breakfast. 08/05: * BSGs well controlled over the last 48 hrs with the exception of pre-lunch hyperglycemia. * Will increase prandial Novolog dose w/ breakfast * Fasting BSG somewhat elevated but acceptable this AM with 10 units NPH given yesterday. Would not react at this time as this has not been a problematic trend, and increasing NPH dose may lead to pre-dinner hypoglycemia. 08/04: * Fasting BSG 140 this AM with 10 units NPH administered yesterday * 2 of 3 post-prandial BSGs controlled w/ current Novolog parameters yesterday. He does tend to have pre-lunch hyperglycemia, however he quickly corrects with dinner-time BSG. Could consider larger prandial doses with breakfast. 08/03: * Fasting this AM 126 mg/dL, reduced dose of NPH to 10 units as was considered additional of lantus, will change to with breakfast (given this AM at 0900) * Lunch BSG elevated again, but per trend patient trends down with dinner and bedtime * Will continue NPH as basal given downward trend at night but if AM fasting increases more consider switch to lantus 08/01: * No steroids today, basal discontinued yesterday * Blood sugar kumar from 108--> 311mg/dl from breakfast to lunch, will resume basal at a reduced dose (A1c 7.5%, likely needs basal when not on steroids) * Tighten CR PLAN FOR INPATIENT GLYCEMIC CONTROL: * Basal insulin - continue * NPH 10 units SQ with breakfast * Bolus insulin - increase breakfast dosing * NovoLog per scale ACHS or Q6hrs while NPO * Goal Range: Low 110 mg/dL - High 140 mg/dL * Correction Factor: 25 mg/dL/unit * Carb ratio: 3 g CHO/unit with BREAKFAST; 5 g CHO/unit with lunch, dinner and HS PLAN FOR DISCHARGE: * Can consider initiation of metformin XR 500mg PO daily with evening meal at discharge provided eGFR acceptable.
--- NOTE | 2021-08-06 17:43 | Hospitalist Progress Note ---
Date of Service August 06, 2021 Assessment & Plan (1) Acute hypoxemic respiratory failure: Plan: Secondary to COVID-19 pneumonia and is complicated by COPD CT negative for PE and revealed evidence of pneumonia. Received dexamethasone course. Completed 5 days of remdesivir therapy on 07/23. Continue to work with PT/OT. Cont supportive care efforts. (2) Pneumonia due to COVID-19 virus: Plan: cont with supportive care and plan as above. Still requiring oxygen. (3) Paroxysmal atrial fibrillation: Plan: New onset atrial tachycardia or atrial fibrillation this admission, early on. He was started on a heparin drip which was discontinued after lumbar hematoma status post fall in the hospital. She was in sinus rhythm therefore anticoagulation was not a concern and has not been restarted. He was also started on low-dose metoprolol and continues on this. Discuss termite helper recs with cardiology prior to discharge. (4) TOMMY (acute kidney injury): Plan: Resolved. (5) T2DM (type 2 diabetes mellitus): Plan: Pharmacy for hyperglycemic management with insulin as needed. Euglycemic on current regimen. (6) Hypertension: Plan: Hypotension, hold lisinopril. (7) Carotid artery disease: Plan: Continue medical management including aspirin, atorvastatin per home regimen. (8) Fall: Plan: Disorientation and confusion overnight earlier this admission contributed to fall with subsequent hematoma of lower back area. Pain is managed and area is improving. CT head was negative. Cont to monitor. Fall precautions Hemoglobin remains stable. Continue Lovenox for DVT prophylaxis. (9) Hematoma: Plan: Hematoma lower back area following a fall Supportive care. (10) DVT prophylaxis: Plan: Lovenox subcu DNR/DNI Disposition-came from home, therapy recommending rehab. Case management working to set this up. Allison [facility] and [facility]tic[facility]ated Discharge Date Admission Date: July 19, 2021 Subjective 86-year-old man admitted for Covid pneumonia. Patient reports feeling fine, denies any issues, tolerating p.o. Reports he was walking around the room today. He is still requiring oxygen at rest, however. Denies pain in his hematoma. Still remains fairly weak. Discussed discharge plan with his daughter by phone today. Review of Systems Review of Systems: At least ten systems were reviewed and negative except as indicated in HPI above. Physical Exam Physical Exam: CONSTITUTIONAL: WNWD, vitals as above, generally well- appearing, NAD EYES: normal conjunctivae, no scleral icterus ENT: external ear and nose normal, oropharynx clear, MMM NECK: trachea midline, no lymphadenopathy RESPIRATORY: CTAB, no crackles, normal respiratory effort, oxygen supplementation in place. no increased respiratory effort. CARDIOVASCULAR: regular rate and rhythm, 3/6 XOCHITL, no gallops or rubs, no JVD, no peripheral edema GASTROINTESTINAL: soft, nontender, nondistended. MUSCULOSKELETAL: strength 5/5 throughout, head is normocephalic and atraumatic SKIN: warm and dry, L spine hematoma present and healing, ecchymosis improved NEUROLOGIC: CN 2-12 grossly intact, no sensory deficit, normal cognition, normal speech, no tremor. No gross focal deficits. PSYCHIATRIC: alert cooperative and oriented to person, place and time. Results & Data Results & Data ([facility]) Vital Signs (Past 12 Hours) Vital Signs Temp Pulse Pulse Pulse Resp BP BP 08/06/21 16:19 08/06/21 15:49 69 08/06/21 15:47 36.4 C L 69 26 H 130/75 08/06/21 11:10 36.6 C 106 H 32 H 98/64 L 08/06/21 09:23 70 08/06/21 07:10 36.6 C 87 20 128/68 Pulse Ox Pulse Ox 08/06/21 16:19 98 08/06/21 15:49 08/06/21 15:47 98 08/06/21 11:10 94 08/06/21 09:23 08/06/21 07:10 89 L Medications Administered Current Inpatient Medications Acetaminophen (Acetaminophen 325 Mg Tab) 650 mg PO Q4H PRN PRN Reason: Pain or Fever Stop: 08/18/21 16:34 Last Admin: 08/01/21 21:09 Dose: 650 mg Documented by: Al Hydrox/Mg Hydrox/Simethicone (Aluminum/Magnesium Susp 30 Ml Udc) 15 ml PO Q4H PRN PRN Reason: Dyspepsia Stop: 08/18/21 16:34 Last Admin: 07/22/21 12:00 Dose: 15 ml Documented by: Albuterol (Albuterol Hfa 8 Gm Inhaler) 2 puffs INH QID PRN PRN Reason: Shortness Of Breath Or Wheezing Stop: 08/19/21 16:12 Amlodipine Besylate (Amlodipine Besylate 5 Mg Tab) 5 mg PO DAILY BERTRAND Stop: 08/19/21 08:59 Last Admin: 08/01/21 09:27 Dose: 5 mg Documented by: Aspirin (Aspirin 81 Mg Chew) 81 mg PO DAILY BERTRAND Stop: 08/19/21 08:59 Last Admin: 08/06/21 08:36 Dose: 81 mg Documented by: Atorvastatin Calcium (Atorvastatin 40 Mg Tab) 40 mg PO DAILY BERTRAND Stop: 08/19/21 08:59 Last Admin: 08/06/21 08:35 Dose: 40 mg Documented by: Benzonatate (Benzonatate 100 Mg Capsule) 100 mg PO TID PRN PRN Reason: cough Stop: 08/18/21 16:34 Calcium Polycarbophil (Calcium Polycarbophil 625mg Tab) 625 mg PO DAILY BERTRAND Stop: 08/19/21 08:59 Last Admin: 08/06/21 08:35 Dose: 625 mg Documented by: Cetirizine HCl (Cetirizine Hcl 10 Mg Tablet) 10 mg PO DAILY PRN PRN Reason: Allergy Symptoms Stop: 08/19/21 08:59 Last Admin: 08/06/21 08:35 Dose: 10 mg Documented by: Cyanocobalamin (Cyanocobalamin 500 Mcg Tablet (Vitamin B-12)) 500 mcg PO DAILY BERTRAND Stop: 08/19/21 08:59 Last Admin: 08/06/21 08:35 Dose: 500 mcg Documented by: Dextrose (Dextrose 50% 50 Ml Syringe) 25 - 50 ml IV UD PRN; Protocol PRN Reason: Hypoglycemia Protocol Stop: 08/18/21 16:34 Enoxaparin Sodium (Enoxaparin Inj 40 Mg/0.4 Ml Syr) 40 mg SQ QAM BERTRAND Stop: 08/23/21 08:59 Last Admin: 08/06/21 08:34 Dose: 40 mg Documented by: Finasteride (Finasteride 5 Mg Tab) 5 mg PO DAILY BERTRAND Stop: 08/19/21 08:59 Last Admin: 08/06/21 08:35 Dose: 5 mg Documented by: Fluticasone Propionate (Fluticasone Propionate Na Spr 16 Gm Btl) 2 sprays JINNY DAILY PRN PRN Reason: Allergy Symptoms Stop: 08/19/21 08:59 Glucagon (Glucagon For Inj 1 Mg Vial) 1 mg SQ UD PRN; Protocol PRN Reason: Hypoglycemia Protocol Stop: 08/18/21 16:34 Glucose (Glucose 10 Tabs/Tube) 4 - 8 tabs PO UD PRN; Protocol PRN Reason: Hypoglycemia Protocol Stop: 08/18/21 16:34 Glucose (Glucose 40% Gel 15 Gm Tube) 15 - 30 gm PO UD PRN; Protocol PRN Reason: Hypoglycemia Protocol Stop: 08/18/21 16:34 Insulin Aspart (Insulin Aspart 100 Units/Ml 3 Ml Pen) 0 units SC DAILY@0730 SC H; Protocol Stop: 09/04/21 07:29 Last Admin: 08/06/21 08:37 Dose: 17 units Documented by: Insulin Aspart (Insulin Aspart 100 Units/Ml 3 Ml Pen) 0 units SC 1130,1630,2100 BERTRAND; Protocol Stop: 09/04/21 11:29 Last Admin: 08/06/21 16:50 Dose: 7 units Documented by: Insulin Human NPH (Insulin Human Nph) 10 units SC QDB BERTRAND; Protocol Stop: 09/02/21 08:59 Last Admin: 08/06/21 08:34 Dose: 10 units Documented by: Lisinopril (Lisinopril 20 Mg Tab) 20 mg PO [facility] Stop: 09/01/21 08:59 Last Admin: 08/05/21 08:34 Dose: 20 mg Documented by: Magnesium Hydroxide (Magnesium Hydroxide Susp 30 Ml Udc) 30 ml PO Q12H PRN PRN Reason: Constipation Stop: 08/18/21 16:34 Metoprolol Succinate (Metoprolol Succ 25mg Ext Rel Tab) 12.5 mg PO [facility] Stop: 08/23/21 08:59 Last Admin: 08/06/21 08:35 Dose: 12.5 mg Documented by: Miscellaneous (Carbohydrates For Hypoglycemia ) 15 - 30 gm PO UD PRN PRN Reason: Hypoglycemia Protocol Stop: 08/18/21 16:34 Last Admin: 07/27/21 04:22 Dose: 15 gm Documented by: Miscellaneous Information (Pharmacy Glycemic Mgmt Consult) 1 ea N/A UD PRN; Protocol PRN Reason: Consult Stop: 08/18/21 16:34 Mupirocin (Mupirocin 2% Oint 22 Gm Tube) 1 appln EXT QID PRN PRN Reason: Bleeding Stop: 08/27/21 12:59 Last Admin: 07/29/21 07:25 Dose: 1 appln Documented by: Ondansetron HCl (Ondansetron Inj 2 Mg/Ml 2 Ml Vial) 4 mg IV Q6H PRN PRN Reason: Nausea Stop: 08/18/21 16:34 Pantoprazole Sodium (Pantoprazole 40 Mg Tab) 40 mg PO DAILY BERTRAND Stop: 08/19/21 08:59 Last Admin: 08/06/21 08:35 Dose: 40 mg Documented by: Polyethylene Glycol (Polyethylene (Miralax) 17 Gm Pack) 17 gm PO DAILY PRN PRN Reason: Constipation Stop: 08/18/21 16:34 Potassium Chloride (Potassium Chloride Crtab 20 Meq Tabcr) 20 meq PO QAM BERTRAND Stop: 08/20/21 08:59 Last Admin: 08/01/21 09:26 Dose: 20 meq Documented by: Tamsulosin HCl (Tamsulosin Hcl 0.4 Mg Cap) 0.4 mg PO HS [facility] Stop: 08/18/21 20:59 Last Admin: 08/05/21 21:43 Dose: 0.4 mg Documented by: Umeclidinium/Vilanterol (Umeclidinium/Vilanterol 62.5/25mcg 7 Puffs/Inhaler) 1 puffs INH DAILY BERTRAND Stop: 08/22/21 13:44 Last Admin: 08/06/21 08:36 Dose: 1 puffs Documented by: Vitamin D (Cholecalciferol 1,000 Units 25 Mcg Tab) 1,000 units PO DAILY BERTRAND Stop: 08/19/21 08:59 Last Admin: 08/06/21 08:35 Dose: 1,000 units Documented by:
[2021-08-06] MEDS: TAMSULOSIN HCL 0.4 MG CAP PO SCH (20:28)
[2021-08-07] MEDS: METOPROLOL SUCC 25MG EXT REL TAB PO SCH (08:35)
[2021-08-07] MEDS: CYANOCOBALAMIN 500 MCG TABLET (VITAMIN B-12) PO SCH (08:36)
[2021-08-07] MEDS: PANTOprazole 40 MG TAB PO SCH (08:36)
[2021-08-07] MEDS: CALCIUM POLYCARBOPHIL 625MG TAB PO SCH (08:36)
[2021-08-07] MEDS: ASPIRIN 81 MG CHEW PO SCH (08:37)
[2021-08-07] MEDS: ATORVASTATIN 40 MG TAB PO SCH (08:37)
[2021-08-07] MEDS: CHOLECALCIFEROL 1,000 UNITS 25 MCG TAB PO SCH (08:37)
[2021-08-07] MEDS: FINASTERIDE 5 MG TAB PO SCH (08:37)
[2021-08-07] MEDS: ENOXAPARIN INJ 40 MG/0.4 ML SYR SQ SCH (08:38)
[2021-08-07] MEDS: INSULIN ASPART 100 UNITS/ML 3 ML PEN SC SCH ×2 (08:39→12:25)
[2021-08-07] MEDS: UMECLIDINIUM/VILANTEROL 62.5/25MCG 7 PUFFS/INHALER INH SCH (08:39)
[2021-08-07] MEDS: INSULIN HUMAN NPH SC SCH (08:42)
--- NOTE | 2021-08-07 12:51 | Hospitalist Progress Note ---
Date of Service August 07, 2021 Assessment & Plan (1) Acute hypoxemic respiratory failure: Plan: Secondary to COVID-19 pneumonia and is complicated by COPD CT negative for PE and revealed evidence of pneumonia. completed dexamethasone and 5 days of Remdesivir course. continue 3 L Oxygen supplement, taper off accordingly continue PT/OT continue Incentive Spirometry (2) Pneumonia due to COVID-19 virus: Plan: as per above (3) Paroxysmal atrial fibrillation: Plan: per Dr. Knight's notes: New onset atrial tachycardia or atrial fibrillation this admission, early on. He was started on a heparin drip which was discontinued after lumbar hematoma status post fall in the hospital. He was in sinus rhythm therefore anticoa gulation was not a concern and has not been restarted. He was also started on low-dose metoprolol and continues on this. -- ff up with Gastroenterology Technician as outpatient in 2 weeks (4) TOMMY (acute kidney injury): Plan: Resolved. (5) T2DM (type 2 diabetes mellitus): Plan: continue usual regimen (6) Hypertension: Plan: Hypotension, hold lisinopril. -- BP stable overall while Lisinopril on hold monitor (7) Carotid artery disease: Plan: Continue medical management including aspirin, atorvastatin per home regimen. (8) Fall: Plan: per Dr. Knight's notes: Disorientation and confusion overnight earlier this admission contributed to fall with subsequent hematoma of lower back area. Pain is managed and area is improving. CT head was negative. Cont to monitor. Fall precautions Hemoglobin remains stable. Continue Lovenox for DVT prophylaxis. (9) Hematoma: Plan: Hematoma lower back area following a fall -- continue to monitor (10) DVT prophylaxis: Plan: Lovenox subcu DNR/DNI Disposition-came from home, therapy recommending rehab. ff up with PCP and [facility] Gastroenterology Technician Admission and Anticipated Discharge Date Admission Date: July 19, 2021 Subjective ff up for COVID 19 PNA, etc seen resting in bed, comfortable just had lunch states he feels fine overall no dyspnea, chest pain, palpitations has mild intermittent cough no back pain no leg weakness no other symptoms states he is ready for discharge today Review of Systems Review of Systems: all noted and negative except for above Physical Exam Physical Exam: General- oriented x 3, not in distress, speaks in sentences with no effort or accessory muscle use Eyes- anicteric Neck- no JVD Lungs- mild rhonchi at the bases no wheezing good air entry bilaterally Heart- normal rate, regular rhythm; no murmurs Abdomen- normal bowel sounds, nondistended, soft, nontender Back- small hematoma on the lumbar spine, resolving Extremities- no pretibial edema, no calf tenderness Neuro- alert, oriented x 3; no gross focal neurologic deficits Skin- warm & dry Results & Data Results & Data ([facility]) Vital Signs (Past 12 Hours) Vital Signs Temp Pulse Resp BP Pulse Ox 08/07/21 07:30 36.7 C 85 20 113/62 92 all noted and reviewed including below
--- NOTE | 2021-08-07 13:11 | Discharge Summary ---
Date of Service August 07, 2021 Admission HPI Per Admitting Provider Chief Complaint: not feeling well for 2 days, +cough, low O2 and weakness Primary Care Provider: Riya Steele DO The patient is an 86-year-old man seen by Dr. Steele at [facility] clinic today for reports of a 5-day history of generalized weakness, worsened appetite, elevated blood sugars, and chills. Pulse ox on triage was 85% on room air which increased to 90% on 4 L via nasal cannula. He was sent to the ER for ongoing evaluation of hypoxia and generalized weakness. Upon arrival he was found to be 87% on room air and was placed again on 4 L nasal cannula. He is febrile with a temp of 39 C and a pulse of 103. Lab work reveals no evidence of leukocytosis, normal H&H, normal coags, normal chemistry with a mild TOMMY. Creatinine is 1.4 with a baseline creatinine of 1.0 upon outpatient record review. He is mildly hyperglycemic at 213 and has a history of type 2 diabetes. He appears to be diet controlled. Last hemoglobin A1c was in January 2021 was 7.2. He has positive for Covid reporting a vaccination previously. He received a 2 dose series and return on 12/22/2020 and again on 01/19/2021. Admission Exam (Per Admitting) Constitutional CONSTITUTIONAL: WNWD, vitals as above, generally well-appearing EYES: EOMI bilaterally, PERRL, normal conjunctivae, no scleral icterus ENT: external ear and nose normal, oropharynx clear, MMM NECK: trachea midline, no lymphadenopathy RESPIRATORY: fine crackles intermittently throughout, no rales or wheezes, normal respiratory effort CARDIOVASCULAR: regular rate and rhythm, S1 and 2 heard without murmurs, gallops or rubs, no JVD, no peripheral edema GASTROINTESTINAL: soft, nontender, nondistended. MUSCULOSKELETAL: strength 5/5 throughout, head is normocephalic and atraumatic SKIN: warm and dry NEUROLOGIC: CN 2-12 grossly intact, no sensory deficit, normal cognition, normal speech, no tremor. No gross focal deficits. PSYCHIATRIC: alert cooperative and oriented to person, place and time. Euthymic mood, makes good eye contact, language grossly intact, recent and remote memory grossly intact. Discharge Data Consultations 07/19/21 14:37 ED Decision to Admit Stat 07/20/21 14:56 Consult Cardiology Routine 07/22/21 09:42 Consult Pulmonology Routine Procedures Performed CT CHEST: CT DOSE: 523.89 mGycm FINDINGS: No pulmonary emboli are identified. There is no thoracic aortic dissection. There are several mildly enlarged right hilar lymph nodes. There are trace bilateral pleural effusions. No pneumothorax is present. Moderate groundglass opacities are noted throughout the lungs. Central airways are patent. There is a small hiatal hernia. A water attenuation lesion within the right upper quadrant is partially imaged on this exam. This statistically reflects a right renal cyst. 1.9 cm low-attenuation right adrenal nodule favors an adenoma. There is also a suspected smaller left adrenal adenoma. IMPRESSION: 1. No pulmonary emboli identified. 2. Moderate groundglass opacities throughout the lungs suggestive of viral pneumonia. 3. Trace bilateral pleural effusions. 4. Several mildly enlarged right hilar lymph nodes which are likely reactive. ACT 112: Negative or not required by law. CT HEAD: FINDINGS: This exam is mildly compromised by motion artifact. No acute intracranial hemorrhage, midline shift or mass effect is present. Ventricular system is unremarkable. White matter hypodensities favor small vessel disease. There is ossification along the falx. Sensitivity for detection of calvarial fractures is diminished but none are identified. There is mild mucosal thickening of the right maxillary sinus. IMPRESSION: 1. No acute intracranial findings. Exam mildly compromised by motion artifact. 2. No calvarial fracture identified. LUMBAR SPINE CT CT DOSE: 1915.55 mGy.cm HISTORY: back pain, trauma TECHNIQUE: Multiaxial CT images of the lumbar spine were performed and reformatted in the sagittal and coronal plane without the use of contrast. A dose lowering technique was utilized adhering to the principles of ALARA. COMPARISON: None. FINDINGS: Partially visualized large bilateral renal cysts. Subcutaneous edema with a partially visualized subcutaneous hematoma within the lumbar sacral region. This measures approximately 8 x 7 cm. Paravertebral soft tissues are unremarkable. No fracture or subluxation within the lumbar spine. The visualized sacrum is intact. Disc spaces are preserved. Endplate osteophytes are noted. 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 IMPRESSION: 1. No fractures within the lumbar spine. 2. Partially imaged subcutaneous hematoma measuring 8 x 7 cm at the lumbosacral region. 3. 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 ACT 112: Negative or not required by law. Hospital Course (1) Acute hypoxemic respiratory failure: Secondary to COVID-19 pneumonia and is complicated by COPD CT negative for PE and revealed evidence of pneumonia. completed dexamethasone and 5 days of Remdesivir course. continue 3 L Oxygen supplement, taper off accordingly continue PT/OT continue Incentive Spirometry (2) Pneumonia due to COVID-19 virus: as per above (3) Paroxysmal atrial fibrillation: per Dr. Knight's notes: New onset atrial tachycardia or atrial fibrillation this admission, early on. He was started on a heparin drip which was discontinued after lumbar hematoma status post fall in the hospital. He was in sinus rhythm therefore anticoagulation was not a concern and has not been restarted. He was also started on low-dose metoprolol and continues on this. -- ff up with Associate Software Application Engineer as outpatient in 2 weeks (4) Abnormal CT scan, chest: Please refer to full report in the Ordered Studies section above Further work up, management, and ff up as outpatient (5) TOMMY (acute kidney injury): Resolved. (6) T2DM (type 2 diabetes mellitus): continue usual regimen (7) Hypertension: Hypotension, hold lisinopril. -- BP stable overall while Lisinopril on hold monitor (8) Carotid artery disease: Continue medical management including aspirin, atorvastatin per home regimen. (9) Fall: per Dr. Knight's notes: Disorientation and confusion overnight earlier this admission contributed to fall with subsequent hematoma of lower back area. Pain is managed and area is improving. CT head was negative. Cont to monitor. Fall precautions Hemoglobin remains stable. Continue Lovenox for DVT prophylaxis. (10) Hematoma: Hematoma lower back area following a fall -- continue to monitor (11) DVT prophylaxis: Lovenox subcu DNR/DNI Disposition-came from home, therapy recommending rehab. ff up with PCP and [facility] Associate Software Application Engineer
== END 2021-08-07 15:24 | DRG 177 ==
LOC: ED 12:24 → 2E 14:29 → SUATTDRO 14:29 → 2E 15:59 → 2S 08-06 16:02 → 3E 08-06 16:20

== ENCOUNTER 2022-07-23 18:58 | Inpatient (IN) ==
[2022-07-23 19:52] LABS: Appearance Urine Clear (Clear); Bilirubin Urine Negative (Negative); Blood Urine Negative (Negative); Color Urine Yellow; Glucose Urine UA Negative (Negative); Ketones Urine Negative (Negative); Leukocyte Esterase Urine Negative (Negative); Nitrite Urine Negative (Negative); Protein Urine Negative (Negative); Specific Gravity Urine 1.021 (1.000-1.030); Urobilinogen Urine Negative (Negative); pH Urine 5.5 (4.5-7.5)
--- NOTE | 2022-07-23 19:53 | CT Scan Report ---
CT head/brain wo con CLINICAL HISTORY: Stroke Alert Technique: Contiguous axial CT images of the head were acquired from the base of the skull to the jaylan marguerite without intravenous contrast administration. Images were viewed in brain, subdural and [facility] . Automated dose lowering techniques and/or adjustment according to patient size were utilized for this exam. Comparison: Comparison is made to CT head 07/21/2021 Findings: Areas of decreased attenuation are present in the periventricular and subcortical white matter bilate rally consistent with small vessel ischemic disease. Generalized cerebral atrophy with commensurate e nlargement of the ventricles, sulci, and cisterns is also present. There is no acute intracranial hem orrhage or evidence of acute territorial infarction. No shift of the midline structures, mass effect, or extra-axial abnormalities are shown. Atherosclerotic calcifications are present in the intracran ial segments of the internal carotid arteries. Dural calcifications are seen. 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 Imaged portions of the paranasal sinuses and mastoid air cells are clear. The orbits appear normal. There are no acute fractures of the calvaria or scalp swelling. Impression: No acute intracranial hemorrhage, no evidence of acute territorial infarction or other acute intracra nial disease process. ACT 112: Negative or not required by law. Electronically signed by: Bryon Perales M.D. 07/23/2022 7:51 PM
[2022-07-23 20:08] LABS: Hematocrit (blood only) 43.2 % (40.1-51.0); Hemoglobin 14.2 g/dl (14.0-18.0); Mean Corpuscular Hemoglobin 31.3 pg (25.0-34.0); Mean Corpuscular Hgb Conc 32.9 g/dL (32.0-36.0); Mean Corpuscular Volume 95.2 fL (80.0-100.0); Mean Platelet Volume 10.1 fL (9.4-12.4); Platelet Count 185 K/uL (130-400); RDW Coefficient of Variation 13.3 % (11.5-14.5); RDW Standard Deviation 46.8 fL (36.4-46.3); Red Blood Count 4.54 M/uL (4.63-6.08)
[2022-07-23 20:19] LABS: INR 1.1 (0.9-1.1); Partial Thromboplastin Ratio 0.9; Prothrombin Time 11.4 Seconds (9.0-12.0)
[2022-07-23 20:28] LABS: Albumin Globulin Ratio 1.5 (0.9-2); Bilirubin,Total 0.5 mg/dl (0.2-1.0); Calcium 8.9 mg/dl (8.5-10.1); Creatinine Clr Calc Pharmacy 51.2 ml/min; Est GFR (African American) 57.4 ml/min; Est GFR (Non-African American) 49.5 ml/min; Globulin 2.7 gm/dl (2.5-4.0); Magnesium 1.5 mg/dl (1.7-2.4); Potassium 4.5 mmol/L (3.5-5.1); Total Protein 6.7 gm/dl (6.0-8.3)
[2022-07-23] MEDS ORDERED: SODIUM CHLORIDE 0.9% 250 ML IV ONE (22:14)
[2022-07-24] MEDS ORDERED: POLYETHYLENE (MIRALAX) 17 GM PACK PO PRN (00:04)
[2022-07-24] MEDS ORDERED: ACETAMINOPHEN 325 MG TAB PO PRN (00:04)
--- NOTE | 2022-07-24 00:08 | Emergency Department Note ---
History of Present Illness General Chief complaint: Confusion Stated complaint: CONFUSION, DISORENITED Time Seen by Provider: 07/23/22 21:59 History of Present Illness This 87-year-old presents to the ER complaining of increased confusion for the past few days who lives by himself Location: Generalized Quality: Confused Severity: Moderate Duration: Past few days Timing: Started few days ago Context: Daughter was confused and came in Modifying factors: better with nothing; worse with nothing Patient denies chest pain, dyspnea, fevers, abdominal pain, vomiting, diarrhea. Patient does have dementia but the daughter states this is worse than baseline. He lives alone. 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 Home Medications Medication Instructions Recorded Confirmed Type atorvastatin 80 mg tablet (Lipitor) 40 mg PO DAILY 10/05/19 07/09/22 History finasteride 5 mg tablet 5 mg PO DAILY 10/05/19 07/09/22 History omeprazole 20 mg capsule,delayed 20 mg PO DAILY 10/05/19 07/09/22 History release tamsulosin 0.4 mg capsule 0.4 mg PO HS 10/05/19 07/09/22 History amlodipine 5 mg tablet 5 mg PO DAILY 07/19/21 07/09/22 History aspirin 81 mg chewable tablet 81 mg PO DAILY 07/19/21 07/09/22 History (Aspirin Childrens) cholecalciferol (vitamin D3) 25 2,550 mcg PO DAILY 07/19/21 07/09/22 History mcg (1,000 unit) tablet (Vitamin D3) albuterol sulfate 90 mcg/actuation 2 puff inhalation QID PRN 08/07/21 Rx aerosol inhaler (Ventolin HFA) shortness of breath or wheezing #8.5 grams umeclidinium 62.5 mcg-vilanterol 1 ea inhalation DAILY #60 ea 08/07/21 Rx 25 mcg/actuation powdr for inhalation (Anoro Ellipta) Allergies Allergy/AdvReac Type Severity Reaction Status Date / Time propoxyphene Allergy Unknown NAUSEA Verified 07/09/22 10:04 AND VOMITING Past Med/Surg History Medical History BPH (benign prostatic hyperplasia) Carotid artery disease Carotid ultrasound on 03/31/2021 revealed right internal carotid 70 to 99% critical stenosis, left internal carotid 50 to 69% stenosis GERD (gastroesophageal reflux disease) High cholesterol Hypertension T2DM (type 2 diabetes mellitus) Surgical History History of cataract extraction History of cholecystectomy History of knee replacement, total History of right hip replacement Family History Brother Colorectal cancer Father Black lung Social History Smoking Status: Never smoker Second Hand Exposure: No; Hx Alcohol Use: Yes Alcohol type: beer Alcohol Intake Frequency: Monthly or Less Hx Substance Use: No Preferred Language: Telugu Communication Ability: Effective Radiation Therapist Required: No Beliefs That Will Affect Care: None marital status: / Current Living Situation: Alone Current Living Situation Comment: Home, Independent current occupational status: retired current occupation: Keys Feels Safe at Home: Yes Assistive Devices: Denture - Upper, Glasses and Walker Review of Systems A total of 10 systems reviewed and were otherwise negative Physical Exam Vital Signs Vital Signs - 24 hr 07/23/22 19:06 07/23/22 21:20 07/23/22 23:10 Temperature 36.4 C L Temperature Source Temporal Artery Scan Pulse Rate 76 68 Pulse Rate [Finger] 96 H Pulse Rhythm Regular Pulse Rhythm [Finger] Regular Pulse Strength [Finger] Normal Respiratory Rate 17 20 16 Respiratory Effort / Characteristics Non-Labored Spontaneous Respiratory Depth Normal Blood Pressure 161/79 H Blood Pressure [Left Arm] 143/82 H Blood Pressure Mean 106 Blood Pressure Mean [Left Arm] 102 Blood Pressure Position [Left Arm] Sitting Pulse Oximetry 96 96 Oxygen Delivery Method Room Air Room Air Room Air Sepsis Recent Fever Within 48 Hours No Sepsis New/Unexplained Change in Mental Status N/A Sepsis Action Taken by Nursing No Action Required VITALS: Vitals are noted on the nurse's note and reviewed by myself. Vital signs stable. GENERAL: Pleasant elderly gentleman following commands, in no acute distress, nondiaphoretic, well-developed well-nourished. SKIN: The skin was without rashes, erythema, edema, or bruising. There is no tenting of the skin. Capillary reflex less than 2 seconds. HEAD: Normocephalic atraumatic. EARS: External auditory canals clear, EYES: Pupils equal round and reactive to light and accommodation. Conjunctivae without injection, sclerae without icterus. Extraocular movements intact. NOSE: Patent, turbinates without inflammation or discharge. MOUTH: Mucous membranes moist. Pharynx without erythema or exudate. Uvula midline. Airway patent. Tongue does not deviate. NECK: Supple without nuchal rigidity. No lymphadenopathy. No thyromegaly. Cervical spine is nontender. No JVD. HEART: Regular rate and rhythm LUNGS: Clear to auscultation bilaterally without wheezes, rales or rhonchi. No retractions or accessory muscle use. ABDOMEN: Positive bowel sounds x 4. Normal tympanic percussion. Soft, nontender, without masses or organomegaly. Alfaro sign negative. No guarding or rebound tenderness. No CVA tenderness MUSCULOSKELETAL: No muscle atrophy, erythema, or edema noted. NEURO: Patient was alert and oriented to person place and time. Normal sensation to light and sharp touch. No focal neurological deficits. Course Administered Medications Enoxaparin Sodium (Enoxaparin Inj 40 Mg/0.4 Ml Syr) 40 mg SQ HS BERTRAND Stop: 08/23/22 00:59 Last Admin: 07/24/22 01:49 Dose: 40 mg Documented By: AQUILINO Discontinued Medications Magnesium Sulfate/Dextrose (Magnesium Sulfate / D5w) 1 gm in 100 mls @ 100 mls/hr IV Q1H BERTRAND Stop: 07/24/22 00:14 Last Admin: 07/24/22 01:49 Dose: 100 mls/hr Documented By: Infusion: 07/24/22 01:48 Dose: 0 mls/hr Documented By: Admin: 07/24/22 00:11 Dose: 100 mls/hr Documented By: ALAN Sodium Chloride (Nss) 250 mls @ 999 mls/hr IV .Q16M ONE Stop: 07/23/22 22:29 Last Infusion: 07/24/22 01:48 Dose: 0 mls/hr Documented By: Admin: 07/24/22 00:11 Dose: 999 mls/hr Documented By: ALAN Medical Decision Making Medical Records Attestation: I reviewed the patient's medical records. Home Medications Current Medication List: was personally reviewed by wa Laboratory Data Attestation: I reviewed the patient's lab results. Result diagrams: 07/23/22 19:37 07/23/22 19:37 Lab Results 07/23/22 07/23/22 07/23/22 Range/Units 19:27 19:37 19:37 WBC 6.20 (4.8-10.8) K/ul RBC 4.54 L (4.63-6.08) M/uL Hgb 14.2 (14.0-18.0) g/dl Hct 43.2 (40.1-51.0) % MCV 95.2 (80.0-100.0) fL MCH 31.3 (25.0-34.0) pg MCHC 32.9 (32.0-36.0) g/dL RDW Std Deviation 46.8 H (36.4-46.3) fL RDW Coeff of Aneta 13.3 (11.5-14.5) % Plt Count 185 (130-400) K/uL MPV 10.1 (9.4-12.4) fL PT 11.4 (9.0-12.0) Seconds INR 1.1 (0.9-1.1) APTT 26.0 (21.0-31.0) Seconds PTT Ratio 0.9 Sodium (136-145) mmol/L Potassium (3.5-5.1) mmol/L Chloride (98-107) mmol/L Carbon Dioxide (21-32) mmol/L Anion Gap (3-11) BUN (6-23) mg/dl Creatinine (0.6-1.4) mg/dl Est Cr Clr Drug Dosing ml/min Est GFR ( Amer) ml/min Est GFR (Non-Af Amer) ml/min BUN/Creatinine Ratio (10-20) Glucose (70-99(Fasting)) mg/dl Calcium (8.5-10.1) mg/dl Magnesium (1.7-2.4) mg/dl Total Bilirubin (0.2-1.0) mg/dl AST (13-39) U/L ALT (7-52) U/L Alkaline Phosphatase (34-104) U/L Total Creatine Kinase (30-223) U/L Troponin I High Sens Total Protein (6.0-8.3) gm/dl Albumin (3.4-5.0) gm/dl Globulin (2.5-4.0) gm/dl Albumin/Globulin Ratio (0.9-2) TSH (0.300-4.500) uIu/ml Urine Color Yellow Urine Appearance Clear (Clear) Urine pH 5.5 (4.5-7.5) Ur Specific [place] 1.021 (1.000-1.030) Urine Protein Negative (Negative) Urine Glucose (UA) Negative (Negative) Urine Ketones Negative (Negative) Urine Blood Negative (Negative) Urine Nitrite Negative (Negative) Urine Bilirubin Negative (Negative) Urine Urobilinogen Negative (Negative) Ur Leukocyte Esterase Negative (Negative) SARS-CoV-2 (PCR) (Negative) 07/23/22 07/23/22 07/23/22 Range/Units 19:37 19:37 19:37 WBC (4.8-10.8) K/ul RBC (4.63-6.08) M/uL Hgb (14.0-18.0) g/dl Hct (40.1-51.0) % MCV (80.0-100.0) fL MCH (25.0-34.0) pg MCHC (32.0-36.0) g/dL RDW Std Deviation (36.4-46.3) fL RDW Coeff of Aneta (11.5-14.5) % Plt Count (130-400) K/uL MPV (9.4-12.4) fL PT (9.0-12.0) Seconds INR (0.9-1.1) APTT (21.0-31.0) Seconds PTT Ratio Sodium 138 (136-145) mmol/L Potassium 4.5 (3.5-5.1) mmol/L Chloride 106 (98-107) mmol/L Carbon Dioxide 24 (21-32) mmol/L Anion Gap 8 (3-11) BUN 31 H (6-23) mg/dl Creatinine 1.29 (0.6-1.4) mg/dl Est Cr Clr Drug Dosing 51.2 ml/min Est GFR ( Amer) 57.4 ml/min Est GFR (Non-Af Amer) 49.5 ml/min BUN/Creatinine Ratio 24.0 H (10-20) Glucose 118 H (70-99(Fasting)) mg/dl Calcium 8.9 (8.5-10.1) mg/dl Magnesium 1.5 L (1.7-2.4) mg/dl Total Bilirubin 0.5 (0.2-1.0) mg/dl AST 12 L (13-39) U/L ALT 10 (7-52) U/L Alkaline Phosphatase 74 (34-104) U/L Total Creatine Kinase 66 (30-223) U/L Troponin I High Sens Cancelled Total Protein 6.7 (6.0-8.3) gm/dl Albumin 4.0 (3.4-5.0) gm/dl Globulin 2.7 (2.5-4.0) gm/dl Albumin/Globulin Ratio 1.5 (0.9-2) TSH 0.835 (0.300-4.500) uIu/ml Urine Color Urine Appearance (Clear) Urine pH (4.5-7.5) Ur Specific [place] (1.000-1.030) Urine Protein (Negative) Urine Glucose (UA) (Negative) Urine Ketones (Negative) Urine Blood (Negative) Urine Nitrite (Negative) Urine Bilirubin (Negative) Urine Urobilinogen (Negative) Ur Leukocyte Esterase (Negative) SARS-CoV-2 (PCR) (Negative) 07/23/22 Range/Units 22:05 WBC (4.8-10.8) K/ul RBC (4.63-6.08) M/uL Hgb (14.0-18.0) g/dl Hct (40.1-51.0) % MCV (80.0-100.0) fL MCH (25.0-34.0) pg MCHC (32.0-36.0) g/dL RDW Std Deviation (36.4-46.3) fL RDW Coeff of Aneta (11.5-14.5) % Plt Count (130-400) K/uL MPV (9.4-12.4) fL PT (9.0-12.0) Seconds INR (0.9-1.1) APTT (21.0-31.0) Seconds PTT Ratio Sodium (136-145) mmol/L Potassium (3.5-5.1) mmol/L Chloride (98-107) mmol/L Carbon Dioxide (21-32) mmol/L Anion Gap (3-11) BUN (6-23) mg/dl Creatinine (0.6-1.4) mg/dl Est Cr Clr Drug Dosing ml/min Est GFR ( Amer) ml/min Est GFR (Non-Af Amer) ml/min BUN/Creatinine Ratio (10-20) Glucose (70-99(Fasting)) mg/dl Calcium (8.5-10.1) mg/dl Magnesium (1.7-2.4) mg/dl Total Bilirubin (0.2-1.0) mg/dl AST (13-39) U/L ALT (7-52) U/L Alkaline Phosphatase (34-104) U/L Total Creatine Kinase (30-223) U/L Troponin I High Sens Total Protein (6.0-8.3) gm/dl Albumin (3.4-5.0) gm/dl Globulin (2.5-4.0) gm/dl Albumin/Globulin Ratio (0.9-2) TSH (0.300-4.500) uIu/ml Urine Color Urine Appearance (Clear) Urine pH (4.5-7.5) Ur Specific [place] (1.000-1.030) Urine Protein (Negative) Urine Glucose (UA) (Negative) Urine Ketones (Negative) Urine Blood (Negative) Urine Nitrite (Negative) Urine Bilirubin (Negative) Urine Urobilinogen (Negative) Ur Leukocyte Esterase (Negative) SARS-CoV-2 (PCR) NEGATIVE (Negative) Imaging Data Attestation: I personally reviewed and interpreted this imaging study as follows: Radiologist's Impression: Head CT 07/23/22 19:15 CT head/brain wo con CLINICAL HISTORY: Stroke Alert Technique: Contiguous axial CT images of the head were acquired from the base of the skull to the vertex without intravenous contrast administration. Images were viewed in brain, subdural and bone windows. Automated dose lowering techniques and/or adjustment according to patient size were utilized for this exam. Comparison: Comparison is made to CT head 07/21/2021 Findings: Areas of decreased attenuation are present in the periventricular and subcortical white matter bilaterally consistent with small vessel ischemic disease. Generalized cerebral atrophy with commensurate enlargement of the ventricles, sulci, and cisterns is also present. There is no acute intracranial hemorrhage or evidence of acute territorial infarction. No shift of the midline structures, mass effect, or extra-axial abnormalities are shown. Atherosclerotic calcifications are present in the intracranial segments of the internal carotid arteries. Dural calcifications are seen. 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 Imaged portions of the paranasal sinuses and mastoid air cells are clear. The orbits appear normal. There are no acute fractures of the calvaria or scalp swelling. Impression: No acute intracranial hemorrhage, no evidence of acute territorial infarction or other acute intracranial disease process. ACT 112: Negative or not required by law. Electronically signed by: Bryon Perales M.D. 07/23/2022 7:51 PM MDM Narrative Prior records/ancillary studies reviewed and summarized above. Nursing notes reviewed. Additional history obtained from family. The patient's history was concerning for increased confusion. Differential diagnosis: Etiologies such as metabolic, infection, hypo/hyperglycemia, electrolyte abnormalities, cardiac sources, intracerebral event, toxicologic, neurologic, as well as others were entertained. Physical examination: As above. ER treatment provided: IV Lock An order was placed for continuous cardiac monitoring. The monitor shows a rate of 60-100 with a sinus rhythm. Magnesium, IV fluids On reassessment the patient felt better. Diagnostics interpretation by me: ECG: Ordered for weakness EKG: Left anterior fascicular block, right bundle, rate of 72. 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 EKG shows no interval abnormalities such as QT prolongation or WPW. There are no findings to suggest Brugada syndrome. Cardiac monitoring in the emergency department reveals no tachycardic or bradycardic dysrhythmia. Hypertrophic cardiomyopathy was considered but there are no clear historical elements pointing toward this. EKG is not suggestive. The QRS voltage is not extremely large The labs revealed negative urine negative COVID Imaging studies: Chest x-ray with no acute consolidation, pneumothorax or free air per my interpretation Imaging as above Consultation: A consultation was placed with the hospitalist. The case was discussed and diagnostics were reviewed. The patient was evaluated in the ER for further treatment. Exam and history seem consistent with increasing confusion per family. Per family's request, hospitalist was consulted for admission. Family is concerned he is more confused than baseline. Medicine will evaluate. No UTI. Stable labs. Negative COVID. By the evaluation outlined above emergent etiologies such as infection, electrolyte abnormalities, cardiac sources, intracerebral event, toxologic, neurologic, abnormalities blood glucose, metabolic, as well as others were deemed relatively unlikely. The pt informed about the findings as listed above. All questions were answered and pleased with the treatment. The chart was completed utilizing [employer] Speech voice recognition software. Grammatical errors, random word insertions, pronoun errors, and incomplete sentences are an occassional consequence of this system due to software limitations, ambient noise, and hardware issues. Any formal questions or concerns about the content, text, or information contained within the body of this dictation should be directly addressed to the physician assistant grocery for clarification. Impression & Plan Dementia, Altered mental status Discharge Plan Visit Data Chief Complaint: Confusion Stated Complaint: CONFUSION, DISORENITED ED Provider: Jez Timmons ED Midlevel Provider: Marce Mckeon Discharge Problem: Dementia, Altered mental status Patient Disposition: Admitted As Inpatient Condition: Good Discharge Instructions Interventions: ED Discharge Assessment Last Done: 07/24/22 01:26
[2022-07-24] MEDS: MAGNESIUM SULFATE / D5W 1 GM/100 ML BAG IV SCH ×4 (00:11→10:04)
--- NOTE | 2022-07-24 00:36 | History & Physical Report ---
Date of Service July 24, 2022 Assessment & Plan (1) Mild cognitive impairment: Plan: - reports of dementia from family and ED staff - patient AAOx4 at this time - unable to get collateral from family overnight - if patient needs placement, will have to see [facility] qualifies [facility] - PT/OT ordered - CM consulted for placement needs (2) COPD with emphysema: Plan: - not in exacerbation - continue home inhalers (3) Paroxysmal atrial tachycardia: Plan: - reportedly new onset Afib in last admission 07/2021 - not continued on AC at that time -continue Aspirin (4) Carotid artery disease: Plan: - reportedly with >70% stenosis bilaterally - not symptomatic and no recent syncope - continue medical management with aspirin and statin (5) Hypertension: Plan: - continue home medications (6) T2DM (type 2 diabetes mellitus): Plan: - not on medication at home - last A1c 7.5% in 07/2021 which is a good goal for this elderly individual with MCI - will repeat A1c here - monitor BG for now - can add SSI if persistently >180 Plan DVT ppx: lovenox Code Status: DNR/DNI Dispo: med/surg Michael Aragon MD [facility] Medicine Admission and Anticipated Discharge Date Admission Date: 07/24/2022 History of Present Illness Chief Complaint: confusion Primary Care Provider: Riya Steele DO The patient is an 87 year old man with pmh bilateral carotid artery stenosis, HTN, COPD, pAfib, BPH, GERD, HLD who presented from home with daughter in law wh o feels the patient is more confused. I attempted to reach daughter by phone but was unsuccessful. Per the patient, he says he lives with his daughter in law and was having some hip pain today so she brought him in. There is some concern that the patient has some degree of MCI vs dementia. He was oriented to person, place, time, and knew who the POTUS is. He denied any fevers or chills, n/v/d, abdominal pain, chest pain, shortness of breath, cough, dysuria, frequency, sore throat, rashes. When asked if he takes any medications for his heart or lungs he denied this but was aware that he has had urologic issues recent and saw a Urologist for the same. He reports being able to walk around and maintain some basic ADLs at home. In the ED, vitals were unremarkable. Labs were significant for Mg 1.5. CTH was unremarkable, CXR negative for pathology. He was admitted to medicine for possible placement pending further discussion with daughter. Allergies Allergy/AdvReac Type Severity Reaction Status Date / Time propoxyphene Allergy Unknown NAUSEA Verified 07/09/22 10:04 AND VOMITING Home Medications Medication Instructions Recorded Confirmed Type atorvastatin 80 mg tablet (Lipitor) 40 mg PO DAILY 10/05/19 07/09/22 History finasteride 5 mg tablet 5 mg PO DAILY 10/05/19 07/09/22 History omeprazole 20 mg capsule,delayed 20 mg PO DAILY 10/05/19 07/09/22 History release tamsulosin 0.4 mg capsule 0.4 mg PO HS 10/05/19 07/09/22 History amlodipine 5 mg tablet 5 mg PO DAILY 07/19/21 07/09/22 History aspirin 81 mg chewable tablet 81 mg PO DAILY 07/19/21 07/09/22 History (Aspirin Childrens) cholecalciferol (vitamin D3) 25 2,550 mcg PO DAILY 07/19/21 07/09/22 History mcg (1,000 unit) tablet (Vitamin D3) albuterol sulfate 90 mcg/actuation 2 puff inhalation QID PRN 08/07/21 Rx aerosol inhaler (Ventolin HFA) shortness of breath or wheezing #8.5 grams umeclidinium 62.5 mcg-vilanterol 1 ea inhalation DAILY #60 ea 08/07/21 Rx 25 mcg/actuation powdr for inhalation (Anoro Ellipta) Past Med/Surg History Medical History BPH (benign prostatic hyperplasia) Carotid artery disease Carotid ultrasound on 03/31/2021 revealed right internal carotid 70 to 99% critical stenosis, left internal carotid 50 to 69% stenosis GERD (gastroesophageal reflux disease) High cholesterol Hypertension T2DM (type 2 diabetes mellitus) Surgical History History of cataract extraction History of cholecystectomy History of knee replacement, total History of right hip replacement Family History Brother Colorectal cancer Father Black lung Social History Smoking Status: Never smoker Second Hand Exposure: No; Hx Alcohol Use: Yes Alcohol type: beer Alcohol Intake Frequency: Monthly or Less Hx Substance Use: No Preferred Language: Mongolian Communication Ability: Effective Data Security Analyst Required: No Beliefs That Will Affect Care: None marital status: / Current Living Situation: Alone Current Living Situation Comment: Home, Independent current occupational status: retired current occupation: Keys Feels Safe at Home: Yes Assistive Devices: Denture - Upper, Glasses and Walker Review of Systems Review of Systems: All systems reviewed & are unremarkable except as noted in Subjective Physical Exam Constitutional: WD/WN, vitals as above + obese; no acute distress and no altered mental status Eyes: PERRL, conjunctivae normal, anicteric sclerae ENMT: external ear and nose normal, oropharynx normal Neck: trachea midline, no thyromegaly Respiratory: normal respiratory effort, lungs clear to auscultation Cardiovascular: RRR, no murmur, no edema Gastrointestinal (Abdomen): normal bowel sounds, soft, nontender, no hepatosplenomegaly Musculoskeletal: no cyanosis or clubbing, extremities motor strength 5/5 Skin: no rashes, warm and dry Neurologic: patellar DTR's 2+ bilat, sensation intact and PERRL, EOMI, accommodation nl, no face palsy, no dysarthria Psychiatric: A+Ox3, euthymic affect Results & Data Results & Data ([facility]) Vital Signs (Past 12 Hours) Vital Signs Temp Pulse Pulse Resp BP BP Pulse Ox 07/23/22 23:10 96 H 16 143/82 H 96 07/23/22 21:20 68 20 07/23/22 19:06 36.4 C L 76 17 161/79 H 96 O2 Del Method 07/23/22 23:10 Room Air 07/23/22 21:20 Room Air 07/23/22 19:06 Room Air Laboratory Results Short CBC 07/23/22 Range/Units 19:37 WBC 6.20 (4.8-10.8) K/ul Hgb 14.2 (14.0-18.0) g/dl Hct 43.2 (40.1-51.0) % Plt Count 185 (130-400) K/uL BMP 07/23/22 19:37 Sodium 138 Potassium 4.5 Chloride 106 Carbon Dioxide 24 BUN 31 H Creatinine 1.29 Glucose 118 H Calcium 8.9 Cardiac Enzymes 07/23/22 Range/Units 19:37 Total Creatine Kinase 66 (30-223) U/L Liver Function 07/23/22 Range/Units 19:37 Total Bilirubin 0.5 (0.2-1.0) mg/dl AST 12 L (13-39) U/L ALT 10 (7-52) U/L Alkaline Phosphatase 74 (34-104) U/L Albumin 4.0 (3.4-5.0) gm/dl Urine 07/23/22 Range/Units 19:27 Urine Color Yellow Urine Appearance Clear (Clear) Urine pH 5.5 (4.5-7.5) Ur Specific [place] 1.021 (1.000-1.030) Urine Protein Negative (Negative) Urine Glucose (UA) Negative (Negative) Diagnostic Findings Head CT 07/23/22 19:15 CT head/brain wo con CLINICAL HISTORY: Stroke Alert Technique: Contiguous axial CT images of the head were acquired from the base of the skull to the vertex without intravenous contrast administration. Images were viewed in brain, subdural and bone windows. Automated dose lowering techniques and/or adjustment according to patient size were utilized for this exam. Comparison: Comparison is made to CT head 07/21/2021 Findings: Areas of decreased attenuation are present in the periventricular and subcortical white matter bilaterally consistent with small vessel ischemic disease. Generalized cerebral atrophy with commensurate enlargement of the ventricles, sulci, and cisterns is also present. There is no acute intracranial hemorrhage or evidence of acute territorial infarction. No shift of the midline structures, mass effect, or extra-axial abnormalities are shown. Atherosclerotic calcifications are present in the intracranial segments of the internal carotid arteries. Dural calcifications are seen. 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 Imaged portions of the paranasal sinuses and mastoid air cells are clear. The o rbits appear normal. There are no acute fractures of the calvaria or scalp swelling. Impression: No acute intracranial hemorrhage, no evidence of acute territorial infarction or other acute intracranial disease process. ACT 112: Negative or not required by law. Electronically signed by: Bryon Perales M.D. 07/23/2022 7:51 PM Medications Administered Current Inpatient Medications Acetaminophen (Acetaminophen 325 Mg Tab) 650 mg PO Q4H PRN PRN Reason: Pain or Fever Stop: 08/23/22 00:03 Enoxaparin Sodium (Enoxaparin Inj 40 Mg/0.4 Ml Syr) 40 mg SQ Q24H BERTRAND Stop: 08/23/22 00:14 Polyethylene Glycol (Polyethylene (Miralax) 17 Gm Pack) 17 gm PO DAILY PRN PRN Reason: Constipation Stop: 08/23/22 00:03 Code Status & VTE Plan Code Status DNR/DNI VTE Prophylaxis Plan VTE Prophylaxis will be ordered: Yes
[2022-07-24] MEDS: ENOXAPARIN INJ 40 MG/0.4 ML SYR SQ SCH ×2 (01:49→20:12)
--- NOTE | 2022-07-24 07:23 | Electrocardiogram Report ---
Test Reason : Blood Pressure : / mmHG Vent. Rate : 072 BPM Atrial Rate : 072 BPM P-R Int : 188 ms QRS Dur : 142 ms QT Int : 414 ms P-R-T Axes : 034 -55 002 degrees QTc Int : 453 ms Normal sinus rhythm Right bundle branch block Left anterior fascicular block Bifascicular block Abnormal ECG When compared with ECG of 25-JUL-2021 07:06, Sinus rhythm has replaced Atrial fibrillation Vent. rate has decreased BY 37 BPM Inverted T waves have replaced nonspecific T wave abnormality in Inferior leads QT has shortened Confirmed by Dani Ortez ([id number]) on 07/24/2022 7:22:43 AM Referred By: REFERRED SELF Confirmed By:Deny Ortez
[2022-07-24 08:11] LABS: Estimated Average Glucose 166 mg/dl; Hemoglobin A1C 7.4 % (4.5-5.6)
--- NOTE | 2022-07-24 08:14 | XRay Report ---
XR chest 2V PA/lateral HISTORY: Cough. Altered mental status. COMPARISON: Chest 07/30/2021. FINDINGS: No pneumothorax. No pleural effusions. The cardiac silhouette remains mildly enlarged. No e vidence for pulmonary edema. Peripheral hazy densities and interstitial thickening has improved in th e interval. This favors a chronic postinflammatory change. IMPRESSION: Peripheral hazy densities with interstitial thickening which has improved in the interval. Therefore, this favors chronic postinflammatory change/scarring. ACT 112: Negative or not required by law. Electronically signed by: Michael Pierce M.D. 07/24/2022 8:12 AM
[2022-07-24 08:34] LABS: Albumin Globulin Ratio 1.6 (0.9-2); Albumin Level 3.6 gm/dl (3.4-5.0); BUN Creatinine Ratio 25.5 (10-20); Bilirubin,Total 0.6 mg/dl (0.2-1.0); Calcium 8.6 mg/dl (8.5-10.1); Creatinine Clr Calc Pharmacy 69.7 ml/min; Est GFR (African American) 84.2 ml/min; Est GFR (Non-African American) 72.6 ml/min; Globulin 2.3 gm/dl (2.5-4.0); Magnesium 1.5 mg/dl (1.7-2.4); Potassium 3.8 mmol/L (3.5-5.1); Total Protein 5.9 gm/dl (6.0-8.3)
--- NOTE | 2022-07-24 08:48 | Hospitalist Progress Note ---
Date of Service July 24, 2022 Assessment & Plan (1) Mild cognitive impairment: Plan: - reports of dementia from family and ED staff - patient AAOx4 on admission -Per family/zekxhjfe-by-moc Lenka, patient was more confused and somewhat unkempt which is unusual for him even though he has dementia - if patient needs placement, will have to see if qualifies for shelter - PT/OT ordered - CM consulted for placement needs -He has a history of recurrent UTIs, however UA negative in the ED. CT head, chest x-ray, unremarkable -Patient has diarrhea, per family this seems to be chronic since he had cholecystectomy -We will obtain stool PCR, and KUB to rule out any other underlying condition/infection (2) COPD with emphysema: Plan: - not in exacerbation - continue home inhalers (3) Paroxysmal atrial tachycardia: Plan: - reportedly new onset Afib in last admission 07/2021 - not continued on AC at that time -continue Aspirin (4) Carotid artery disease: Plan: - reportedly with >70% stenosis bilaterally - not symptomatic and no recent syncope - continue medical management with aspirin and statin (5) Hypertension: Plan: - continue home medications (6) T2DM (type 2 diabetes mellitus): Plan: - not on medication at home - last A1c 7.5% in 07/2021 which is a good goal for this elderly individual with MCI - current A1c 7.4% - monitor BG for now - can add SSI if persistently >180 Plan DVT ppx: lovenox Code Status: DNR/DNI Dispo: med/surg Admission and Anticipated Discharge Date Admission Date: July 24, 2022 Subjective Pt seen in follow up of confusion/ AMS in the setting of dementia On admission however pt seemed alert and oriented Pt brought in by family Patient is currently sitting up in bed, in no acute distress, ate most of his breakfast He is reporting feeling well, and has no complaints Denies any fevers, chills, chest pain, shortness of breath, abdominal pain He does report episode of diarrhea Discussed with RN, will obtain stool sample for testing, jovany Patient's yntmgiab-sk-yfv Lenka, called his cell phone, and I was able to discuss with her over the phone at the bedside. She reported patient was out of his sorts yesterday, which is unusual for him. She is aware he has history of dementia, however was somewhat confused, and unkempt yesterday which is very unusual for him. Review of Systems Review of Systems: All systems reviewed & are unremarkable except as noted in Subjective Physical Exam Physical Exam: Constitutional:L WD/WN, vitals as a carline + obese; no acute distress and no altered mental status Eyes: PERRL, EOMI, conju nctivae normal, an icteric sclerae ENMT: external ear and n ose normal, oropha rynx normal Neck: supple, thick Respiratory: normal respiratory effort, lungs la nena ar to auscultation Cardiovascular:L RRR, no murmur, no edema Gastrointestinal ( Abdomen): normal bowel sound s, soft, nontender , obese Musculoskeletal: moves extremities Skin: no rashes, warm an d dry Neurologic: awake alert, answe ring appropriately , PERRL, EOMI,no f leonie palsy, no dysa rthria, moves extr emities Psychiatric: A+Ox3, euthymic af fect Results & Data Results & Data ([facility]) Vital Signs (Past 12 Hours) Vital Signs Temp Pulse Pulse Resp BP Pulse Ox O2 Del Method 07/24/22 07:29 36.7 C 78 16 154/79 H 92 Room Air 07/24/22 01:30 Room Air 07/24/22 01:30 36.4 C L 61 16 152/90 H 97 Room Air 07/24/22 00:50 78 16 164/68 H 94 Room Air 07/23/22 23:10 96 H 16 143/82 H 96 Room Air 07/23/22 21:20 68 20 Room Air Laboratory Results 07/24/22 07/24/22 07/24/22 Range/Units 08:23 07:20 07:20 WBC (4.8-10.8) K/ul RBC (4.63-6.08) M/uL Hgb (14.0-18.0) g/dl Hct (40.1-51.0) % MCV (80.0-100.0) fL MCH (25.0-34.0) pg MCHC (32.0-36.0) g/dL RDW Std Deviation (36.4-46.3) fL RDW Coeff of Aneta (11.5-14.5) % Plt Count (130-400) K/uL MPV (9.4-12.4) fL PT (9.0-12.0) Seconds INR (0.9-1.1) APTT (21.0-31.0) Seconds PTT Ratio Sodium 138 (136-145) mmol/L Potassium 3.8 (3.5-5.1) mmol/L Chloride 107 (98-107) mmol/L Carbon Dioxide 24 (21-32) mmol/L Anion Gap 7 (3-11) BUN 24 H (6-23) mg/dl Creatinine 0.94 D (0.6-1.4) mg/dl Est Cr Clr Drug Dosing 69.7 ml/min Est GFR ( Amer) 84.2 ml/min Est GFR (Non-Af Amer) 72.6 ml/min BUN/Creatinine Ratio 25.5 H (10-20) Glucose 133 H (70-99(Fasting)) mg/dl POC Glucose 141 H (70-99) mg/dl Estimat Average Glucose 166 mg/dl Hemoglobin A1c 7.4 H (4.5-5.6) % Calcium 8.6 (8.5-10.1) mg/dl Magnesium 1.5 L (1.7-2.4) mg/dl Total Bilirubin 0.6 (0.2-1.0) mg/dl AST 8 L (13-39) U/L ALT 10 (7-52) U/L Alkaline Phosphatase 60 (34-104) U/L Total Creatine Kinase (30-223) U/L Troponin I High Sens Total Protein 5.9 L (6.0-8.3) gm/dl Albumin 3.6 (3.4-5.0) gm/dl Globulin 2.3 L (2.5-4.0) gm/dl Albumin/Globulin Ratio 1.6 (0.9-2) TSH (0.300-4.500) uIu/ml Urine Color Urine Appearance (Clear) Urine pH (4.5-7.5) Ur Specific [place] (1.000-1.030) Urine Protein (Negative) Urine Glucose (UA) (Negative) Urine Ketones (Negative) Urine Blood (Negative) Urine Nitrite (Negative) Urine Bilirubin (Negative) Urine Urobilinogen (Negative) Ur Leukocyte Esterase (Negative) SARS-CoV-2 (PCR) (Negative) 07/24/22 07/24/2222 Range/Units 02:10 00:15 22:05 WBC (4.8-10.8) K/ul RBC (4.63-6.08) M/uL Hgb (14.0-18.0) g/dl Hct (40.1-51.0) % MCV (80.0-100.0) fL MCH (25.0-34.0) pg MCHC (32.0-36.0) g/dL RDW Std Deviation (36.4-46.3) fL RDW Coeff of Aneta (11.5-14.5) % Plt Count (130-400) K/uL MPV (9.4-12.4) fL PT (9.0-12.0) Seconds INR (0.9-1.1) APTT (21.0-31.0) Seconds PTT Ratio Sodium (136-145) mmol/L Potassium (3.5-5.1) mmol/L Chloride (98-107) mmol/L Carbon Dioxide (21-32) mmol/L Anion Gap (3-11) BUN (6-23) mg/dl Creatinine (0.6-1.4) mg/dl Est Cr Clr Drug Dosing ml/min Est GFR ( Amer) ml/min Est GFR (Non-Af Amer) ml/min BUN/Creatinine Ratio (10-20) Glucose (70-99(Fasting)) mg/dl POC Glucose 142 H (70-99) mg/dl Estimat Average Glucose mg/dl Hemoglobin A1c (4.5-5.6) % Calcium (8.5-10.1) mg/dl Magnesium (1.7-2.4) mg/dl Total Bilirubin (0.2-1.0) mg/dl AST (13-39) U/L ALT (7-52) U/L Alkaline Phosphatase (34-104) U/L Total Creatine Kinase (30-223) U/L Troponin I High Sens 11.0 Total Protein (6.0-8.3) gm/dl Albumin (3.4-5.0) gm/dl Globulin (2.5-4.0) gm/dl Albumin/Globulin Ratio (0.9-2) TSH (0.300-4.500) uIu/ml Urine Color Urine Appearance (Clear) Urine pH (4.5-7.5) Ur Specific [place] (1.000-1.030) Urine Protein (Negative) Urine Glucose (UA) (Negative) Urine Ketones (Negative) Urine Blood (Negative) Urine Nitrite (Negative) Urine Bilirubin (Negative) Urine Urobilinogen (Negative) Ur Leukocyte Esterase (Negative) SARS-CoV-2 (PCR) NEGATIVE (Negative) 07/23/22 07/23/22 07/23/22 Range/Units 19:37 19:37 19:37 WBC (4.8-10.8) K/ul RBC (4.63-6.08) M/uL Hgb (14.0-18.0) g/dl Hct (40.1-51.0) % MCV (80.0-100.0) fL MCH (25.0-34.0) pg MCHC (32.0-36.0) g/dL RDW Std Deviation (36.4-46.3) fL RDW Coeff of Aneta (11.5-14.5) % Plt Count (130-400) K/uL MPV (9.4-12.4) fL PT (9.0-12.0) Seconds INR (0.9-1.1) APTT (21.0-31.0) Seconds PTT Ratio Sodium 138 (136-145) mmol/L Potassium 4.5 (3.5-5.1) mmol/L Chloride 106 (98-107) mmol/L Carbon Dioxide 24 (21-32) mmol/L Anion Gap 8 (3-11) BUN 31 H (6-23) mg/dl Creatinine 1.29 (0.6-1.4) mg/dl Est Cr Clr Drug Dosing 51.2 ml/min Est GFR ( Amer) 57.4 ml/min Est GFR (Non-Af Amer) 49.5 ml/min BUN/Creatinine Ratio 24.0 H (10-20) Glucose 118 H (70-99(Fasting)) mg/dl POC Glucose (70-99) mg/dl Estimat Average Glucose mg/dl Hemoglobin A1c (4.5-5.6) % Calcium 8.9 (8.5-10.1) mg/dl Magnesium 1.5 L (1.7-2.4) mg/dl Total Bilirubin 0.5 (0.2-1.0) mg/dl AST 12 L (13-39) U/L ALT 10 (7-52) U/L Alkaline Phosphatase 74 (34-104) U/L Total Creatine Kinase 66 (30-223) U/L Troponin I High Sens Cancelled Total Protein 6.7 (6.0-8.3) gm/dl Albumin 4.0 (3.4-5.0) gm/dl Globulin 2.7 (2.5-4.0) gm/dl Albumin/Globulin Ratio 1.5 (0.9-2) TSH 0.835 (0.300-4.500) uIu/ml Urine Color Urine Appearance (Clear) Urine pH (4.5-7.5) Ur Specific [place] (1.000-1.030) Urine Protein (Negative) Urine Glucose (UA) (Negative) Urine Ketones (Negative) Urine Blood (Negative) Urine Nitrite (Negative) Urine Bilirubin (Negative) Urine Urobilinogen (Negative) Ur Leukocyte Esterase (Negative) SARS-CoV-2 (PCR) (Negative) 07/23/22 07/23/22 07/23/22 Range/Units 19:37 19:37 19:27 WBC 6.20 (4.8-10.8) K/ul RBC 4.54 L (4.63-6.08) M/uL Hgb 14.2 (14.0-18.0) g/dl Hct 43.2 (40.1-51.0) % MCV 95.2 (80.0-100.0) fL MCH 31.3 (25.0-34.0) pg MCHC 32.9 (32.0-36.0) g/dL RDW Std Deviation 46.8 H (36.4-46.3) fL RDW Coeff of Aneta 13.3 (11.5-14.5) % Plt Count 185 (130-400) K/uL MPV 10.1 (9.4-12.4) fL PT 11.4 (9.0-12.0) Seconds INR 1.1 (0.9-1.1) APTT 26.0 (21.0-31.0) Seconds PTT Ratio 0.9 Sodium (136-145) mmol/L Potassium (3.5-5.1) mmol/L Chloride (98-107) mmol/L Carbon Dioxide (21-32) mmol/L Anion Gap (3-11) BUN (6-23) mg/dl Creatinine (0.6-1.4) mg/dl Est Cr Clr Drug Dosing ml/min Est GFR ( Amer) ml/min Est GFR (Non-Af Amer) ml/min BUN/Creatinine Ratio (10-20) Glucose (70-99(Fasting)) mg/dl POC Glucose (70-99) mg/dl Estimat Average Glucose mg/dl Hemoglobin A1c (4.5-5.6) % Calcium (8.5-10.1) mg/dl Magnesium (1.7-2.4) mg/dl Total Bilirubin (0.2-1.0) mg/dl AST (13-39) U/L ALT (7-52) U/L Alkaline Phosphatase (34-104) U/L Total Creatine Kinase (30-223) U/L Troponin I High Sens Total Protein (6.0-8.3) gm/dl Albumin (3.4-5.0) gm/dl Globulin (2.5-4.0) gm/dl Albumin/Globulin Ratio (0.9-2) TSH (0.300-4.500) uIu/ml Urine Color Yellow Urine Appearance Clear (Clear) Urine pH 5.5 (4.5-7.5) Ur Specific [place] 1.021 (1.000-1.030) Urine Protein Negative (Negative) Urine Glucose (UA) Negative (Negative) Urine Ketones Negative (Negative) Urine Blood Negative (Negative) Urine Nitrite Negative (Negative) Urine Bilirubin Negative (Negative) Urine Urobilinogen Negative (Negative) Ur Leukocyte Esterase Negative (Negative) SARS-CoV-2 (PCR) (Negative) Medications Administered Current Inpatient Medications Acetaminophen (Acetaminophen 325 Mg Tab) 650 mg PO Q4H PRN PRN Reason: Pain or Fever Stop: 08/23/22 00:03 Amlodipine Besylate (Amlodipine Besylate 5 Mg Tab) 5 mg PO DAILY [facility] Stop: 08/23/22 08:59 Aspirin (Aspirin 81 Mg Chew) 81 mg PO DAILY [facility] Stop: 08/23/22 08:59 Atorvastatin Calcium (Atorvastatin 40 Mg Tab) 40 mg PO DAILY [facility] Stop: 08/23/22 08:59 Enoxaparin Sodium (Enoxaparin Inj 40 Mg/0.4 Ml Syr) 40 mg SQ HS [facility] Stop: 08/23/22 00:59 Last Admin: 07/24/22 01:49 Dose: 40 mg Finasteride (Finasteride 5 Mg Tab) 5 mg PO DAILY [facility] Stop: 08/23/22 08:59 Magnesium Sulfate/Dextrose (Magnesium Sulfate / D5w) 1 gm in 100 mls @ 50 mls/hr IV Q2H [facility] Stop: 07/24/22 11:14 Last Admin: 07/24/22 08:02 Dose: 50 mls/hr Pantoprazole Sodium (Pantoprazole 40 Mg Tab) 40 mg PO DAILY [facility] Stop: 08/23/22 08:59 Polyethylene Glycol (Polyethylene (Miralax) 17 Gm Pack) 17 gm PO DAILY PRN PRN Reason: Constipation Stop: 08/23/22 00:03 Tamsulosin HCl (Tamsulosin Hcl 0.4 Mg Cap) 0.4 mg PO HS [facility] Stop: 08/23/22 20:59 Umeclidinium/Vilanterol (Umeclidinium/Vilanterol 62.5/25mcg 7 Puffs/Inhaler) 1 puffs INH DAILY [facility] Stop: 08/23/22 08:59 Vitamin D (Cholecalciferol 1,000 Units 25 Mcg Tab) 2,000 units PO DAILY [facility] Stop: 08/23/22 08:59
[2022-07-24] MEDS: CHOLECALCIFEROL 1,000 UNITS 25 MCG TAB PO SCH (10:01)
[2022-07-24] MEDS: ATORVASTATIN 40 MG TAB PO SCH (10:01)
[2022-07-24] MEDS: PANTOprazole 40 MG TAB PO SCH (10:01)
[2022-07-24] MEDS: FINASTERIDE 5 MG TAB PO SCH (10:01)
[2022-07-24] MEDS: amLODIPine BESYLATE 5 MG TAB PO SCH (10:01)
[2022-07-24] MEDS: ASPIRIN 81 MG CHEW PO SCH (10:02)
[2022-07-24] MEDS: UMECLIDINIUM/VILANTEROL 62.5/25MCG 7 PUFFS/INHALER INH SCH (10:02)
--- NOTE | 2022-07-24 14:10 | XRay Report ---
KUB HISTORY: Diarrhea. Altered mental status. COMPARISON: None. FINDINGS: The bowel gas pattern is unremarkable. There are no dilated loops of small bowel to suggest an obstruction. No renal calculi. No ureteral calculi. No pneumoperitoneum or pneumatosis. Prior ch olecystectomy. 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 IMPRESSION: No dilated loops of bowel to suggest an obstruction. ACT 112: Negative or not required by law. Electronically signed by: Michael Pierce M.D. 07/24/2022 2:08 PM
[2022-07-24] MEDS: TAMSULOSIN HCL 0.4 MG CAP PO SCH (20:12)
--- NOTE | 2022-07-25 07:56 | Hospitalist Progress Note ---
Date of Service July 25, 2022 Assessment & Plan (1) Mild cognitive impairment: Plan: - reports of dementia from family and ED staff - patient AAOx4 on admission -Per family/dcoisxpq-xy-gup Lenka, patient was more confused and somewhat unkempt which is unusual for him even though he has dementia - if patient needs placement, will have to see [facility] qualifies for [facility] - PT/OT ordered - CM consulted for placement needs -He has a history of recurrent UTIs, however UA negative in the ED. CT head, chest x-ray, unremarkable -Patient has diarrhea, per family this seems to be chronic since he had cholecystectomy -stool PCR and KUB to rule out any other underlying condition/infection KUB unremarkable stool sample collection pending (2) COPD with emphysema: Plan: - not in exacerbation - continue home inhalers (3) Paroxysmal atrial tachycardia: Plan: - reportedly new onset Afib in last admission 07/2021 - not continued on AC at that time -continue Aspirin (4) Carotid artery disease: Plan: - reportedly with >70% stenosis bilaterally - not symptomatic and no recent syncope - continue medical management with aspirin and statin (5) Hypertension: Plan: - continue home medications (6) T2DM (type 2 diabetes mellitus): Plan: - not on medication at home - last A1c 7.5% in 07/2021 which is a good goal for this elderly individual with MCI - current A1c 7.4% - monitor BG for now - can add SSI if persistently >180 Plan DVT ppx: lovenox Code Status: DNR/DNI Dispo: med/surg Admission and Anticipated Discharge Date Admission Date: July 24, 2022 Subjective Pt seen in follow up of confusion/ AMS in the setting of dementia On admission however pt seemed alert and oriented Pt brought in by family Yesterday patient was able to communicate well, and provide some history His rqfleasg-od-kyq Lenka also called on his cell phone and I was able to confirm history with her However today, patient is little more confused, I found him sitting at the edge of the bed, trying to get up and go after his granddaughter Reoriented the patient, to make sure he knew he was in the hospital. Called [employer] to the bedside as well. Yesterday patient incontinent of stool, having loose stools, seems to be chronic However would like to obtain PCR of stool sample if available. Still pending collection. Pt is otherwise feeling well, and has no complaints Denies any fevers, chills, chest pain, shortness of breath, abdominal pain Review of Systems Review of Systems: All systems reviewed & are unremarkable except as noted in Subjective Physical Exam Physical Exam: Constitutional:L WD/WN, vitals as a carline + obese; no acute distress and no altered mental status Eyes: PERRL, EOMI, conju nctivae normal, an icteric sclerae ENMT: external ear and n ose normal, oropha rynx normal Neck: supple, thick Respiratory: normal respiratory effort, lungs la nena ar to auscultation Cardiovascular:L RRR, no murmur, no edema Gastrointestinal ( Abdomen): normal bowel sound s, soft, nontender , obese Musculoskeletal: moves extremities Skin: no rashes, warm an d dry Neurologic: awake alert, answe ring appropriately , PERRL, EOMI,no f leonie palsy, no dysa rthria, moves extr emities Psychiatric: A+Ox3, euthymic af fect Results & Data Results & Data ([facility]) Vital Signs (Past 12 Hours) Vital Signs Temp Pulse Resp BP Pulse Ox O2 Del Method 07/25/22 07:44 Room Air 07/25/22 07:38 36.5 C 76 16 147/93 H 95 Room Air 07/24/22 21:27 36.8 C 71 18 147/73 H 96 Room Air Laboratory Results 07/25/22 07/25/22 07/25/22 Range/Units 08:31 08:04 08:04 WBC 5.39 (4.8-10.8) K/ul RBC 4.39 L (4.63-6.08) M/uL Hgb 13.7 L (14.0-18.0) g/dl Hct 40.9 (40.1-51.0) % MCV 93.2 (80.0-100.0) fL MCH 31.2 (25.0-34.0) pg MCHC 33.5 (32.0-36.0) g/dL RDW Std Deviation 44.3 (36.4-46.3) fL RDW Coeff of Aneta 13.1 (11.5-14.5) % Plt Count 151 (130-400) K/uL MPV 10.1 (9.4-12.4) fL Immature Gran % (Auto) 0.2 % Neut % (Auto) 43.2 % Lymph % (Auto) 48.8 % [place] % (Auto) 4.8 % Eos % (Auto) 2.4 % Baso % (Auto) 0.6 % Neut # (Auto) 2.33 (1.4-6.5) K/uL Lymph # (Auto) 2.63 (1.2-3.4) K/uL [place] # (Auto) 0.26 (0.24-0.82) K/uL Eos # (Auto) 0.13 (0-0.50) K/uL Baso # (Auto) 0.03 (0-0.2) K/uL Immature Gran # (Auto) 0.01 (0.00-0.02) K/uL Sodium 135 L (136-145) mmol/L Potassium 3.9 (3.5-5.1) mmol/L Chloride 104 (98-107) mmol/L Carbon Dioxide 24 (21-32) mmol/L Anion Gap 7 (3-11) BUN 17 (6-23) mg/dl Creatinine 0.97 (0.6-1.4) mg/dl Est Cr Clr Drug Dosing 67.5 ml/min Est GFR ( Amer) 81.0 ml/min Est GFR (Non-Af Amer) 69.9 ml/min BUN/Creatinine Ratio 17.5 (10-20) Glucose 153 H (70-99(Fasting)) mg/dl POC Glucose 148 H (70-99) mg/dl Calcium 8.9 (8.5-10.1) mg/dl Phosphorus 3.4 (2.5-4.9) mg/dl Magnesium 1.7 (1.7-2.4) mg/dl 07/24/22 07/24/22 Range/Units 20:40 17:08 WBC (4.8-10.8) K/ul RBC (4.63-6.08) M/uL Hgb (14.0-18.0) g/dl Hct (40.1-51.0) % MCV (80.0-100.0) fL MCH (25.0-34.0) pg MCHC (32.0-36.0) g/dL RDW Std Deviation (36.4-46.3) fL RDW Coeff of Aneta (11.5-14.5) % Plt Count (130-400) K/uL MPV (9.4-12.4) fL Immature Gran % (Auto) % Neut % (Auto) % Lymph % (Auto) % [place] % (Auto) % Eos % (Auto) % Baso % (Auto) % Neut # (Auto) (1.4-6.5) K/uL Lymph # (Auto) (1.2-3.4) K/uL [place] # (Auto) (0.24-0.82) K/uL Eos # (Auto) (0-0.50) K/uL Baso # (Auto) (0-0.2) K/uL Immature Gran # (Auto) (0.00-0.02) K/uL Sodium (136-145) mmol/L Potassium (3.5-5.1) mmol/L Chloride (98-107) mmol/L Carbon Dioxide (21-32) mmol/L Anion Gap (3-11) BUN (6-23) mg/dl Creatinine (0.6-1.4) mg/dl Est Cr Clr Drug Dosing ml/min Est GFR ( Amer) ml/min Est GFR (Non-Af Amer) ml/min BUN/Creatinine Ratio (10-20) Glucose (70-99(Fasting)) mg/dl POC Glucose 125 H 129 H (70-99) mg/dl Calcium (8.5-10.1) mg/dl Phosphorus (2.5-4.9) mg/dl Magnesium (1.7-2.4) mg/dl Medications Administered Current Inpatient Medications Acetaminophen (Acetaminophen 325 Mg Tab) 650 mg PO Q4H PRN PRN Reason: Pain or Fever Stop: 08/23/22 00:03 Amlodipine Besylate (Amlodipine Besylate 5 Mg Tab) 5 mg PO DAILY [facility] Stop: 08/23/22 08:59 Last Admin: 07/24/22 10:01 Dose: 5 mg Aspirin (Aspirin 81 Mg Chew) 81 mg PO DAILY [facility] Stop: 08/23/22 08:59 Last Admin: 07/24/22 10:02 Dose: 81 mg Atorvastatin Calcium (Atorvastatin 40 Mg Tab) 40 mg PO DAILY [facility] Stop: 08/23/22 08:59 Last Admin: 07/24/22 10:01 Dose: 40 mg Enoxaparin Sodium (Enoxaparin Inj 40 Mg/0.4 Ml Syr) 40 mg SQ HS [facility] Stop: 08/23/22 00:59 Last Admin: 07/24/22 20:12 Dose: 40 mg Finasteride (Finasteride 5 Mg Tab) 5 mg PO DAILY [facility] Stop: 08/23/22 08:59 Last Admin: 07/24/22 10:01 Dose: 5 mg Pantoprazole Sodium (Pantoprazole 40 Mg Tab) 40 mg PO DAILY [facility] Stop: 08/23/22 08:59 Last Admin: 07/24/22 10:01 Dose: 40 mg Polyethylene Glycol (Polyethylene (Miralax) 17 Gm Pack) 17 gm PO DAILY PRN PRN Reason: Constipation Stop: 08/23/22 00:03 Tamsulosin HCl (Tamsulosin Hcl 0.4 Mg Cap) 0.4 mg PO HS [facility] Stop: 08/23/22 20:59 Last Admin: 07/24/22 20:12 Dose: 0.4 mg Umeclidinium/Vilanterol (Umeclidinium/Vilanterol 62.5/25mcg 7 Puffs/Inhaler) 1 puffs INH DAILY [facility] Stop: 08/23/22 08:59 Last Admin: 07/24/22 10:02 Dose: 1 puffs Vitamin D (Cholecalciferol 1,000 Units 25 Mcg Tab) 2,000 units PO DAILY [facility] Stop: 08/23/22 08:59 Last Admin: 07/24/22 10:01 Dose: 2,000 units
[2022-07-25 08:34] LABS: Basophils # (auto) 0.03 K/uL (0-0.2); Basophils % (auto) 0.6 %; Eosinophils # (auto) 0.13 K/uL (0-0.50); Eosinophils % (auto) 2.4 %; Hematocrit (blood only) 40.9 % (40.1-51.0); Hemoglobin 13.7 g/dl (14.0-18.0); Immature Granulocytes # (auto) 0.01 K/uL (0.00-0.02); Immature Granulocytes % (auto) 0.2 %; Lymphocytes # (auto) 2.63 K/uL (1.2-3.4); Lymphocytes % (auto) 48.8 %; Mean Corpuscular Hemoglobin 31.2 pg (25.0-34.0); Mean Corpuscular Hgb Conc 33.5 g/dL (32.0-36.0); Mean Corpuscular Volume 93.2 fL (80.0-100.0); Mean Platelet Volume 10.1 fL (9.4-12.4); Monocytes # (auto) 0.26 K/uL (0.24-0.82); Monocytes % (auto) 4.8 %; Neutrophils # (auto) 2.33 K/uL (1.4-6.5); Neutrophils % (auto) 43.2 %; Platelet Count 151 K/uL (130-400); RDW Coefficient of Variation 13.1 % (11.5-14.5); RDW Standard Deviation 44.3 fL (36.4-46.3); Red Blood Count 4.39 M/uL (4.63-6.08); White Blood Count 5.39 K/ul (4.8-10.8)
[2022-07-25] MEDS: PANTOprazole 40 MG TAB PO SCH (08:46)
[2022-07-25] MEDS: ATORVASTATIN 40 MG TAB PO SCH (08:46)
[2022-07-25] MEDS: FINASTERIDE 5 MG TAB PO SCH (08:46)
[2022-07-25] MEDS: UMECLIDINIUM/VILANTEROL 62.5/25MCG 7 PUFFS/INHALER INH SCH (08:46)
[2022-07-25] MEDS: CHOLECALCIFEROL 1,000 UNITS 25 MCG TAB PO SCH (08:46)
[2022-07-25] MEDS: amLODIPine BESYLATE 5 MG TAB PO SCH (08:46)
[2022-07-25] MEDS: ASPIRIN 81 MG CHEW PO SCH (08:46)
[2022-07-25 09:00] LABS: BUN Creatinine Ratio 17.5 (10-20); Calcium 8.9 mg/dl (8.5-10.1); Creatinine Clr Calc Pharmacy 67.5 ml/min; Est GFR (Non-African American) 69.9 ml/min; Magnesium 1.7 mg/dl (1.7-2.4); Phosphorus 3.4 mg/dl (2.5-4.9); Potassium 3.9 mmol/L (3.5-5.1)
[2022-07-25] MEDS: TAMSULOSIN HCL 0.4 MG CAP PO SCH (19:56)
[2022-07-25] MEDS: ENOXAPARIN INJ 40 MG/0.4 ML SYR SQ SCH (19:56)
--- NOTE | 2022-07-26 08:14 | Hospitalist Progress Note ---
Date of Service July 26, 2022 Assessment & Plan (1) Mild cognitive impairment: Plan: - reports of dementia from family and ED staff - patient AAOx4 on admission - Per family/ponsozyg-by-gbz Lenka, patient was more confused and somewhat unkempt which is unusual for him even though he has dementia - PT/OT ordered -recommend SNF/24-hour care - CM consulted for placement needs - [facility] -He has a history of recurrent UTIs, however UA negative in the ED. CT head, chest x-ray, unremarkable -Patient has diarrhea, per family this seems to be chronic since he had cholecystectomy -stool PCR and KUB to rule out any other underlying condition/infection KUB unremarkable stool sample collection pending (2) COPD with emphysema: Plan: - not in exacerbation - continue home inhalers (3) Paroxysmal atrial tachycardia: Plan: - reportedly new onset Afib in last admission 07/2021 - not continued on AC at that time -continue Aspirin (4) Carotid artery disease: Plan: - reportedly with >70% stenosis bilaterally - not symptomatic and no recent syncope - continue medical management with aspirin and statin (5) Hypertension: Plan: - continue home medications (6) T2DM (type 2 diabetes mellitus): Plan: - not on medication at home - last A1c 7.5% in 07/2021 which is a good goal for this elderly individual with MCI - current A1c 7.4% - monitor BG for now - can add SSI if persistently >180 Plan DVT ppx: lovenox Code Status: DNR/DNI Dispo: med/surg Admission and Anticipated Discharge Date Admission Date: July 24, 2022 Subjective Pt seen in follow up of confusion/ AMS in the setting of dementia On admission however pt seemed alert and oriented Pt brought in by family Discussed w/ jnfzqixg-bx-wnk Lenka over the phone the day after admission - she was able to confirm history Patient confused on and off in the hospital, but can answer simple questions, such as his name, his son and fxtnsfou-nq-lyl's name, current year incontinent of stool, having loose stools, seems to be chronic However would like to obtain PCR of stool sample if available. Still pending collection. Pt is otherwise feeling well, and has no complaints Denies any fevers, chills, chest pain, shortness of breath, abdominal pain Reports that [facility] Per RN, [facility], CM aware Review of Systems Review of Systems: All systems reviewed & are unremarkable except as noted in Subjective Physical Exam Physical Exam: Constitutional:L + obese M, in no acute distress Eyes: PERRL, EOMI, conju nctivae normal, an icteric sclerae ENMT: external ear and n ose normal, oropha rynx normal Neck: supple, thick Respiratory: normal respiratory effort, lungs la nena ar to auscultation BCardiovascular:L RRR, no murmur, no edema Gastrointestinal ( Abdomen): normal bowel sound s, soft, nontender , obese Musculoskeletal: moves extremities Skin: no rashes, warm an d dry Neurologic: awake alert, answe ring simple questi ons appropriately, PERRL, EOMI,no fa ce palsy, no dysar thria, moves extre mities Psychiatric: A+Ox3, euthymic af fect Results & Data Results & Data ([facility]) Vital Signs (Past 12 Hours) Vital Signs Temp Pulse Resp BP Pulse Ox O2 Del Method 07/26/22 07:05 36.3 C L 61 16 160/79 H 94 Room Air 07/25/22 21:52 36.5 C 76 18 152/91 H 94 Room Air Laboratory Results 07/26/22 07/26/22 07/25/22 Range/Units 11:57 08:01 20:44 POC Glucose 215 H 137 H 138 H (70-99) mg/dl Medications Administered Current Inpatient Medications Acetaminophen (Acetaminophen 325 Mg Tab) 650 mg PO Q4H PRN PRN Reason: Pain or Fever Stop: 08/23/22 00:03 Amlodipine Besylate (Amlodipine Besylate 5 Mg Tab) 5 mg PO DAILY BERTRAND Stop: 08/23/22 08:59 Last Admin: 07/25/22 08:46 Dose: 5 mg Aspirin (Aspirin 81 Mg Chew) 81 mg PO DAILY BERTRAND Stop: 08/23/22 08:59 Last Admin: 07/25/22 08:46 Dose: 81 mg Atorvastatin Calcium (Atorvastatin 40 Mg Tab) 40 mg PO DAILY BERTRAND Stop: 08/23/22 08:59 Last Admin: 07/25/22 08:46 Dose: 40 mg Enoxaparin Sodium (Enoxaparin Inj 40 Mg/0.4 Ml Syr) 40 mg SQ HS BERTRAND Stop: 08/23/22 00:59 Last Admin: 07/25/22 19:56 Dose: 40 mg Finasteride (Finasteride 5 Mg Tab) 5 mg PO DAILY BERTRAND Stop: 08/23/22 08:59 Last Admin: 07/25/22 08:46 Dose: 5 mg Pantoprazole Sodium (Pantoprazole 40 Mg Tab) 40 mg PO DAILY BERTRAND Stop: 08/23/22 08:59 Last Admin: 07/25/22 08:46 Dose: 40 mg Polyethylene Glycol (Polyethylene (Miralax) 17 Gm Pack) 17 gm PO DAILY PRN PRN Reason: Constipation Stop: 08/23/22 00:03 Tamsulosin HCl (Tamsulosin Hcl 0.4 Mg Cap) 0.4 mg PO HS BERTRAND Stop: 08/23/22 20:59 Last Admin: 07/25/22 19:56 Dose: 0.4 mg Umeclidinium/Vilanterol (Umeclidinium/Vilanterol 62.5/25mcg 7 Puffs/Inhaler) 1 puffs INH DAILY BERTRAND Stop: 08/23/22 08:59 Last Admin: 07/25/22 08:46 Dose: 1 puffs Vitamin D (Cholecalciferol 1,000 Units 25 Mcg Tab) 2,000 units PO DAILY BERTRAND Stop: 08/23/22 08:59 Last Admin: 07/25/22 08:46 Dose: 2,000 units
[2022-07-26] MEDS: UMECLIDINIUM/VILANTEROL 62.5/25MCG 7 PUFFS/INHALER INH SCH (09:09)
[2022-07-26] MEDS: amLODIPine BESYLATE 5 MG TAB PO SCH (09:10)
[2022-07-26] MEDS: ATORVASTATIN 40 MG TAB PO SCH (09:10)
[2022-07-26] MEDS: FINASTERIDE 5 MG TAB PO SCH (09:10)
[2022-07-26] MEDS: ASPIRIN 81 MG CHEW PO SCH (09:10)
[2022-07-26] MEDS: CHOLECALCIFEROL 1,000 UNITS 25 MCG TAB PO SCH (09:10)
[2022-07-26] MEDS: PANTOprazole 40 MG TAB PO SCH (09:10)
[2022-07-26] MEDS: TAMSULOSIN HCL 0.4 MG CAP PO SCH (19:57)
[2022-07-26] MEDS: ENOXAPARIN INJ 40 MG/0.4 ML SYR SQ SCH (19:57)
[2022-07-27 08:20] LABS: Creatinine Clr Calc Pharmacy 64.2 ml/min; Est GFR (African American) 76.2 ml/min; Est GFR (Non-African American) 65.8 ml/min
[2022-07-27] MEDS: UMECLIDINIUM/VILANTEROL 62.5/25MCG 7 PUFFS/INHALER INH SCH (08:29)
[2022-07-27] MEDS: CHOLECALCIFEROL 1,000 UNITS 25 MCG TAB PO SCH (08:29)
[2022-07-27] MEDS: FINASTERIDE 5 MG TAB PO SCH (08:29)
[2022-07-27] MEDS: amLODIPine BESYLATE 5 MG TAB PO SCH (08:30)
[2022-07-27] MEDS: ASPIRIN 81 MG CHEW PO SCH (08:30)
[2022-07-27] MEDS: PANTOprazole 40 MG TAB PO SCH (08:30)
[2022-07-27] MEDS: ATORVASTATIN 40 MG TAB PO SCH (08:30)
--- NOTE | 2022-07-27 12:57 | Hospitalist Progress Note ---
Date of Service July 27, 2022 Assessment & Plan (1) Mild cognitive impairment: Plan: - reports of dementia from family and ED staff - patient AAOx4 on admission - Per family/rxrweqhh-fc-hfb Lenka, patient was more confused and somewhat unkempt which is unusual for him even though he has dementia - PT/OT ordered -recommend SNF/24-hour care - CM consulted for placement needs - [facility] -He has a history of recurrent UTIs, however UA negative in the ED. CT head, chest x-ray, unremarkable -Patient has diarrhea, per family this seems to be chronic since he had cholecystectomy -stool PCR and KUB to rule out any other underlying condition/infection KUB unremarkable stool sample collection pending (2) COPD with emphysema: Plan: - not in exacerbation - continue home inhalers (3) Paroxysmal atrial tachycardia: Plan: - reportedly new onset Afib in last admission 07/2021 - not continued on AC at that time -continue Aspirin (4) Carotid artery disease: Plan: - reportedly with >70% stenosis bilaterally - not symptomatic and no recent syncope - continue medical management with aspirin and statin (5) Hypertension: Plan: - continue home medications (6) T2DM (type 2 diabetes mellitus): Plan: - not on medication at home - last A1c 7.5% in 07/2021 which is a good goal for this elderly individual with MCI - current A1c 7.4% - monitor BG for now - can add SSI if persistently >180 Plan DVT ppx: lovenox Code Status: DNR/DNI Dispo: med/surg, CM involved in placement Admission and Anticipated Discharge Date Admission Date: July 24, 2022 Subjective Pt seen in follow up of confusion/ AMS in the setting of dementia On admission however pt seemed alert and oriented Pt brought in by family Discussed w/ gqsamksw-si-tom Lenka over the phone the day after admission - she was able to confirm history Patient confused on and off in the hospital, but can answer simple questions, such as his name, his son and jslmnzaj-ga-fvb's name, current year incontinent of stool, having loose stools, seems to be chronic However would like to obtain PCR of stool sample if available. Still pending collection. Pt is otherwise feeling well, and has no complaints Denies any fevers, chills, chest pain, shortness of breath, abdominal pain Family [facility], however per CM, patient is not service connected. CM involved in assisting in placement. Review of Systems Review of Systems: All systems reviewed & are unremarkable except as noted in Subjective Physical Exam Physical Exam: Constitutional:L + obese M, in no acute distress Eyes: PERRL, EOMI, conju nctivae normal, an icteric sclerae ENMT: external ear and n ose normal, oropha rynx normal Neck: supple, thick Respiratory: normal respiratory effort, lungs la nena ar to auscultation Cardiovascular:L RRR, no murmur, no edema Gastrointestinal ( Abdomen): normal bowel sound s, soft, nontender , obese Musculoskeletal: moves extremities Skin: no rashes, warm an d dry Neurologic: awake alert, answe ring simple questi ons appropriately, PERRL, EOMI,no fa ce palsy, no dysar thria, moves extre mities Psychiatric: A+Ox3, euthymic af fect Results & Data Results & Data ([facility]) Vital Signs (Past 12 Hours) Vital Signs Temp Pulse Resp BP Pulse Ox O2 Del Method 07/27/22 08:15 Room Air 07/27/22 07:38 36.5 C 108 H 16 123/82 91 Room Air Laboratory Results 07/27/22 07/27/22 07/26/22 Range/Units 08:02 07:00 20:25 Creatinine 1.02 (0.6-1.4) mg/dl Est Cr Clr Drug Dosing 64.2 ml/min Est GFR ( Amer) 76.2 ml/min Est GFR (Non-Af Amer) 65.8 ml/min POC Glucose 155 H 258 H (70-99) mg/dl 07/26/22 Range/Units 17:09 Creatinine (0.6-1.4) mg/dl Est Cr Clr Drug Dosing ml/min Est GFR ( Amer) ml/min Est GFR (Non-Af Amer) ml/min POC Glucose 120 H (70-99) mg/dl Medications Administered Current Inpatient Medications Acetaminophen (Acetaminophen 325 Mg Tab) 650 mg PO Q4H PRN PRN Reason: Pain or Fever Stop: 08/23/22 00:03 Amlodipine Besylate (Amlodipine Besylate 5 Mg Tab) 5 mg PO DAILY BERTRAND Stop: 08/23/22 08:59 Last Admin: 07/27/22 08:30 Dose: 5 mg Aspirin (Aspirin 81 Mg Chew) 81 mg PO DAILY BERTRAND Stop: 08/23/22 08:59 Last Admin: 07/27/22 08:30 Dose: 81 mg Atorvastatin Calcium (Atorvastatin 40 Mg Tab) 40 mg PO DAILY BERTRAND Stop: 08/23/22 08:59 Last Admin: 07/27/22 08:30 Dose: 40 mg Enoxaparin Sodium (Enoxaparin Inj 40 Mg/0.4 Ml Syr) 40 mg SQ HS BERTRAND Stop: 08/23/22 00:59 Last Admin: 07/26/22 19:57 Dose: 40 mg Finasteride (Finasteride 5 Mg Tab) 5 mg PO DAILY BERTRAND Stop: 08/23/22 08:59 Last Admin: 07/27/22 08:29 Dose: 5 mg Pantoprazole Sodium (Pantoprazole 40 Mg Tab) 40 mg PO DAILY BERTRAND Stop: 08/23/22 08:59 Last Admin: 07/27/22 08:30 Dose: 40 mg Polyethylene Glycol (Polyethylene (Miralax) 17 Gm Pack) 17 gm PO DAILY PRN PRN Reason: Constipation Stop: 08/23/22 00:03 Tamsulosin HCl (Tamsulosin Hcl 0.4 Mg Cap) 0.4 mg PO HS BERTRAND Stop: 08/23/22 20:59 Last Admin: 07/26/22 19:57 Dose: 0.4 mg Umeclidinium/Vilanterol (Umeclidinium/Vilanterol 62.5/25mcg 7 Puffs/Inhaler) 1 puffs INH DAILY BERTRAND Stop: 08/23/22 08:59 Last Admin: 07/27/22 08:29 Dose: 1 puffs Vitamin D (Cholecalciferol 1,000 Units 25 Mcg Tab) 2,000 units PO DAILY BERTRAND Stop: 08/23/22 08:59 Last Admin: 07/27/22 08:29 Dose: 2,000 units
[2022-07-27] MEDS: ENOXAPARIN INJ 40 MG/0.4 ML SYR SQ SCH (19:52)
[2022-07-27] MEDS: TAMSULOSIN HCL 0.4 MG CAP PO SCH (19:52)
[2022-07-28] MEDS: ATORVASTATIN 40 MG TAB PO SCH (08:03)
[2022-07-28] MEDS: CHOLECALCIFEROL 1,000 UNITS 25 MCG TAB PO SCH (08:03)
[2022-07-28] MEDS: FINASTERIDE 5 MG TAB PO SCH (08:03)
[2022-07-28] MEDS: amLODIPine BESYLATE 5 MG TAB PO SCH (08:03)
[2022-07-28] MEDS: UMECLIDINIUM/VILANTEROL 62.5/25MCG 7 PUFFS/INHALER INH SCH (08:03)
[2022-07-28] MEDS: ASPIRIN 81 MG CHEW PO SCH (08:03)
[2022-07-28] MEDS: PANTOprazole 40 MG TAB PO SCH (08:03)
--- NOTE | 2022-07-28 17:38 | Hospitalist Progress Note ---
Date of Service July 28, 2022 Assessment & Plan (1) Mild cognitive impairment: Plan: H/O Dementia as per family As per prior hospitalist Per family/jotltnrv-ee-ddb Lenka, patient was more confused and somewhat unkempt which is unusual for him even though he has dementia - CT Head:No acute intracranial hemorrhage, no evidence of acute territorial infarction or other acute intracranial disease process. -UA negative for UTI -Continue PT/OT Needs rehab placement Chronic Diarrhea H/O Cholecystectomy KUB:No dilated loops of bowel to suggest an obstruction. Stool studies if pt has recurrence of diarrhea (2) COPD with emphysema: Plan: -No signs of exacerbation - continue home inhalers (3) Paroxysmal atrial tachycardia: Plan: -Newly diagnosed Afib last admission 07/2021 - not on chronic AC -continue Aspirin (4) Carotid artery disease: Plan: - reportedly with >70% stenosis bilaterally - not symptomatic and no recent syncope - continue aspirin and statin (5) Hypertension: Plan: - continue home medications (6) T2DM (type 2 diabetes mellitus): Plan: - not on medication at home - last A1c 7.5% in 07/2021 which is a good goal for this elderly individual with MCI - current A1c 7.4% - monitor BG for now - Continue Insulin while hospitalized Plan DVT px: Lovenox SQ Code Status: DNR/DNI Admission and Anticipated Discharge Date Admission Date: July 24, 2022 Subjective Patient is seen and examined at bedside Sitting in chair comfortably this morning during my encounter Denies any chest pain, shortness breath, dizziness, nausea, abdominal pain Waiting for placement Review of Systems Review of Systems: All systems reviewed & are unremarkable except as noted in Subjective Physical Exam Physical Exam: Physical Exam: Vitals signs as noted above General Appearance:Moderately built and nourished, no apparent distress, Elderly Head: normocephalic, Atraumatic Eyes: normal inspection, EOMI Neck: supple, Trachea midline Respiratory/Chest: Normal breath sounds, CTA, No accessory muscle use Cardiovascular: S1, S2, + murmur Abdomen/GI:Soft, Non tender, Bowel sounds present Extremities/Musculoskeletal:normal inspection, no edema Neurologic/Psych:AAOX2, grossly no focal neurological deficits Skin: normal color, warm Results & Data Results & Data ([facility]) Vital Signs (Past 12 Hours) Vital Signs Temp Pulse Resp BP BP Pulse Ox O2 Del Method 07/28/22 14:43 36.4 C L 69 16 128/78 93 Room Air 07/28/22 08:00 Room Air 07/28/22 07:07 36.6 C 83 18 144/76 H 96 Room Air
[2022-07-28] MEDS: TAMSULOSIN HCL 0.4 MG CAP PO SCH (19:56)
[2022-07-28] MEDS: ENOXAPARIN INJ 40 MG/0.4 ML SYR SQ SCH (19:56)
[2022-07-29] MEDS: CHOLECALCIFEROL 1,000 UNITS 25 MCG TAB PO SCH (07:31)
[2022-07-29] MEDS: FINASTERIDE 5 MG TAB PO SCH (07:31)
[2022-07-29] MEDS: ASPIRIN 81 MG CHEW PO SCH (07:31)
[2022-07-29] MEDS: amLODIPine BESYLATE 5 MG TAB PO SCH (07:31)
[2022-07-29] MEDS: ATORVASTATIN 40 MG TAB PO SCH (07:31)
[2022-07-29] MEDS: PANTOprazole 40 MG TAB PO SCH (07:32)
[2022-07-29] MEDS: UMECLIDINIUM/VILANTEROL 62.5/25MCG 7 PUFFS/INHALER INH SCH (07:32)
--- NOTE | 2022-07-29 13:40 | Hospitalist Progress Note ---
Date of Service July 29, 2022 Assessment & Plan (1) Mild cognitive impairment: Plan: H/O Dementia as per family As per prior hospitalist Per family/pwkwxowz-ul-piu Lenka, patient was more confused and somewhat unkempt which is unusual for him even though he has dementia - CT Head:No acute intracranial hemorrhage, no evidence of acute territorial infarction or other acute intracranial disease process. -UA negative for UTI -Continue PT/OT Plan to discharge to rehab facility today Chronic Diarrhea H/O Cholecystectomy KUB:No dilated loops of bowel to suggest an obstruction. Stool studies if pt has recurrence of diarrhea (2) COPD with emphysema: Plan: -No signs of exacerbation - continue home inhalers (3) Paroxysmal atrial tachycardia: Plan: -Newly diagnosed Afib last admission 07/2021 - not on chronic AC -continue Aspirin (4) Carotid artery disease: Plan: - reportedly with >70% stenosis bilaterally - not symptomatic and no recent syncope - continue aspirin and statin (5) Hypertension: Plan: - continue home medications (6) T2DM (type 2 diabetes mellitus): Plan: - not on medication at home - last A1c 7.5% in 07/2021 which is a good goal for this elderly individual with MCI - current A1c 7.4% - monitor BG for now - Continue Insulin while hospitalized Plan DVT px: Lovenox SQ Code Status: DNR/DNI Disposition SNF Admission and Anticipated Discharge Date Admission Date: July 24, 2022 Subjective Patient is seen and examined at bedside States feeling well No new complaints Denies any chest pain, shortness breath, dizziness, nausea, abdominal pain Plan to discharge to rehab facility today Review of Systems Review of Systems: All systems reviewed & are unremarkable except as noted in Subjective Physical Exam Physical Exam: Physical Exam: Vitals signs as noted above General Appearance:Moderately built and nourished, no apparent distress, Elderly Head: normocephalic, Atraumatic Eyes: normal inspection, EOMI Neck: supple, Trachea midline Respiratory/Chest: Normal breath sounds, CTA, No accessory muscle use Cardiovascular: S1, S2, + murmur Abdomen/GI:Soft, Non tender, Bowel sounds present Extremities/Musculoskeletal:normal inspection, no edema Neurologic/Psych:AAOX2, grossly no focal neurological deficits Skin: normal color, warm Results & Data Results & Data ([facility]) Vital Signs (Past 12 Hours) Vital Signs Temp Pulse Resp BP Pulse Ox O2 Del Method 07/29/22 07:09 36.6 C 80 18 144/73 H 93 Room Air
--- NOTE | 2022-07-29 13:46 | Discharge Summary ---
Date of Service July 29, 2022 Admission HPI Per Admitting Provider The patient is an 87 year old man with pmh bilateral carotid artery stenosis, HTN, COPD, pAfib, BPH, GERD, HLD who presented from home with daughter in law who feels the patient is more confused. I attempted to reach daughter by phone but was unsuccessful. Per the patient, he says he lives with his daughter in law and was having some hip pain today so she brought him in. There is some concern that the patient has some degree of MCI vs dementia. He was oriented to person, place, time, and knew who the POTUS is. He denied any fevers or chills, n/v/d, abdominal pain, chest pain, shortness of breath, cough, dysuria, frequency, sore throat, rashes. When asked if he takes any medications for his heart or lungs he denied this but was aware that he has had urologic issues recent and saw a Urologist for the same. He reports being able to walk around and maintain some basic ADLs at home. In the ED, vitals were unremarkable. Labs were significant for Mg 1.5. CTH was unremarkable, CXR negative for pathology. He was admitted to medicine for possible placement pending further discussion with daughter. Admission Exam Per Admitting Provider Physical Exam Constitutional: WD/WN, vitals as above + obese; no acute distress and no altered mental status Eyes: PERRL, conjunctivae normal, anicteric sclerae ENMT: external ear and nose normal, oropharynx normal Neck: trachea midline, no thyromegaly Respiratory: normal respiratory effort, lungs clear to auscultation Cardiovascular: RRR, no murmur, no edema Gastrointestinal (Abdomen): normal bowel sounds, soft, nontender, no hepatosplenomegaly Musculoskeletal: no cyanosis or clubbing, extremities motor strength 5/5 B Skin: no rashes, warm and dry Neurologic: patellar DTR's 2+ bilat, sensation intact and PERRL, EOMI, accommodation nl, no face palsy, no dysarthria Psychiatric: A+Ox3, euthymic affect Principal Diagnosis Mild cognitive impairment Suspected Dementia Chronic Diarrhea H/O Cholecystectomy COPD Paroxysmal atrial tachycardia/Afib DM II CAD Discharge Data Allergies Allergy/AdvReac Type Severity Reaction Status Date / Time propoxyphene Allergy Unknown NAUSEA Verified 07/09/22 10:04 AND VOMITING Consultations 07/24/22 00:29 ED Decision to Admit Stat Procedures Performed CT Head: Findings: Areas of decreased attenuation are present in the periventricular and subcortical white matter bilaterally consistent with small vessel ischemic disease. Generalized cerebral atrophy with commensurate enlargement of the ventricles, sulci, and cisterns is also present. There is no acute intracranial hemorrhage or evidence of acute territorial infarction. No shift of the midline structures, mass effect, or extra-axial abnormalities are shown. Atherosclerotic calcifications are present in the intracranial segments of the internal carotid arteries. Dural calcifications are seen. 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 Imaged portions of the paranasal sinuses and mastoid air cells are clear. The orbits appear normal. There are no acute fractures of the calvaria or scalp swelling. Impression: No acute intracranial hemorrhage, no evidence of acute territorial infarction or other acute intracranial disease process. CXR: FINDINGS: No pneumothorax. No pleural effusions. The cardiac silhouette remains mildly enlarged. No evidence for pulmonary edema. Peripheral hazy densities and interstitial thickening has improved in the interval. This favors a chronic postinflammatory change. IMPRESSION: Peripheral hazy densities with interstitial thickening which has improved in the interval. Therefore, this favors chronic postinflammatory change/scarring. Ordered Studies 07/23/22 19:15 CT head/brain wo con Stat Hospital Course (1) Mild cognitive impairment: H/O Dementia as per family As per prior hospitalist Per family/wnhztztw-li-zpw Lenka, patient was more confused and somewhat unkempt which is unusual for him even though he has dementia - CT Head:No acute intracranial hemorrhage, no evidence of acute territorial infarction or other acute intracranial disease process. -UA negative for UTI -Continue PT/OT Plan to discharge to rehab facility today Chronic Diarrhea H/O Cholecystectomy KUB:No dilated loops of bowel to suggest an obstruction. Stool studies if pt has recurrence of diarrhea (2) COPD with emphysema: -No signs of exacerbation - continue home inhalers (3) Paroxysmal atrial tachycardia: -Newly diagnosed Afib last admission 07/2021 - not on chronic AC -continue Aspirin (4) Carotid artery disease: - reportedly with >70% stenosis bilaterally - not symptomatic and no recent syncope - continue aspirin and statin (5) Hypertension: - continue home medications (6) T2DM (type 2 diabetes mellitus): - not on medication at home - last A1c 7.5% in 07/2021 which is a good goal for this elderly individual with MCI - current A1c 7.4% - monitor BG for now - Continue Insulin while hospitalized Plan DVT px: Lovenox SQ Code Status: DNR/DNI Disposition SNF Total Time Total Time Spent Total Time Spent (In Minutes): 48 minutes Discharge Plan Discharge Items Patient Disposition: Transfer Halfway Fac Reason For Visit: PLACEMENT Discharge Diagnosis: Mild cognitive impairment Suspected Dementia Chronic Diarrhea H/O Cholecystectomy COPD Paroxysmal atrial tachycardia/Afib DM II CAD Condition on Discharge: Good Activity: Per Instructions section Exercise/Sports: Gradually increase as tolerated Non-emergency contact: Primary Care Provider Call non-emergency contact if: you have any medication questions, your symptoms worsen, your pain is concerning for you and you have a fever Follow-up/Referrals: Riya Steele, [Primary Care Provider] - Diet: Carb Consistent or DM2 and Heart Healthy Addtl Attending Provider Instructions: Follow-up with your primary care physician Dr. Steele in 1 week Seek immediate medical attention if your symptoms reoccur or worsen Please take all medications as instructed on discharge list below. Please call if you have any questions or problems. You can reach a [facility] hospitalist on duty at [facility] [address] 24 hours a day by calling [phone] Pending Studies at Discharge: No Stand-Alone Forms: My [facility] Skilled Items Patient informed of condition?: Yes DNR: Yes Discharge Level of Care: Skilled Communicable Disease: No Discharge Prognosis: Stable Lines: None Urinary Catheter: No Medications and DC Order Prescriptions: Continued atorvastatin [Lipitor] 80 mg tablet 40 mg PO DAILY finasteride 5 mg tablet 5 mg PO DAILY omeprazole 20 mg capsule,delayed release(DR/EC) 20 mg PO DAILY tamsulosin 0.4 mg capsule 0.4 mg PO HS amlodipine 5 mg Tablet 5 mg PO DAILY aspirin [Aspirin Childrens] 81 mg Tablet,Chewable 81 mg PO DAILY cholecalciferol (vitamin D3) [Vitamin D3] 25 mcg (1,000 unit) Tablet 2,550 mcg PO DAILY Rx Instructions: take 2 tablets at same time every day albuterol sulfate [Ventolin HFA] 90 mcg/actuation Hfa Aerosol Inhaler 2 puff inhalation QID PRN (Reason: shortness of breath or wheezing) Qty: 8.5 2RF Anoro Ellipta 62.5-25 mcg/actuation Blister With Device 1 ea inhalation DAILY Qty: 60 2RF Discharge Orders: Discharge Order (Routine); Ordered 07/29/22 Ordered By: Dwain Vargas/Other Patient Handouts: Managing Type 2 Diabetes Admission Data Admit Date/Time: 07/24/22 13:35 Attending Provider: Dwain Shelley Admit Provider: Michael Aragon Primary Care Provider: Riya Steele Other Providers: Michael Aragon ; [facility] ; [facility] ; [place],[facility] [place]
== END 2022-07-29 18:44 | DRG 884 ==
LOC: ED 18:58 → 3W 18:58 → SUATTDRO 07-24 00:04 → 3W 07-24 01:26 → SUATTDRO 07-24 13:35